=== PATIENT | male | born 1945 | race Caucasian/White ===

== ENCOUNTER 2023-01-13 14:16 | Inpatient (IN) | payer MEDICARE, SELFPAY ==
[2023-01-13] VITALS (11 sets, daily range): BP systolic 115–144; BP diastolic 48–70; PULSE 99–105; RESP 16–26; TEMP 36.4–37.1; O2SAT 95–98; BMI 26.0
--- NOTE | ~2023-01-13 | XR_ITS ---
EXAMINATION: XR CHEST CLINICAL INFORMATION: Cough COMPARISON: None available. TECHNIQUE: Frontal view of the chest was obtained. FINDINGS: Peribronchial thickening with coarsened interstitial lung markings suggesting underlying infectious/inflammatory etiology versus pulmonary edema. Slight elevation the right hemidiaphragm. Bilateral low lung volumes. No pneumothorax. Trachea is midline. Cardiomediastinal silhouette is not enlarged. No large pleural effusion. Degenerative changes of the thoracolumbar spine and bilateral, testicular joints. Soft tissues are unremarkable. XR/XR chest 1V IMPRESSION: 1. Peribronchial thickening with coarsened interstitial lung markings suggesting underlying infectious/inflammatory etiology versus pulmonary edema. 2. Slight elevation the right hemidiaphragm. 3. Bilateral low lung volumes.
--- NOTE | ~2023-01-13 | US_ITS ---
EXAMINATION: US ABDOMEN LIMITED CLINICAL INFORMATION: Right upper quadrant pain, jaundice. COMPARISON: CT from the same day TECHNIQUE: Real-time imaging of the right upper quadrant abdominal viscera. FINDINGS: PANCREAS: The visualized proximal portion of the pancreas is unremarkable. The distal portion is obscured secondary to overlying bowel gas. LIVER: The liver appears prominent and demonstrates increased echogenicity with coarsened echotexture. No focal hepatic lesion identified. There is no intrahepatic biliary duct dilatation seen. On Doppler evaluation there is reduced flow detected in the main portal vein, possibly nonocclusive thrombus, with reversal of flow in the left portal vein. GALLBLADDER: The gallbladder is physiologically distended without evidence of stones, sludge, polyps, or wall thickening. COMMON BILE DUCT: Normal in caliber measuring 0.3 cm in diameter. RIGHT KIDNEY: No hydronephrosis. No renal calculi or focal parenchymal lesions. The kidney measures 11.5 cm in maximum dimension. FREE FLUID: Mild US/US abdomen limited IMPRESSION: 1. Findings suggestive of portal hypertension, with reduced flow detected in the main portal vein and reversal of flow in the left portal vein. Of note, the portal vein does appear patent on today's earlier contrast-enhanced CT. 2. Mild volume ascites.
--- NOTE | ~2023-01-13 | CT_ITS ---
EXAMINATION: CT HEAD WITHOUT CONTRAST CLINICAL INFORMATION: Altered mental status COMPARISON: None available. TECHNIQUE: Contiguous axial imaging was performed from the skull base to vertex without intravenous administration of contrast. This CT examination was performed using dose optimization techniques as appropriate, variously including the following: *Automated exposure control *Adjustment of mA and/or kV according to patient size (this includes techniques or standardized protocols for targeted exams where dose is matched to indication/reason for exam; i.e. extremities or head) *Use of iterative reconstruction technique DLP: 666 mGy-cm FINDINGS: There is no midline shift. There is no mass effect. There is no hemorrhage. The basal cisterns appear patent. The posterior fossa is grossly within normal limits. No extra-axial collection. Note is made of atrophy and probable scattered white matter ischemic change. The partially visualized sinuses are grossly clear. CT/CT head/brain wo IV con IMPRESSION: Negative acute noncontrast CT of the brain.
--- NOTE | ~2023-01-13 | CT_ITS ---
EXAMINATION: CT ABDOMEN AND PELVIS WITH CONTRAST CLINICAL INFORMATION: Worsening abdominal distention, bruising and paracentesis site. COMPARISON: CT abdomen and pelvis 01/13/2023. TECHNIQUE: Multidetector volumetric images were obtained from the superior aspect of the liver through the pubic symphysis following administration 85 mL of Omnipaque 350 intravenous contrast. Sagittal and coronal reformatted images were obtained on the technologist's workstation. Oral contrast: No This CT examination was performed using dose optimization techniques as appropriate, variously including the following: *Automated exposure control *Adjustment of mA and/or kV according to patient size (this includes techniques or standardized protocols for targeted exams where dose is matched to indication/reason for exam; i.e. extremities or head) *Use of iterative reconstruction technique DLP: 599 mGy-cm FINDINGS: LUNG BASES: Small bilateral pleural effusions. Chronic changes at the lung bases. LIVER, GALLBLADDER, AND BILIARY TREE: Hepatic steatosis with sparing along the gallbladder fossa, heterogeneous liver, relative hypertrophy of the left hepatic lobe and caudate with hypotrophy of the right hepatic lobe consistent with cirrhosis. Recanalized umbilical vein. No biliary ductal dilatation. Gallbladder is not distended. No radiopaque gallstones. PANCREAS: No discrete pancreatic mass or ductal dilatation. SPLEEN: Splenic granuloma. The spleen is mildly enlarged at 12.8 cm. ADRENAL GLANDS: No adrenal mass. KIDNEYS AND URETERS: The kidneys are normal in size, shape, and attenuation. No hydronephrosis, hydroureter, or calculi seen. No perinephric stranding. BLADDER: Unremarkable. GASTROINTESTINAL TRACT: There are esophageal varices along the lower esophagus. The small and large bowel are normal in caliber. No evidence of bowel obstruction. Small volume of ascites which measures simple density. ABDOMINAL WALL: No significant hernia. There is anasarca. More focal fluid along the left lower quadrant abdominal wall is consistent with the reported history of bruising. There is no discrete collection. There is no contrast blush to suggest active extravasation. LYMPH NODES: No adenopathy. VASCULAR: No aortic aneurysm. Atherosclerotic disease. PELVIC VISCERA: The prostate and seminal vesicles are unremarkable. OSSEOUS STRUCTURES: Degenerative changes in the spine. Severe degenerative changes in the right hip and moderate degenerative changes in the left hip. CT/CT abdomen pelvis w IV con IMPRESSION: Stable overall small volume of simple density ascites. Generalized anasarca with more focal fluid along the left abdominal wall consistent with the history of bruising at the paracentesis site. There is no focal fluid collection to suggest hematoma and there is no active extravasation of contrast. Cirrhosis with portal hypertension, ascites, splenomegaly, esophageal varices. Small bilateral pleural effusions. Fleischner guidelines were followed.
--- NOTE | ~2023-01-13 | US_ITS ---
EXAMINATION: Ultrasound-guided paracentesis. CLINICAL INDICATIONS: Ascites: TECHNIQUE: Following explaining ultrasound-guided paracentesis procedure, benefits and risk, a written consent was obtained. Patient was placed supine on ultrasound stretcher and pulmonary ultrasound imaging was obtained through the abdomen. An optimal site was selected along the left mid to lower quadrant following preliminary ultrasound imaging. The optimal site was marked on the skin and draped in usual sterile manner with 2% chlorhexidine solution. 1% lidocaine was injected puncture site. Through a small skin incision a 5 Ivorian Yueh catheter was advanced into the peritoneal space. After observing fluid return, stylet was withdrawn and 50 mL syringe attached to the Yueh catheter. Approximately 40 mL of clear yellowish fluid was aspirated and sent to lab. The catheter was subsequently removed and complete hemostasis achieved from puncture site. Simple Band-Aid applied postprocedure. Patient tolerated procedure extremely well. FINDINGS: On pulmonary ultrasound imaging there is a small amount of free fluid seen in the left lower quadrant. Approximately 40 mL of clear yellowish fluid was drained from the left lower quadrant and sent to lab as per referring physician's orders. US/US paracentesis abd w/image IMPRESSION: Successful diagnostic paracentesis performed without immediate complications.
--- NOTE | ~2023-01-13 | CT_ITS ---
EXAMINATION: CT CHEST WITHOUT CONTRAST CLINICAL INFORMATION: Fever. Question pneumonia. COMPARISON: Previous CT of the chest December 2022 and abdomen and pelvis 01/17/2023 TECHNIQUE: Multidetector volumetric CT imaging of the chest was done. Axial MIP volume rendering provided. Sagittal and coronal reformatted images were obtained. This CT examination was performed using dose optimization techniques as appropriate, variously including the following: *Automated exposure control *Adjustment of mA and/or kV according to patient size (this includes techniques or standardized protocols for targeted exams where dose is matched to indication/reason for exam; i.e. extremities or head) *Use of iterative reconstruction technique DLP: 262 mGy-cm FINDINGS: LUNGS: Increased peripheral or subpleural reticular markings. This is seen diffusely throughout the lungs but greatest at the lung bases. There is mild right lower lobe bronchiolectasis. No honeycombing is seen. There is some new patchy areas of groundglass attenuation seen in the right upper lobe and denser areas of atelectasis or consolidation in both dependent lower lobes at the lung bases questionable for pneumonia versus acute alveolitis. Irregular parenchymal density in the right upper lobe axial image 23 series 2 appears unchanged. MEDIASTINUM: Small calcified and noncalcified mediastinal and hilar lymph nodes. No enlarged lymph nodes. Upper normal heart size. No pericardial effusion. Atherosclerotic disease. Normal caliber thoracic aorta. CORONARY ARTERY CALCIFICATION: Moderate PLEURA: New small bilateral pleural effusions, left greater than right. AXILLA: No lymphadenopathy. Dependent subcutaneous edema in the chest wall. UPPER ABDOMEN: Enlarged fatty liver. Small amount of ascites. OSSEOUS STRUCTURES: Degenerative changes of the spine. CT/CT chest wo IV con IMPRESSION: Evidence of interstitial lung disease. New patchy groundglass attenuation areas in the right upper lobe and denser atelectasis or small infiltrates in the dependent bilateral lower lobes. Stable abnormal parenchymal density in the right upper lobe. Again, right upper lobe neoplasm cannot be excluded. New small bilateral pleural effusions, left greater than right. Fleischner guidelines were followed.
--- NOTE | ~2023-01-13 | XR_ITS ---
EXAMINATION: XR LUMBOSACRAL SPINE CLINICAL INFORMATION: Chronic low back pain. COMPARISON: CT abdomen of 01/17/2023 and 01/13/2023. TECHNIQUE: Three views of the lumbosacral spine. FINDINGS: There are 5 nonrib-bearing lumbar vertebrae present. There is an inferior endplate compression fracture of T12 without significant loss of height. This was present on recent CT scan of the abdomen of 01/13/2023. There is marked narrowing of the L2-L3 disc space with marginal spurring. There is multilevel lateral spurring of the lumbar spine. There is sacralization of the left side of L5. There is bilateral facet arthropathy present L3 through S1. There is severe degenerative joint disease seen involving the right hip with loss of joint space superiorly, prominent spurring, subchondral cyst formation, and femoral head deformity superiorly. Nonaneurysmal calcified infrarenal abdominal aorta is present. XR/XR lumbar spine 2-3V IMPRESSION: Multilevel lumbar spondylosis without acute fracture or spondylolisthesis identified since recent CT scan of 01/13/2023. Sacralization left side of L5. Inferior endplate compression fracture of T12 without significant loss of height.
--- NOTE | ~2023-01-13 | US_ITS ---
EXAMINATION: Ultrasound-guided paracentesis CLINICAL INFORMATION: Ascites COMPARISON: Previous CT 01/17/2023 and ultrasound-guided paracentesis 12/20/19292022 TECHNIQUE: Procedure and risks and benefits including bleeding and infection were discussed with the patient and informed consent was obtained. The left lower quadrant was prepped and draped in the usual sterile fashion. The skin and soft tissues were anesthetized with 1% lidocaine plain. Using ultrasound guidance and a 5 Polish one stick system, access to the ascitic fluid was obtained. 1.9 L of dark clear yellow fluid was removed. Diagnostic specimen was sent. FINDINGS: There is a small to moderate amount of ascites. US/US paracentesis abd w/image IMPRESSION: Ultrasound-guided paracentesis.
--- NOTE | ~2023-01-13 | CT_ITS ---
Indication: Shortness of breath EXAMINATION: Contrast enhanced CT of the chest abdomen pelvis. 85 mL Omnipaque 350. This CT examination was performed using dose optimization techniques as appropriate, variously including the following: *Automated exposure control *Adjustment of mA and/or kV according to patient size (this includes techniques or standardized protocols for targeted exams where dose is matched to indication/reason for exam; i.e. extremities or head) *Use of iterative reconstruction technique. Radiation dose 442. CT chest; The thoracic inlet is within normal limits. The axillary regions are unremarkable. Mild to moderate coronary calcifications. There is no bulky central adenopathy. The hilar structures are felt to be unremarkable. Imaging of the lung handy. Right lung; Evidence of COPD. There is a density in the right upper lung. Image 194. Measures 1.2 cm. Findings suggest spiculation in the margins. Tumor needs to be considered. Coarse reticular honeycombing is seen in the lungs. Left lung; Motion limits evaluation. Again some coarse reticular markings and honeycombing most noted at the bases and periphery of the lungs similar to the contralateral side. Upper abdomen; Liver is heterogeneous in attenuation of uncertain etiology. The liver contour is corrugated. Findings would favor cirrhosis. Mild ascites in the upper abdomen and mild in the pelvis. The spleen is within normal limits. . The gallbladder is within normal limits The pancreas is felt to be unremarkable. Adrenal glands within normal limits. The kidneys are in the nephrographic phase. Within normal limits Mildly thick-walled bladder could be cystitis or hypertrophy The bowel pattern is felt to be nonobstructing. The abdominal wall is within normal limits. There is no evidence for bulky adenopathy. Atherosclerotic changes in the vasculature is noted. Review of the bone windows does not demonstrate evidence for bony lesion. Degenerative change. Severe degeneration in the right hip. Mild compression injury in the inferior endplate 12 but there is preservation of the posterior height. CT/CT abdomen pelvis w IV con IMPRESSION: In the chest there is evidence of COPD. Density in the right upper lung as described. Malignancy needs to be considered. Recommend PET/CT at this time to further evaluate. Mild ascites in the abdomen pelvis and corrugated contour to the liver which would be consistent with cirrhosis. Liver is heterogeneous in attenuation. Recommend ultrasound or MRI to exclude an underlying lesion Other findings are as described above
--- NOTE | 2023-01-13 14:48 | ECG_ITS ---
Test Reason : LIVER DZ Blood Pressure : / mmHG Vent. Rate : 107 BPM Atrial Rate : 107 BPM P-R Int : 168 ms QRS Dur : 068 ms QT Int : 366 ms P-R-T Axes : 033 -06 033 degrees QTc Int : 488 ms Sinus tachycardia Nonspecific T wave abnormality Abnormal ECG No previous ECGs available Referred By: Whitney Garcia Electronically Signed By:ALLYSON LALA MD
--- NOTE | 2023-01-13 15:18 | ED.GENADULT ---
HPI - General Adult General Stated complaint: WEAK,JAUNDICE,DISTENDED ABD PER EMS Time Seen by Provider: 01/13/23 14:36 Source: patient, family and EMS Mode of arrival: EMS History of Present Illness HPI narrative: 77-year-old male who arrives via EMS with significant weakness, jaundice, mildly distended abdomen, patient himself struggles to be a good historian, he is unaware where he is currently but otherwise states that he has not had any falls recently denies any did nausea or vomiting, denies any fever or chills or shortness of breath. He does endorse that he has had bloody stools. In addition, patient reports that he used to drink a lot of alcohol. Related Data Allergies Allergy/AdvReac Type Severity Reaction Status Date / Time Unable to Assess Allergy Verified 01/13/23 14:48 Review of Systems Review of Systems: Pertinent positives and negatives as stated in HPI but limited given patient's mental status. PMFSH Past Medical History Source: nursing notes reviewed Social History Social History Advance Directives: No Physical Exam ED Vital Signs: Vital Signs - 24 hr 01/13/23 15:18 01/13/23 16:00 Temperature 97.7 F Pulse Rate 103 H 99 Respiratory Rate 19 26 H Blood Pressure 136/58 L 134/61 Pulse Oximetry 96 95 Oxygen Delivery Method Room Air Room Air VITAL SIGNS: Reviewed. GENERAL: Well developed, well nourished, in no acute distress. HEAD: Normocephalic/atraumatic EYES: PERRLA, EOMI, bilateral scleral icterus EARS: Ext canals without abnormality, TMs non-bulging and non-erythematous NOSE: Nares patent bilateral OROPHARYNX: no oral lesions noted, posterior pharynx clear, dry mucosa NECK: Supple, no adenopathy LUNGS: Normal breath sounds. No adventitious sounds or accessory muscle use. SpO2<95> CARDIOVASCULAR: Regular rate and rhythm without noted murmurs, no JVD or lower extremity edema. ABDOMEN: Soft, diffuse tenderness to palpation, bilateral flank ecchymosis noted, non-distended with hypoactive bowel sounds ANJANA: There is significant superficial desquamation of the surrounding anal rectal area, please refer to attached images, there is an inflamed hemorrhoid, soft stool within the rectal vault that is melanotic in nature no gross hematochezia noted MUSCULOSKELETAL: No tenderness, deformities, or effusions noted on gross inspection, but considerable ecchymotic areas noted to all extremities. EXTREMITIES: No cyanosis, clubbing or edema. SKIN: Inspection of the skin reveals no rashes, significant jaundice NEUROLOGIC: Alert and oriented x 2. Strength and sensation to light touch were grossly intact x 4. Medical Decision Making Medical Decision Making [facility] Narrative: This is a 77-year-old male with history and clinical presentation, DDX: Metabolic encephalopathy, liver failure, GI bleed, possible pancreatic pathology as it is unclear whether not the ecchymosis noted to bilateral flanks is consistent with Higgins Reynolds sign or simply indicative of falls that the patient does not recall. I have reviewed the investigations this far and hematologic indices are consistent with a leukocytosis/left shift and bandemia which may in part be explained by hemo concentration, however will treat by obtaining lactic acid/blood cultures as well as administering antibiotics. Signed out to Dr. Kurtz Differential Diagnosis Differential Diagnoses: The differential diagnosis associated with the presentation includes Please see the discussion above Admission/Observation Consideration of admission/observation: Escalation of care including admission/observation considered Please see the discussion above Lab Data [facility] Lab Attestation statement: I reviewed the patient's lab results. Please see the discussion above 01/13/23 15:38 01/13/23 15:38 Labs: Lab Results 01/13/23 01/13/23 01/13/23 Range/Units 15:37 15:38 15:38 WBC 18.8 H (4.8-10.8) X10*3/uL RBC 3.39 L (4.60-5.80) X10*6/uL Hgb 11.3 L (14.0-18.0) g/dl Hct 30.3 L (42.0-52.0) % MCV 89.4 (80.0-98.0) fL MCH 33.3 H (27.0-33.0) pg MCHC 37.3 H (31.0-36.0) g/dl RDW 14.9 (11.0-16.0) % Plt Count 248 (160-400) X10*3/uL MPV 10.4 (9.4-12.4) fL Immature Gran % (Auto) 3.0 H (0.0-0.4) % Neut % (Auto) 84.8 H (45-73) % Lymph % (Auto) 4.0 L (20-40) % Callahan % (Auto) 7.4 (2-11) % Eos % (Auto) 0.4 (0-4) % Baso % (Auto) 0.4 (0-2) % Lymph # (Auto) 0.8 L (1.2-4.9) X10*3/uL Callahan # (Auto) 1.4 H (0.1-1.2) X10*3/uL Eos # (Auto) 0.1 (0.0-0.4) X10*3/uL Baso # (Auto) 0.1 (0.0-0.2) X10*3/uL Abs Immat Gran (auto) 0.57 H (0.00-0.03) X10*3/uL Absolute Neuts (auto) 16.0 H (2.0-8.3) x10*3/uL Absolute Nucleated RBC 0.020 H (0.0-0.012) X10*3/uL Nucleated RBC % (auto) 0.1 (0.0-0.2) /100WBC PT 23.6 H (11.1-13.3) SEC INR 1.9 H (0.9-1.1) Sodium (135-145) mmol/L Potassium (3.3-5.1) mmol/L Chloride (96-108) mmol/L Carbon Dioxide (22-29) mmol/L Anion Gap (12-20) BUN (9-16) mg/dL Creatinine (0.5-1.4) mg/dL Estim Creat Clear Calc Estimated GFR Random Glucose (60-115) mg/dL Lactic Acid 2.5 H* (0.5-2.0) mmol/L Calcium (8.4-10.2) mg/dL Total Bilirubin (0.0-1.0) mg/dL AST (5-37) U/L ALT (0-40) U/L Alkaline Phosphatase (39-117) U/L Ammonia (13-55) umol/L Troponin I High Sens (<3.5-35.0) ng/L Total Protein (6.5-8.0) g/dL Albumin (3.5-5.0) g/dL Urine Color Urine Appearance Urine pH (5.0-9.0) Ur Specific [place] (1.005-1.025) Urine Protein (Neg-Trace) mg/dL Urine Glucose (UA) (Negative) mg/dL Urine Ketones (Negative) mg/dL Urine Blood (Negative) Urine Nitrite (Negative) Ur Leukocyte Esterase (Negative) Urine RBC (0-2) /HPF Urine WBC (0-5) /HPF Ur Squamous Epith Cells (0-2) /HPF Urine Bacteria (None Seen) Hyaline Casts (0-2) /LPF Stool Occult Blood (NEGATIVE) 01/13/23 01/13/23 01/13/23 Range/Units 15:38 15:39 15:46 WBC (4.8-10.8) X10*3/uL RBC (4.60-5.80) X10*6/uL Hgb (14.0-18.0) g/dl Hct (42.0-52.0) % MCV (80.0-98.0) fL MCH (27.0-33.0) pg MCHC (31.0-36.0) g/dl RDW (11.0-16.0) % Plt Count (160-400) X10*3/uL MPV (9.4-12.4) fL Immature Gran % (Auto) (0.0-0.4) % Neut % (Auto) (45-73) % Lymph % (Auto) (20-40) % Callahan % (Auto) (2-11) % Eos % (Auto) (0-4) % Baso % (Auto) (0-2) % Lymph # (Auto) (1.2-4.9) X10*3/uL Callahan # (Auto) (0.1-1.2) X10*3/uL Eos # (Auto) (0.0-0.4) X10*3/uL Baso # (Auto) (0.0-0.2) X10*3/uL Abs Immat Gran (auto) (0.00-0.03) X10*3/uL Absolute Neuts (auto) (2.0-8.3) x10*3/uL Absolute Nucleated RBC (0.0-0.012) X10*3/uL Nucleated RBC % (auto) (0.0-0.2) /100WBC PT (11.1-13.3) SEC INR (0.9-1.1) Sodium 126 L (135-145) mmol/L Potassium 4.6 (3.3-5.1) mmol/L Chloride 94 L (96-108) mmol/L Carbon Dioxide 21 L (22-29) mmol/L Anion Gap 16 (12-20) BUN 36 H (9-16) mg/dL Creatinine 0.62 (0.5-1.4) mg/dL Estim Creat Clear Calc TNP Estimated GFR > 60 Random Glucose 130 H (60-115) mg/dL Lactic Acid (0.5-2.0) mmol/L Calcium 8.2 L (8.4-10.2) mg/dL Total Bilirubin 25.0 H (0.0-1.0) mg/dL AST 115 H (5-37) U/L ALT 46 H (0-40) U/L Alkaline Phosphatase 146 H (39-117) U/L Ammonia 79 H (13-55) umol/L Troponin I High Sens < 2.7 (<3.5-35.0) ng/L Total Protein 5.5 L (6.5-8.0) g/dL Albumin 2.5 L (3.5-5.0) g/dL Urine Color Urine Appearance Urine pH (5.0-9.0) Ur Specific [place] (1.005-1.025) Urine Protein (Neg-Trace) mg/dL Urine Glucose (UA) (Negative) mg/dL Urine Ketones (Negative) mg/dL Urine Blood (Negative) Urine Nitrite (Negative) Ur Leukocyte Esterase (Negative) Urine RBC (0-2) /HPF Urine WBC (0-5) /HPF Ur Squamous Epith Cells (0-2) /HPF Urine Bacteria (None Seen) Hyaline Casts (0-2) /LPF Stool Occult Blood (NEGATIVE) 01/13/23 01/13/23 Range/Units 15:57 16:13 WBC (4.8-10.8) X10*3/uL RBC (4.60-5.80) X10*6/uL Hgb (14.0-18.0) g/dl Hct (42.0-52.0) % MCV (80.0-98.0) fL MCH (27.0-33.0) pg MCHC (31.0-36.0) g/dl RDW (11.0-16.0) % Plt Count (160-400) X10*3/uL MPV (9.4-12.4) fL Immature Gran % (Auto) (0.0-0.4) % Neut % (Auto) (45-73) % Lymph % (Auto) (20-40) % Callahan % (Auto) (2-11) % Eos % (Auto) (0-4) % Baso % (Auto) (0-2) % Lymph # (Auto) (1.2-4.9) X10*3/uL [place]ahan # (Auto) (0.1-1.2) X10*3/uL Eos # (Auto) (0.0-0.4) X10*3/uL Baso # (Auto) (0.0-0.2) X10*3/uL Abs Immat Gran (auto) (0.00-0.03) X10*3/uL Absolute Neuts (auto) (2.0-8.3) x10*3/uL Absolute Nucleated RBC (0.0-0.012) X10*3/uL Nucleated RBC % (auto) (0.0-0.2) /100WBC PT (11.1-13.3) SEC INR (0.9-1.1) Sodium (135-145) mmol/L Potassium (3.3-5.1) mmol/L Chloride (96-108) mmol/L Carbon Dioxide (22-29) mmol/L Anion Gap (12-20) BUN (9-16) mg/dL Creatinine (0.5-1.4) mg/dL Estim Creat Clear Calc Estimated GFR Random Glucose (60-115) mg/dL Lactic Acid (0.5-2.0) mmol/L Calcium (8.4-10.2) mg/dL Total Bilirubin (0.0-1.0) mg/dL AST (5-37) U/L ALT (0-40) U/L Alkaline Phosphatase (39-117) U/L Ammonia (13-55) umol/L Troponin I High Sens (<3.5-35.0) ng/L Total Protein (6.5-8.0) g/dL Albumin (3.5-5.0) g/dL Urine Color Dark Yellow Urine Appearance Cloudy Urine pH 6.0 (5.0-9.0) Ur Specific [place] 1.020 (1.005-1.025) Urine Protein Trace (Neg-Trace) mg/dL Urine Glucose (UA) Negative (Negative) mg/dL Urine Ketones Negative (Negative) mg/dL Urine Blood Negative (Negative) Urine Nitrite Positive H (Negative) Ur Leukocyte Esterase Small (1+) H (Negative) Urine RBC 0-2 (0-2) /HPF Urine WBC 0-5 (0-5) /HPF Ur Squamous Epith Cells 0-2 (0-2) /HPF Urine Bacteria None Seen (None Seen) Hyaline Casts 0-2 (0-2) /LPF Stool Occult Blood POSITIVE (NEGATIVE) Independent Interpretation I performed an independent interpretation of an: EKG Interpretation: Sinus tachycardia, HR-107, no STEMI, [place]/QRS/QTC is within normal limits. External Record Review Records requested from [facility] and Critical Care Time Critical Care Time Critical Care Time: Yes Total Critical Care Time: 45 Attestation: I personally attest to this time spent taking care of the patient. Discharge Plan Discharge Clinical Impression: Metabolic encephalopathy, Hyperammonemia Patient Disposition: Still a Patient
[2023-01-13 15:54] LABS: MANUAL DIFF FLAG NO
[2023-01-13 15:55] LABS: Basophils Absolute Auto 0.1 X10*3/uL (0.0-0.2); Basophils Percent Auto 0.4 % (0-2); Eosinophils Absolute Auto 0.1 X10*3/uL (0.0-0.4); Eosinophils Percent Auto 0.4 % (0-4); Hematocrit 30.3 % (42.0-52.0); Hemoglobin 11.3 g/dl (14.0-18.0); Imm Gran Abs Auto 0.57 X10*3/uL (0.00-0.03); Lymphocytes Absolute Auto 0.8 X10*3/uL (1.2-4.9); Mean Corpuscular HGB Conc 37.3 g/dl (31.0-36.0); Mean Corpuscular Hemoglobin 33.3 pg (27.0-33.0); Mean Corpuscular Volume 89.4 fL (80.0-98.0); Mean Platelet Volume 10.4 fL (9.4-12.4); Monocytes Absolute Auto 1.4 X10*3/uL (0.1-1.2); Monocytes Percent Auto 7.4 % (2-11); NRBC Pct Auto 0.1 /100WBC (0.0-0.2); Neutrophils Percent Auto 84.8 % (45-73); Platelet Count 248 X10*3/uL (160-400); Red Blood Count 3.39 X10*6/uL (4.60-5.80); Red Cell Distribution Width 14.9 % (11.0-16.0); White Blood Count 18.8 X10*3/uL (4.8-10.8)
[2023-01-13 16:01] LABS: INTERNATIONAL NORM RATIO 1.9 (0.9-1.1); Prothrombin Time 23.6 SEC (11.1-13.3)
[2023-01-13 16:04] LABS: OBS1 POSITIVE (NEGATIVE)
[2023-01-13 16:05] LABS: OBS Int Ctl Valid YES
[2023-01-13 16:08] LABS: Ammonia 79 umol/L (13-55)
[2023-01-13 16:19] LABS: Alanine Aminotransferase 46 U/L (0-40); Albumin Level 2.5 g/dL (3.5-5.0); Alkaline Phosphatase 146 U/L (39-117); Anion Gap 16 (12-20); Aspartate Amino Transferase 115 U/L (5-37); Blood Urea Nitrogen 36 mg/dL (9-16); Calcium 8.2 mg/dL (8.4-10.2); Carbon Dioxide 21 mmol/L (22-29); Chloride 94 mmol/L (96-108); Estimated Glomerular Filt Rate > 60; Glucose Random 130 mg/dL (60-115); Potassium 4.6 mmol/L (3.3-5.1); Sodium 126 mmol/L (135-145); Total Protein 5.5 g/dL (6.5-8.0)
[2023-01-13 16:21] LABS: Lactic Acid 2.5 mmol/L (0.5-2.0)
[2023-01-13 16:23] LABS: Troponin-I High Sensitivity < 2.7 ng/L (<3.5-35.0)
[2023-01-13 16:23] LABS: Appearance Urine Cloudy; Color Urine Dark Yellow; Glucose Urine UA Negative (Negative); Leukocyte Esterase Urine Small (1+) (Negative); Nitrite Urine Positive (Negative); UMIC TRIGGER UACC YES; Urine Blood Negative (Negative); Urine Ketones Negative (Negative); Urine Protein Trace mg/dL (Neg-Trace)
--- NOTE | 2023-01-13 16:26 | PC.NURSE ---
labs, urine, stool guiac sent, blood bank sent. blood culture x2 in process of being drawn.voided x1 400+cc. family at bedside. talking w/o distress. piv placed.
[2023-01-13 16:30] LABS: Bacteria Urine None Seen (None Seen); Hyaline Casts Urine 0-2 /LPF (0-2); RBC Urine 0-2 /HPF (0-2); Squamous Epithelial Cell Urine 0-2 /HPF (0-2); UACC Culture Trigger YES; WBC Urine 0-5 /HPF (0-5)
--- NOTE | 2023-01-13 17:07 | PC.NURSE ---
called pharmacy to confirm that cefepime is not penicillin as pt has allergy to PCNs per family
[2023-01-13 17:17] LABS: Ethanol < 10 mg/dL
[2023-01-13] MEDS: cefEPime HCl 2 GM in 0.9 % Sodium Chloride 50 ML IV (17:24)
--- NOTE | 2023-01-13 17:29 | PC.NURSE ---
pharmacy/md lara confirmed cefepime ok to give w PCN allergy. pt in CT scan
[2023-01-13 17:52] LABS: Reflex Lactate? Lactic Acid Added
[2023-01-13] MEDS: Lactulose 20 GM/30 ML SOLUTION 10 GM PO (17:57)
[2023-01-13] MEDS: Pantoprazole Sodium 40 MG/10 ML VIAL 80 MG IVPUSH (17:58)
--- NOTE | 2023-01-13 18:04 | PC.NURSE ---
resting calm coopreative. no distress. back from ct scan
[2023-01-13] MEDS: iohexoL 350 MG/ML 100 ML INFUS..BTL IV (18:12)
--- NOTE | 2023-01-13 18:54 | MHC.EDTECH ---
PATIENT WAS SOILED WITH DARK STOOL,RN AWARE OF DARK STOOL ,CARE GIVEN AND BEDDING CHANGE ,VITALS SIGN TAKEN .
--- NOTE | 2023-01-13 19:14 | MHC.EDTECH ---
PATIENT LACTIC ACID DRAWN AND SENT TO LAB .
[2023-01-13 20:15] LABS: ~Lactic Acid-LAB USE ONLY 2.3 mmol/L (0.5-2.0)
[2023-01-13 21:16] LABS: Reflex Lactate? 2 Y
--- NOTE | 2023-01-13 21:17 | MHC.EDTECH ---
PATIENT HAS A LARGE LOOSE BLACK BOWEL MOVEMENT IN THE BED ,CARE GIVEN AND BEDDING CHANGE ,VITALS SIGN TAKEN ,PT RESTING QUIETLY IN BED BELONGINGS LIST DONE .
[2023-01-13 21:21] LABS: OBS Int Ctl Valid YES; OBS1 POSITIVE (NEGATIVE)
--- NOTE | 2023-01-13 21:45 | P.HPHOSP_ITS ---
History of Present Illness Date of Service: 01/13/23 Attending physician on admission: Alejandro Price Chief Complaint: Generalized weakness Pt is a 77-year-old male with a PMH significant for? who presents to the ED with? In the ED labs were significant for CXR showed CT? EKG demonstrated Pt was treated with Pt will be admitted to the hospital [facility] Social History Alcohol intake: former Smoked in Last 30 Days: No Use of substances other than those prescribed or required for medical reasons: No Advance Directives: No Meds Allergies Allergy/AdvReac Type Severity Reaction Status Date / Time Penicillins Allergy Anaphylaxis Verified 01/13/23 17:00 Physical Exam Vital Signs and Narrative: Vital Signs: Last Vital Signs Temp 98.5 F 01/13/23 21:13 Pulse 104 H 01/13/23 21:13 Resp 20 01/13/23 21:13 BP 131/60 01/13/23 21:13 Pulse Ox 98 01/13/23 21:13 O2 Del Method Room Air 01/13/23 21:13 BMI result Body Mass Index 26.0 Results Labs 01/13/23 15:38 01/13/23 15:38 Labs: Laboratory Results - last 24 hr 01/13/23 01/13/23 01/13/23 15:37 15:38 15:38 MCV 89.4 MCH 33.3 H MCHC 37.3 H RDW 14.9 Plt Count 248 MPV 10.4 Immature Gran % (Auto) 3.0 H Neut % (Auto) 84.8 H Lymph % (Auto) 4.0 L [place] % (Auto) 7.4 Eos % (Auto) 0.4 Baso % (Auto) 0.4 Lymph # (Auto) 0.8 L [place] # (Auto) 1.4 H Eos # (Auto) 0.1 Baso # (Auto) 0.1 Abs Immat Gran (auto) 0.57 H Absolute Neuts (auto) 16.0 H Absolute Nucleated RBC 0.020 H Nucleated RBC % (auto) 0.1 PT 23.6 H INR 1.9 H Anion Gap Estim Creat Clear Calc Estimated GFR Random Glucose Lactic Acid 2.5 H* Lactic Acid F/U @ 2Hr Calcium Total Bilirubin AST ALT Alkaline Phosphatase Ammonia Total Protein Albumin Urine Color Urine Appearance Urine pH Ur Specific [place] Urine Protein Urine Glucose (UA) Urine Ketones Urine Blood Urine Nitrite Ur Leukocyte Esterase Urine RBC Urine WBC Ur Squamous Epith Cells Urine Bacteria Hyaline Casts Stool Occult Blood Ethyl Alcohol Blood Type Antibody Screen 01/13/23 01/13/23 01/13/23 15:38 15:39 15:57 MCV MCH MCHC RDW Plt Count MPV Immature Gran % (Auto) Neut % (Auto) Lymph % (Auto) [place] % (Auto) Eos % (Auto) Baso % (Auto) Lymph # (Auto) [place] # (Auto) Eos # (Auto) Baso # (Auto) Abs Immat Gran (auto) Absolute Neuts (auto) Absolute Nucleated RBC Nucleated RBC % (auto) PT INR Anion Gap 16 Estim Creat Clear Calc TNP Estimated GFR > 60 Random Glucose 130 H Lactic Acid Lactic Acid F/U @ 2Hr Calcium 8.2 L Total Bilirubin 25.0 H AST 115 H ALT 46 H Alkaline Phosphatase 146 H Ammonia 79 H Total Protein 5.5 L Albumin 2.5 L Urine Color Urine Appearance Urine pH Ur Specific [place] Urine Protein Urine Glucose (UA) Urine Ketones Urine Blood Urine Nitrite Ur Leukocyte Esterase Urine RBC Urine WBC Ur Squamous Epith Cells Urine Bacteria Hyaline Casts Stool Occult Blood POSITIVE Ethyl Alcohol < 10 Blood Type Antibody Screen 01/13/23 01/13/23 01/13/23 15:57 16:13 19:13 MCV MCH MCHC RDW Plt Count MPV Immature Gran % (Auto) Neut % (Auto) Lymph % (Auto) [place] % (Auto) Eos % (Auto) Baso % (Auto) Lymph # (Auto) [place] # (Auto) Eos # (Auto) Baso # (Auto) Abs Immat Gran (auto) Absolute Neuts (auto) Absolute Nucleated RBC Nucleated RBC % (auto) PT INR Anion Gap Estim Creat Clear Calc Estimated GFR Random Glucose Lactic Acid Lactic Acid F/U @ 2Hr 2.3 H* Calcium Total Bilirubin AST ALT Alkaline Phosphatase Ammonia Total Protein Albumin Urine Color Dark Yellow Urine Appearance Cloudy Urine pH 6.0 Ur Specific [place] 1.020 Urine Protein Trace Urine Glucose (UA) Negative Urine Ketones Negative Urine Blood Negative Urine Nitrite Positive H Ur Leukocyte Esterase Small (1+) H Urine RBC 0-2 Urine WBC 0-5 Ur Squamous Epith Cells 0-2 Urine Bacteria None Seen Hyaline Casts 0-2 Stool Occult Blood Ethyl Alcohol Blood Type O Positive Antibody Screen NEGATIVE 01/13/23 21:15 MCV MCH MCHC RDW Plt Count MPV Immature Gran % (Auto) Neut % (Auto) Lymph % (Auto) [place] % (Auto) Eos % (Auto) Baso % (Auto) Lymph # (Auto) [place] # (Auto) Eos # (Auto) Baso # (Auto) Abs Immat Gran (auto) Absolute Neuts (auto) Absolute Nucleated RBC Nucleated RBC % (auto) PT INR Anion Gap Estim Creat Clear Calc Estimated GFR Random Glucose Lactic Acid Lactic Acid F/U @ 2Hr Calcium Total Bilirubin AST ALT Alkaline Phosphatase Ammonia Total Protein Albumin Urine Color Urine Appearance Urine pH Ur Specific [place] Urine Protein Urine Glucose (UA) Urine Ketones Urine Blood Urine Nitrite Ur Leukocyte Esterase Urine RBC Urine WBC Ur Squamous Epith Cells Urine Bacteria Hyaline Casts Stool Occult Blood POSITIVE Ethyl Alcohol Blood Type Antibody Screen Imaging Radiologist's Impressions: Impressions Chest X-Ray 01/13/23 14:50 IMPRESSION: 1. Peribronchial thickening with coarsened interstitial lung markings suggesting underlying infectious/inflammatory etiology versus pulmonary edema. 2. Slight elevation the right hemidiaphragm. 3. Bilateral low lung volumes. Abdomen/Pelvis CT 01/13/23 18:14 IMPRESSION: In the chest there is evidence of COPD. Density in the right upper lung as described. Malignancy needs to be considered. Recommend PET/CT at this time to further evaluate. Mild ascites in the abdomen pelvis and corrugated contour to the liver which would be consistent with cirrhosis. Liver is heterogeneous in attenuation. Recommend ultrasound or MRI to exclude an underlying lesion Other findings are as described above Chest CT 01/13/23 18:14 IMPRESSION: In the chest there is evidence of COPD. Density in the right upper lung as described. Malignancy needs to be considered. Recommend PET/CT at this time to further evaluate. Mild ascites in the abdomen pelvis and corrugated contour to the liver which would be consistent with cirrhosis. Liver is heterogeneous in attenuation. Recommend ultrasound or MRI to exclude an underlying lesion Other findings are as described above Head CT 01/13/23 18:14 IMPRESSION: Negative acute noncontrast CT of the brain. Assessment and Plan Plan Acute hepatitis Will check hepatitis panel Liver cirrhosis Will check right upper quadrant abdominal ultrasound Hyponatremia Sodium 126 at time of presentation Likely secondary to hypovolemia and cirrhosis Will give albumin 25gm x2 doses Will reach out to nephrology for input Generalized weakness/fall Lactic acidosis Time Spent With Patient Time: Total time managing care of this patient today ____ minutes.
--- NOTE | 2023-01-13 22:03 | MHC.EDTECH ---
patient had another large amount of black stool ,care given , blood drawn and sent to lab .
[2023-01-13 22:16] LABS: Hematocrit 27.9 % (42.0-52.0); Hemoglobin 10.6 g/dl (14.0-18.0)
[2023-01-13] MEDS: Albumin Human 25 % 100 ML IV (22:33)
[2023-01-13 22:39] LABS: ~Lactic Acid-LAB USE ONLY 1.7 mmol/L (0.5-2.0)
--- NOTE | 2023-01-13 22:49 | P.PNCC_ITS ---
Critical Care Event Note Summary Date of Service: 01/13/23 Code activated: No Narrative: Case discussed with ER - Dr. Kurtz - briefly 77 y/o gentleman with newly diagnosed liver failure being evaluated for multiple episodes of melena, including during this evaluation. Hemodynamics - SBP 130's, pulse 90's. Lactic acid improved to gustavo. Hb downtrended <1 unit in 7 hours. No BRBPR - thus likely passing digested blood from an earlier bleed. Case disucssed by ER provider with fiber artist and there is no plan for urgent EGD. At this time patient does not require intensive care level of service. Please notify for re-evaluation, if patient's condition changes. Critical Care Time (minutes): 0
--- NOTE | 2023-01-13 23:03 | P.HPHOSP_ITS ---
History of Present Illness Date of Service: 01/13/23 Chief Complaint: Abdominal distension, jaundice, weakness This is a 77-year-old male with no significant documented past medical history comes into the hospital with multiple complaints including jaundice, abdominal distension, generalized weakness where he is now unable to walk. Patient is a poor historian but is alert oriented to self and place. He states that his belly is slightly tender all over, he denies any nausea, no vomiting, but has had diarrhea with black tarry stools for the past several days. He reports no fever or chills. No chest pain, no shortness of breath. Reports that he noticed himself being jaundice about a day ago. He does report a history of heavy drinking but has recently cut down to about 2 to 3 times a week. No history of IV drug use. Not aware of any history of liver disease. He does take of one to 2 times a day- unclear for how long On arrival to the ED patient hemodynamically stable with a slightly elevated h eart rate 100-105, blood pressure stable. On arrival to the ED patient's labs are significant for WBC count of 18.8, hemoglobin of 11.3, hematocrit 30.3, no baseline for comparison, INR 1.9, sodium level of 126, chloride of 94, BUN of 36, lactic acid of 2.5, improved on trending, bilirubin total of 25, AST of 115, ALT of 46, alk-phos of 146, ammonia of 79, troponin negative, albumin of 2.5, UA positive for nitrites and leukocyte Estrace Stool occult positive Abdominal pelvic CT shows in the chest there is evidence of COPD although patient denies history of smoking, density in the right upper lung concerning for malignancy, mild ascites in the abdomen pelvis and liver consistent with cirrhosis. Abdominal ultrasound shows findings suggestive of portal hypertension, Patient will be admitted for further management Review of Systems Review of Systems: Yes all other systems are reviewed and are negative [facility] Medical History No pertinent past medical history Surgical History No pertinent past surgical history Social History Alcohol intake: former Patient Tobacco Use Status: Former Tobacco user Smoked in Last 30 Days: No Use of substances other than those prescribed or required for medical reasons: No Advance Directives: No Nutrition Risks: Poor intake 0-25% >4 days Meds Allergies Allergy/AdvReac Type Severity Reaction Status Date / Time Penicillins Allergy Anaphylaxis Verified 01/13/23 17:00 Active Medications: Current Medications Acetaminophen (Acetaminophen Supp 650 Mg Supp.Rect) 650 mg [place] Q6H PRN PRN Reason: Pain, Mild (Pain Scale 1-3) Albumin Human (Kedbumin 25 %) 100 mls @ 100 mls/hr IV Q1H [facility] Stop: 01/13/23 23:59 Last Admin: 01/13/23 22:33 Dose: 100 mls/hr Phytonadione 10 mg/ Sodium (Chloride) 51 mls @ 51 mls/hr IV ONCE ONE Stop: 01/13/23 23:29 Sodium Chloride (Ns) 100 mls @ 100 mls/hr IV ONCE ONE Stop: 01/13/23 23:29 Sodium Chloride (Ns) 100 mls @ 100 mls/hr IV ONCE ONE Stop: 01/13/23 23:29 Sodium Chloride (Ns) 100 mls @ 100 mls/hr IV ONCE ONE Stop: 01/13/23 23:29 Ceftriaxone Sodium 1 gm/ (Sodium Chloride) 50 mls @ 100 mls/hr IV Q24H [facility] Albumin Human (Kedbumin 25 %) 100 mls @ 100 mls/hr IV Q1H [facility] Stop: 01/14/23 00:59 Octreotide Acetate 500 mcg/ (Sodium Chloride) 501 mls @ 50.1 mls/hr IVCONT .Q10H [facility] Sodium Chloride (Ns) 1,000 mls @ 75 mls/hr IVCONT .[id number] [facility] Ondansetron HCl (Ondansetron Hcl 4 Mg/2 Ml Vial) 4 mg IVPUSH Q8H PRN PRN Reason: Nausea and Vomiting Pantoprazole Sodium (Pantoprazole Sodium 40 Mg/10 Ml Vial) 40 mg IVPUSH BID@0630,1630 [facility] Pharmacy Consult (Consult Rx Perform Med Rec) 1 each MISCELLANE ONCE PRN PRN Reason: Consult order Home Medications Medication Instructions Recorded Confirmed Last Taken Type albuterol sulfate 90 mcg/actuation 2 puff inhalation QID PRN 01/14/23 01/14/23 Unknown History aerosol inhaler Shortness Of Breath Or Wheezing betamethasone dipropionate 0.05 % 1 appl topical 2XW 01/14/23 01/14/23 Unknown History topical ointment calcipotriene 0.005 % topical cream 1 appl topical BID 01/14/23 01/14/23 Unknown History cetirizine 10 mg tablet 10 mg PO DAILY 01/14/23 01/14/23 Unknown History ciclopirox 0.77 % topical cream 1 appl topical BID PRN Itching 01/14/23 01/14/23 Unknown History clobetasol 0.05 % scalp solution 1 appl topical BID 01/14/23 01/14/23 Unknown History fluticasone propionate 220 2 puff inhalation BID 01/14/23 01/14/23 Unknown History mcg/actuation HFA aerosol inhaler (Flovent HFA) fluticasone propionate 50 2 spray intranasal DAILY 01/14/23 01/14/23 Unknown History mcg/actuation nasal spray,suspension ibuprofen 800 mg tablet 800 mg PO BID PRN pain 01/14/23 01/14/23 Unknown History ketoconazole 2 % topical cream 1 appl topical DAILY 01/14/23 01/14/23 Unknown History Physical Exam Vital Signs and Narrative: Vital Signs: Last Vital Signs Temp 98.2 F 01/13/23 21:54 Pulse 99 01/13/23 21:54 Resp 20 01/13/23 21:54 BP 131/64 01/13/23 21:54 Pulse Ox 97 01/13/23 21:54 O2 Del Method Room Air 01/13/23 21:54 BMI result Body Mass Index 26.0 Const: Other: Cachectic, jaundice, appears frail Eyes: Other: Icteric sclera Resp: Other: Normal respiratory rate Effort & Inspection: normal respiratory effort Cardio: Rate: regular rate Rhythm: regular rhythm GI: Other: 2+ abdominal distension Diffusely Tender, no rebound or guarding Palpation (GI): Soft to palpation Auscultation: normal bowel sounds Skin: Other: Jaundice skin General skin exam: no rashes or lesions noted Neuro: Cognition (Neuro): normal cognition Extrem: General: Yes normal to inspection and Yes no pedal edema Results Labs 01/13/23 22:02 01/13/23 15:38 Labs: Laboratory Results - last 24 hr 01/13/23 01/13/23 01/13/23 15:37 15:38 15:38 MCV 89.4 MCH 33.3 H MCHC 37.3 H RDW 14.9 Plt Count 248 MPV 10.4 Immature Gran % (Auto) 3.0 H Neut % (Auto) 84.8 H Lymph % (Auto) 4.0 L Sully % (Auto) 7.4 Eos % (Auto) 0.4 Baso % (Auto) 0.4 Lymph # (Auto) 0.8 L Sully # (Auto) 1.4 H Eos # (Auto) 0.1 Baso # (Auto) 0.1 Abs Immat Gran (auto) 0.57 H Absolute Neuts (auto) 16.0 H Absolute Nucleated RBC 0.020 H Nucleated RBC % (auto) 0.1 PT 23.6 H INR 1.9 H Anion Gap Estim Creat Clear Calc Estimated GFR Random Glucose Lactic Acid 2.5 H* Lactic Acid F/U @ 2Hr Lactic Acid F/U @ 4Hr Calcium Total Bilirubin AST ALT Alkaline Phosphatase Ammonia Total Creatine Kinase Total Protein Albumin Urine Color Urine Appearance Urine pH Ur Specific [place] Urine Protein Urine Glucose (UA) Urine Ketones Urine Blood Urine Nitrite Ur Leukocyte Esterase Urine RBC Urine WBC Ur Squamous Epith Cells Urine Bacteria Hyaline Casts Stool Occult Blood Ethyl Alcohol Blood Type Antibody Screen Crossmatch 01/13/23 01/13/23 01/13/23 15:38 15:39 15:57 MCV MCH MCHC RDW Plt Count MPV Immature Gran % (Auto) Neut % (Auto) Lymph % (Auto) Sully % (Auto) Eos % (Auto) Baso % (Auto) Lymph # (Auto) Sully # (Auto) Eos # (Auto) Baso # (Auto) Abs Immat Gran (auto) Absolute Neuts (auto) Absolute Nucleated RBC Nucleated RBC % (auto) PT INR Anion Gap 16 Estim Creat Clear Calc TNP Estimated GFR > 60 Random Glucose 130 H Lactic Acid Lactic Acid F/U @ 2Hr Lactic Acid F/U @ 4Hr Calcium 8.2 L Total Bilirubin 25.0 H AST 115 H ALT 46 H Alkaline Phosphatase 146 H Ammonia 79 H Total Creatine Kinase Total Protein 5.5 L Albumin 2.5 L Urine Color Urine Appearance Urine pH Ur Specific [place] Urine Protein Urine Glucose (UA) Urine Ketones Urine Blood Urine Nitrite Ur Leukocyte Esterase Urine RBC Urine WBC Ur Squamous Epith Cells Urine Bacteria Hyaline Casts Stool Occult Blood POSITIVE Ethyl Alcohol < 10 Blood Type Antibody Screen Crossmatch 01/13/23 01/13/23 01/13/23 15:57 16:13 19:13 MCV MCH MCHC RDW Plt Count MPV Immature Gran % (Auto) Neut % (Auto) Lymph % (Auto) Sully % (Auto) Eos % (Auto) Baso % (Auto) Lymph # (Auto) Sully # (Auto) Eos # (Auto) Baso # (Auto) Abs Immat Gran (auto) Absolute Neuts (auto) Absolute Nucleated RBC Nucleated RBC % (auto) PT INR Anion Gap Estim Creat Clear Calc Estimated GFR Random Glucose Lactic Acid Lactic Acid F/U @ 2Hr 2.3 H* Lactic Acid F/U @ 4Hr Calcium Total Bilirubin AST ALT Alkaline Phosphatase Ammonia Total Creatine Kinase Total Protein Albumin Urine Color Dark Yellow Urine Appearance Cloudy Urine pH 6.0 Ur Specific [place] 1.020 Urine Protein Trace Urine Glucose (UA) Negative Urine Ketones Negative Urine Blood Negative Urine Nitrite Positive H Ur Leukocyte Esterase Small (1+) H Urine RBC 0-2 Urine WBC 0-5 Ur Squamous Epith Cells 0-2 Urine Bacteria None Seen Hyaline Casts 0-2 Stool Occult Blood Ethyl Alcohol Blood Type O Positive Antibody Screen NEGATIVE Crossmatch See Detail 01/13/23 01/13/23 01/13/23 21:15 22:02 22:02 MCV MCH MCHC RDW Plt Count MPV Immature Gran % (Auto) Neut % (Auto) Lymph % (Auto) Sully % (Auto) Eos % (Auto) Baso % (Auto) Lymph # (Auto) Sully # (Auto) Eos # (Auto) Baso # (Auto) Abs Immat Gran (auto) Absolute Neuts (auto) Absolute Nucleated RBC Nucleated RBC % (auto) PT INR Anion Gap Estim Creat Clear Calc Estimated GFR Random Glucose Lactic Acid Lactic Acid F/U @ 2Hr Lactic Acid F/U @ 4Hr 1.7 Calcium Total Bilirubin AST ALT Alkaline Phosphatase Ammonia Total Creatine Kinase 73 Total Protein Albumin Urine Color Urine Appearance Urine pH Ur Specific [place] Urine Protein Urine Glucose (UA) Urine Ketones Urine Blood Urine Nitrite Ur Leukocyte Esterase Urine RBC Urine WBC Ur Squamous Epith Cells Urine Bacteria Hyaline Casts Stool Occult Blood POSITIVE Ethyl Alcohol Blood Type Antibody Screen Crossmatch Imaging Radiologist's Impressions: Impressions Chest X-Ray 01/13/23 14:50 IMPRESSION: 1. Peribronchial thickening with coarsened interstitial lung markings suggesting underlying infectious/inflammatory etiology versus pulmonary edema. 2. Slight elevation the right hemidiaphragm. 3. Bilateral low lung volumes. Abdomen/Pelvis CT 01/13/23 18:14 IMPRESSION: In the chest there is evidence of COPD. Density in the right upper lung as described. Malignancy needs to be considered. Recommend PET/CT at this time to further evaluate. Mild ascites in the abdomen pelvis and corrugated contour to the liver which would be consistent with cirrhosis. Liver is heterogeneous in attenuation. Recommend ultrasound or MRI to exclude an underlying lesion Other findings are as described above Chest CT 01/13/23 18:14 IMPRESSION: In the chest there is evidence of COPD. Density in the right upper lung as described. Malignancy needs to be considered. Recommend PET/CT at this time to further evaluate. Mild ascites in the abdomen pelvis and corrugated contour to the liver which would be consistent with cirrhosis. Liver is heterogeneous in attenuation. Recommend ultrasound or MRI to exclude an underlying lesion Other findings are as described above Head CT 01/13/23 18:14 IMPRESSION: Negative acute noncontrast CT of the brain. Assessment and Plan (1) Sepsis: Status: Acute (2) GI bleed: Status: Acute (3) Acute hepatitis: Status: Acute (4) Metabolic encephalopathy: Status: Acute (5) Hyperammonemia: Status: Acute (6) Acute UTI: Status: Acute (7) Normocytic anemia: Status: Acute Plan 77-year-old male with no significant past medical history comes into the hospital GI bleed as well as jaundice and found to have acute hepatitis # acute hepatitis - no history of liver cirrhosis, likely secondary to alcohol abuse - has elevated LFTs,, bilirubin of - MELD-NA of 31 and CHILD kemp of 11 making prognosis grim - AOx2 but poor historian - elevated Ammonia - patient receiving lactulose q.i.d. with a goal of 3-4 BMs daily - GI consulted - hepatitis panel - follow LFTs # sepsis - likely multifactorial in the setting of acute UTI as well as SBP cannot be ruled out - patient did not get paracentesis due to his elevated INR and mild ascites - will consult IR for paracentesis - will treat with antibiotics - follow cultures # acute GI bleed - likely upper - history of ibuprofen intake - patient given to FFP, vitamin K, started on PPI IV and 1 unit of PRBC - GI consulted -patient made NPO # acute UTI - positive UA - leukocytosis, sepsis - will treat with IV antibiotics - follow cultures # hyperammonemia - secondary to liver cirrhosis - lactulose q.i.d. # hyperbilirubinemia - secondary to above - follow LFTs # normocytic anemia - secondary to GI bleed - follow CBC DVT prophylaxis: SCDs Prognosis is very guarded, IC was consulted, as patient is hemodynamically stable patient will be admitted to medical floor Time Spent With Patient Time: Total time managing care of this patient today ____ minutes. Quality Stroke Does the patient have a stroke diagnosis?: No VTE Prior VTE?: No VTE Risk Level:: Medical - moderate - high VTE Device Contraindication: N/A - Device Ordered VTE Drug Contraindication: Treatment Not Indicated
[2023-01-13] MEDS: Phytonadione (Vit K1) 10 MG in 0.9 % Sodium Chloride 50 ML 51 MG IV (23:25)
[2023-01-13] MEDS: cefTRIAXone sodium 1 GM in 0.9 % Sodium Chloride 50 ML IV (23:41)
[2023-01-13 23:53] LABS: Anion Gap 16 (12-20); Blood Urea Nitrogen 33 mg/dL (9-16); Calcium 8.4 mg/dL (8.4-10.2); Carbon Dioxide 21 mmol/L (22-29); Chloride 97 mmol/L (96-108); Creatinine Clr Calc Pharmacy 112.4; Estimated Glomerular Filt Rate > 60; Glucose Random 119 mg/dL (60-115); Potassium 4.8 mmol/L (3.3-5.1); Sodium 129 mmol/L (135-145)
[2023-01-14] VITALS (17 sets, daily range): BP systolic 119–165; BP diastolic 45–72; PULSE 87–99; RESP 16–22; TEMP 36.3–37.6; O2SAT 93–98
[2023-01-14] MEDS: Albumin Human 25 % 100 ML IV ×3 (00:07→02:34)
[2023-01-14] MEDS: 0.9 % Sodium Chloride 1,000 ML 75 ML IVCONT ×2 (00:14→13:38)
--- NOTE | 2023-01-14 02:39 | PC.NURSE ---
Update given to pts daughter.
[2023-01-14 02:53] LABS: Anion Gap 15 (12-20); Blood Urea Nitrogen 30 mg/dL (9-16); Calcium 8.3 mg/dL (8.4-10.2); Carbon Dioxide 22 mmol/L (22-29); Chloride 99 mmol/L (96-108); Creatinine Clr Calc Pharmacy 90.9; Estimated Glomerular Filt Rate > 60; Glucose Random 115 mg/dL (60-115); Potassium 3.6 mmol/L (3.3-5.1); Sodium 132 mmol/L (135-145)
--- NOTE | 2023-01-14 04:35 | MHC.EDTECH ---
patient had an incontinent episode of black stool ,care given and bedding change ,vitals sign taken warm blanket given .
[2023-01-14 06:58] LABS: MANUAL DIFF FLAG NO
[2023-01-14] MEDS: Pantoprazole Sodium 40 MG/10 ML VIAL IVPUSH ×2 (07:02→16:59)
[2023-01-14 07:03] LABS: Basophils Absolute Auto 0.1 X10*3/uL (0.0-0.2); Basophils Percent Auto 0.5 % (0-2); Eosinophils Absolute Auto 0.3 X10*3/uL (0.0-0.4); Eosinophils Percent Auto 2.6 % (0-4); Hematocrit 25.5 % (42.0-52.0); Hemoglobin 9.4 g/dl (14.0-18.0); Imm Gran Abs Auto 0.25 X10*3/uL (0.00-0.03); Imm Gran Pct Auto 2.3 % (0.0-0.4); Lymphocytes Absolute Auto 0.6 X10*3/uL (1.2-4.9); Lymphocytes Percent Auto 5.7 % (20-40); Mean Corpuscular HGB Conc 36.9 g/dl (31.0-36.0); Mean Corpuscular Hemoglobin 32.9 pg (27.0-33.0); Mean Corpuscular Volume 89.2 fL (80.0-98.0); Mean Platelet Volume 10.4 fL (9.4-12.4); Monocytes Absolute Auto 0.7 X10*3/uL (0.1-1.2); Neutrophils Absolute Auto 9.1 x10*3/uL (2.0-8.3); Neutrophils Percent Auto 82.9 % (45-73); Platelet Count 192 X10*3/uL (160-400); Red Blood Count 2.86 X10*6/uL (4.60-5.80); Red Cell Distribution Width 15.4 % (11.0-16.0)
[2023-01-14 07:08] LABS: INTERNATIONAL NORM RATIO 1.5 (0.9-1.1); Prothrombin Time 18.3 SEC (11.1-13.3)
[2023-01-14 07:10] LABS: Partial Thromboplastin Time 35.2 SEC (26.0-36.4)
[2023-01-14 07:31] LABS: Alanine Aminotransferase 38 U/L (0-40); Alkaline Phosphatase 105 U/L (39-117); Anion Gap 17 (12-20); Aspartate Amino Transferase 88 U/L (5-37); Blood Urea Nitrogen 27 mg/dL (9-16); Calcium 8.6 mg/dL (8.4-10.2); Carbon Dioxide 21 mmol/L (22-29); Chloride 98 mmol/L (96-108); Creatinine Clr Calc Pharmacy 106.6; Estimated Glomerular Filt Rate > 60; Glucose Random 102 mg/dL (60-115); Potassium 3.8 mmol/L (3.3-5.1); Sodium 132 mmol/L (135-145)
[2023-01-14 07:32] LABS: Alanine Aminotransferase 37 U/L (0-40); Alkaline Phosphatase 101 U/L (39-117); Aspartate Amino Transferase 89 U/L (5-37)
[2023-01-14 07:37] LABS: Ferritin 875 ng/mL (20-250)
--- NOTE | 2023-01-14 07:55 | PHA.MEDREC ---
Pharmacy Consult ? Medication Reconciliation Pharmacy has completed the medication reconciliation. Spoke to patient's daughter Ronna to confirm meds.
--- NOTE | 2023-01-14 08:00 | PC.NURSE ---
Daughter updated current condition, denies pain or discomfort. vss, requesting bedpan at this time
[2023-01-14 08:07] LABS: Bilirubin Total 24.6 mg/dL (0.0-1.0)
[2023-01-14 08:11] LABS: Albumin Level 3.7 g/dL (3.5-5.0); Iron 102 mcg/dL (45-160); Percent Iron Saturation 80 % (15-50); Total Iron Binding Capacity 127 mcg/dL (228-428); Total Protein 6.2 g/dL (6.5-8.0); Unsaturated Iron Binding < 25 ug/dL
[2023-01-14 08:13] LABS: Albumin Level 3.7 g/dL (3.5-5.0); Bilirubin Direct 14.9 mg/dL (0.0-0.5); Bilirubin Total 24.4 mg/dL (0.0-1.0)
--- NOTE | 2023-01-14 08:29 | PC.NURSE ---
Alert and oriented. Denies and pain or discomfort. NS running per order. incontinent of large amount of loose stool. buttocks/coccyx with multiple areas of non blanchable red areas. Moisture barrier cream applied and repositioned off buttocks. Patient ringing call lozano frequently for bed rivera
--- NOTE | 2023-01-14 10:01 | PC.NURSE ---
pt aox4, ambulatory. reporting severe pain which starts in groin on left side and radiates up into upper abdomen and to back. Pain has been occuring on and off for 1-2 weeks but until now has typically resolved. Today, pt reports some vomiting. IV inserted, labs drawn, and medication for pain given per AUG. Pt to CT scan now.
--- NOTE | 2023-01-14 10:15 | PC.NURSE ---
lactulose held bc pt is NPO
--- NOTE | 2023-01-14 10:16 | PC.NURSE ---
pt continually desatted to mid or low 80s when asleep, placed on 1.5L O2 NC.
--- NOTE | 2023-01-14 10:31 | P.PNIM_ITS ---
Subjective Subjective Date of Service: 01/14/23 Interval History: Patient with further episodes of melena since admission. Currently npo and awaiting GI eval Review of Systems Pertinent positives and negatives as stated in HPI but limited given patient's mental status. Physical Exam Vital Signs: Vital Signs: Last Vital Signs Temp 98.7 F 01/14/23 05:27 Pulse 93 01/14/23 09:45 Resp 22 H 01/14/23 09:45 BP 141/58 H 01/14/23 09:45 Pulse Ox 98 01/14/23 09:45 O2 Del Method Room Air 01/14/23 09:45 BMI result Body Mass Index 26.0 Const: Other: Cachectic, jaundice, appears frail Eyes: Other: Icteric sclera Resp: Other: Normal respiratory rate Effort & Inspection: normal respiratory effort Cardio: Rate: regular rate Rhythm: regular rhythm GI: Other: 2+ abdominal distension Diffusely Tender, no rebound or guarding Palpation (GI): Tenderness to palpation present (GI) Auscultation: normal bowel sounds Skin: Other: Jaundice skin General skin exam: no rashes or lesions noted Neuro: Other: oriented to self, disoriented to place, time and person Cognition (Neuro): abnormal cognition Extrem: General: Yes normal to inspection and Yes no pedal edema Objective Data Active Medications Acetaminophen (Acetaminophen Supp 650 Mg Supp.Rect) 650 mg CA Q6H PRN PRN Reason: Pain, Mild (Pain Scale 1-3) Ceftriaxone Sodium 1 gm/ (Sodium Chloride) 50 mls @ 100 mls/hr IV Q24H [facility] Last Infusion: 01/14/23 00:16 Dose: 0 mls/hr Documented By: NIXON Sodium Chloride (Ns) 1,000 mls @ 75 mls/hr IVCONT .[id number] [facility] Last Admin: 01/14/23 00:14 Dose: 75 mls/hr Documented By: NIXON Lactulose (Lactulose 20 Gm/30 Ml Solution) 20 gm PO QID [facility] Last Admin: 01/14/23 09:57 Dose: Not Given Documented By: KEN Non-Admin Reason: NPO Ondansetron HCl (Ondansetron Hcl 4 Mg/2 Ml Vial) 4 mg IVPUSH Q8H PRN PRN Reason: Nausea and Vomiting Pantoprazole Sodium (Pantoprazole Sodium 40 Mg/10 Ml Vial) 40 mg IVPUSH BID@3630,3100 [facility] Last Admin: 01/14/23 07:02 Dose: 40 mg Documented By: NIXON Pharmacy Consult (Consult Rx Perform Med Rec) 1 each MISCELLANE ONCE PRN PRN Reason: Consult order Labs 01/14/23 06:10 01/14/23 06:10 Labs: Laboratory Results - last 24 hr 01/13/23 01/13/23 01/13/23 15:37 15:38 15:38 MCV 89.4 MCH 33.3 H MCHC 37.3 H RDW 14.9 Plt Count 248 MPV 10.4 Immature Gran % (Auto) 3.0 H Neut % (Auto) 84.8 H Lymph % (Auto) 4.0 L [place] % (Auto) 7.4 Eos % (Auto) 0.4 Baso % (Auto) 0.4 Lymph # (Auto) 0.8 L [place] # (Auto) 1.4 H Eos # (Auto) 0.1 Baso # (Auto) 0.1 Abs Immat Gran (auto) 0.57 H Absolute Neuts (auto) 16.0 H Absolute Nucleated RBC 0.020 H Nucleated RBC % (auto) 0.1 PT 23.6 H INR 1.9 H APTT Anion Gap Estim Creat Clear Calc Estimated GFR Random Glucose Lactic Acid 2.5 H* Lactic Acid F/U @ 2Hr Lactic Acid F/U @ 4Hr Calcium Iron TIBC % Saturation Unsat Iron Binding Ferritin Total Bilirubin Direct Bilirubin AST ALT Alkaline Phosphatase Ammonia Total Creatine Kinase Total Protein Albumin Urine Color Urine Appearance Urine pH Ur Specific Lowry Urine Protein Urine Glucose (UA) Urine Ketones Urine Blood Urine Nitrite Ur Leukocyte Esterase Urine RBC Urine WBC Ur Squamous Epith Cells Urine Bacteria Hyaline Casts Stool Occult Blood Ethyl Alcohol Blood Type Antibody Screen Crossmatch 01/13/23 01/13/23 01/13/23 15:38 15:39 15:57 MCV MCH MCHC RDW Plt Count MPV Immature Gran % (Auto) Neut % (Auto) Lymph % (Auto) [place] % (Auto) Eos % (Auto) Baso % (Auto) Lymph # (Auto) [place] # (Auto) Eos # (Auto) Baso # (Auto) Abs Immat Gran (auto) Absolute Neuts (auto) Absolute Nucleated RBC Nucleated RBC % (auto) PT INR APTT Anion Gap 16 Estim Creat Clear Calc TNP Estimated GFR > 60 Random Glucose 130 H Lactic Acid Lactic Acid F/U @ 2Hr Lactic Acid F/U @ 4Hr Calcium 8.2 L Iron TIBC % Saturation Unsat Iron Binding Ferritin Total Bilirubin 25.0 H Direct Bilirubin AST 115 H ALT 46 H Alkaline Phosphatase 146 H Ammonia 79 H Total Creatine Kinase Total Protein 5.5 L Albumin 2.5 L Urine Color Urine Appearance Urine pH Ur Specific Lowry Urine Protein Urine Glucose (UA) Urine Ketones Urine Blood Urine Nitrite Ur Leukocyte Esterase Urine RBC Urine WBC Ur Squamous Epith Cells Urine Bacteria Hyaline Casts Stool Occult Blood POSITIVE Ethyl Alcohol < 10 Blood Type Antibody Screen Crossmatch 01/13/23 01/13/23 01/13/23 15:57 16:13 19:13 MCV MCH MCHC RDW Plt Count MPV Immature Gran % (Auto) Neut % (Auto) Lymph % (Auto) [place] % (Auto) Eos % (Auto) Baso % (Auto) Lymph # (Auto) [place] # (Auto) Eos # (Auto) Baso # (Auto) Abs Immat Gran (auto) Absolute Neuts (auto) Absolute Nucleated RBC Nucleated RBC % (auto) PT INR APTT Anion Gap Estim Creat Clear Calc Estimated GFR Random Glucose Lactic Acid Lactic Acid F/U @ 2Hr 2.3 H* Lactic Acid F/U @ 4Hr Calcium Iron TIBC % Saturation Unsat Iron Binding Ferritin Total Bilirubin Direct Bilirubin AST ALT Alkaline Phosphatase Ammonia Total Creatine Kinase Total Protein Albumin Urine Color Dark Yellow Urine Appearance Cloudy Urine pH 6.0 Ur Specific Lowry 1.020 Urine Protein Trace Urine Glucose (UA) Negative Urine Ketones Negative Urine Blood Negative Urine Nitrite Positive H Ur Leukocyte Esterase Small (1+) H Urine RBC 0-2 Urine WBC 0-5 Ur Squamous Epith Cells 0-2 Urine Bacteria None Seen Hyaline Casts 0-2 Stool Occult Blood Ethyl Alcohol Blood Type O Positive Antibody Screen NEGATIVE Crossmatch See Detail 01/13/23 01/13/23 01/13/23 21:15 22:02 22:02 MCV MCH MCHC RDW Plt Count MPV Immature Gran % (Auto) Neut % (Auto) Lymph % (Auto) [place] % (Auto) Eos % (Auto) Baso % (Auto) Lymph # (Auto) [place] # (Auto) Eos # (Auto) Baso # (Auto) Abs Immat Gran (auto) Absolute Neuts (auto) Absolute Nucleated RBC Nucleated RBC % (auto) PT INR APTT Anion Gap Estim Creat Clear Calc Estimated GFR Random Glucose Lactic Acid Lactic Acid F/U @ 2Hr Lactic Acid F/U @ 4Hr 1.7 Calcium Iron TIBC % Saturation Unsat Iron Binding Ferritin Total Bilirubin Direct Bilirubin AST ALT Alkaline Phosphatase Ammonia Total Creatine Kinase 73 Total Protein Albumin Urine Color Urine Appearance Urine pH Ur Specific Lowry Urine Protein Urine Glucose (UA) Urine Ketones Urine Blood Urine Nitrite Ur Leukocyte Esterase Urine RBC Urine WBC Ur Squamous Epith Cells Urine Bacteria Hyaline Casts Stool Occult Blood POSITIVE Ethyl Alcohol Blood Type Antibody Screen Crossmatch 01/13/23 01/14/23 01/14/23 23:23 02:25 06:10 MCV 89.2 MCH 32.9 MCHC 36.9 H RDW 15.4 Plt Count 192 MPV 10.4 Immature Gran % (Auto) 2.3 H Neut % (Auto) 82.9 H Lymph % (Auto) 5.7 L [place] % (Auto) 6.0 Eos % (Auto) 2.6 Baso % (Auto) 0.5 Lymph # (Auto) 0.6 L [place] # (Auto) 0.7 Eos # (Auto) 0.3 Baso # (Auto) 0.1 Abs Immat Gran (auto) 0.25 H Absolute Neuts (auto) 9.1 H Absolute Nucleated RBC 0.000 Nucleated RBC % (auto) 0.0 PT INR APTT Anion Gap 16 15 Estim Creat Clear Calc 112.4 90.9 Estimated GFR > 60 > 60 Random Glucose 119 H 115 Lactic Acid Lactic Acid F/U @ 2Hr Lactic Acid F/U @ 4Hr Calcium 8.4 8.3 L Iron TIBC % Saturation Unsat Iron Binding Ferritin Total Bilirubin Direct Bilirubin AST ALT Alkaline Phosphatase Ammonia Total Creatine Kinase Total Protein Albumin Urine Color Urine Appearance Urine pH Ur Specific Lowry Urine Protein Urine Glucose (UA) Urine Ketones Urine Blood Urine Nitrite Ur Leukocyte Esterase Urine RBC Urine WBC Ur Squamous Epith Cells Urine Bacteria Hyaline Casts Stool Occult Blood Ethyl Alcohol Blood Type Antibody Screen Crossmatch 01/14/23 01/14/23 01/14/23 06:10 06:10 06:10 MCV MCH MCHC RDW Plt Count MPV Immature Gran % (Auto) Neut % (Auto) Lymph % (Auto) [place] % (Auto) Eos % (Auto) Baso % (Auto) Lymph # (Auto) [place] # (Auto) Eos # (Auto) Baso # (Auto) Abs Immat Gran (auto) Absolute Neuts (auto) Absolute Nucleated RBC Nucleated RBC % (auto) PT 18.3 H D INR 1.5 H APTT 35.2 Anion Gap 17 Estim Creat Clear Calc 106.6 Estimated GFR > 60 Random Glucose 102 Lactic Acid Lactic Acid F/U @ 2Hr Lactic Acid F/U @ 4Hr Calcium 8.6 Iron 102 TIBC 127 L % Saturation 80 H Unsat Iron Binding < 25 Ferritin 875 H Total Bilirubin 24.6 H 24.4 H Direct Bilirubin 14.9 H AST 88 H 89 H ALT 38 37 Alkaline Phosphatase 105 101 Ammonia Total Creatine Kinase Total Protein 6.2 L 6.0 L Albumin 3.7 3.7 Urine Color Urine Appearance Urine pH Ur Specific Lowry Urine Protein Urine Glucose (UA) Urine Ketones Urine Blood Urine Nitrite Ur Leukocyte Esterase Urine RBC Urine WBC Ur Squamous Epith Cells Urine Bacteria Hyaline Casts Stool Occult Blood Ethyl Alcohol Blood Type Antibody Screen Crossmatch Imaging Chest x-ray: Radiologist's impression: Impressions Chest X-Ray 01/13/23 14:50 IMPRESSION: 1. Peribronchial thickening with coarsened interstitial lung markings suggesting underlying infectious/inflammatory etiology versus pulmonary edema. 2. Slight elevation the right hemidiaphragm. 3. Bilateral low lung volumes. Abdomen/Pelvis CT 01/13/23 18:14 IMPRESSION: In the chest there is evidence of COPD. Density in the right upper lung as described. Malignancy needs to be considered. Recommend PET/CT at this time to further evaluate. Mild ascites in the abdomen pelvis and corrugated contour to the liver which would be consistent with cirrhosis. Liver is heterogeneous in attenuation. Recommend ultrasound or MRI to exclude an underlying lesion Other findings are as described above Chest CT 01/13/23 18:14 IMPRESSION: In the chest there is evidence of COPD. Density in the right upper lung as described. Malignancy needs to be considered. Recommend PET/CT at this time to further evaluate. Mild ascites in the abdomen pelvis and corrugated contour to the liver which would be consistent with cirrhosis. Liver is heterogeneous in attenuation. Recommend ultrasound or MRI to exclude an underlying lesion Other findings are as described above Head CT 01/13/23 18:14 IMPRESSION: Negative acute noncontrast CT of the brain. Abdomen Ultrasound 01/13/23 21:48 IMPRESSION: 1. Findings suggestive of portal hypertension, with reduced flow detected in the main portal vein and reversal of flow in the left portal vein. Of note, the portal vein does appear patent on today's earlier contrast-enhanced CT. 2. Mild volume ascites. Microbiology Microbiology Results: Microbiology 01/13/23 16:13 Urine Culture - Preliminary Urine clean catch - Urine trevino top Culture too young to evaluate. Assessment and Plan (1) GI bleed: Status: Acute Plan 77-year-old male with no significant past medical history comes into the hospital for GI bleed as well as jaundice and found to have acute hepatitis #. Acute GI bleed - likely upper - history of ibuprofen intake - patient given to FFP, vitamin K, started on PPI IV and 1 unit of PRBC - GI consulted -patient made NPO #. Sepsis due to CAP: On empiric IV abx. Follow blood culture and sputum culture. Resuscitated with IV fluids. #. Acute lactic acidosis due to sepsis and liver disease #. Decompensated cirrhosis, likely in the setting of alcohol use -hold lactulose and diuretics in the setting of GI bleed. On prophylactic antibiotics for SBP. Paracentesis pending -MELD-NA of 31 and CHILD kemp of 11 making prognosis poor #. Conjugated hyperbilirubinemia - Workup pending. Appreciate GI assistance - follow LFTs #. Hyperammonemia: due to GI bleed #. Imaging with density in the right upper lung. Consulted oncology #. Elevated ferritin with elevated T sat. Obtained C282Y DNA. Consulted Hemat ology #. Alcohol use disorder: Initiating thiamine and folic acid. Monitor CIWA and consulted addiction team. Also initiating phenobarb protocol DVT prophylaxis: SCDs Continued hospitalization: Close monitoring of hemodynamics. Specialist consult pending Time Spent With Patient Time: Total time managing care of this patient today ____ minutes. Quality Stroke Does the patient have a stroke diagnosis?: No VTE Prior VTE?: No VTE Risk Level:: Medical - moderate - high VTE Device Contraindication: N/A - Device Ordered VTE Drug Contraindication: Treatment Not Indicated
--- NOTE | 2023-01-14 11:44 | PC.NURSE ---
pt sleeping, no apparent distress, vitals stable. On 1.5L O2 NC to keep O2sat stable in 90s while pt is sleeping. will cont to monitor, awaiting bed assignment
--- NOTE | 2023-01-14 12:16 | P.CNHO_ITS ---
Subjective - Subjective Chief complaint: Consult for: 1. Elevated ferritin level. 2. Lung mass. Patient: new to practice Consult date: 01/14/23 Requesting Physician: Shereen Price. Primary Care Provider: None Physician Medical Summary: DIAGNOSIS: 1. ELEVATED FERRITIN LEVEL. 2. LUNG MASS. HPI - Consult Narrative Reason for consult: Consult for: 1. Elevated ferritin level. 2. Lung mass. Narrative: Elia Grier is a 77 year old gentleman presented with abdominal distension, jaundice, weakness since 01/11. He is a poor historian but is alert oriented to self and place. He has several complaints, including jaundice, abdominal distension, generalized weakness. He is now unable to walk. He feels his belly is tender all over, he denies any nausea, no vomiting, but has had diarrhea with black tarry stools for the past several days. He reports no fever or chills. No chest pain, no shortness of breath. Reports that he noticed himself being jaundice about a day ago. He does report a history of heavy drinking but has recently cut down to about 2 to 3 times a week. No history of IV drug use. Not aware of any history of liver disease. He does take of one to 2 times a day- unclear for how long On arrival to the ED patient hemodynamically stable with a slightly elevated heart rate 100-105, blood pressure stable. In ED, his labs were significant for: WBC count of 18.8, hemoglobin of 11.3, hematocrit 30.3, no baseline for comparison, INR 1.9. Na level of 126, chloride of 94, BUN of 36, lactic acid of 2.5, improved on trendin. bilirubin total of 25, AST of 115, ALT of 46, alk-phos of 146. Ammonia of 79, troponin negative, albumin of 2.5, UA positive for nitrites and leukocyte Estrace Stool occult positive Abdominal pelvic CT showed: In the chest there is evidence of COPD although patient denies history of smoking, density in the right upper lung concerning for malignancy. Mild ascites in the abdomen pelvis and liver consistent with cirrhosis. Abdominal ultrasound shows findings suggestive of portal hypertension. Review of Systems Review of Systems: Yes. He complains of easy fatigability, no fever nor chills. Appetite is low. He has lost weight. Denies headache no dizziness. No chest pain or trouble breathing. He has had abdominal pain nausea and heartburn. He has had melena. Denies dysuria. Denies joint pain. He feels weak all over. He is depressed. All other systems are reviewed and are negative [facility] Medical History: No known past medical history. Surgical History: No pertinent past surgical history. Family history: Denies any known family history of blood disorder or cancer. Social History: He worked as a oneal. His is . He has 3 children. He used to smoke. Quit few years ago. He used to indulge in excessive Alcohol intake: Patient Tobacco Use Status: Former Tobacco user Smoked in Last 30 Days: No Use of substances other than those prescribed or required for medical reasons: No Advance Directives: No Nutrition Risks: Poor intake 0-25% >4 days Review of Systems - Constitutional Reports system reviewed and no additional complaints, except as documented, Reports anorexia, Reports fatigue, Reports lack of energy, Reports malaise, Reports weight loss, Denies fever(s) - Eyes Reports system reviewed and no additional complaints, except as documented - ENT Reports system reviewed and no additional complaints, except as documented - Cardiovascular Reports system reviewed and no additional complaints, except as documented - Respiratory Reports no additional respiratory complaints - Gastrointestinal Reports system reviewed and no additional complaints, except as documented - Genitourinary Genitourinary: Reports no additional male genitourinary complaints - Musculoskeletal Reports system reviewed and no additional complaints, except as documented - Integumentary/Breasts Skin/Breast: Reports no additional skin complaints - Neurologic Reports system reviewed and no additional complaints, except as documented - Psychiatric Reports system reviewed and no additional complaints, except as documented - Endocrine Reports no additional endocrine complaints - Hematologic/Lymphatic Reports system reviewed and no additional complaints, except as documented - Allergic/Immunologic Reports system reviewed and no additional complaints, except as documented Oncology Screenings - ECOG Performance Status ECOG Performance Status: 2 [facility] Medical History: Medical History (Last Reviewed 01/20/23 @ 23:14 by Patricia Escamilla MD) No pertinent past medical history Functional capacity: uses cane/walker Patient : No Surgical History: Surgical History (Last Reviewed 01/20/23 @ 23:14 by Patricia Escamilla MD) No pertinent past surgical history Social History: Social History (Last Reviewed 01/20/23 @ 23:14 by Patricia Escamilla MD) Living Situation History: Household Members: Children Housing: Apartment Do you presently have visiting nurse or other home services: No Tobacco History: Patient Tobacco Use Status: Former Tobacco user e-Cigarette/Vaping Use: Never Used Second Hand Smoke Exposure: No Occupation Assessmet: service: No Home Medications and Allergies Current Medications: Current Medications Acetaminophen (Acetaminophen Supp 650 Mg Supp.Rect) 650 mg OH Q6H PRN PRN Reason: Pain, Mild (Pain Scale 1-3) Ceftriaxone Sodium 1 gm/ (Sodium Chloride) 50 mls @ 100 mls/hr IV Q24H [facility] Last Infusion: 01/14/23 00:16 Dose: Infused Sodium Chloride (Ns) 1,000 mls @ 75 mls/hr IVCONT .[id number] [facility] Last Admin: 01/14/23 00:14 Dose: 75 mls/hr Thiamine HCl 100 mg/ Sodium (Chloride) 101 mls @ 202 mls/hr IV DAILY [facility] Folic Acid 1 mg/ Sodium (Chloride) 50.2 mls @ 100.4 mls/hr IV DAILY [facility] Azithromycin 500 mg/ Sodium (Chloride) 250 mls @ 125 mls/hr IV Q24H [facility] Ondansetron HCl (Ondansetron Hcl 4 Mg/2 Ml Vial) 4 mg IVPUSH Q8H PRN PRN Reason: Nausea and Vomiting Pantoprazole Sodium (Pantoprazole Sodium 40 Mg/10 Ml Vial) 40 mg IVPUSH BID@0630,1630 [facility] Last Admin: 01/14/23 07:02 Dose: 40 mg Pharmacy Consult (Consult Rx Perform Med Rec) 1 each MISCELLANE ONCE PRN PRN Reason: Consult order Pharmacy Consult (Consult Rx Etoh Phenob Im/Po) 1 each MISCELLANE ONCE PRN; Protocol PRN Reason: Consult order Home Medications Medication Instructions Recorded Confirmed Type acetaminophen 500 mg tablet 1,000 mg PO Q6H PRN Pain 01/14/23 01/14/23 History albuterol sulfate 90 mcg/actuation 2 puff inhalation QID PRN 01/14/23 01/14/23 History aerosol inhaler Shortness Of Breath Or Wheezing betamethasone dipropionate 0.05 % 1 appl topical TUTH 01/14/23 01/14/23 History topical ointment calcipotriene 0.005 % topical cream 1 appl topical BID 01/14/23 01/14/23 History cetirizine 10 mg tablet 10 mg PO DAILY 01/14/23 01/14/23 History ciclopirox 0.77 % topical cream 1 appl topical BID 01/14/23 01/14/23 History fluticasone propionate 220 2 puff inhalation BID 01/14/23 01/14/23 History mcg/actuation HFA aerosol inhaler (Flovent HFA) fluticasone propionate 50 2 spray intranasal DAILY 01/14/23 01/14/23 History mcg/actuation nasal spray,suspension ibuprofen 800 mg tablet 800 mg PO BID PRN pain 01/14/23 01/14/23 History ketoconazole 2 % topical cream 1 appl topical DAILY 01/14/23 01/14/23 History Allergies Allergy/AdvReac Type Severity Reaction Status Date / Time Penicillins Allergy Anaphylaxis Verified 01/13/23 17:00 Physical Exam Vital signs: Vital Signs Temp 98.7 F 01/14/23 05:27 Pulse 89 01/14/23 11:45 Resp 18 01/14/23 11:45 BP 137/52 L 01/14/23 11:45 Pulse Ox 97 01/14/23 11:45 O2 Del Method Nasal Cannula 01/14/23 11:45 O2 Flow Rate 1.5 01/14/23 11:45 Intake & Output 01/13/23 01/14/23 01/14/23 18:59 06:59 18:59 Intake Total 50 / 1359 1309 / 1359 405 / 405 Output Total 1500 / 1500 Balance 50 / -141 -191 / -141 405 / 405 Urine Output (Average ml/kg/hr) 1.56 1.56 Intake: Intake (Blood Product) Amount 608 / 608 305 / 305 Red Blood Cells (E0336) Unit 350 / 350 [id number] Thawed Plasma (E2720) Unit 0 / 0 305 / 305 [id number] Thawed Plasma (E2720) Unit 258 / 258 [id number] Intake, IV Amount 50 / 751 701 / 751 100 / 100 0.9 % Sodium Chloride 100 ml @ 200 / 200 100 / 100 100 mls/hr IV ONCE ONE Rx#: [id number] Albumin Human 25 % 100 ml @ 100 400 / 400 mls/hr IV Q1H [facility] Rx#: [id number] Phytonadione (Vit K1) 10 mg In 51 / 51 0.9 % Sodium Chloride 50 ml @ 51 mls/hr IV ONCE ONE Rx#: [id number] cefEPime HCl 2 gm In 0.9 % 50 / 50 Sodium Chloride 50 ml @ 100 mls /hr IV ONCE ONE Rx#:[id number] cefTRIAXone sodium 1 gm In 0.9 50 / 50 % Sodium Chloride 50 ml @ 100 mls/hr IV Q24H [facility] Rx#: [id number] Output: Output, Urine Amount 1500 / 1500 Other: Urine Urinal Urine Color Yellow Stool Color Yellow Weight 80 kg Weight 80 kg - Constitutional Present: mild distress - Routine HEENT Exam Head: Present: normal inspection, normocephalic ENT: Present: mucous membranes moist - Routine Neck Exam Present: supple - Routine Respiratory Exam Present: CTAB - Routine Cardiovascular Exam Cardiovascular: Present: RRR, S1, S2 - Routine Neurological Exam Present: alert - Detailed Neurological Exam: Coma Scale Eye Opening: Spontaneous (4) Verbal Response: Oriented (5) Motor Response: Obeys commands (6) Dwarf Coma Scale Total: 15 - Routine Psychiatric Exam Present: normal affect Hem/Onc Consult Result - Labs CBC & Chem 7: 01/21/23 06:08 01/21/23 06:08 Labs: Short CBC 01/13/23 01/13/23 01/14/23 Range/Units 15:38 22:02 06:10 WBC 18.8 H 11.0 H (4.8-10.8) X10*3/uL Hgb 11.3 L 10.6 L 9.4 L (14.0-18.0) g/dl Hct 30.3 L 27.9 L 25.5 L (42.0-52.0) % Plt Count 248 192 (160-400) X10*3/uL BMP 01/13/23 01/13/23 01/14/23 15:38 23:23 02:25 Sodium 126 L 129 L 132 L Potassium 4.6 4.8 3.6 D Chloride 94 L 97 99 Carbon Dioxide 21 L 21 L 22 BUN 36 H 33 H 30 H Creatinine 0.62 0.55 0.68 Calcium 8.2 L 8.4 8.3 L 01/14/23 06:10 Sodium 132 L Potassium 3.8 Chloride 98 Carbon Dioxide 21 L BUN 27 H Creatinine 0.58 Calcium 8.6 Cardiac Enzymes 01/13/23 Range/Units 22:02 Total Creatine Kinase 73 (38-174) U/L Liver Function 01/13/23 01/14/23 01/14/23 Range/Units 15:38 06:10 06:10 Total Bilirubin 25.0 H 24.6 H 24.4 H (0.0-1.0) mg/dL Direct Bilirubin 14.9 H (0.0-0.5) mg/dL AST 115 H 88 H 89 H (5-37) U/L ALT 46 H 38 37 (0-40) U/L Alkaline Phosphatase 146 H 105 101 (39-117) U/L Albumin 2.5 L 3.7 3.7 (3.5-5.0) g/dL Urine 01/13/23 Range/Units 16:13 Urine Color Dark Yellow Urine Appearance Cloudy Urine pH 6.0 (5.0-9.0) Ur Specific Spring 1.020 (1.005-1.025) Urine Protein Trace (Neg-Trace) mg/dL Urine Glucose (UA) Negative (Negative) mg/dL Assessment and Plan Patient Active problem list reviewed?: Yes (1) Elevated ferritin level Status: Acute Assessment and plan: 77-year-old gentleman, presents with jaundice and failure to thrive. Noted to have melena. Anemia. Status post blood transfusion. Noted to have an elevated ferritin with elevated Iron saturation. Question is raised if this is related to hemochromatosis. Iron studies: 102/127/80/875. These were done at 06:00 o'clock this morning. However the patient was transfused around 01:00 am. That could cause an increase in the iron studies complicate the results. In addition, ferritin could be elevated on account of his underlying liver dis ease and cirrhosis. PLAN: C282Y DNA test sent already. Will follow-up on the results. Thank you, (2) Lung mass Status: Acute Assessment and plan: 77-year-old gentleman with the history of excessive smoking. Presents with abdominal pain, melena and jaundice. CT scan of the chest revealed: There is a density in the right upper lung. Image 194. Measures 1.2 cm. Findings suggest spiculation in the margins. Tumor needs to be considered. Coarse reticular honeycombing is seen in the lungs. In the chest there is evidence of COPD. Density in the right upper lung as described. Malignancy needs to be consi dered. Recommend PET/CT at this time to further evaluate. Mild ascites in the abdomen pelvis and corrugated contour to the liver which would be consistent with cirrhosis. Liver is heterogeneous in attenuation. Recommend ultrasound or MRI to exclude an underlying lesion Being treated for pneumonia with cefepime and azithromycin. He needs further GI evaluation. PLAN: Will proceed with biopsy of the lung mass, once the GI issues have resolved. Will follow-up on the outpatient basis. Thank you, Cc: - Time Spent With Patient Time Spent with Patient (in minutes): 30
[2023-01-14] MEDS: Folic Acid 1 MG in 0.9 % Sodium Chloride 50 ML 100.4 MG IV (13:18)
--- NOTE | 2023-01-14 13:36 | PC.NURSE ---
DBP 56, outside of range for phenobarb (must be greater than 60). MD notified, waiting for response to hold or admin
--- NOTE | 2023-01-14 13:40 | PC.NURSE ---
per phenobarb held.
[2023-01-14] MEDS: Thiamine HCL 100 MG in 0.9 % Sodium Chloride 100 ML 202 MG IV (13:41)
[2023-01-14] MEDS: Azithromycin 500 MG in 0.9 % Sodium Chloride 250 ML 125 MG IV (13:59)
--- NOTE | 2023-01-14 14:23 | PC.NURSE ---
600ml dark adonay urine in [place] cath drainage bag
[2023-01-14 15:47] LABS: MANUAL DIFF FLAG NO
[2023-01-14 15:48] LABS: Basophils Percent Auto 0.4 % (0-2); Eosinophils Absolute Auto 0.3 X10*3/uL (0.0-0.4); Eosinophils Percent Auto 3.1 % (0-4); Hematocrit 24.9 % (42.0-52.0); Hemoglobin 9.2 g/dl (14.0-18.0); Imm Gran Abs Auto 0.23 X10*3/uL (0.00-0.03); Imm Gran Pct Auto 2.1 % (0.0-0.4); Lymphocytes Absolute Auto 0.6 X10*3/uL (1.2-4.9); Lymphocytes Percent Auto 5.2 % (20-40); Mean Corpuscular HGB Conc 36.9 g/dl (31.0-36.0); Mean Corpuscular Hemoglobin 32.9 pg (27.0-33.0); Mean Corpuscular Volume 88.9 fL (80.0-98.0); Mean Platelet Volume 9.8 fL (9.4-12.4); Monocytes Absolute Auto 0.6 X10*3/uL (0.1-1.2); Monocytes Percent Auto 5.7 % (2-11); Neutrophils Absolute Auto 9.2 x10*3/uL (2.0-8.3); Neutrophils Percent Auto 83.5 % (45-73); Platelet Count 165 X10*3/uL (160-400); Red Cell Distribution Width 15.8 % (11.0-16.0)
--- NOTE | 2023-01-14 16:05 | MHC.SHP ---
Pre-Procedural Eval Section A Date of Service: 01/15/23 The patient is an INPATIENT: Yes The History & Physical has been completed within 30 days and I have reviewed it.: Yes Section B Chief Complaint: GI Bleed, liver cirrhosis Allergies: Allergies Allergy/AdvReac Type Severity Reaction Status Date / Time Penicillins Allergy Anaphylaxis Verified 01/13/23 17:00 Plan I have reviewed the history and physical and performed a pertinent physical examination on my patient. No changes have occurred unless specified. Time Spent With Patient Time: Total time managing care of this patient today ____ minutes.
--- NOTE | 2023-01-14 16:06 | PM.EVENT ---
Event Note Date of Service: 01/14/23 Event Note: GI Consult-Full note dictated-History via patient, his daughter Ronna, his RN, and the EMR. Imp/Recs: 1. UGI bleed in a 77 yo male with cirrhosis, active EtOH abuse, and daily use of Ibuprofen. He seems stable based on the most recent Hgb of 9.2 at 3:40 PM today and his clinical course. Diff Dx: PUD, Gastritis, portal gastropathy, and/or esophagitis. I don't think the bleed is due to varices. Rec: Continue IV PPI, repeat dose of Vit K, F/U labs in the AM, NPO, and EGD on 01/15. Full consent obtained, including risks of bleeding and perforation. 2. Cirrhosis and jaundice. This is due to his longstanding active alcohol abuse. There appears to be a component of EtOH-hepatitis as well causing decompensation with jaundice, ascites, and coagulopathy. He is not a candidate for steroids due to his GI bleeding and suspected infection. I don't think he has underlying Hereditary Hemochromatosis. Rec: Supportive care, F/U labs, diagnostic U/S-paracentesis 01/15 to check a cell count to assess for SBP. Complete avoidance of EtOH nursing home. This has all been D/W the patient and his daughter in detail. They are comfortable with this plan. Please call if active bleeding or other problems. Thanks. Time Spent With Patient Time: Total time managing care of this patient today ____ minutes.
[2023-01-14] MEDS: Phytonadione (Vit K1) 10 MG in 0.9 % Sodium Chloride 50 ML 51 MG IV (17:00)
[2023-01-14] MEDS: PHENobarbitaL sodium 130 MG/ML VIAL IM Q3Hx2 170 MG IM ×2 (17:00→19:49)
[2023-01-14] MEDS: cefTRIAXone sodium 1 GM in 0.9 % Sodium Chloride 50 ML IV (23:25)
[2023-01-15] VITALS (9 sets, daily range): BP systolic 122–173; BP diastolic 60–92; PULSE 79–112; RESP 16–20; TEMP 36.1–37.8; O2SAT 92–98
--- NOTE | 2023-01-15 00:06 | CONS_ITS ---
DATE OF SERVICE: 01/14/2023 REASON FOR CONSULTATION: Alcohol-related liver disease with associated cirrhosis and jaundice, melena and GI bleeding. HISTORY OF PRESENT ILLNESS: This has been obtained from the patient, his daughter, Denita, his nurse, and the medical record. The patient is a 77-year-old male with a longstanding history of active alcohol abuse, who comes to the hospital with the onset of weakness, melena, and jaundice. The patient has no known previous history of liver disease and specifically denies any history of jaundice or hepatitis. He also has no previous history of GI problems including specifically no history of ulcer disease nor GI bleeding. The patient has been drinking regularly up until this admission with at least 5 or 6 beers several times per week, although his daughter thinks it is probably more than that. The patient developed the onset of some blackish stool, some anorexia, and weakness. He came to the ER where he was noted to be very jaundice and having black stool. He was admitted for further evaluation. The patient admits to using ibuprofen 800 mg almost daily for generalized discomfort. He does not think he is using any acetaminophen. He does not take aspirin or any other blood thinners. He has noticed some increasing abdominal distention as well. He has been noted to be jaundiced recently by his family. There has been no coffee-ground emesis nor hematemesis. His appetite has been somewhat diminished. He denies any significant heartburn nor dysphagia. He has not noticed any hematochezia. He denies using any Pepto-Bismol nor iron. He denies any history of ulcer disease nor previous endoscopies. He denies having been hospitalized for liver disease or GI bleeding in the past. He denies any known family history of liver disease. There has been no definitive confusion at home, although yesterday was quite weak and did not give a very good history. However, today he is doing much better and appears to be at his baseline according to his daughter who is at the bedside with us. MEDICATIONS: At home included the ibuprofen daily, albuterol inhaler p.r.n., betamethasone dipropionate, Flonase, Flovent. His medications here in the hospital include phenobarbital, IV Protonix, IV Zithromax, IV ceftriaxone, folic acid, Zofran p.r.n., thiamin and vitamin K. PAST MEDICAL HISTORY: Asthma and/or COPD. There is no reported history of PA, diabetes, stroke, nor renal disease. There has been no report of surgeries. SOCIAL HISTORY: He reports that he is a and lives with his son. He is a former smoker. Daily chronic alcohol abuse. FAMILY HISTORY: Noncontributory. REVIEW OF SYSTEMS: CONSTITUTIONAL: He has been progressively weaker at home with a poor appetite. SKIN: He has been noted to be jaundiced. CARDIAC: No chest pain. PULMONARY: No coughing nor hemoptysis. GI: As above. URINARY: He denies dysuria, no hematuria. NEUROLOGIC: No headache or seizures. PSYCHIATRIC: Negative. PHYSICAL EXAMINATION: GENERAL: The patient is an obviously jaundiced, elderly, chronically ill-appearing male but in no distress. He has been afebrile. HEENT: Icteric sclerae. Moist mucous membranes. NECK: Supple. CHEST: Clear. CARDIAC: Normal S1, S2. ABDOMEN: Soft and slightly distended with probable ascites and bulging flanks. He has some mild diffuse tenderness. There is no palpable mass. EXTREMITIES: No edema. NEUROLOGIC: He is alert and oriented x3 and does seem to give an accurate history. LABORATORY DATA: White blood cell count 11,000. Hemoglobin on admission was 11.3, with a repeat of 10.6, 9.4, and 9.2. Platelets 165,000. Initial PT was 23.6 with INR 1.9 and a followup was 18.3 with INR 1.5. Sodium 132, potassium 3.8, chloride 98, CO2 21, BUN 27, creatinine 0.6, calcium 8.6, iron 102, TIBC 127, iron saturation 80%, ferritin 875. His total bilirubin on admission was 25 with a repeat today of 24.4 and direct bilirubin of 14.9. AST 89, ALT 37, alkaline phosphatase 101, albumin 3.7. Stool was heme positive. CT of his abdomen and pelvis described a heterogeneous liver consistent with cirrhosis. There was some mild ascites noted. The spleen is described as normal as is the gallbladder, pancreas, and biliary tree. His chest CT described some COPD as well as a suspicious area in the right upper lung field raising a suspicion of malignancy. His abdominal ultrasound described similar findings in regard to the liver but without any focal liver lesion or biliary obstruction. There was felt to be some reduced flow in the main portal vein, but on the CT scan, there was mention that the portal vein appears patent. Again noted was some mild ascites. IMPRESSION: In regard to the patient's gastrointestinal bleeding this most certainly is related to his chronic alcohol use, daily ibuprofen use, and significant liver disease. Etiologies would include that of peptic ulcer disease, gastritis, esophagitis, and/or portal gastropathy. While he may have varices in relation to liver disease. I do not think that is the cause of the current bleeding based on the clinical history. He will continue his IV PPI and receive another dose of vitamin K to try to maximally improve the coagulopathy. He did receive FFP yesterday. He will undergo upper endoscopy tomorrow with monitored anesthesia care. Full consent has been obtained from the patient and his daughter for this, including risks of bleeding and perforation. He will continue to have monitoring of his hemoglobin. He will be kept n.p.o. Certainly if he shows signs of active bleeding before tomorrow, we can proceed sooner if need be. However, at this point, I do not think that is the case. In regard to the significant liver disease, this certainly is related to underlying alcohol-induced cirrhosis but it appears some alcohol-induced hepatitis at the present time is causing some associated decompensation with the associated jaundice, ascites, and coagulopathy. I do not think he is a candidate for steroids due to his GI bleeding and suspected infection. I do not think he has underlying hereditary hemochromatosis in regard to the elevated iron studies as I suspect those are acute reactants in relation to the significant hepatitis. In regard to the liver disease, I will continue supportive care, vitamin K as mentioned above, and a diagnostic paracentesis tomorrow to rule out spontaneous bacterial peritonitis. Even though he is already on antibiotics a cell count would be helpful in that regard. He will obviously need to avoid alcohol long-term once he is discharged. A complete liver workup has already been ordered to rule out other less likely possibilities. All of this has been discussed in detail with the patient and his daughter. His poor prognosis in regard to his liver disease has been discussed and again, he has been advised to avoid alcohol completely on a long-term basis. They are both comfortable with the plan. Thank you for the consultation. MD LAUREEN Guadalupe/SURY / [phone] MTDStaci
[2023-01-15] MEDS: 0.9 % Sodium Chloride 1,000 ML 75 ML IVCONT (02:19)
[2023-01-15 04:17] LABS: HBc Num1 2.11 S/CO (0.00-0.79); HBsAGNum1 0.48 S/CO (0.00-0.99); Hepatitis A Antibody IgM 0.18 Index (0-0.79); Hepatitis B Surface Antigen Negative (Negative); ~Hepatitis A Antibody IgM Nonreactive (Nonreactive); ~Hepatitis B Surface Antibody REACTIVE (Nonreactive); ~Hepatitis C Antibody Nonreactive (Nonreactive)
[2023-01-15 04:57] LABS: HBc Num2 1.84 S/CO; HBc Num3 1.87 S/CO; Hepatitis B Core Antibody Reactive (Nonreactive)
[2023-01-15] MEDS: Pantoprazole Sodium 40 MG/10 ML VIAL IVPUSH (05:34)
[2023-01-15 07:03] LABS: MANUAL DIFF FLAG NO
[2023-01-15 07:11] LABS: Basophils Absolute Auto 0.1 X10*3/uL (0.0-0.2); Basophils Percent Auto 0.7 % (0-2); Eosinophils Absolute Auto 0.4 X10*3/uL (0.0-0.4); Eosinophils Percent Auto 3.3 % (0-4); Hemoglobin 9.7 g/dl (14.0-18.0); Imm Gran Abs Auto 0.22 X10*3/uL (0.00-0.03); Imm Gran Pct Auto 1.9 % (0.0-0.4); Lymphocytes Absolute Auto 0.7 X10*3/uL (1.2-4.9); Lymphocytes Percent Auto 5.5 % (20-40); Mean Corpuscular HGB Conc 35.9 g/dl (31.0-36.0); Mean Corpuscular Hemoglobin 32.7 pg (27.0-33.0); Mean Corpuscular Volume 90.9 fL (80.0-98.0); Mean Platelet Volume 10.2 fL (9.4-12.4); Monocytes Absolute Auto 0.8 X10*3/uL (0.1-1.2); Monocytes Percent Auto 6.9 % (2-11); Neutrophils Absolute Auto 9.6 x10*3/uL (2.0-8.3); Neutrophils Percent Auto 81.7 % (45-73); Platelet Count 166 X10*3/uL (160-400); Red Blood Count 2.97 X10*6/uL (4.60-5.80); Red Cell Distribution Width 16.7 % (11.0-16.0); White Blood Count 11.8 X10*3/uL (4.8-10.8)
[2023-01-15 07:14] LABS: INTERNATIONAL NORM RATIO 1.3 (0.9-1.1); Prothrombin Time 15.7 SEC (11.1-13.3)
[2023-01-15 07:27] LABS: Alanine Aminotransferase 52 U/L (0-40); Albumin Level 2.9 g/dL (3.5-5.0); Alkaline Phosphatase 130 U/L (39-117); Anion Gap 15 (12-20); Aspartate Amino Transferase 140 U/L (5-37); Blood Urea Nitrogen 15 mg/dL (9-16); Calcium 7.8 mg/dL (8.4-10.2); Carbon Dioxide 21 mmol/L (22-29); Chloride 106 mmol/L (96-108); Creatinine Clr Calc Pharmacy 101.4; Estimated Glomerular Filt Rate > 60; Glucose Random 82 mg/dL (60-115); Potassium 3.4 mmol/L (3.3-5.1); Sodium 139 mmol/L (135-145); Total Protein 4.8 g/dL (6.5-8.0)
[2023-01-15] MEDS: Thiamine HCL 100 MG in 0.9 % Sodium Chloride 100 ML 202 MG IV (07:33)
[2023-01-15] MEDS: PHENobarbitaL 15 MG TABLET 45 MG PO ×2 (07:33→20:27)
[2023-01-15] MEDS: Folic Acid 1 MG in 0.9 % Sodium Chloride 50 ML 100.4 MG IV (07:33)
[2023-01-15 07:36] LABS: Bilirubin Total 27.5 mg/dL (0.0-1.0)
[2023-01-15 09:01] LABS: Bilirubin Direct 18.8 mg/dL (0.0-0.5)
--- NOTE | 2023-01-15 11:52 | MHC.CM.PN ---
Pt admitted with dx: GI bleed and liver cirrhosis. Pt lives in an apartment with his son, he was independent/no previous services/DME. D/C plan to return home with family support and likely new VNA when medically cleared. Transport via son vs BLS/[facility]. HCP copy requested. PCP: Michelle Dunne vax: x 3
[2023-01-15] MEDS: Azithromycin 500 MG in 0.9 % Sodium Chloride 250 ML 125 MG IV (12:08)
[2023-01-15] MEDS: Lidocaine HCl 1 % MPF 5 ML VIAL SUBCUT (13:20)
[2023-01-15 14:08] LABS: MN% 45.9 %; PMN% 54.1 %; WBC Peritoneal Fluid 0.112 X10*3/uL
[2023-01-15 14:09] LABS: RBC Peritoneal Fluid < 0.002 X10*6/uL
[2023-01-15] MEDS: Lactated Ringers 1,000 ML 100 ML IVCONT (14:27)
[2023-01-15] MEDS: Mag&Al/Sim/Diphenhyd/Lidocaine 10 ML ORAL.SUSP PO (14:38)
[2023-01-15 16:19] LABS: Monocytes Peritoneal Fl 4 %; Other Peritioneal Fl 2 %
[2023-01-15 16:20] LABS: BF Shift QC OK YES; Lymphocyte Peritoneal Fl 31 %; Man Diluent Bkgrd OK YES; Neutrophils Peritoneal Fluid 63 %
--- NOTE | 2023-01-15 16:22 | PM.OP ---
Brief Operative Note Date of Service: 01/15/23 Pre-op diagnosis: UGI bleed Post-op diagnosis: other (Gastric ulcer, Gastritis, Duodenitis) Procedure: EGD with biopsies Surgeon: Usman Odell Anesthesia: MAC Was an Food Service Ambassador used for this Procedure?: No Estimated blood loss (mL): 2.0 Pathology: other (A. Gastric antral ulcer B. Gastric antrum) Condition: stable Disposition: PACU
--- NOTE | 2023-01-15 16:26 | PM.EVENT ---
Event Note Date of Service: 01/15/23 Event Note: GI-EGD-Full note dictated Findings: 1. Large, approximately 2cm ulcer on the posterior gastric antral wall with a clean base and no active bleeding. Grossly benign. Margins biopsied 2. Erosive antral gastritis, biopsied x 3 3. Duodenitis 4. Hiatal hernia, GERD Rec: Change to PO PPI BID, advance diet as tolerated, F/U labs in AM, avoid all aspirin/NSAIDs/ EtOH terminal carman. Treat H.pylori if biopsies are positive. Consider F/U EGD in 2-3 months to assess for healing, depending on his clinical course. Supportive care re: liver disease. His ascites appears negative for SBP. His improved PT/INR is reassuring. His Total Bilirubin may worsen before it gets better. Avoid all hepatotoxins. Obviously avoid all EtOH retirement. Check results of the remainder of the liver workup, which I suspect will be negative. D/W his daughter, Ronna, in detail. Thanks Time Spent With Patient Time: Total time managing care of this patient today ____ minutes.
[2023-01-15] MEDS: Omeprazole 40 MG CAPSULE.DR PO (16:38)
--- NOTE | 2023-01-15 18:21 | HO.PM.IMPN ---
Subjective Subjective Date of Service: 01/15/23 Interval History: Follow-up for decompensated cirrhosis, hyperbilirubinemia, sepsis, upper GI bleed, lung mass Patient with no episodes of melena last night HPI limited due to patient's mentation, but complains only of chronic back pain Patient currently NPO awaiting paracentesis and endoscopy Review of Systems Negative except for that stated knee HPI Physical Exam Vital Signs: Vital Signs: Last Vital Signs Temp 97.9 F 01/15/23 16:46 Pulse 94 01/15/23 16:46 Resp 17 01/15/23 16:46 BP 164/75 H 01/15/23 16:46 Pulse Ox 92 01/15/23 16:46 O2 Del Method Room Air 01/15/23 16:46 O2 Flow Rate 2 01/15/23 07:23 BMI result Body Mass Index 26.0 General: AOx2, frail looking, markedly jaundiced Resp: CTA bilaterally CVS: S1, S2, RRR GI: +BS, moderate distention, diffusely tender Skin: No rash. Jaundice Neuro: Cranial nerves II-XII grossly intact bilaterally. Motor grossly intact bilaterally Extremities: No edema Objective Data Active Medications Ceftriaxone Sodium 1 gm/ (Sodium Chloride) 50 mls @ 100 mls/hr IV Q24H [facility] Last Infusion: 01/14/23 23:55 Dose: 0 mls/hr Documented By: WASHINGTON Sodium Chloride (Ns) 1,000 mls @ 75 mls/hr IVCONT .[id number] [facility] Last Admin: 01/15/23 14:55 Dose: Not Given Documented By: GAURANG Non-Admin Reason: Per PA GIVE LR instead Thiamine HCl 100 mg/ Sodium (Chloride) 101 mls @ 202 mls/hr IV DAILY [facility] Last Infusion: 01/15/23 08:30 Dose: 0 mls/hr Documented By: GAURANG Folic Acid 1 mg/ Sodium (Chloride) 50.2 mls @ 100.4 mls/hr IV DAILY [facility] Last Infusion: 01/15/23 08:29 Dose: 0 mls/hr Documented By: GAUARNG Azithromycin 500 mg/ Sodium (Chloride) 250 mls @ 125 mls/hr IV Q24H [facility] Last Infusion: 01/15/23 14:31 Dose: 0 mls/hr Documented By: GAURANG Lactated Ringer's (Lr) 1,000 mls @ 100 mls/hr IVCONT .Q10H [facility] Last Infusion: 01/15/23 16:38 Dose: 100 mls/hr Documented By: GAURANG Sodium Chloride (Ns) 500 mls @ 20 mls/hr IVCONT .Q24H [facility] Last Admin: 01/15/23 14:31 Dose: Not Given Documented By: GAURANG Non-Admin Reason: HANGING LR PER VERBAL ORDER BY PROVIDER Omeprazole (Omeprazole 40 Mg Capsule.Dr) 40 mg PO BID@0630,1630 [facility] Last Admin: 01/15/23 16:38 Dose: 40 mg Documented By: GAURANG Ondansetron HCl (Ondansetron Hcl 4 Mg/2 Ml Vial) 4 mg IVPUSH Q8H PRN PRN Reason: Nausea and Vomiting Pharmacy Consult (Consult Rx Perform Med Rec) 1 each MISCELLANE ONCE PRN PRN Reason: Consult order Pharmacy Consult (Consult Rx Etoh Phenob Im/Po) 1 each MISCELLANE ONCE PRN; Protocol PRN Reason: Consult order Phenobarbital (Phenobarbital 15 Mg Tablet) 45 mg PO BID [facility] Stop: 01/16/23 21:01 Last Admin: 01/15/23 07:33 Dose: 45 mg Documented By: GAURANG Phenobarbital (Phenobarbital 15 Mg Tablet) 15 mg PO BID [facility] Stop: 01/18/23 21:01 Phenobarbital (Phenobarbital 15 Mg Tablet) 15 mg PO DAILY [facility] Stop: 01/20/23 09:01 Labs 01/15/23 06:28 01/15/23 06:28 Labs: Laboratory Results - last 24 hr 01/13/23 01/15/23 01/15/23 22:02 06:28 06:28 MCV 90.9 MCH 32.7 MCHC 35.9 RDW 16.7 H Plt Count 166 MPV 10.2 Immature Gran % (Auto) 1.9 H Neut % (Auto) 81.7 H Lymph % (Auto) 5.5 L [place] % (Auto) 6.9 Eos % (Auto) 3.3 Baso % (Auto) 0.7 Lymph # (Auto) 0.7 L [place] # (Auto) 0.8 Eos # (Auto) 0.4 Baso # (Auto) 0.1 Abs Immat Gran (auto) 0.22 H Absolute Neuts (auto) 9.6 H Absolute Nucleated RBC 0.000 Nucleated RBC % (auto) 0.0 PT 15.7 H INR 1.3 H Anion Gap Estim Creat Clear Calc Estimated GFR Random Glucose Calcium Total Bilirubin Direct Bilirubin AST ALT Alkaline Phosphatase Total Protein Albumin Peritoneal WBC Peritoneal RBC Periton Neutrophils Periton Lymphocytes Peritoneal Monocytes Peritoneal Other Cells Hepatitis A IgM Ab Nonreactive Hep Bs Antigen Negative Hep Bs Antibody REACTIVE Hep B Core Total Ab Reactive Hep B Core IgM Ab Cancelled Hepatitis C Ab (EIA) Nonreactive 01/15/23 01/15/23 06:28 13:10 MCV MCH MCHC RDW Plt Count MPV Immature Gran % (Auto) Neut % (Auto) Lymph % (Auto) [place] % (Auto) Eos % (Auto) Baso % (Auto) Lymph # (Auto) [place] # (Auto) Eos # (Auto) Baso # (Auto) Abs Immat Gran (auto) Absolute Neuts (auto) Absolute Nucleated RBC Nucleated RBC % (auto) PT INR Anion Gap 15 Estim Creat Clear Calc 101.4 Estimated GFR > 60 Random Glucose 82 Calcium 7.8 L D Total Bilirubin 27.5 H Direct Bilirubin 18.8 H AST 140 H ALT 52 H Alkaline Phosphatase 130 H Total Protein 4.8 L Albumin 2.9 L Peritoneal WBC 0.112 Peritoneal RBC < 0.002 Periton Neutrophils 63 Periton Lymphocytes 31 Peritoneal Monocytes 4 Peritoneal Other Cells 2 Hepatitis A IgM Ab Hep Bs Antigen Hep Bs Antibody Hep B Core Total Ab Hep B Core IgM Ab Hepatitis C Ab (EIA) Microbiology Microbiology Results: Microbiology 01/15/23 13:10 Gram Stain - Final Ascites Fluid 01/13/23 16:13 Urine Culture - Final Urine clean catch - Urine trevino top 01/13/23 16:41 Blood Culture - Preliminary Blood - Venous No growth after 24 hours. 01/13/23 16:42 Blood Culture - Preliminary Blood - Venous No growth after 24 hours. Assessment and Plan (1) Lung mass: Status: Acute (2) Sepsis: Status: Acute (3) Normocytic anemia: Status: Acute (4) GI bleed: Status: Acute (5) Hyperammonemia: Status: Acute Plan 77-year-old male with no significant past medical history comes into the hospital GI bleed as well as jaundice and found to have acute hepatitis Decompensated cirrhosis No history of liver cirrhosis, likely secondary to hx of heavy alcohol abuse Has elevated LFTs, bilirubin of 25.5 MELD-NA of 31 and CHILD kemp of 11 making prognosis grim AOx2 but poor historian Elevated Ammonia On prophylactic antibiotics for SBP? Paracentesis pending Patient receiving lactulose tid with a goal of 2-3 BMs daily GI consult Hepatitis panel shows positive Hep B antibody and core, but negative for Hep B antigen Follow LFTs Sepsis due to CAP Pt meets severe sepsis criteria: WBC, tachycardia, tachypnia, lactic acidosis, CXR suggestive of infectious/inflammatory process On empiric IV abx, ceftriaxone azithromycin, started 01/13/2023 Follow blood culture and sputum culture Resuscitated with IV fluids Acute lactic acidosis Due to sepsis and liver disease Resolved Acute GI bleed Likely upper Likely secondary to ibuprofen intake Pt will be getting endoscopy later in the day Patient given FFP, vitamin K, started on PPI IV and 1 unit of PRBC GI consulted Patient made NPO Pneumonia Leukocytosis, sepsis Will treat with IV antibiotics, azithromycin and ceftriaxone started 01/14/2023 Follow cultures Hyperammonemia Secondary to liver cirrhosis Lactulose t.i.d. with goal of 3-4 loose bowel movements per day Follow ammonia Hyperbilirubinemia Secondary to above Follow LFTs Lung mass CT found density in the right upper lung measuring 1.2 cm with spiculation in the margins, concerning for malignancy Will need out patient follow-up for possible biopsy Hematology/oncology consult Normocytic anemia Secondary to GI bleed Follow CBC Alcohol use disorder Placed on phenobarb protocol Thiamine and folic acid Monitor [facility] Addiction team consult Elevated ferritin with elevated T sat Obtained [id number] DNA Consulted Hematology DVT prophylaxis: SCDs d/t Attending: Dr. Del Castillo Continued hospitalization for sepsis, decompensated cirrhosis, and GI bleed. Time Spent With Patient Time: Total time managing care of this patient today ____ minutes. Quality Stroke Does the patient have a stroke diagnosis?: No VTE Prior VTE?: No VTE Risk Level:: Medical - moderate - high VTE Device Contraindication: N/A - Device Ordered VTE Drug Contraindication: Treatment Not Indicated
[2023-01-15] MEDS: Lactulose 20 GM/30 ML SOLUTION PO (20:27)
[2023-01-15] MEDS: cefTRIAXone sodium 1 GM in 0.9 % Sodium Chloride 50 ML IV (22:25)
--- NOTE | 2023-01-16 02:39 | OP_ITS ---
DATE OF SERVICE: 01/15/2023 SURGEON: Usman Odell MD INDICATIONS: The patient presents for evaluation of upper GI bleeding. Full consent has been obtained from him for this, including risks of bleeding and perforation. PREOPERATIVE DIAGNOSIS: Upper GI bleeding. POSTOPERATIVE DIAGNOSIS: PROCEDURE PERFORMED: Esophagogastroduodenoscopy with biopsy. ESTIMATED BLOOD LOSS: COMPLICATIONS: ANESTHESIA: Monitored anesthesia care. ASSISTANTS: SPECIMENS: POSTOPERATIVE DIAGNOSES: Upper GI bleeding, gastric ulcer, gastritis, duodenitis, hiatal hernia. DESCRIPTION OF PROCEDURE: The patient was placed in the left lateral decubitus position. The Olympus video gastroscope was passed in the posterior oropharynx and upper esophagus under direct vision. The scope was passed slowly to the distal esophagus. The gastroesophageal junction appeared at 38 cm. There was no sign of any esophagitis. I did not appreciate any esophageal varices. There was some slight irregularity at the gastroesophageal junction consistent with reflux. The scope entered the stomach, there was a small hiatal hernia. The scope was advanced to the pylorus and the duodenum was cannulated to the descending portion. The duodenum including the bulb was carefully inspected. There was some duodenitis in the duodenal bulb with edema and some friability. There were no ulcerations nor erosions. The scope was withdrawn back to the stomach. The gastric antrum was notable for an approximately 1.5 cm to 2.0 cm ulcer along the posterior wall. The ulcer crater was clean, without any sign of visible vessel nor bleeding. The margins appeared grossly benign. There was good peristalsis. There was also an associated erosive gastritis in the antrum as well. The scope was retroflexed visualizing the proximal stomach carefully, which appeared normal, without any sign of mass, ulceration, nor varices. There was no blood in the upper GI tract. Multiple biopsies were obtained at the margins of the gastric ulcer and then also from the gastric antrum itself. The scope was withdrawn back in the esophagus. The esophageal mucosa otherwise appeared normal. The scope was withdrawn from the patient. He tolerated the procedure well and was returned to the recovery area in stable condition. IMPRESSION: 1. Gastric antral ulcer. 2. Gastritis. 3. Duodenitis. 4. Rule out Helicobacter pylori. 5. Hiatal hernia, gastroesophageal reflux. PLAN: The patient will have his diet advanced. He will be switched to an oral PPI which he should stay on long-term. He should avoid all aspirin and NSAIDs long-term. He will hopefully be able to abstain from alcohol long-term as well. He will have followup laboratories tomorrow. In regard to the underlying cirrhosis and alcohol-induced hepatitis, this will need to be observed further. His total bilirubin has increased to 27.5, direct bilirubin of 18.8. His PT and INR have improved, however, with a PT of 15.7 and INR of 1.3 today. He will continue with supportive care. This has been discussed with his daughter, Denita. MD LAUREEN Guadalupe/SURY / [id number] MTDD
[2023-01-16] MEDS: Lactated Ringers 1,000 ML 100 ML IVCONT (02:54)
[2023-01-16 03:29] VITALS: BP 132/66; PULSE 93; RESP 20; TEMP 36.5; O2SAT 96
[2023-01-16] MEDS: Omeprazole 40 MG CAPSULE.DR PO ×2 (05:57→15:41)
[2023-01-16 06:57] LABS: MANUAL DIFF FLAG NO
[2023-01-16 07:04] VITALS: BP 140/68; PULSE 90; RESP 18; TEMP 37.4; O2SAT 95
[2023-01-16 07:04] LABS: Basophils Absolute Auto 0.1 X10*3/uL (0.0-0.2); Basophils Percent Auto 0.7 % (0-2); Eosinophils Absolute Auto 0.3 X10*3/uL (0.0-0.4); Eosinophils Percent Auto 2.3 % (0-4); Hematocrit 25.1 % (42.0-52.0); Hemoglobin 9.1 g/dl (14.0-18.0); Imm Gran Pct Auto 1.7 % (0.0-0.4); Lymphocytes Absolute Auto 0.8 X10*3/uL (1.2-4.9); Lymphocytes Percent Auto 6.5 % (20-40); Mean Corpuscular HGB Conc 36.3 g/dl (31.0-36.0); Mean Corpuscular Hemoglobin 33.1 pg (27.0-33.0); Mean Corpuscular Volume 91.3 fL (80.0-98.0); Mean Platelet Volume 10.1 fL (9.4-12.4); Monocytes Absolute Auto 1.2 X10*3/uL (0.1-1.2); Monocytes Percent Auto 10.4 % (2-11); Neutrophils Absolute Auto 9.1 x10*3/uL (2.0-8.3); Neutrophils Percent Auto 78.4 % (45-73); Platelet Count 159 X10*3/uL (160-400); Red Blood Count 2.75 X10*6/uL (4.60-5.80); Red Cell Distribution Width 17.1 % (11.0-16.0); White Blood Count 11.7 X10*3/uL (4.8-10.8)
[2023-01-16 07:35] LABS: Alanine Aminotransferase 58 U/L (0-40); Albumin Level 2.4 g/dL (3.5-5.0); Alkaline Phosphatase 134 U/L (39-117); Anion Gap 16 (12-20); Aspartate Amino Transferase 132 U/L (5-37); Blood Urea Nitrogen 9 mg/dL (9-16); Calcium 7.4 mg/dL (8.4-10.2); Carbon Dioxide 18 mmol/L (22-29); Chloride 104 mmol/L (96-108); Creatinine Clr Calc Pharmacy 104.8; Estimated Glomerular Filt Rate > 60; Glucose Fasting 85 mg/dL (60-99); Potassium 3.5 mmol/L (3.3-5.1); Sodium 134 mmol/L (135-145); Total Protein 4.3 g/dL (6.5-8.0)
[2023-01-16 07:50] LABS: Bilirubin Direct 17.7 mg/dL (0.0-0.5)
[2023-01-16 08:29] LABS: Ammonia 54 umol/L (13-55)
[2023-01-16 09:43] LABS: Procalcitonin 0.94 ng/mL
[2023-01-16] MEDS: PHENobarbitaL 15 MG TABLET 45 MG PO ×2 (09:57→20:56)
[2023-01-16] MEDS: Lactulose 20 GM/30 ML SOLUTION PO ×3 (09:57→20:56)
[2023-01-16] MEDS: Folic Acid 1 MG in 0.9 % Sodium Chloride 50 ML 100.4 MG IV (09:59)
[2023-01-16] MEDS: Thiamine HCL 100 MG in 0.9 % Sodium Chloride 100 ML 202 MG IV (10:19)
[2023-01-16 11:06] VITALS: BP 139/65; PULSE 100; RESP 18; TEMP 37.6; O2SAT 97
[2023-01-16] MEDS: rifAXIMin 550 MG TABLET PO ×2 (11:57→20:56)
[2023-01-16] MEDS: Azithromycin 500 MG in 0.9 % Sodium Chloride 250 ML 125 MG IV (13:15)
[2023-01-16 13:43] LABS: Alpha Fetoprotein 2.9 ng/mL (<6.1)
--- NOTE | 2023-01-16 14:46 | HO.POSTANES ---
Post Anesthesia Evaluation Post Anesthesia Evaluation Date of Service: 01/16/23 Vital Signs: Vital Signs Temp Pulse Resp BP Pulse Ox O2 Del Method 01/16/23 11:06 99.7 F 100 18 139/65 97 Room Air 01/16/23 07:04 99.3 F 90 18 140/68 H 95 Room Air 01/16/23 03:29 97.7 F 93 20 132/66 96 Room Air Anesthesia: Monitored Mental Status: Awake Pain Control: Satisfactory Nausea/Vomiting: None Hydration: Adequate Anesthesia-Related Issues: No Anes. Related Issues
[2023-01-16 15:27] VITALS: BP 147/83; PULSE 96; RESP 18; TEMP 36.8; O2SAT 96
--- NOTE | 2023-01-16 16:02 | P.PNIM_ITS ---
Subjective Subjective Date of Service: 01/16/23 Interval History: EGD done by Dr Odell: 1. Gastric antral ulcer. 2. Gastritis. 3. Duodenitis. 4. Rule out Helicobacter pylori. 5. Hiatal hernia, gastroesophageal reflux. C/o back pain No further melena Review of Systems Review of Systems: Yes all other systems are reviewed and are negative Physical Exam Vital Signs: Vital Signs: Last Vital Signs Temp 98.2 F 01/16/23 15:27 Pulse 96 01/16/23 15:27 Resp 18 01/16/23 15:27 BP 147/83 H 01/16/23 15:27 Pulse Ox 96 01/16/23 15:27 O2 Del Method Room Air 01/16/23 15:27 O2 Flow Rate 2 01/15/23 07:23 BMI result Body Mass Index 26.0 Gen:chronically ill-appearing HEENT: sclera icteric, moist mucus membranes Neck: supple Lungs: clear to auscultation bilaterally Heart: regular rate and rhythm, no murmurs Abd: soft, non-tender, distended, fluid wave, no ascites leak Ext: no edema Skin: warm/well-perfused, jaundiced Neuro: alert and oriented x3, asterixis present Psych: appropriate affect Objective Data Active Medications Ceftriaxone Sodium 1 gm/ (Sodium Chloride) 50 mls @ 100 mls/hr IV Q24H [facility] Last Infusion: 01/15/23 23:11 Dose: 0 mls/hr Documented By: FRANCIS Thiamine HCl 100 mg/ Sodium (Chloride) 101 mls @ 202 mls/hr IV DAILY [facility] Last Infusion: 01/16/23 11:04 Dose: 0 mls/hr Documented By: RYAN Folic Acid 1 mg/ Sodium (Chloride) 50.2 mls @ 100.4 mls/hr IV DAILY [facility] Last Infusion: 01/16/23 10:36 Dose: 0 mls/hr Documented By: RYAN Azithromycin 500 mg/ Sodium (Chloride) 250 mls @ 125 mls/hr IV Q24H [facility] Last Infusion: 01/16/23 15:15 Dose: 0 mls/hr Documented By: CHANEL Lactulose (Lactulose 20 Gm/30 Ml Solution) 20 gm PO TID [facility] Last Admin: 01/16/23 15:41 Dose: 20 gm Documented By: CHANEL Omeprazole (Omeprazole 40 Mg Capsule.) 40 mg PO BID@5113,0726 [facility] Last Admin: 01/16/23 15:41 Dose: 40 mg Documented By: CHANEL Ondansetron HCl (Ondansetron Hcl 4 Mg/2 Ml Vial) 4 mg IVPUSH Q8H PRN PRN Reason: Nausea and Vomiting Pharmacy Consult (Consult Rx Perform Med Rec) 1 each MISCELLANE ONCE PRN PRN Reason: Consult order Pharmacy Consult (Consult Rx Etoh Phenob Im/Po) 1 each MISCELLANE ONCE PRN; Protocol PRN Reason: Consult order Phenobarbital (Phenobarbital 15 Mg Tablet) 45 mg PO BID [facility] Stop: 01/16/23 21:01 Last Admin: 01/16/23 09:57 Dose: 45 mg Documented By: RYAN Phenobarbital (Phenobarbital 15 Mg Tablet) 15 mg PO BID [facility] Stop: 01/18/23 21:01 Phenobarbital (Phenobarbital 15 Mg Tablet) 15 mg PO DAILY [facility] Stop: 01/20/23 09:01 Rifaximin (Rifaximin 550 Mg Tablet) 550 mg PO BID [facility] Last Admin: 01/16/23 11:57 Dose: 550 mg Documented By: CHANEL Labs 01/16/23 06:15 01/16/23 06:15 Labs: Laboratory Results - last 24 hr 01/14/23 01/15/23 01/16/23 06:11 13:10 06:15 MCV 91.3 MCH 33.1 H MCHC 36.3 H RDW 17.1 H Plt Count 159 L MPV 10.1 Immature Gran % (Auto) 1.7 H Neut % (Auto) 78.4 H Lymph % (Auto) 6.5 L [place] % (Auto) 10.4 Eos % (Auto) 2.3 Baso % (Auto) 0.7 Lymph # (Auto) 0.8 L [place] # (Auto) 1.2 Eos # (Auto) 0.3 Baso # (Auto) 0.1 Abs Immat Gran (auto) 0.20 H Absolute Neuts (auto) 9.1 H Absolute Nucleated RBC 0.000 Nucleated RBC % (auto) 0.0 Anion Gap Estim Creat Clear Calc Estimated GFR Fasting Glucose Calcium Total Bilirubin Direct Bilirubin AST ALT Alkaline Phosphatase Ammonia Total Protein Albumin Alpha Fetoprotein 2.9 Procalcitonin Periton Neutrophils 63 Periton Lymphocytes 31 Peritoneal Monocytes 4 Peritoneal Other Cells 2 01/16/23 01/16/23 06:15 08:00 MCV MCH MCHC RDW Plt Count MPV Immature Gran % (Auto) Neut % (Auto) Lymph % (Auto) [place] % (Auto) Eos % (Auto) Baso % (Auto) Lymph # (Auto) [place] # (Auto) Eos # (Auto) Baso # (Auto) Abs Immat Gran (auto) Absolute Neuts (auto) Absolute Nucleated RBC Nucleated RBC % (auto) Anion Gap 16 Estim Creat Clear Calc 104.8 Estimated GFR > 60 Fasting Glucose 85 Calcium 7.4 L Total Bilirubin 25.0 H Direct Bilirubin 17.7 H AST 132 H ALT 58 H Alkaline Phosphatase 134 H Ammonia 54 Total Protein 4.3 L Albumin 2.4 L Alpha Fetoprotein Procalcitonin 0.94 Periton Neutrophils Periton Lymphocytes Peritoneal Monocytes Peritoneal Other Cells Microbiology Microbiology Results: Microbiology 01/15/23 13:10 Gram Stain - Final Ascites Fluid Routine Culture - Preliminary No growth to date. Anaerobic Culture - Preliminary No growth to date. 01/13/23 16:41 Blood Culture - Preliminary Blood - Venous No growth after 48 hours. 01/13/23 16:42 Blood Culture - Preliminary Blood - Venous No growth after 48 hours. Assessment and Plan (1) Lung mass: Status: Acute (2) Sepsis: Status: Acute (3) Normocytic anemia: Status: Acute (4) GI bleed: Status: Acute (5) Hyperammonemia: Status: Acute Plan d4 77yo M with AUD presenting with GI bleed, found to have decompensated cirrhosis/EtOH hepatitis/ascites/encephalopathy decompensated cirrhosis - serologic workup pending but likely due to EtOH - MELD-Na 31, CTP 11 - ceftriaxone to prevent SBP - no SBP on paracentesis done 01/15 acute UGIB - EGD done as above 01/15: 1. Gastric antral ulcer. 2. Gastritis. 3. Duodenitis. 4. Rule out Helicobacter pylori. 5. Hiatal hernia, gastroesophageal reflux. - PO PPI hepatic encephalopathy - continue lactulose, add rifaximin EtOH hepatitis - not a candidate for steroids sepsis due to CAP - azithro + ceftriax d4 - BCx neg, follow PCT lactic acidosis - due to sepsis + cirrhosis; resolved lung mass - spiculated RUL mass, will need outpt PET/CT AUD - phenobarbital taper, thiamine, folate, Add Med/Recov Team consult VTE ppx - SCDs dispo - TBD In my clinical judgment, the patient requires continued inpatient hospitalization for the following reasons: decompensated cirrhosis, IV ABX Time Spent With Patient Time: Total time managing care of this patient today ___50_ minutes. Quality Stroke Does the patient have a stroke diagnosis?: No VTE Prior VTE?: No VTE Risk Level:: Medical - moderate - high VTE Device Contraindication: N/A - Device Ordered VTE Drug Contraindication: Treatment Not Indicated
[2023-01-16] MEDS: Morphine Sulfate 2 MG/ML CARTRIDGE IM ×2 (16:24→20:57)
--- NOTE | 2023-01-16 16:25 | MHC.RECOVRN ---
Received Addiction Medicine consult, chart reviewed. Briefly attempted to meet with pt, pt ill appearing and lethargic. Will return when more appropriate. Jazzy Meza APRN, aware.
[2023-01-16 18:38] LABS: Alpha 1 Anti-trypsin 178 mg/dL (83-199)
[2023-01-16 19:52] VITALS: BP 134/64; PULSE 88; RESP 18; TEMP 36.2; O2SAT 97
[2023-01-16] MEDS: cefTRIAXone sodium 1 GM in 0.9 % Sodium Chloride 50 ML IV (23:55)
[2023-01-16 23:56] VITALS: BP 155/74; PULSE 103; RESP 20; TEMP 36.6; O2SAT 95
[2023-01-17] VITALS (8 sets, daily range): BP systolic 108–149; BP diastolic 60–72; PULSE 93–102; RESP 18–20; TEMP 36.2–37.9; O2SAT 95–97
[2023-01-17] MEDS: Omeprazole 40 MG CAPSULE.DR PO ×2 (05:52→17:39)
[2023-01-17 07:06] LABS: Hematocrit 28.9 % (42.0-52.0); Hemoglobin 10.5 g/dl (14.0-18.0); Mean Corpuscular HGB Conc 36.3 g/dl (31.0-36.0); Mean Corpuscular Volume 90.9 fL (80.0-98.0); Mean Platelet Volume 10.6 fL (9.4-12.4); Platelet Count 203 X10*3/uL (160-400); Red Blood Count 3.18 X10*6/uL (4.60-5.80); Red Cell Distribution Width 17.5 % (11.0-16.0); White Blood Count 12.9 X10*3/uL (4.8-10.8)
[2023-01-17 07:09] LABS: INTERNATIONAL NORM RATIO 1.5 (0.9-1.1); Prothrombin Time 18.2 SEC (11.1-13.3)
[2023-01-17 07:30] LABS: Alanine Aminotransferase 69 U/L (0-40); Albumin Level 2.6 g/dL (3.5-5.0); Alkaline Phosphatase 187 U/L (39-117); Anion Gap 14 (12-20); Aspartate Amino Transferase 141 U/L (5-37); Bilirubin Total 29.6 mg/dL (0.0-1.0); Blood Urea Nitrogen 11 mg/dL (9-16); Calcium 7.7 mg/dL (8.4-10.2); Carbon Dioxide 21 mmol/L (22-29); Chloride 100 mmol/L (96-108); Creatinine Clr Calc Pharmacy 81.3; Estimated Glomerular Filt Rate > 60; Glucose Random 100 mg/dL (60-115); Potassium 3.3 mmol/L (3.3-5.1); Sodium 132 mmol/L (135-145); Total Protein 4.9 g/dL (6.5-8.0)
[2023-01-17] MEDS: Morphine Sulfate 2 MG/ML CARTRIDGE IVPUSH (09:56)
[2023-01-17] MEDS: rifAXIMin 550 MG TABLET PO ×2 (09:59→21:42)
[2023-01-17] MEDS: Thiamine HCL 100 MG in 0.9 % Sodium Chloride 100 ML 202 MG IV (09:59)
[2023-01-17] MEDS: PHENobarbitaL 15 MG TABLET PO ×2 (09:59→21:43)
--- NOTE | 2023-01-17 10:37 | MHC.CM.PN ---
EMR reviewed and per MD rounds, pt not medically cleared for D/C today and is awaiting a CT scan. Per PT they are recommending STR upon discharge. This CM met with pt and he would prefer to stay in the [facility] area for STR, referrals placed within that area. CM will continue to follow.
[2023-01-17] MEDS: Folic Acid 1 MG in 0.9 % Sodium Chloride 50 ML 100.4 MG IV (10:42)
--- NOTE | 2023-01-17 10:52 | P.PNIM_ITS ---
Subjective Subjective Date of Service: 01/17/23 Interval History: jaundiced abd distended bruising of L flank no melena Review of Systems Review of Systems: Yes all other systems are reviewed and are negative Physical Exam Vital Signs: Vital Signs: Last Vital Signs Temp 100.2 F 01/17/23 07:09 Pulse 93 01/17/23 09:23 Resp 20 01/17/23 09:56 BP 108/60 01/17/23 09:23 Pulse Ox 96 01/17/23 09:23 O2 Del Method Room Air 01/17/23 07:09 O2 Flow Rate 2 01/15/23 07:23 BMI result Body Mass Index 26.0 Gen:chronically ill-appearing HEENT: sclera icteric, moist mucus membranes Neck: supple Lungs: clear to auscultation bilaterally Heart: regular rate and rhythm, no murmurs Abd: soft, non-tender, distended, no ascites leak, extensive bruising L flank Ext: no edema Skin: warm/well-perfused, jaundiced Neuro: alert and oriented x3, asterixis resolved Psych: appropriate affe Objective Data Active Medications Ceftriaxone Sodium 1 gm/ (Sodium Chloride) 50 mls @ 100 mls/hr IV Q24H [facility] Last Infusion: 01/17/23 00:39 Dose: 0 mls/hr Documented By: EMMANUEL Thiamine HCl 100 mg/ Sodium (Chloride) 101 mls @ 202 mls/hr IV DAILY [facility] Last Admin: 01/17/23 09:59 Dose: 202 mls/hr Documented By: JONAS Folic Acid 1 mg/ Sodium (Chloride) 50.2 mls @ 100.4 mls/hr IV DAILY [facility] Last Admin: 01/17/23 10:42 Dose: 100.4 mls/hr Documented By: AUSTEN Azithromycin 500 mg/ Sodium (Chloride) 250 mls @ 125 mls/hr IV Q24H [facility] Last Infusion: 01/16/23 15:15 Dose: 0 mls/hr Documented By: CHANEL Lactulose (Lactulose 20 Gm/30 Ml Solution) 20 gm PO TID [facility] Last Admin: 01/17/23 10:01 Dose: Not Given Documented By: JONAS Non-Admin Reason: liquid stools Morphine Sulfate (Morphine Sulfate 2 Mg/Ml Cartridge) 2 mg IVPUSH Q4H PRN; Protocol PRN Reason: severe pain Last Admin: 01/17/23 09:56 Dose: 2 mg Documented By: JONAS Omeprazole (Omeprazole 40 Mg Shantanu.) 40 mg PO BID@0630,1630 [facility] Last Admin: 01/17/23 05:52 Dose: 40 mg Documented By: EMMANUEL Ondansetron HCl (Ondansetron Hcl 4 Mg/2 Ml Vial) 4 mg IVPUSH Q8H PRN PRN Reason: Nausea and Vomiting Pharmacy Consult (Consult Rx Perform Med Rec) 1 each MISCELLANE ONCE PRN PRN Reason: Consult order Pharmacy Consult (Consult Rx Etoh Phenob Im/Po) 1 each MISCELLANE ONCE PRN; Pr otocol PRN Reason: Consult order Phenobarbital (Phenobarbital 15 Mg Tablet) 15 mg PO BID [facility] Stop: 01/18/23 21:01 Last Admin: 01/17/23 09:59 Dose: 15 mg Documented By: JONAS Phenobarbital (Phenobarbital 15 Mg Tablet) 15 mg PO DAILY [facility] Stop: 01/20/23 09:01 Rifaximin (Rifaximin 550 Mg Tablet) 550 mg PO BID [facility] Last Admin: 01/17/23 09:59 Dose: 550 mg Documented By: JONAS Labs 01/17/23 06:44 01/17/23 06:44 Labs: Laboratory Results - last 24 hr 01/14/23 01/14/23 01/17/23 06:10 06:11 06:44 MCV 90.9 MCH 33.0 MCHC 36.3 H RDW 17.5 H Plt Count 203 D MPV 10.6 Absolute Nucleated RBC 0.000 Nucleated RBC % (auto) 0.0 PT INR Anion Gap Estim Creat Clear Calc Estimated GFR Random Glucose Calcium Magnesium Total Bilirubin AST ALT Alkaline Phosphatase Total Protein Albumin [id number] 178 Alpha Fetoprotein 2.9 01/17/23 01/17/23 06:44 06:44 MCV MCH MCHC RDW Plt Count MPV Absolute Nucleated RBC Nucleated RBC % (auto) PT 18.2 H INR 1.5 H Anion Gap 14 Estim Creat Clear Calc 81.3 Estimated GFR > 60 Random Glucose 100 Calcium 7.7 L Magnesium 2.0 Total Bilirubin 29.6 H AST 141 H ALT 69 H Alkaline Phosphatase 187 H Total Protein 4.9 L Albumin 2.6 L [id number] Alpha Fetoprotein Microbiology Microbiology Results: Microbiology 01/15/23 13:10 Gram Stain - Final Ascites Fluid Routine Culture - Final No growth after 2 days Anaerobic Culture - Preliminary No growth to date. Assessment and Plan (1) Lung mass: Status: Acute (2) Sepsis: Status: Acute (3) Normocytic anemia: Status: Acute (4) GI bleed: Status: Acute (5) Hyperammonemia: Status: Acute Plan d5 77yo M with AUD presenting with GI bleed, found to have decompensated cirrhosis/EtOH hepatitis/ascites/encephalopathy abd distension/bruising - will repeat CT A/P with contrast decompensated cirrhosis - serologic workup pending but likely due to EtOH - MELD-Na 31, CTP 11 - ceftriaxone to prevent SBP - no SBP on paracentesis done 01/15; cytology pending acute UGIB - EGD 01/[address] Odell: 1. Gastric antral ulcer. 2. Gastritis. 3. Duodenitis. 4. Rule out Helicobacter pylori. 5. Hiatal hernia, gastroesophageal reflux. - PO PPI - f/u biopsies hepatic encephalopathy - continue lactulose + rifaximin; asterixis resolved EtOH hepatitis - not a candidate for steroids per GI sepsis due to CAP - azithro + ceftriax d5 - BCx neg, follow PCT lactic acidosis - due to sepsis + cirrhosis; resolved lung mass - spiculated RUL mass, will need outpt PET/CT, Heme/Onc consult pending AUD - phenobarbital taper, thiamine, folate, Add Med/Recov Team consult VTE ppx - SCDs dispo - STR In my clinical judgment, the patient requires continued inpatient hospitalization for the following reasons: decompensated cirrhosis, IV ABX Time Spent With Patient Time: Total time managing care of this patient today ___50 _ minutes. Quality Stroke Does the patient have a stroke diagnosis?: No VTE Prior VTE?: No VTE Risk Level:: Medical - moderate - high VTE Device Contraindication: N/A - Device Ordered VTE Drug Contraindication: Treatment Not Indicated
[2023-01-17 11:12] LABS: Lipase 31 U/L (8-78)
[2023-01-17] MEDS: iohexoL 350 MG/ML 100 ML INFUS..BTL IV (12:21)
[2023-01-17] MEDS: Azithromycin 500 MG in 0.9 % Sodium Chloride 250 ML 125 MG IV (13:54)
[2023-01-17] MEDS: Lactulose 20 GM/30 ML SOLUTION PO (21:42)
[2023-01-17] MEDS: cefTRIAXone sodium 1 GM in 0.9 % Sodium Chloride 50 ML IV (22:02)
[2023-01-17 23:28] LABS: Smooth Muscle Antibody <20 U (<20)
[2023-01-18] VITALS (8 sets, daily range): BP systolic 102–142; BP diastolic 46–68; PULSE 94–110; RESP 14–20; TEMP 36.4–38.2; O2SAT 95–100
[2023-01-18] MEDS: Omeprazole 40 MG CAPSULE.DR PO ×2 (05:36→15:41)
[2023-01-18 07:37] LABS: Hematocrit 26.2 % (42.0-52.0); Hemoglobin 9.5 g/dl (14.0-18.0); Mean Corpuscular HGB Conc 36.3 g/dl (31.0-36.0); Mean Corpuscular Hemoglobin 32.6 pg (27.0-33.0); Mean Platelet Volume 10.9 fL (9.4-12.4); Platelet Count 216 X10*3/uL (160-400); Red Blood Count 2.91 X10*6/uL (4.60-5.80); Red Cell Distribution Width 17.9 % (11.0-16.0); White Blood Count 12.4 X10*3/uL (4.8-10.8)
[2023-01-18 07:44] LABS: INTERNATIONAL NORM RATIO 1.6 (0.9-1.1); Prothrombin Time 18.9 SEC (11.1-13.3)
[2023-01-18 08:01] LABS: Alanine Aminotransferase 58 U/L (0-40); Albumin Level 2.3 g/dL (3.5-5.0); Alkaline Phosphatase 181 U/L (39-117); Anion Gap 14 (12-20); Aspartate Amino Transferase 102 U/L (5-37); Blood Urea Nitrogen 15 mg/dL (9-16); Calcium 7.3 mg/dL (8.4-10.2); Carbon Dioxide 20 mmol/L (22-29); Chloride 100 mmol/L (96-108); Creatinine Clr Calc Pharmacy 63.1; Estimated Glomerular Filt Rate > 60; Glucose Random 94 mg/dL (60-115); Potassium 3.5 mmol/L (3.3-5.1); Sodium 130 mmol/L (135-145); Total Protein 4.4 g/dL (6.5-8.0)
[2023-01-18 08:15] LABS: Bilirubin Total 27.9 mg/dL (0.0-1.0)
[2023-01-18 08:28] LABS: Procalcitonin 0.99 ng/mL
[2023-01-18] MEDS: Thiamine HCL 100 MG in 0.9 % Sodium Chloride 100 ML 202 MG IV (09:03)
[2023-01-18] MEDS: PHENobarbitaL 15 MG TABLET PO ×2 (09:04→21:24)
[2023-01-18] MEDS: Folic Acid 1 MG in 0.9 % Sodium Chloride 50 ML 100.4 MG IV (09:04)
[2023-01-18] MEDS: Lactulose 20 GM/30 ML SOLUTION PO (09:04)
[2023-01-18] MEDS: rifAXIMin 550 MG TABLET PO ×2 (09:04→21:24)
--- NOTE | 2023-01-18 09:45 | P.EN_ITS ---
Event Note Date of Service: 01/18/23 Event Note: Addiction consult place. Patient seen by Recovery community service coordinator. Resources left at bedside--unclear if patient fully understood reason for visit and resources. Time Spent With Patient Time: Total time managing care of this patient today ____ minutes.
--- NOTE | 2023-01-18 11:44 | P.PNIM_ITS ---
Subjective Subjective Date of Service: 01/18/23 Interval History: no abd pain/N/V/hematochezia/melena not confused c/o chronic low back pain Review of Systems Review of Systems: Yes all other systems are reviewed and are negative Physical Exam Vital Signs: Vital Signs: Last Vital Signs Temp 97.8 F 01/18/23 11:16 Pulse 99 01/18/23 11:16 Resp 20 01/18/23 11:16 BP 126/65 01/18/23 11:16 Pulse Ox 100 01/18/23 11:16 O2 Del Method Room Air 01/18/23 11:16 O2 Flow Rate 2 01/15/23 07:23 BMI result Body Mass Index 26.0 Gen: chronically ill-appearing HEENT: sclera icteric, moist mucus membranes Neck: supple Lungs: clear to auscultation bilaterally Heart: regular rate and rhythm, no murmurs Abd: soft, non-tender, distended, no ascites leak, extensive bruising L flank Ext: no edema Skin: warm/well-perfused, jaundiced Neuro: alert and oriented x3, asterixis resolved Psych: appropriate affe Objective Data Active Medications Ceftriaxone Sodium 1 gm/ (Sodium Chloride) 50 mls @ 100 mls/hr IV Q24H [facility] Last Infusion: 01/17/23 22:44 Dose: 0 mls/hr Documented By: MARLENE Thiamine HCl 100 mg/ Sodium (Chloride) 101 mls @ 202 mls/hr IV DAILY [facility] Last Infusion: 01/18/23 09:36 Dose: 0 mls/hr Documented By: RENU Folic Acid 1 mg/ Sodium (Chloride) 50.2 mls @ 100.4 mls/hr IV DAILY [facility] Last Infusion: 01/18/23 09:36 Dose: 0 mls/hr Documented By: RENU Azithromycin 500 mg/ Sodium (Chloride) 250 mls @ 125 mls/hr IV Q24H [facility] Last Infusion: 01/17/23 15:59 Dose: 0 mls/hr Documented By: FOSTEKColten Lactulose (Lactulose 20 Gm/30 Ml Solution) 20 gm PO TID [facility] Last Admin: 01/18/23 09:04 Dose: 20 gm Documented By: RENU Morphine Sulfate (Morphine Sulfate 2 Mg/Ml Cartridge) 2 mg IVPUSH Q4H PRN; Protocol PRN Reason: severe pain Last Admin: 01/17/23 09:56 Dose: 2 mg Documented By: JONAS Omeprazole (Omeprazole 40 Mg Capsule.) 40 mg PO BID@0630,1630 [facility] Last Admin: 01/18/23 05:36 Dose: 40 mg Documented By: MARLENE Ondansetron HCl (Ondansetron Hcl 4 Mg/2 Ml Vial) 4 mg IVPUSH Q8H PRN PRN Reason: Nausea and Vomiting Pharmacy Consult (Consult Rx Perform Med Rec) 1 each MISCELLANE ONCE PRN PRN Reason: Consult order Pharmacy Consult (Consult Rx Etoh Phenob Im/Po) 1 each MISCELLANE ONCE PRN; Protocol PRN Reason: Consult order Phenobarbital (Phenobarbital 15 Mg Tablet) 15 mg PO BID [facility] Stop: 01/18/23 21:01 Last Admin: 01/18/23 09:04 Dose: 15 mg Documented By: RENU Phenobarbital (Phenobarbital 15 Mg Tablet) 15 mg PO DAILY [facility] Stop: 01/20/23 09:01 Rifaximin (Rifaximin 550 Mg Tablet) 550 mg PO BID [facility] Last Admin: 01/18/23 09:04 Dose: 550 mg Documented By: RENU Labs 01/18/23 06:57 01/18/23 06:57 Labs: Laboratory Results - last 24 hr 01/14/23 01/18/23 01/18/23 06:10 06:57 06:57 MCV 90.0 MCH 32.6 MCHC 36.3 H RDW 17.9 H Plt Count 216 MPV 10.9 Absolute Nucleated RBC 0.000 Nucleated RBC % (auto) 0.0 PT 18.9 H INR 1.6 H Anion Gap Estim Creat Clear Calc Estimated GFR Random Glucose Calcium Total Bilirubin AST ALT Alkaline Phosphatase Total Protein Albumin Procalcitonin Anti-Smooth Muscle Ab <20 01/18/23 06:57 MCV MCH MCHC RDW Plt Count MPV Absolute Nucleated RBC Nucleated RBC % (auto) PT INR Anion Gap 14 Estim Creat Clear Calc 63.1 Estimated GFR > 60 Random Glucose 94 Calcium 7.3 L Total Bilirubin 27.9 H AST 102 H ALT 58 H Alkaline Phosphatase 181 H Total Protein 4.4 L Albumin 2.3 L Procalcitonin 0.99 Anti-Smooth Muscle Ab Microbiology Microbiology Results: Microbiology 01/15/23 13:10 Gram Stain - Final Ascites Fluid Routine Culture - Final No growth after 2 days Anaerobic Culture - Preliminary No growth to date. Assessment and Plan (1) Lung mass: Status: Acute (2) Sepsis: Status: Acute (3) Normocytic anemia: Status: Acute (4) GI bleed: Status: Acute (5) Hyperammonemia: Status: Acute Plan d6 77yo M with AUD presenting with GI bleed, found to have decompensated cirrhosis/EtOH hepatitis/ascites/encephalopathy abd distension/bruising - no active extravasation on repeat CT, minimal ascites decompensated cirrhosis - serologic workup pending but likely due to EtOH - MELD-Na 31, CTP 11 - ceftriaxone to prevent SBP - no SBP on paracentesis done 01/15; cytology pending acute UGIB - EGD 01/[address] Odell: 1. Gastric antral ulcer. 2. Gastritis. 3. Duodenitis. 4. Rule out Helicobacter pylori. 5. Hiatal hernia, gastroesophageal reflux. - biopsy results: A.? Stomach, ulcer, biopsy:? Antral-type mucosa with mild chronic inactive inflammation and mild regenerative changes; no Helicobacter organisms seen. B.? Stomach, antrum, biopsy:? Antral-type mucosa with mild chronic inactive infl ammation; no Helicobacter organisms seen. - PO PPI bid hepatic encephalopathy - continue lactulose + rifaximin; asterixis resolved EtOH hepatitis - not a candidate for steroids per GI sepsis due to CAP - azithro + ceftriax d6 - BCx neg, follow PCT lactic acidosis - due to sepsis + cirrhosis; resolved lung mass - spiculated RUL mass, will need outpt PET/CT, Heme/Onc consult pending; obtain prior CT report from [facility] acute EtOH withdrawal - phenobarbital taper, thiamine, folate, Add Med/Recov Team consult VTE ppx - SCDs dispo - STR- pt refuses, prefers to go home with son who is around 24/7 In my clinical judgment, the patient requires continued inpatient hospitalization for the following reasons: decompensated cirrhosis, IV ABX I updated pt's son Kieran and daughter Denita at bedside Time Spent With Patient Time: Total time managing care of this patient today _45___ minutes. Quality Stroke Does the patient have a stroke diagnosis?: No VTE Prior VTE?: No VTE Risk Level:: Medical - moderate - high VTE Device Contraindication: N/A - Device Ordered VTE Drug Contraindication: Treatment Not Indicated
[2023-01-18] MEDS: Azithromycin 500 MG in 0.9 % Sodium Chloride 250 ML 125 MG IV (12:47)
[2023-01-18] MEDS: Phytonadione (Vit K1) Oral 10 MG/ML AMPUL PO (12:47)
[2023-01-18] MEDS: Lidocaine 4 % Patch ADH..PATCH 1 PATCH TRANSDERMA (12:47)
[2023-01-18 14:43] LABS: Anti Nuclear Antibody Screen NEGATIVE (NEGATIVE)
--- NOTE | 2023-01-18 19:07 | PC.NURSE ---
Assumed care at 15:00. Patient arousable, drowsy, oriented to date and person, jaundiced, somewhat resisitent to care. Patient with large bruise to left flank. Dressing to thoracentesis site had staining yellow/slight greenish exudate, changed and CDI.
[2023-01-18] MEDS: cefTRIAXone sodium 1 GM in 0.9 % Sodium Chloride 50 ML IV (21:26)
[2023-01-18] MEDS: Ketorolac Tromethamine 30 MG/ML VIAL IVPUSH (22:05)
--- NOTE | 2023-01-19 | PC.NURSE ---
oral temp was 100.7, HR 103, 97% raMD Cassidy notified and ordered toradol. Med given. Temp was rechecked and was 97.5f
[2023-01-19 03:53] VITALS: BP 106/56; PULSE 74; RESP 17; TEMP 36.2; O2SAT 96
[2023-01-19] MEDS: Omeprazole 40 MG CAPSULE.DR PO ×2 (04:57→16:55)
[2023-01-19 07:08] VITALS: BP 121/59; PULSE 74; RESP 16; TEMP 37.1; O2SAT 97
[2023-01-19] MEDS: Lidocaine 4 % Patch ADH..PATCH 1 PATCH TRANSDERMA (08:22)
[2023-01-19] MEDS: rifAXIMin 550 MG TABLET PO ×2 (08:23→20:31)
[2023-01-19] MEDS: PHENobarbitaL 15 MG TABLET PO (08:23)
[2023-01-19] MEDS: Thiamine HCL 100 MG in 0.9 % Sodium Chloride 100 ML 202 MG IV (08:23)
[2023-01-19 08:30] LABS: Hemoglobin 9.3 g/dl (14.0-18.0); Mean Corpuscular HGB Conc 35.8 g/dl (31.0-36.0); Mean Corpuscular Hemoglobin 32.5 pg (27.0-33.0); Mean Corpuscular Volume 90.9 fL (80.0-98.0); Platelet Count 250 X10*3/uL (160-400); Red Blood Count 2.86 X10*6/uL (4.60-5.80); Red Cell Distribution Width 18.7 % (11.0-16.0); White Blood Count 10.9 X10*3/uL (4.8-10.8)
[2023-01-19 08:40] LABS: INTERNATIONAL NORM RATIO 1.5 (0.9-1.1)
[2023-01-19 09:03] LABS: Alanine Aminotransferase 54 U/L (0-40); Albumin Level 2.1 g/dL (3.5-5.0); Alkaline Phosphatase 172 U/L (39-117); Anion Gap 12 (12-20); Aspartate Amino Transferase 104 U/L (5-37); Blood Urea Nitrogen 23 mg/dL (9-16); Calcium 7.4 mg/dL (8.4-10.2); Carbon Dioxide 21 mmol/L (22-29); Chloride 101 mmol/L (96-108); Creatinine Clr Calc Pharmacy 36.8; Estimated Glomerular Filt Rate 40; Glucose Random 88 mg/dL (60-115); Potassium 3.4 mmol/L (3.3-5.1); Sodium 131 mmol/L (135-145); Total Protein 4.4 g/dL (6.5-8.0)
[2023-01-19] MEDS: Folic Acid 1 MG in 0.9 % Sodium Chloride 50 ML 100.4 MG IV (09:06)
[2023-01-19 09:18] LABS: Bilirubin Total 26.5 mg/dL (0.0-1.0)
[2023-01-19] MEDS: Albumin Human 25 % 100 ML IV ×2 (09:52→16:57)
[2023-01-19 10:58] VITALS: BP 131/57; PULSE 84; RESP 12; TEMP 36.4; O2SAT 95
--- NOTE | 2023-01-19 11:06 | HO.PM.IMPN ---
Subjective Subjective Date of Service: 01/19/23 Interval History: feels better though he was febrile to 100.7 overnight SCr has gone up no melena/hematochezia Review of Systems Review of Systems: Yes all other systems are reviewed and are negative Physical Exam Vital Signs: Vital Signs: Last Vital Signs Temp 97.6 F 01/19/23 10:58 Pulse 84 01/19/23 10:58 Resp 12 01/19/23 10:58 BP 131/57 L 01/19/23 10:58 Pulse Ox 95 01/19/23 10:58 O2 Del Method Room Air 01/19/23 10:58 O2 Flow Rate 2 01/15/23 07:23 BMI result Body Mass Index 26.0 Gen: chronically ill-appearing HEENT: sclera icteric, moist mucus membranes Neck: supple Lungs: clear to auscultation bilaterally Heart: regular rate and rhythm, no murmurs Abd: soft, non-tender, distended, no ascites leak, bruising L flank Ext: no edema Skin: warm/well-perfused, jaundiced Neuro: alert and oriented x3, asterixis resolved Psych: appropriate affe Objective Data Active Medications Ceftriaxone Sodium 1 gm/ (Sodium Chloride) 50 mls @ 100 mls/hr IV Q24H [facility] Last Infusion: 01/18/23 22:06 Dose: 0 mls/hr Documented By: HATTIE Thiamine HCl 100 mg/ Sodium (Chloride) 101 mls @ 202 mls/hr IV DAILY [facility] Last Infusion: 01/19/23 09:02 Dose: 0 mls/hr Documented By: RYAN Folic Acid 1 mg/ Sodium (Chloride) 50.2 mls @ 100.4 mls/hr IV DAILY [facility] Last Infusion: 01/19/23 09:42 Dose: 0 mls/hr Documented By: RYAN Albumin Human (Kedbumin 25 %) 100 mls @ 100 mls/hr IV Q6H [facility] Stop: 01/21/23 04:44 Last Infusion: 01/19/23 11:05 Dose: 0 mls/hr Documented By: RYAN Lactulose (Lactulose 20 Gm/30 Ml Solution) 20 gm PO TID [facility] Last Admin: 01/19/23 08:26 Dose: Not Given Documented By: RYAN Non-Admin Reason: Multiple bowel movements Lidocaine (Lidocaine 4 % Patch Adh..Patch) 1 patch TRANSDERMA DAILY [facility]; Protocol Last Admin: 01/19/23 08:22 Dose: 1 patch Documented By: RYAN Morphine Sulfate (Morphine Sulfate 2 Mg/Ml Cartridge) 2 mg IVPUSH Q4H PRN; Protocol PRN Reason: severe pain Last Admin: 01/17/23 09:56 Dose: 2 mg Documented By: JONAS Omeprazole (Omeprazole 40 Mg Capsule.Dr) 40 mg PO BID@0630,1630 [facility] Last Admin: 01/19/23 04:57 Dose: 40 mg Documented By: HATTIE Ondansetron HCl (Ondansetron Hcl 4 Mg/2 Ml Vial) 4 mg IVPUSH Q8H PRN PRN Reason: Nausea and Vomiting Pharmacy Consult (Consult Rx Perform Med Rec) 1 each MISCELLANE ONCE PRN PRN Reason: Consult order Pharmacy Consult (Consult Rx Etoh Phenob Im/Po) 1 each MISCELLANE ONCE PRN; Protocol PRN Reason: Consult order Phenobarbital (Phenobarbital 15 Mg Tablet) 15 mg PO DAILY [facility] Stop: 01/20/23 09:01 Last Admin: 01/19/23 08:23 Dose: 15 mg Documented By: RYAN Rifaximin (Rifaximin 550 Mg Tablet) 550 mg PO BID [facility] Last Admin: 01/19/23 08:23 Dose: 550 mg Documented By: RYAN Labs 01/19/23 07:29 01/19/23 07:29 Labs: Laboratory Results - last 24 hr 01/14/23 01/19/23 01/19/23 06:10 07:29 07:29 MCV 90.9 MCH 32.5 MCHC 35.8 RDW 18.7 H Plt Count 250 MPV 11.0 Absolute Nucleated RBC 0.000 Nucleated RBC % (auto) 0.0 PT 18.0 H INR 1.5 H Anion Gap Estim Creat Clear Calc Estimated GFR Random Glucose Calcium Magnesium Total Bilirubin AST ALT Alkaline Phosphatase Total Protein Albumin DEEPA Screen NEGATIVE DEEPA Titer TNP DEEPA Titer 2 TNP DEEPA Titer 3 TNP DEEPA Pattern TNP DEEPA Pattern 2 TNP DEEPA Pattern 3 TNP 01/19/23 07:29 MCV MCH MCHC RDW Plt Count MPV Absolute Nucleated RBC Nucleated RBC % (auto) PT INR Anion Gap 12 Estim Creat Clear Calc 36.8 Estimated GFR 40 Random Glucose 88 Calcium 7.4 L Magnesium 2.0 Total Bilirubin 26.5 H AST 104 H ALT 54 H Alkaline Phosphatase 172 H Total Protein 4.4 L Albumin 2.1 L DEEPA Screen DEEPA Titer DEEPA Titer 2 DEEPA Titer 3 DEEPA Pattern DEEPA Pattern 2 DEEPA Pattern 3 Impressions Lumbar Spine X-Ray 01/18/23 12:21 IMPRESSION: Multilevel lumbar spondylosis without acute fracture or spondylolisthesis identified since recent CT scan of 01/13/2023. Sacralization left side of L5. Inferior endplate compression fracture of T12 without significant loss of height. Microbiology Microbiology Results: Microbiology 01/13/23 16:41 Blood Culture - Final Blood - Venous No growth after 5 days. 01/13/23 16:42 Blood Culture - Final Blood - Venous No growth after 5 days. 01/15/23 13:10 Gram Stain - Final Ascites Fluid Routine Culture - Final No growth after 2 days Anaerobic Culture - Preliminary No growth to date. Assessment and Plan (1) Lung mass: Status: Acute (2) Sepsis: Status: Acute (3) Normocytic anemia: Status: Acute (4) GI bleed: Status: Acute (5) Hyperammonemia: Status: Acute Plan d7 77yo M with AUD presenting with GI bleed, found to have decompensated cirrhosis/EtOH hepatitis/ascites/encephalopathy NAVEEN - check urine studies and consult Nephrology. will give albumin 100 g/d for 48h. if thought to have hepatorenal syndrome, will add midodrine and octreotide. fever - check BCx. on ceftriaxone as below abd distension/bruising - no active extravasation on repeat CT, minimal ascites decompensated cirrhosis - serologic workup pending but likely due to EtOH - MELD-Na 31, CTP 11 - ceftriaxone to prevent SBP - no SBP on paracentesis done 01/15; cytology negative for malignant cells acute UGIB - EGD 01/[address] Odell: 1. Gastric antral ulcer. 2. Gastritis. 3. Duodenitis. 4. Rule out Helicobacter pylori. 5. Hiatal hernia, gastroesophageal reflux. - biopsy results: A.? Stomach, ulcer, biopsy:? Antral-type mucosa with mild chronic inactive inflammation and mild regenerative changes; no Helicobacter organisms seen. B.? Stomach, antrum, biopsy:? Antral-type mucosa with mild chronic inactive inflammation; no Helicobacter organisms seen. - PO PPI bid hepatic encephalopathy - continue lactulose + rifaximin; asterixis resolved EtOH hepatitis - not a candidate for steroids per GI sepsis due to CAP - ceftriaxone d7, completed 6d of azithromycin - BCx neg, PCT decreasing. Re-cultured this morning due to fever overnight lactic acidosis - due to sepsis + cirrhosis; resolved T12 compression fracture, unknown chronicity - lidocaine patch lung mass - spiculated RUL mass, will need outpt PET/CT, Heme/Onc consult pending; obtain prior CT report from [facility] acute EtOH withdrawal - phenobarbital taper, thiamine, folate, Add Med/Recov Team consult VTE ppx - SCDs dispo - recommend STR- pt refuses, prefers to go home with son who is around 24/7 In my clinical judgment, the patient requires continued inpatient hospitalization for the following reasons: decompensated cirrhosis, IV ABX, NAVEEN Time Spent With Patient Time: Total time managing care of this patient today __55__ minutes. Quality Stroke Does the patient have a stroke diagnosis?: No VTE Prior VTE?: No VTE Risk Level:: Medical - moderate - high VTE Device Contraindication: N/A - Device Ordered VTE Drug Contraindication: Treatment Not Indicated
[2023-01-19 13:57] LABS: Appearance Urine Hazy; Color Urine BROWN; Glucose Urine UA 100 mg/dL (Negative); Leukocyte Esterase Urine Trace (Negative); Nitrite Urine Negative (Negative); PH 6.5 (5.0-9.0); UMIC TRIGGER UA YES; Urine Blood Trace (Negative); Urine Ketones Negative (Negative)
[2023-01-19 14:12] LABS: Sodium Urine Random < 20.0 mmol/L
[2023-01-19 14:15] LABS: Bacteria Urine None Seen (None Seen); Granular Casts Urine Present; Other Crystals Urine Present; WBC Urine 0-5 /HPF (0-5)
--- NOTE | 2023-01-19 15:16 | P.CDIM_ITS ---
PROVIDER RESPONSE TEXT: To clarify, the appropriate diagnosis supported by the clinical indicators: Other (explain): Unable to determine QUERY TEXT: PHYSICIAN'S DOCUMENTATION REQUEST Date of Query: 01/18/2023 08:48 AM EDT Patient Name: Elia Grier Admit Date: 01/14/2023 Dear Elian Mina, A review of the medical record indicates additional documentation may be needed. Please review below and update the documentation accordingly. Clinical Indicators: Per Hospitalist Progress Note 01/17/23: EGD 01/15/[address] Odell: Gastric antral ulcer Clarify which of the following accurately represents the acuity of the Gastric antral ulcer. Possible options might include: Acute Acute on chronic Compensated Chronic stable condition Remission Other (explain)Clinically unable to determine (explain)Thank you, Queenie Rea RN Use of terms such as suspected, likely, concern for, or probable (associated with a specific diagnosi s that is being evaluated, monitored, or treated as if it exists) are acceptable and can be coded in the inpatient se tting, when documented at the time of discharge. Please use your independent medical judgment in providing your response. THIS QUERY IS PART OF THE PERMANENT MEDICAL RECORD
[2023-01-19 16:00] VITALS: BP 127/60; PULSE 89; RESP 17; TEMP 37.1; O2SAT 97
--- NOTE | 2023-01-19 16:51 | P.CONNP_ITS ---
History of Present Illness Reason for Consult Consult date: 01/19/23 Reason for consult: NAVEEN Chief Complaint Chief complaint: GI Bleed, liver cirrhosis History of Present Illness Narrative: Mr. Elia Grier is a 77-year-old gentleman who presneted with UGIB found to have antral ulcer on EGD. He was also diagnosed newly with liver cirrhosis. His melena is resolved. He had a diagnostic paracentesis ruling out SBP. And he was exposed to CT contrast on 01/15/23. Cr was 0.98 on 01/18/23 and 1.6 on 01/19/23. Review of Systems Review of Systems Denies 14 point review of systems. [facility] Past Medical History Medical History No pertinent past medical history Functional capacity: uses cane/walker Surgical History Surgical History No pertinent past surgical history Social History Social History Household Members: Children Housing: Apartment Do you presently have visiting nurse or other home services: No Alcohol intake: former Patient Tobacco Use Status: Former Tobacco user e-Cigarette/Vaping Use: Never Used Second Hand Smoke Exposure: No service: No Meds Allergies Allergy/AdvReac Type Severity Reaction Status Date / Time Penicillins Allergy Anaphylaxis Verified 01/13/23 17:00 Active Medications: Current Medications Ceftriaxone Sodium 1 gm/ (Sodium Chloride) 50 mls @ 100 mls/hr IV Q24H [facility] Last Infusion: 01/18/23 22:06 Dose: Infused Thiamine HCl 100 mg/ Sodium (Chloride) 101 mls @ 202 mls/hr IV DAILY [facility] Last Infusion: 01/19/23 09:02 Dose: Infused Folic Acid 1 mg/ Sodium (Chloride) 50.2 mls @ 100.4 mls/hr IV DAILY [facility] Last Infusion: 01/19/23 09:42 Dose: Infused Albumin Human (Kedbumin 25 %) 100 mls @ 100 mls/hr IV Q6H [facility] Stop: 01/21/23 04:44 Last Infusion: 01/19/23 11:05 Dose: Infused Lactulose (Lactulose 20 Gm/30 Ml Solution) 20 gm PO TID [facility] Last Admin: 01/19/23 13:24 Dose: Not Given Lidocaine (Lidocaine 4 % Patch Adh..Patch) 1 patch TRANSDERMA DAILY [facility]; Protocol Last Admin: 01/19/23 08:22 Dose: 1 patch Morphine Sulfate (Morphine Sulfate 2 Mg/Ml Cartridge) 2 mg IVPUSH Q4H PRN; Protocol PRN Reason: severe pain Last Admin: 01/17/23 09:56 Dose: 2 mg Omeprazole (Omeprazole 40 Mg Capsule.Dr) 40 mg PO BID@0630,1630 [facility] Last Admin: 01/19/23 04:57 Dose: 40 mg Ondansetron HCl (Ondansetron Hcl 4 Mg/2 Ml Vial) 4 mg IVPUSH Q8H PRN PRN Reason: Nausea and Vomiting Pharmacy Consult (Consult Rx Perform Med Rec) 1 each MISCELLANE ONCE PRN PRN Reason: Consult order Pharmacy Consult (Consult Rx Etoh Phenob Im/Po) 1 each MISCELLANE ONCE PRN; Protocol PRN Reason: Consult order Phenobarbital (Phenobarbital 15 Mg Tablet) 15 mg PO DAILY [facility] Stop: 01/20/23 09:01 Last Admin: 01/19/23 08:23 Dose: 15 mg Rifaximin (Rifaximin 550 Mg Tablet) 550 mg PO BID [facility] Last Admin: 01/19/23 08:23 Dose: 550 mg Home Medications Medication Instructions Recorded Confirmed Last Taken Type acetaminophen 500 mg tablet 1,000 mg PO Q6H PRN Pain 01/14/23 01/14/23 Unknown History albuterol sulfate 90 mcg/actuation 2 puff inhalation QID PRN 01/14/23 01/14/23 Unknown History aerosol inhaler Shortness Of Breath Or Wheezing betamethasone dipropionate 0.05 % 1 appl topical TUTH 01/14/23 01/14/23 01/09/23 History topical ointment calcipotriene 0.005 % topical cream 1 appl topical BID 01/14/23 01/14/23 01/09/23 History cetirizine 10 mg tablet 10 mg PO DAILY 01/14/23 01/14/23 01/13/23 History ciclopirox 0.77 % topical cream 1 appl topical BID 01/14/23 01/14/23 01/09/23 History fluticasone propionate 220 2 puff inhalation BID 01/14/23 01/14/23 01/13/23 History mcg/actuation HFA aerosol inhaler (Flovent HFA) fluticasone propionate 50 2 spray intranasal DAILY 01/14/23 01/14/23 01/13/23 History mcg/actuation nasal spray,suspension ibuprofen 800 mg tablet 800 mg PO BID PRN pain 01/14/23 01/14/23 01/11/23 History ketoconazole 2 % topical cream 1 appl topical DAILY 01/14/23 01/14/23 01/09/23 History Physical Exam Vital Signs: Last Vital Signs Temp 98.7 F 01/19/23 16:00 Pulse 89 01/19/23 16:00 Resp 17 01/19/23 16:00 BP 127/60 01/19/23 16:00 Pulse Ox 97 01/19/23 16:00 O2 Del Method Room Air 01/19/23 16:00 O2 Flow Rate 2 01/15/23 07:23 BMI result Body Mass Index 26.0 Const Other: Cachectic, jaundice, appears frail Resp Other: Normal respiratory rate Cardio Rate: regular rate Rhythm: regular rhythm GI Palpation (GI): Soft to palpation Auscultation: normal bowel sounds Skin Other: Jaundice skin Neuro Other: oriented to self, disoriented to place, time and person Extrem General: Yes no pedal edema Results Lab Results 01/19/23 07:29 01/19/23 07:29 Lab results: Chemistry 01/17/23 01/18/23 01/19/23 06:44 06:57 07:29 Sodium 132 L 130 L 131 L Potassium 3.3 3.5 3.4 Carbon Dioxide 21 L 20 L 21 L BUN 11 15 23 H Creatinine 0.76 0.98 1.68 H Calcium 7.7 L 7.3 L 7.4 L Hematology 01/17/23 01/18/23 01/19/23 06:44 06:57 07:29 WBC 12.9 H 12.4 H 10.9 H Hgb 10.5 L 9.5 L 9.3 L Plt Count 203 D 216 250 Urinalysis 01/19/23 13:20 Urine Color BROWN Urine Appearance Hazy Urine pH 6.5 Ur Specific [place] 1.010 Urine Protein See Note Urine Glucose (UA) 100 H Urine Ketones Negative Urine Blood Trace Urine Nitrite Negative Ur Leukocyte Esterase Trace H Urine RBC 6-10 H Urine WBC 0-5 Ur Squamous Epith Cells 3-5 Hyaline Casts 3-5 Urine Studies 01/19/23 13:20 Urine Creatinine 123.20 Assessment and Plan (1) Lung mass: Status: Acute (2) Sepsis: Status: Acute (3) Normocytic anemia: Status: Acute (4) GI bleed: Status: Acute (5) Hyperammonemia: Status: Acute Plan Mr. Elia Grier is a 77-year-old gentleman who presneted with UGIB found to have antral ulcer on EGD. He was also diagnosed newly with liver cirrhosis. His melena is resolved. He had a diagnostic paracentesis ruling out SBP. And he was exposed to CT contrast on 01/15/23. Cr was 0.98 on 01/18/23 and 1.6 on 01/19/23. 1. Non-oliguric NAVEEN BL Cr 0.6mg/dL. Cr rising on 01/18/23 to 0.98mg/dL. Cr today 1.6mg/dL U/A with hyalin casts Normotensive OVerall patient has a pre-renal azotemia a hemodynamic renal injury with reduced renal perfusion. He has poor INTRAvascular defense. In this setting being exposed to contrast increases the risk of tubular injury because contrast does 2 things. 1) it vasoconstricts the affarent futher reducing renal perfusion and 2) its high osmolarity leads to tubular injury when tubular flow rate is reduced. Normotension and urine sediment point away from HRS as a leading diagnosis. CT scan ruled out hydro. Plan: - Start 0.9% saline at 125cc/hr x1 liter - albumin 25% 100mL q8 hours x3 doses - no octreotide needed - no midodrine needed - avoid large volume paracentesis - avoid furher contrast - Time Spent With Patient Time: Total time managing care of this patient today ____ minutes. Procedures Date of Service Date of Service: 01/19/23
[2023-01-19] MEDS: 0.9 % Sodium Chloride 1,000 ML 100 ML IVCONT (17:54)
[2023-01-19 19:35] VITALS: BP 134/61; PULSE 91; RESP 18; TEMP 36.7; O2SAT 98
[2023-01-19] MEDS: cefTRIAXone sodium 1 GM in 0.9 % Sodium Chloride 50 ML IV (23:05)
[2023-01-19 23:16] VITALS: BP 138/62; PULSE 96; RESP 17; TEMP 36.8; O2SAT 97
[2023-01-20] MEDS: Albumin Human 25 % 100 ML IV ×4 (01:19→23:07)
[2023-01-20] MEDS: Omeprazole 40 MG CAPSULE.DR PO ×2 (05:16→17:44)
[2023-01-20] MEDS: 0.9 % Sodium Chloride 500 ML 100 ML IV (06:35)
[2023-01-20 06:58] LABS: Hematocrit 22.3 % (42.0-52.0); Hemoglobin 8.3 g/dl (14.0-18.0); Mean Corpuscular HGB Conc 37.2 g/dl (31.0-36.0); Mean Corpuscular Hemoglobin 33.6 pg (27.0-33.0); Mean Corpuscular Volume 90.3 fL (80.0-98.0); Platelet Count 274 X10*3/uL (160-400); Red Blood Count 2.47 X10*6/uL (4.60-5.80); Red Cell Distribution Width 18.7 % (11.0-16.0); White Blood Count 10.7 X10*3/uL (4.8-10.8)
[2023-01-20 07:02] LABS: INTERNATIONAL NORM RATIO 1.6 (0.9-1.1); Prothrombin Time 19.6 SEC (11.1-13.3)
[2023-01-20 07:18] LABS: Alanine Aminotransferase 45 U/L (0-40); Albumin Level 2.7 g/dL (3.5-5.0); Alkaline Phosphatase 163 U/L (39-117); Anion Gap 14 (12-20); Aspartate Amino Transferase 99 U/L (5-37); Blood Urea Nitrogen 28 mg/dL (9-16); Calcium 7.4 mg/dL (8.4-10.2); Carbon Dioxide 17 mmol/L (22-29); Chloride 101 mmol/L (96-108); Creatinine Clr Calc Pharmacy 26.8; Estimated Glomerular Filt Rate 28; Glucose Random 95 mg/dL (60-115); Potassium 3.1 mmol/L (3.3-5.1); Sodium 129 mmol/L (135-145); Total Protein 4.5 g/dL (6.5-8.0)
[2023-01-20 07:27] LABS: Procalcitonin 1.74 ng/mL
[2023-01-20 07:35] LABS: Bilirubin Total 27.7 mg/dL (0.0-1.0)
[2023-01-20 08:00] VITALS: BP 122/57; PULSE 95; RESP 17; TEMP 37.3; O2SAT 95
[2023-01-20] MEDS: PHENobarbitaL 15 MG TABLET PO (08:11)
[2023-01-20] MEDS: rifAXIMin 550 MG TABLET PO ×2 (08:11→21:04)
[2023-01-20] MEDS: Potassium Chloride ER 20 MEQ TAB.ER.PRT 40 MEQ PO (08:12)
[2023-01-20] MEDS: Thiamine HCL 100 MG in 0.9 % Sodium Chloride 100 ML 202 MG IV (09:45)
[2023-01-20] MEDS: levoFLOXacin/D5W 750 MG/150 ML PIGGYBACK 100 MG IV (10:26)
--- NOTE | 2023-01-20 10:50 | P.PNIM_ITS ---
Subjective Subjective Date of Service: 01/20/23 Interval History: Feels well and wants to go home However, SCr is worse Review of Systems Review of Systems: Yes all other systems are reviewed and are negative Physical Exam Vital Signs: Vital Signs: Last Vital Signs Temp 99.2 F 01/20/23 08:00 Pulse 95 01/20/23 08:00 Resp 17 01/20/23 08:00 BP 122/57 L 01/20/23 08:00 Pulse Ox 95 01/20/23 08:00 O2 Del Method Room Air 01/20/23 08:00 O2 Flow Rate 2 01/15/23 07:23 BMI result Body Mass Index 26.0 Gen: chronically ill-appearing HEENT: sclera icteric, moist mucus membranes Neck: supple Lungs: clear to auscultation bilaterally Heart: regular rate and rhythm, no murmurs Abd: soft, non-tender, distended, no ascites leak, bruising L flank Ext: no edema Skin: warm/well-perfused, jaundiced Neuro: alert and oriented x3, asterixis resolved Psych: appropriate affect Objective Data Active Medications Thiamine HCl 100 mg/ Sodium (Chloride) 101 mls @ 202 mls/hr IV DAILY [facility] Last Infusion: 01/20/23 10:28 Dose: 0 mls/hr Documented By: ROSS Folic Acid 1 mg/ Sodium (Chloride) 50.2 mls @ 100.4 mls/hr IV DAILY [facility] Last Infusion: 01/19/23 09:42 Dose: 0 mls/hr Documented By: RYAN Sodium Chloride (Ns) 500 mls @ 100 mls/hr IV ONCE ONE Stop: 01/20/23 11:29 Last Admin: 01/20/23 06:35 Dose: 100 mls/hr Documented By: GAYLE Albumin Human (Kedbumin 25 %) 100 mls @ 100 mls/hr IV Q6H [facility] Stop: 01/22/23 02:44 Last Infusion: 01/20/23 10:24 Dose: 0 mls/hr Documented By: ROSS Linezolid (Zyvox/D5w) 600 mg in 300 mls @ 300 mls/hr IV Q12H [facility] Levofloxacin (Levaquin) 750 mg in 150 mls @ 100 mls/hr IV Q48H [facility] Last Admin: 01/20/23 10:26 Dose: 100 mls/hr Documented By: ROSS Lactulose (Lactulose 20 Gm/30 Ml Solution) 20 gm PO TID [facility] Last Admin: 01/20/23 10:24 Dose: Not Given Documented By: ROSS Non-Admin Reason: Patient Refused Lidocaine (Lidocaine 4 % Patch Adh..Patch) 1 patch TRANSDERMA DAILY [facility]; Protocol Last Admin: 01/20/23 10:24 Dose: Not Given Documented By: ROSS Non-Admin Reason: Patient Refused Morphine Sulfate (Morphine Sulfate 2 Mg/Ml Cartridge) 2 mg IVPUSH Q4H PRN; Protocol PRN Reason: severe pain Last Admin: 01/17/23 09:56 Dose: 2 mg Documented By: JONAS Omeprazole (Omeprazole 40 Mg Capsule.Dr) 40 mg PO BID@0630,1630 [facility] Last Admin: 01/20/23 05:16 Dose: 40 mg Documented By: GAYLE Ondansetron HCl (Ondansetron Hcl 4 Mg/2 Ml Vial) 4 mg IVPUSH Q8H PRN PRN Reason: Nausea and Vomiting Pharmacy Consult (Consult Rx Perform Med Rec) 1 each MISCELLANE ONCE PRN PRN Reason: Consult order Pharmacy Consult (Consult Rx Etoh Phenob Im/Po) 1 each MISCELLANE ONCE PRN; Protocol PRN Reason: Consult order Rifaximin (Rifaximin 550 Mg Tablet) 550 mg PO BID [facility] Last Admin: 01/20/23 08:11 Dose: 550 mg Documented By: ROSS Labs 01/20/23 06:12 01/20/23 06:12 Labs: Laboratory Results - last 24 hr 01/19/23 01/19/23 01/20/23 13:20 13:20 06:12 MCV 90.3 MCH 33.6 H MCHC 37.2 H RDW 18.7 H Plt Count 274 MPV 11.0 Absolute Nucleated RBC 0.000 Nucleated RBC % (auto) 0.0 PT INR Anion Gap Estim Creat Clear Calc Estimated GFR Random Glucose Calcium Total Bilirubin AST ALT Alkaline Phosphatase Total Protein Albumin Procalcitonin Urine Color BROWN Urine Appearance Hazy Urine pH 6.5 Ur Specific Amado 1.010 Urine Protein See Note Urine Glucose (UA) 100 H Urine Ketones Negative Urine Blood Trace Urine Nitrite Negative Ur Leukocyte Esterase Trace H Urine RBC 6-10 H Urine WBC 0-5 Ur Squamous Epith Cells 3-5 Other Crystals Present Urine Bacteria None Seen Hyaline Casts 3-5 Granular Casts Present Ur Random Sodium < 20.0 Urine Creatinine 123.20 01/20/23 01/20/23 06:12 06:12 MCV MCH MCHC RDW Plt Count MPV Absolute Nucleated RBC Nucleated RBC % (auto) PT 19.6 H INR 1.6 H Anion Gap 14 Estim Creat Clear Calc 26.8 Estimated GFR 28 Random Glucose 95 Calcium 7.4 L Total Bilirubin 27.7 H AST 99 H ALT 45 H Alkaline Phosphatase 163 H Total Protein 4.5 L Albumin 2.7 L Procalcitonin 1.74 Urine Color Urine Appearance Urine pH Ur Specific Amado Urine Protein Urine Glucose (UA) Urine Ketones Urine Blood Urine Nitrite Ur Leukocyte Esterase Urine RBC Urine WBC Ur Squamous Epith Cells Other Crystals Urine Bacteria Hyaline Casts Granular Casts Ur Random Sodium Urine Creatinine Microbiology Microbiology Results: Microbiology 01/19/23 08:34 Blood Culture - Preliminary Blood - Venous No growth after 24 hours. 01/15/23 13:10 Gram Stain - Final Ascites Fluid Routine Culture - Final No growth after 2 days Anaerobic Culture - Preliminary No growth to date. Assessment and Plan (1) Lung mass: Status: Acute (2) Sepsis: Status: Acute (3) Normocytic anemia: Status: Acute (4) GI bleed: Status: Acute (5) Hyperammonemia: Status: Acute Plan d8 77yo M with AUD presenting with GI bleed, found to have decompensated cirrhosis/EtOH hepatitis/ascites/encephalopathy NAVEEN - consulted Nephrology. felt to be contrast nephropathy rather than HRS. giving IV NS and albumin. If concern for HRS, will add midodrine and octreotide. sepsis due to CAP fever - follow BCx from 01/19/23. PCT worsening. got ceftriaxone x7d and azithromycin x6d; change to levofloxacin and linezolid today, consult ID and re-image chest hypoK - replete PO, recheck BMP in AM hypoNa - likely due to cirrhosis. restrict H2O, recheck BMP in AM abd distension/bruising - no active extravasation on repeat CT, minimal ascites decompensated cirrhosis - serologic workup pending but likely due to EtOH - MELD-Na 31, CTP 11 - ceftriaxone to prevent SBP -> changed to levofloxacin - no SBP on paracentesis done 01/15; cytology negative for malignant cells acute UGIB - EGD 01/[address] Odell: 1. Gastric antral ulcer. 2. Gastritis. 3. Duodenitis. 4. Rule out Helicobacter pylori. 5. Hiatal hernia, gastroesophageal reflux. - biopsy results: A.? Stomach, ulcer, biopsy:? Antral-type mucosa with mild chronic inactive inflammation and mild regenerative changes; no Helicobacter organisms seen. B.? Stomach, antrum, biopsy:? Antral-type mucosa with mild chronic inactive inflammation; no Helicobacter organisms seen. - PO PPI bid hepatic encephalopathy - continue lactulose + rifaximin; asterixis resolved EtOH hepatitis - not a candidate for steroids per GI lactic acidosis - due to sepsis + cirrhosis; resolved T12 compression fracture, unknown chronicity - lidocaine patch lung mass - spiculated RUL mass, will need outpt PET/CT, Heme/Onc consult pending; obtained prior CT from [facility]: irregular 8 mm RUL nodule, indeterminate; recommend reassessment on follow-up chest CT in 3-6 months; bilateral paraseptal emphysema and ILD AUD acute EtOH withdrawal - phenobarbital taper completed, thiamine, folate, Add Med/Recov Team consulted VTE ppx - SCDs dispo - recommend STR- pt refuses, prefers to go home with son who is around 24/7 In my clinical judgment, the patient requires continued inpatient hospitalization for the following reasons: decompensated cirrhosis, IV ABX, NAVEEN Time Spent With Patient Time: Total time managing care of this patient today __55__ minutes. Quality Stroke Does the patient have a stroke diagnosis?: No VTE Prior VTE?: No VTE Risk Level:: Medical - moderate - high VTE Device Contraindication: N/A - Device Ordered VTE Drug Contraindication: Treatment Not Indicated
[2023-01-20 11:25] VITALS: BP 128/60; PULSE 89; RESP 17; TEMP 37.2; O2SAT 95
[2023-01-20] MEDS: Linezolid/D5W 600 MG/300 ML PIGGYBACK 300 MG IV (12:21)
[2023-01-20] MEDS: Folic Acid 1 MG in 0.9 % Sodium Chloride 50 ML 100.4 MG IV (13:26)
--- NOTE | 2023-01-20 15:32 | P.PNNP_ITS ---
Subjective Subjective Date of Service: 01/20/23 Interval history: NAVEEN worse Granular casts on urine sediment no hypotension Physical Exam 2 Vital Signs: Vital Signs: Last Vital Signs Temp 99.0 F 01/20/23 11:25 Pulse 89 01/20/23 11:25 Resp 17 01/20/23 11:25 BP 128/60 01/20/23 11:25 Pulse Ox 95 01/20/23 11:25 O2 Del Method Room Air 01/20/23 11:25 O2 Flow Rate 2 01/15/23 07:23 BMI result Body Mass Index 26.0 Const: Other: Cachectic, jaundice, appears frail Resp: Other: Normal respiratory rate Cardio: Rate: regular rate Rhythm: regular rhythm GI: Palpation (GI): Soft to palpation Auscultation: normal bowel sounds Skin: Other: Jaundice skin Neuro: Other: oriented to self, disoriented to place, time and person Extrem: General: Yes no pedal edema Objective Data Labs 01/20/23 06:12 01/20/23 06:12 Labs: Laboratory Results - last 24 hr 01/20/23 01/20/23 01/20/23 06:12 06:12 06:12 WBC 10.7 RBC 2.47 L Hgb 8.3 L Hct 22.3 L MCV 90.3 MCH 33.6 H MCHC 37.2 H RDW 18.7 H Plt Count 274 MPV 11.0 Absolute Nucleated RBC 0.000 Nucleated RBC % (auto) 0.0 PT 19.6 H INR 1.6 H Sodium 129 L Potassium 3.1 L Chloride 101 Carbon Dioxide 17 L Anion Gap 14 BUN 28 H Creatinine 2.30 H Estim Creat Clear Calc 26.8 Estimated GFR 28 Random Glucose 95 Calcium 7.4 L Total Bilirubin 27.7 H AST 99 H ALT 45 H Alkaline Phosphatase 163 H Total Protein 4.5 L Albumin 2.7 L Procalcitonin 1.74 Microbiology Microbiology Results: Microbiology 01/15/23 13:10 Ascites Fluid Gram Stain - Final 01/15/23 13:10 Ascites Fluid Routine Culture - Final No growth after 2 days 01/15/23 13:10 Ascites Fluid Anaerobic Culture - Final NO GROWTH AFTER 5 DAYS 01/19/23 09:11 Blood - Venous Blood Culture - Preliminary No growth after 24 hours. 01/19/23 08:34 Blood - Venous Blood Culture - Preliminary No growth after 24 hours. 01/13/23 16:41 Blood - Venous Blood Culture - Final No growth after 5 days. 01/13/23 16:42 Blood - Venous Blood Culture - Final No growth after 5 days. 01/13/23 16:13 Urine clean catch - Urine trevino top Urine Culture - Final Procedures Date of Service Date of Service: 01/20/23 Assessment & Plan Assessment and plan (1) Lung mass: Status: Acute (2) Sepsis: Status: Acute (3) Normocytic anemia: Status: Acute (4) GI bleed: Status: Acute (5) Hyperammonemia: Status: Acute Plan Mr. Elia Grier is a 77-year-old gentleman who presneted with UGIB found to have antral ulcer on EGD. He was also diagnosed newly with liver cirrhosis. His melena is resolved. He had a diagnostic paracentesis ruling out SBP. And he was exposed to CT contrast on 01/15/23. Cr was 0.98 on 01/18/23 and 1.6 on 01/19/23. 1. Non-oliguric NAVEEN BL Cr 0.6mg/dL. Cr rising on 01/18/23 to 0.98mg/dL. Cr today 1.6mg/dL U/A with hyalin casts & some granular casts. Olayinka <20 Normotensive OVerall patient has a pre-renal azotemia a hemodynamic renal injury with reduced renal perfusion. He has poor INTRAvascular defense. In this setting being exposed to contrast increases the risk of tubular injury because contrast does 2 things. 1) it vasoconstricts the affarent futher reducing renal perfusion and 2) its high osmolarity leads to tubular injury when tubular flow rate is reduced. he is high risk for progression into ATN. Normotension and urine sediment point away from HRS as a leading diagnosis. CT scan ruled out hydro. Plan: - c/w IVF support - c/w albumin 25% 100mL q8 hours x3 doses - no octreotide needed - no midodrine needed - avoid large volume paracentesis - avoid further contrast - Time Spent With Patient Time: Total time managing care of this patient today ____ minutes. Progress Note: Quality Stroke Does the patient have a stroke diagnosis?: No
[2023-01-20 15:46] VITALS: BP 120/60; PULSE 884; RESP 18; TEMP 36.6; O2SAT 97
[2023-01-20] MEDS: 0.9 % Sodium Chloride 1,000 ML 125 ML IVCONT (17:31)
[2023-01-20 20:00] VITALS: BP 122/57; PULSE 81; RESP 17; TEMP 36.3; O2SAT 95
[2023-01-20] MEDS: Lactulose 20 GM/30 ML SOLUTION PO (21:03)
--- NOTE | 2023-01-20 23:11 | W.PM.IDCN ---
History of Present Illness Data of Consult Service Date: 01/20/23 Requesting physician: Elian Mina Primary Care Provider: Michelle Oswald NP HPI Reason for consult: cirrhosis He presents to hospital with weakness and abdominal discomfort. He has leukocytosis to 18,000 and has possible right upper lobe lesion liver. He has had temperature as well. CT scan shows ascites,small. Review of Systems Review of Systems: Yes all other systems are reviewed and are negative PMFSH Past Medical History Medical History No pertinent past medical history Functional capacity: uses cane/walker Family History Family history: reviewed and not pertinent Surgical History Surgical History No pertinent past surgical history Social History Social History Household Members: Children Housing: Apartment Do you presently have visiting nurse or other home services: No Alcohol intake: former Patient Tobacco Use Status: Former Tobacco user e-Cigarette/Vaping Use: Never Used Second Hand Smoke Exposure: No service: No Meds Allergies Allergy/AdvReac Type Severity Reaction Status Date / Time Penicillins Allergy Anaphylaxis Verified 01/13/23 17:00 Active Medications: Current Medications Thiamine HCl 100 mg/ Sodium (Chloride) 101 mls @ 202 mls/hr IV DAILY [facility] Last Infusion: 01/20/23 10:28 Dose: Infused Folic Acid 1 mg/ Sodium (Chloride) 50.2 mls @ 100.4 mls/hr IV DAILY [facility] Last Infusion: 01/20/23 13:57 Dose: Infused Albumin Human (Kedbumin 25 %) 100 mls @ 100 mls/hr IV Q6H [facility] Stop: 01/22/23 02:44 Last Admin: 01/20/23 23:07 Dose: 100 mls/hr Linezolid (Zyvox/D5w) 600 mg in 300 mls @ 300 mls/hr IV Q12H [facility] Last Infusion: 01/20/23 13:22 Dose: Infused Levofloxacin (Levaquin) 750 mg in 150 mls @ 100 mls/hr IV Q48H [facility] Last Infusion: 01/20/23 12:10 Dose: Infused Sodium Chloride (Ns) 1,000 mls @ 125 mls/hr IVCONT .Q8H [facility] Stop: 01/21/23 04:29 Last Admin: 01/20/23 17:31 Dose: 125 mls/hr Lactulose (Lactulose 20 Gm/30 Ml Solution) 20 gm PO TID [facility] Last Admin: 01/20/23 21:03 Dose: 20 gm Lidocaine (Lidocaine 4 % Patch Adh..Patch) 1 patch TRANSDERMA DAILY [facility]; Protocol Last Admin: 01/20/23 10:24 Dose: Not Given Morphine Sulfate (Morphine Sulfate 2 Mg/Ml Cartridge) 2 mg IVPUSH Q4H PRN; Protocol PRN Reason: severe pain Last Admin: 01/17/23 09:56 Dose: 2 mg Omeprazole (Omeprazole 40 Mg Capsule.Dr) 40 mg PO BID@0630,1630 [facility] Last Admin: 01/20/23 17:44 Dose: 40 mg Ondansetron HCl (Ondansetron Hcl 4 Mg/2 Ml Vial) 4 mg IVPUSH Q8H PRN PRN Reason: Nausea and Vomiting Pharmacy Consult (Consult Rx Perform Med Rec) 1 each MISCELLANE ONCE PRN PRN Reason: Consult order Pharmacy Consult (Consult Rx Etoh Phenob Im/Po) 1 each MISCELLANE ONCE PRN; Protocol PRN Reason: Consult order Rifaximin (Rifaximin 550 Mg Tablet) 550 mg PO BID [facility] Last Admin: 01/20/23 21:04 Dose: 550 mg Home Medications Medication Instructions Recorded Confirmed Last Taken Type acetaminophen 500 mg tablet 1,000 mg PO Q6H PRN Pain 01/14/23 01/14/23 Unknown History albuterol sulfate 90 mcg/actuation 2 puff inhalation QID PRN 01/14/23 01/14/23 Unknown History aerosol inhaler Shortness Of Breath Or Wheezing betamethasone dipropionate 0.05 % 1 appl topical TUTH 01/14/23 01/14/23 01/09/23 History topical ointment calcipotriene 0.005 % topical cream 1 appl topical BID 01/14/23 01/14/23 01/09/23 History cetirizine 10 mg tablet 10 mg PO DAILY 01/14/23 01/14/23 01/13/23 History ciclopirox 0.77 % topical cream 1 appl topical BID 01/14/23 01/14/23 01/09/23 History fluticasone propionate 220 2 puff inhalation BID 01/14/23 01/14/23 01/13/23 History mcg/actuation HFA aerosol inhaler (Flovent HFA) fluticasone propionate 50 2 spray intranasal DAILY 01/14/23 01/14/23 01/13/23 History mcg/actuation nasal spray,suspension ibuprofen 800 mg tablet 800 mg PO BID PRN pain 01/14/23 01/14/23 01/11/23 History ketoconazole 2 % topical cream 1 appl topical DAILY 01/14/23 01/14/23 01/09/23 History Physical Exam Vital Signs: Vital Signs: Last Vital Signs Temp 97.3 F 01/20/23 20:00 Pulse 81 01/20/23 20:00 Resp 17 01/20/23 20:00 BP 122/57 L 01/20/23 20:00 Pulse Ox 95 01/20/23 20:00 O2 Del Method Room Air 01/20/23 20:00 O2 Flow Rate 2 01/15/23 07:23 BMI result Body Mass Index 26.0 Const: General: cooperative HEENT: Head: Yes normal to inspection Face and sinus: Yes normal facial exam Mouth: Normal oral and palatal mucosa present Teeth and gingiva: dentition normal Eyes: General: appearance normal, both eyes and all related structures Pupils: Equal, round and reactive pupils present Resp: Effort & Inspection: normal respiratory effort Cardio: Rate: regular rate Rhythm: regular rhythm GI: Palpation (GI): Soft to palpation and nontender : General: Yes no CVA tenderness Back/Spine/Pelvis: Back: no CVA tenderness Skin: Other: flourescent yellow skin General skin exam: no rashes or lesions noted Neuro: General: moves all extremities Cranial nerves: Yes Equal, round and reactive pupils present Extrem: Other: plus 2 edema Psych: Appearance: grossly normal Results Labs 01/20/23 06:12 01/20/23 06:12 Labs: Short CBC 01/20/23 Range/Units 06:12 WBC 10.7 (4.8-10.8) X10*3/uL Hgb 8.3 L (14.0-18.0) g/dl Hct 22.3 L (42.0-52.0) % Plt Count 274 (160-400) X10*3/uL BMP 01/20/23 06:12 Sodium 129 L Potassium 3.1 L Chloride 101 Carbon Dioxide 17 L BUN 28 H Creatinine 2.30 H Calcium 7.4 L Liver Function 01/20/23 Range/Units 06:12 Total Bilirubin 27.7 H (0.0-1.0) mg/dL AST 99 H (5-37) U/L ALT 45 H (0-40) U/L Alkaline Phosphatase 163 H (39-117) U/L Albumin 2.7 L (3.5-5.0) g/dL Microbiology Microbiology Results: Microbiology 01/15/23 13:10 Ascites Fluid Gram Stain - Final 01/15/23 13:10 Ascites Fluid Routine Culture - Final No growth after 2 days 01/15/23 13:10 Ascites Fluid Anaerobic Culture - Final NO GROWTH AFTER 5 DAYS 01/19/23 09:11 Blood - Venous Blood Culture - Preliminary No growth after 24 hours. 01/19/23 08:34 Blood - Venous Blood Culture - Preliminary No growth after 24 hours. 01/13/23 16:41 Blood - Venous Blood Culture - Final No growth after 5 days. 01/13/23 16:42 Blood - Venous Blood Culture - Final No growth after 5 days. 01/13/23 16:13 Urine clean catch - Urine trevino top Urine Culture - Final Assessment and Plan (1) GI bleed: Status: Acute (2) Metabolic encephalopathy: Status: Acute He has possible GI bleed as cause of leukocytosis and fever. He has possible SBP also. Plan Agree with Levaquin and linezolid for now. Await blood cultures. Probably discharge on po antibiotics for 7-10 days. GI to continue evaluation. Time Spent With Patient Time: Total time managing care of this patient today ____ minutes.
[2023-01-21] VITALS: BP 135/63; PULSE 86; RESP 16; TEMP 36.7; O2SAT 97
[2023-01-21] MEDS: Linezolid/D5W 600 MG/300 ML PIGGYBACK 300 MG IV ×2 (00:34→12:46)
[2023-01-21 06:16] LABS: Hemoglobin 9.2 g/dl (14.0-18.0); Mean Corpuscular HGB Conc 36.8 g/dl (31.0-36.0); Mean Corpuscular Hemoglobin 33.2 pg (27.0-33.0); Mean Corpuscular Volume 90.3 fL (80.0-98.0); Mean Platelet Volume 10.3 fL (9.4-12.4); Platelet Count 322 X10*3/uL (160-400); Red Blood Count 2.77 X10*6/uL (4.60-5.80); Red Cell Distribution Width 19.1 % (11.0-16.0); White Blood Count 13.9 X10*3/uL (4.8-10.8)
[2023-01-21 06:32] LABS: Alanine Aminotransferase 43 U/L (0-40); Alkaline Phosphatase 156 U/L (39-117); Anion Gap 16 (12-20); Aspartate Amino Transferase 92 U/L (5-37); Blood Urea Nitrogen 30 mg/dL (9-16); Calcium 7.9 mg/dL (8.4-10.2); Carbon Dioxide 16 mmol/L (22-29); Chloride 102 mmol/L (96-108); Creatinine Clr Calc Pharmacy 26.3; Estimated Glomerular Filt Rate 27; Glucose Random 97 mg/dL (60-115); Magnesium 1.9 mg/dL (1.6-2.6); Potassium 3.3 mmol/L (3.3-5.1); Sodium 131 mmol/L (135-145); Total Protein 4.9 g/dL (6.5-8.0)
[2023-01-21] MEDS: Albumin Human 25 % 100 ML IV ×4 (06:33→23:26)
[2023-01-21 06:54] LABS: Bilirubin Total 30.3 mg/dL (0.0-1.0)
[2023-01-21] MEDS: Thiamine HCL 100 MG in 0.9 % Sodium Chloride 100 ML 202 MG IV (07:43)
[2023-01-21 07:48] VITALS: BP 147/65; PULSE 99; RESP 18; TEMP 36.8; O2SAT 95
[2023-01-21] MEDS: Folic Acid 1 MG in 0.9 % Sodium Chloride 50 ML 100.4 MG IV (09:22)
[2023-01-21] MEDS: rifAXIMin 550 MG TABLET PO ×2 (09:22→21:24)
[2023-01-21 10:48] LABS: MRSA Nasal PCR NEGATIVE (Negative); SA Nasal PCR NEGATIVE (Negative)
--- NOTE | 2023-01-21 11:46 | HO.PM.IMPN ---
Subjective Subjective Date of Service: 01/21/23 Interval History: No complaints; he's surprised at how sick he is He denies abd pain, cough, or dyspnea No further fever Review of Systems Review of Systems: Yes all other systems are reviewed and are negative Physical Exam Vital Signs: Vital Signs: Last Vital Signs Temp 98.3 F 01/21/23 07:48 Pulse 99 01/21/23 07:48 Resp 18 01/21/23 07:48 BP 147/65 H 01/21/23 07:48 Pulse Ox 95 01/21/23 07:48 O2 Del Method Room Air 01/21/23 07:48 O2 Flow Rate 2 01/15/23 07:23 BMI result Body Mass Index 26.0 Gen: chronically ill-appearing HEENT: sclera icteric, moist mucus membranes Neck: supple Lungs: scattered crackles on inspiration on R side Heart: regular rate and rhythm, no murmurs Abd: soft, non-tender, distended, no ascites leak, bruising L flank Ext: no edema Skin: warm/well-perfused, jaundiced Neuro: alert and oriented x3, asterixis resolved Psych: appropriate affect Objective Data Active Medications Thiamine HCl 100 mg/ Sodium (Chloride) 101 mls @ 202 mls/hr IV DAILY [facility] Last Infusion: 01/21/23 08:18 Dose: 0 mls/hr Documented By: ROSS Folic Acid 1 mg/ Sodium (Chloride) 50.2 mls @ 100.4 mls/hr IV DAILY [facility] Last Infusion: 01/21/23 09:55 Dose: 0 mls/hr Documented By: ROSS Levofloxacin (Levaquin) 750 mg in 150 mls @ 100 mls/hr IV Q48H [facility] Last Infusion: 01/20/23 12:10 Dose: 0 mls/hr Documented By: ROSS Albumin Human (Kedbumin 25 %) 100 mls @ 100 mls/hr IV Q6H [facility] Stop: 01/22/23 06:59 Last Admin: 01/21/23 11:28 Dose: 100 mls/hr Documented By: ROSS Linezolid (Zyvox/D5w) 600 mg in 300 mls @ 300 mls/hr IV Q12H [facility] Lactulose (Lactulose 20 Gm/30 Ml Solution) 20 gm PO TID [facility] Last Admin: 01/21/23 09:23 Dose: Not Given Documented By: ROSS Non-Admin Reason: pt had multiple loose bowel movements overnig Lidocaine (Lidocaine 4 % Patch Adh..Patch) 1 patch TRANSDERMA DAILY [facility]; Protocol Last Admin: 01/21/23 09:56 Dose: Not Given Documented By: ROSS Non-Admin Reason: Patient Refused Comments: educated provided. Patient states he is not in pain Morphine Sulfate (Morphine Sulfate 2 Mg/Ml Cartridge) 2 mg IVPUSH Q4H PRN; Protocol PRN Reason: severe pain Last Admin: 01/17/23 09:56 Dose: 2 mg Documented By: JONAS Omeprazole (Omeprazole 40 Mg Capsule.) 40 mg PO BID@0630,1630 [facility] Last Admin: 01/21/23 06:37 Dose: Not Given Documented By: LILIA Non-Admin Reason: Patient Refused Ondansetron HCl (Ondansetron Hcl 4 Mg/2 Ml Vial) 4 mg IVPUSH Q8H PRN PRN Reason: Nausea and Vomiting Pharmacy Consult (Consult Rx Perform Med Rec) 1 each MISCELLANE ONCE PRN PRN Reason: Consult order Pharmacy Consult (Consult Rx Etoh Phenob Im/Po) 1 each MISCELLANE ONCE PRN; Protocol PRN Reason: Consult order Rifaximin (Rifaximin 550 Mg Tablet) 550 mg PO BID [facility] Last Admin: 01/21/23 09:22 Dose: 550 mg Documented By: ROSS Labs 01/21/23 06:08 01/21/23 06:08 Labs: Laboratory Results - last 24 hr 01/21/23 01/21/23 01/21/23 06:08 06:08 Unknown MCV 90.3 MCH 33.2 H MCHC 36.8 H RDW 19.1 H Plt Count 322 MPV 10.3 Absolute Nucleated RBC 0.000 Nucleated RBC % (auto) 0.0 Anion Gap 16 Estim Creat Clear Calc 26.3 Estimated GFR 27 Random Glucose 97 Calcium 7.9 L D Magnesium 1.9 Total Bilirubin 30.3 H AST 92 H ALT 43 H Alkaline Phosphatase 156 H Total Protein 4.9 L Albumin 3.0 L Nasal Screen MRSA (PCR) NEGATIVE Nasal S. aureus Screen NEGATIVE Nasal MRSA/S.aureus Interp SEE NOTE Microbiology Microbiology Results: Microbiology 01/19/23 09:11 Blood Culture - Preliminary Blood - Venous No growth after 48 hours. 01/19/23 08:34 Blood Culture - Preliminary Blood - Venous No growth after 48 hours. 01/15/23 13:10 Gram Stain - Final Ascites Fluid Routine Culture - Final No growth after 2 days Anaerobic Culture - Final NO GROWTH AFTER 5 DAYS Assessment and Plan (1) Lung mass: Status: Acute (2) Sepsis: Status: Acute (3) Normocytic anemia: Status: Acute (4) GI bleed: Status: Acute (5) Hyperammonemia: Status: Acute Plan d9 77yo M with AUD presenting with GI bleed, found to have decompensated cirrhosis/EtOH hepatitis/ascites/encephalopathy developed fever + NAVEEN NAVEEN - consulted Nephrology. felt to be contrast nephropathy rather than HRS. giving IV NS and albumin. SCr appears to be plateauing. Doubt HRS at this point, so will not give midodrine and octreotide sepsis due to pneumonia fever - got ceftriaxone x7d and azithromycin x6d for CAP on admission; changed to levofloxacin and linezolid 01/20 due to new fever and worsening PCT and NAVEEN. ID consulted, CT chest pending. BCx from 01/19 negative. pneumococcal + Legionella urinary antigens pending hypoK - repleted hypoNa - likely due to cirrhosis. restrict H2O, recheck BMP in AM. Na improved slightly abd distension/bruising - no active extravasation on repeat CT, minimal ascites decompensated cirrhosis - complete serologic workup pending but likely due to EtOH - MELD-Na 31, CTP 11 - ceftriaxone to prevent SBP -> changed to levofloxacin. - no SBP on paracentesis done 01/15; cytology negative for malignant cells - repeat diagnostic paracentesis 01/22 if no other source of infection found acute UGIB - EGD 01/[address] Odell: 1. Gastric antral ulcer. 2. Gastritis. 3. Duodenitis. 4. Rule out Helicobacter pylori. 5. Hiatal hernia, gastroesophageal reflux. - biopsy results: A.? Stomach, ulcer, biopsy:? Antral-type mucosa with mild chronic inactive inflammation and mild regenerative changes; no Helicobacter organisms seen. B.? Stomach, antrum, biopsy:? Antral-type mucosa with mild chronic inactive inflammation; no Helicobacter organisms seen. - PO PPI bid hepatic encephalopathy - continue lactulose + rifaximin; asterixis resolved EtOH hepatitis - not a candidate for steroids per GI. Tbili worsening. lactic acidosis - due to sepsis + cirrhosis; resolved T12 compression fracture, unknown chronicity - lidocaine patch lung mass - spiculated RUL mass, will need outpt PET/CT, Heme/Onc consult pending; obtained prior CT from [facility]: irregular 8 mm RUL nodule, indeterminate; recommend reassessment on follow-up chest CT in 3-6 months; bilateral paraseptal emphysema and ILD AUD acute EtOH withdrawal - phenobarbital taper completed, thiamine, folate, Add Med/Recov Team consulted VTE ppx - SCDs dispo - recommend STR- pt refuses, prefers to go home with son who is around 24/7 In my clinical judgment, the patient requires continued inpatient hospitalization for the following reasons: decompensated cirrhosis, IV ABX, NAVEEN Time Spent With Patient Time: Total time managing care of this patient today __50__ minutes. Quality Stroke Does the patient have a stroke diagnosis?: No VTE Prior VTE?: No VTE Risk Level:: Medical - moderate - high VTE Device Contraindication: N/A - Device Ordered VTE Drug Contraindication: Treatment Not Indicated
[2023-01-21 11:48] VITALS: BP 122/60; PULSE 82; RESP 17; TEMP 37.2; O2SAT 96
--- NOTE | 2023-01-21 12:15 | PM.PNNEP ---
Subjective Subjective Date of Service: 01/21/23 Interval history: doing well. Cr plateaued. Physical Exam Vital Signs: Vital Signs: Last Vital Signs Temp 98.9 F 01/21/23 11:48 Pulse 82 01/21/23 11:48 Resp 17 01/21/23 11:48 BP 122/60 01/21/23 11:48 Pulse Ox 96 01/21/23 11:48 O2 Del Method Room Air 01/21/23 11:48 O2 Flow Rate 2 01/15/23 07:23 BMI result Body Mass Index 26.0 Const: Other: Cachectic, jaundice, appears frail Resp: Other: Normal respiratory rate Cardio: Rate: regular rate Rhythm: regular rhythm GI: Palpation (GI): Soft to palpation Auscultation: normal bowel sounds Skin: Other: Jaundice skin Neuro: Other: oriented to self, disoriented to place, time and person Extrem: General: Yes no pedal edema Objective Data Labs 01/21/23 06:08 01/21/23 06:08 Labs: Laboratory Results - last 24 hr 01/21/23 01/21/23 01/21/23 06:08 06:08 Unknown WBC 13.9 H RBC 2.77 L Hgb 9.2 L Hct 25.0 L MCV 90.3 MCH 33.2 H MCHC 36.8 H RDW 19.1 H Plt Count 322 MPV 10.3 Absolute Nucleated RBC 0.000 Nucleated RBC % (auto) 0.0 Sodium 131 L Potassium 3.3 Chloride 102 Carbon Dioxide 16 L Anion Gap 16 BUN 30 H Creatinine 2.35 H Estim Creat Clear Calc 26.3 Estimated GFR 27 Random Glucose 97 Calcium 7.9 L D Magnesium 1.9 Total Bilirubin 30.3 H AST 92 H ALT 43 H Alkaline Phosphatase 156 H Total Protein 4.9 L Albumin 3.0 L Nasal Screen MRSA (PCR) NEGATIVE Nasal S. aureus Screen NEGATIVE Nasal MRSA/S.aureus Interp SEE NOTE Microbiology Microbiology Results: Microbiology 01/19/23 09:11 Blood - Venous Blood Culture - Preliminary No growth after 48 hours. 01/19/23 08:34 Blood - Venous Blood Culture - Preliminary No growth after 48 hours. 01/15/23 13:10 Ascites Fluid Gram Stain - Final 01/15/23 13:10 Ascites Fluid Routine Culture - Final No growth after 2 days 01/15/23 13:10 Ascites Fluid Anaerobic Culture - Final NO GROWTH AFTER 5 DAYS 01/13/23 16:41 Blood - Venous Blood Culture - Final No growth after 5 days. 01/13/23 16:42 Blood - Venous Blood Culture - Final No growth after 5 days. 01/13/23 16:13 Urine clean catch - Urine trevino top Urine Culture - Final Procedures Date of Service Date of Service: 01/21/23 Assessment & Plan Assessment and plan (1) Lung mass: Status: Acute (2) Sepsis: Status: Acute (3) Normocytic anemia: Status: Acute (4) GI bleed: Status: Acute (5) Hyperammonemia: Status: Acute Plan Mr. Elia Grier is a 77-year-old gentleman who presneted with UGIB found to have antral ulcer on EGD. He was also diagnosed newly with liver cirrhosis. His melena is resolved. He had a diagnostic paracentesis ruling out SBP. And he was exposed to CT contrast on 01/15/23. Cr was 0.98 on 01/18/23 and 1.6 on 01/19/23. 1. Non-oliguric NAVEEN BL Cr 0.6mg/dL. Cr rising on 01/18/23 to 0.98mg/dL. Cr today 1.6mg/dL U/A with hyalin casts & some granular casts. Olayinka <20 Normotensive OVerall patient has a pre-renal azotemia a hemodynamic renal injury with reduced renal perfusion. He has poor INTRAvascular defense. In this setting being exposed to contrast increases the risk of tubular injury because contrast does 2 things. 1) it vasoconstricts the affarent futher reducing renal perfusion and 2) its high osmolarity leads to tubular injury when tubular flow rate is reduced. he is high risk for progression into ATN. Normotension and urine sediment point away from HRS as a leading diagnosis. CT scan ruled out hydro. Plan: - c/w IVF support - c/w albumin 25% 100mL q8 hours x3 doses - no octreotide needed - no midodrine needed - avoid large volume paracentesis - avoid further contrast - Time Spent With Patient Time: Total time managing care of this patient today ____ minutes. Progress Note: Quality Stroke Does the patient have a stroke diagnosis?: No
[2023-01-21] MEDS: 0.9 % Sodium Chloride 1,000 ML 125 ML IVCONT (12:47)
[2023-01-21 16:00] VITALS: BP 130/60; PULSE 81; RESP 14; TEMP 36.3; O2SAT 94
[2023-01-21] MEDS: Omeprazole 40 MG CAPSULE.DR PO (18:00)
[2023-01-21 20:00] VITALS: BP 156/71; PULSE 76; RESP 14; TEMP 36.4; O2SAT 96
[2023-01-21 23:21] VITALS: BP 126/62; PULSE 80; RESP 22; TEMP 36.6; O2SAT 96
[2023-01-22] VITALS (7 sets, daily range): BP systolic 118–148; BP diastolic 62–80; PULSE 81–88; RESP 17–24; TEMP 36.4–37.1; O2SAT 95–98
[2023-01-22] MEDS: Linezolid/D5W 600 MG/300 ML PIGGYBACK 300 MG IV ×2 (00:52→12:45)
[2023-01-22] MEDS: Albumin Human 25 % 100 ML IV (05:52)
[2023-01-22] MEDS: Omeprazole 40 MG CAPSULE.DR PO ×2 (06:00→16:12)
[2023-01-22 07:01] LABS: Hematocrit 22.8 % (42.0-52.0); Hemoglobin 8.2 g/dl (14.0-18.0); Mean Corpuscular Hemoglobin 33.1 pg (27.0-33.0); Mean Corpuscular Volume 91.9 fL (80.0-98.0); Mean Platelet Volume 10.4 fL (9.4-12.4); Platelet Count 319 X10*3/uL (160-400); Red Blood Count 2.48 X10*6/uL (4.60-5.80); Red Cell Distribution Width 19.8 % (11.0-16.0); White Blood Count 11.8 X10*3/uL (4.8-10.8)
[2023-01-22 07:07] LABS: Alanine Aminotransferase 30 U/L (0-40); Albumin Level 3.3 g/dL (3.5-5.0); Alkaline Phosphatase 117 U/L (39-117); Anion Gap 15 (12-20); Aspartate Amino Transferase 72 U/L (5-37); Blood Urea Nitrogen 30 mg/dL (9-16); Calcium 7.9 mg/dL (8.4-10.2); Carbon Dioxide 16 mmol/L (22-29); Chloride 104 mmol/L (96-108); Creatinine Clr Calc Pharmacy 29.3; Estimated Glomerular Filt Rate 31; Glucose Random 97 mg/dL (60-115); Potassium 3.1 mmol/L (3.3-5.1); Sodium 132 mmol/L (135-145); Total Protein 4.7 g/dL (6.5-8.0)
[2023-01-22 07:32] LABS: Bilirubin Total 27.1 mg/dL (0.0-1.0)
[2023-01-22] MEDS: rifAXIMin 550 MG TABLET PO ×2 (08:01→19:50)
[2023-01-22] MEDS: levoFLOXacin/D5W 750 MG/150 ML PIGGYBACK 100 MG IV (08:02)
[2023-01-22] MEDS: Thiamine HCL 100 MG in 0.9 % Sodium Chloride 100 ML 202 MG IV (08:02)
[2023-01-22 08:06] LABS: Procalcitonin 1.02 ng/mL
[2023-01-22] MEDS: Lidocaine HCl 1 % MPF 5 ML VIAL SUBCUT (09:40)
[2023-01-22 10:12] LABS: WBC Peritoneal Fluid 0.207 X10*3/uL
[2023-01-22 10:14] LABS: RBC Peritoneal Fluid < 0.002 X10*6/uL
--- NOTE | 2023-01-22 10:24 | PM.PNNEP ---
Subjective Subjective Date of Service: 01/23/23 Interval history: Events noted Physical Exam Vital Signs: Vital Signs: Last Vital Signs Temp 97.8 F 01/22/23 07:41 Pulse 81 01/22/23 07:41 Resp 20 01/22/23 07:41 BP 132/62 01/22/23 07:41 Pulse Ox 96 01/22/23 07:41 O2 Del Method Room Air 01/22/23 07:41 O2 Flow Rate 2 01/15/23 07:23 BMI result Body Mass Index 26.0 Const: Other: jaundice, appears frail Resp: Other: Normal respiratory rate Cardio: Rate: regular rate Rhythm: regular rhythm GI: Palpation (GI): Soft to palpation Auscultation: normal bowel sounds Skin: Other: Jaundice skin Neuro: Other: oriented to self, disoriented to place, time and person Extrem: General: Yes no pedal edema Objective Data Labs 01/22/23 06:12 01/22/23 06:12 Labs: Laboratory Results - last 24 hr 01/21/23 01/22/23 01/22/23 Unknown 06:12 06:12 WBC 11.8 H RBC 2.48 L Hgb 8.2 L Hct 22.8 L MCV 91.9 MCH 33.1 H MCHC 36.0 RDW 19.8 H Plt Count 319 MPV 10.4 Absolute Nucleated RBC 0.000 Nucleated RBC % (auto) 0.0 Sodium 132 L Potassium 3.1 L Chloride 104 Carbon Dioxide 16 L Anion Gap 15 BUN 30 H Creatinine 2.11 H Estim Creat Clear Calc 29.3 Estimated GFR 31 Random Glucose 97 Calcium 7.9 L Total Bilirubin 27.1 H AST 72 H ALT 30 Alkaline Phosphatase 117 Total Protein 4.7 L Albumin 3.3 L Procalcitonin 1.02 Peritoneal WBC Peritoneal RBC Nasal Screen MRSA (PCR) NEGATIVE Nasal S. aureus Screen NEGATIVE Nasal MRSA/S.aureus Interp SEE NOTE 01/22/23 09:00 WBC RBC Hgb Hct MCV MCH MCHC RDW Plt Count MPV Absolute Nucleated RBC Nucleated RBC % (auto) Sodium Potassium Chloride Carbon Dioxide Anion Gap BUN Creatinine Estim Creat Clear Calc Estimated GFR Random Glucose Calcium Total Bilirubin AST ALT Alkaline Phosphatase Total Protein Albumin Procalcitonin Peritoneal WBC 0.207 Peritoneal RBC < 0.002 Nasal Screen MRSA (PCR) Nasal S. aureus Screen Nasal MRSA/S.aureus Interp Microbiology Microbiology Results: Microbiology 01/19/23 09:11 Blood - Venous Blood Culture - Preliminary No growth after 48 hours. 01/19/23 08:34 Blood - Venous Blood Culture - Preliminary No growth after 48 hours. 01/15/23 13:10 Ascites Fluid Gram Stain - Final 01/15/23 13:10 Ascites Fluid Routine Culture - Final No growth after 2 days 01/15/23 13:10 Ascites Fluid Anaerobic Culture - Final NO GROWTH AFTER 5 DAYS 01/13/23 16:41 Blood - Venous Blood Culture - Final No growth after 5 days. 01/13/23 16:42 Blood - Venous Blood Culture - Final No growth after 5 days. 01/13/23 16:13 Urine clean catch - Urine trevino top Urine Culture - Final Procedures Date of Service Date of Service: 01/23/23 Assessment & Plan Assessment and plan (1) Lung mass: Status: Acute (2) Sepsis: Status: Acute (3) Normocytic anemia: Status: Acute (4) GI bleed: Status: Acute (5) Hyperammonemia: Status: Acute Plan Mr. Elia Grier is a 77-year-man with UGIB found to have antral ulcer on EGD. He was also diagnosed newly with liver cirrhosis. He had a diagnostic paracentesis ruling out SBP. And he was exposed to CT contrast on 01/15/23. Cr was 0.98 on 01/18/23 and 1.6 on 01/19/23. 1. Non-oliguric NAVEEN BL Cr 0.6mg/dL. Cr rising on 01/18/23 to 0.98mg/dL. Cr today 1.6mg/dL U/A with hyalin casts & some granular casts. Olayinka <20 Normotensive OVerall patient has a pre-renal azotemia a hemodynamic renal injury with reduced renal perfusion. He has poor INTRAvascular defense. In this setting being exposed to contrast increases the risk of tubular injury because contrast does 2 things. 1) it vasoconstricts the afferent further reducing renal perfusion and 2) its high osmolarity leads to tubular injury when tubular flow rate is reduced. Normotension and urine sediment point away from HRS as a leading diagnosis. CT scan ruled out hydro. Mild hyponatremia Mild hypokalemia Low total CO2. Differential diagnosis includes metabolic acidosis versus respiratory alkalosis in the setting of liver pathology. Plan: - DC IV fluid in view of significant edema - no octreotide needed - no midodrine needed - avoid large volume paracentesis - avoid further contrast and nephrotoxins. No indication for dialysis yet Replace potassium orally. Restrict oral free water intake to correct hyponatremia. - Time Spent With Patient Time: Total time managing care of this patient today ____ minutes. Progress Note: Quality Stroke Does the patient have a stroke diagnosis?: No
[2023-01-22] MEDS: Potassium Chloride ER 10 MEQ TABLET.ER 30 MEQ PO (11:06)
[2023-01-22] MEDS: Folic Acid 1 MG in 0.9 % Sodium Chloride 50 ML 100.4 MG IV (11:08)
[2023-01-22 11:14] LABS: Lymphocyte Peritoneal Fl 9 %; Monocytes Peritoneal Fl 11 %; Neutrophils Peritoneal Fluid 64 %; Other Peritioneal Fl 16 %
[2023-01-22 11:15] LABS: BF Shift QC OK YES
--- NOTE | 2023-01-22 13:03 | PC.NURSE ---
Assumed care at 0700. Patient went down for paracentesis, tolerated well. 1.9 liters removed from abdomen reported. Patient states that he is feeling better after the procedure. Denies any pain at this time. VSS. Refusing Lactulose at this time. Receiving IV abx per EMAR. K 3.1, replacement given. Sinus rhythm. Jaundice. Buttocks red, barrier cream applied. Turned and repositioned. Resumed diet. Denies nausea vomiting. Daughter updated. See assessment documentation for further information. Call lozano at bedside, bed alarm on, safety maintained.
--- NOTE | 2023-01-22 14:58 | HO.PM.IMPN ---
Subjective Subjective Date of Service: 01/22/23 Interval History: returned from paracentesis denies abdominal pain, no fevers, no chills, no nausea, no vomiting, denies lightheadedness, no dizziness, no shortness of breath, wants to wait for blood transfusion, no other acute issues overnight vitals stable. Review of Systems all other system reviewed and negative. Physical Exam Vital Signs: Vital Signs: Last Vital Signs Temp 98.8 F 01/22/23 11:59 Pulse 84 01/22/23 11:59 Resp 20 01/22/23 11:59 BP 129/62 01/22/23 11:59 Pulse Ox 97 01/22/23 11:59 O2 Del Method Room Air 01/22/23 11:59 O2 Flow Rate 2 01/15/23 07:23 BMI result Body Mass Index 26.0 Const: Other: Gen: awake alert resting comfortably no distress,chronically ill-appearing HEENT: sclera icteric, moist mucus membranes Neck: supple Lungs: few basilar crackles, no respiratory distress Heart: regular rate and rhythm, no murmurs Abd: soft, non-tender, distended, bruising L flank Ext: no edema Skin: warm/well-perfused, jaundiced Neuro: alert and oriented x3, no asterixis Psych: appropriate affect Objective Data Active Medications Thiamine HCl 100 mg/ Sodium (Chloride) 101 mls @ 202 mls/hr IV DAILY [facility] Last Infusion: 01/22/23 08:35 Dose: 0 mls/hr Documented By: LIAT Folic Acid 1 mg/ Sodium (Chloride) 50.2 mls @ 100.4 mls/hr IV DAILY [facility] Last Infusion: 01/22/23 11:47 Dose: 0 mls/hr Documented By: LIAT Lactulose (Lactulose 20 Gm/30 Ml Solution) 20 gm PO TID [facility] Last Admin: 01/22/23 08:00 Dose: Not Given Documented By: LIAT Non-Admin Reason: pt refused Lidocaine (Lidocaine 4 % Patch Adh..Patch) 1 patch TRANSDERMA DAILY [facility]; Protocol Last Admin: 01/22/23 08:00 Dose: Not Given Documented By: LIAT Non-Admin Reason: pt refused Morphine Sulfate (Morphine Sulfate 2 Mg/Ml Cartridge) 2 mg IVPUSH Q4H PRN; Protocol PRN Reason: severe pain Last Admin: 01/17/23 09:56 Dose: 2 mg Documented By: JONAS Omeprazole (Omeprazole 40 Mg Capsule.Dr) 40 mg PO BID@0630,1630 [facility] Last Admin: 01/22/23 06:00 Dose: 40 mg Documented By: DOBROSabine Ondansetron HCl (Ondansetron Hcl 4 Mg/2 Ml Vial) 4 mg IVPUSH Q8H PRN PRN Reason: Nausea and Vomiting Pharmacy Consult (Consult Rx Perform Med Rec) 1 each MISCELLANE ONCE PRN PRN Reason: Consult order Pharmacy Consult (Consult Rx Etoh Phenob Im/Po) 1 each MISCELLANE ONCE PRN; Protocol PRN Reason: Consult order Rifaximin (Rifaximin 550 Mg Tablet) 550 mg PO BID [facility] Last Admin: 01/22/23 08:01 Dose: 550 mg Documented By: LIAT Labs 01/22/23 06:12 01/22/23 06:12 Labs: Laboratory Results - last 24 hr 01/22/23 01/22/23 01/22/23 06:12 06:12 09:00 MCV 91.9 MCH 33.1 H MCHC 36.0 RDW 19.8 H Plt Count 319 MPV 10.4 Absolute Nucleated RBC 0.000 Nucleated RBC % (auto) 0.0 Anion Gap 15 Estim Creat Clear Calc 29.3 Estimated GFR 31 Random Glucose 97 Calcium 7.9 L Total Bilirubin 27.1 H AST 72 H ALT 30 Alkaline Phosphatase 117 Total Protein 4.7 L Albumin 3.3 L Procalcitonin 1.02 Peritoneal WBC 0.207 Peritoneal RBC < 0.002 Periton Neutrophils 64 Periton Lymphocytes 9 Peritoneal Monocytes 11 Peritoneal Other Cells 16 Microbiology Microbiology Results: Microbiology 01/19/23 09:11 Blood Culture - Preliminary Blood - Venous No growth after 48 hours. Assessment and Plan (1) Lung mass: Status: Acute (2) Sepsis: Status: Acute (3) Normocytic anemia: Status: Acute (4) GI bleed: Status: Acute (5) Hyperammonemia: Status: Acute Plan 77yo M with AUD presenting with GI bleed, found to have decompensated cirrhosis/EtOH hepatitis/ascites/encephalopathy developed fever + NAVEEN NAVEEN - consulted Nephrology. felt to be contrast nephropathy rather than HRS. SCr trending down. hold IV fluids sepsis due to pneumonia fever got ceftriaxone x7d and azithromycin x6d for CAP on admission; changed to levofloxacin and linezolid 01/20 due to new fever and worsening PCT and NAVEEN. case discussed with ID she recommend to discontinue IV antibiotics since received 9 days antibiotics, PCT improved CT chest showed evidence of interstitial lung disease, new patchy ground-glass attenuation areas in the right upper lobe and denser atelectasis or small infiltrate in bilateral lower lobes BCx from 01/19 negative. pneumococcal + Legionella urinary antigens pending underwent repeat paracentesis this morning 1.9 L of dark clear yellow fluid was removed, fluid studies not consistent with SBP hypoK - potassium 3.1 will replete and follow labs . hypoNa - likely due to cirrhosis. restrict H2O, sodium stable at 132. abd distension/bruising - no active extravasation on repeat CT, abdomen soft and nontender. decompensated cirrhosis - complete serologic workup pending but likely due to EtOH - MELD-Na 31, CTP 11 - no SBP on paracentesis done 01/15; cytology negative for malignant cells - repeat diagnostic paracentesis this a.m. 1.9 L of fluid removed studies not consistent with SBP acute UGIB - EGD 01/[address] Odell: 1. Gastric antral ulcer. 2. Gastritis. 3. Duodenitis. 4. Rule out Helicobacter pylori. 5. Hiatal hernia, gastroesophageal reflux. - biopsy results: A.? Stomach, ulcer, biopsy:? Antral-type mucosa with mild chronic inactive inflammation and mild regenerative changes; no Helicobacter organisms seen. B.? Stomach, antrum, biopsy:? Antral-type mucosa with mild chronic inactive inflammation; no Helicobacter organisms seen. - PO PPI bid acute on chronic normocytic anemia due to upper GI bleed, hematocrit dropped, patient asymptomatic refusing blood transfusion will follow hematocrit, stool guaiac positive continue PPI hepatic encephalopathy - continue lactulose + rifaximin; asterixis resolved EtOH hepatitis - not a candidate for steroids per GI. Tbili trending down from 30.3 to 27. lactic acidosis - due to sepsis + cirrhosis; resolved T12 compression fracture, unknown chronicity - lidocaine patch lung mass - spiculated RUL mass, will need outpt PET/CT, obtained prior CT from [facility]: irregular 8 mm RUL nodule, indeterminate; recommend reassessment on follow-up chest CT in 3-6 months; bilateral paraseptal emphysema and ILD seen by Dr. Ho she recommend lung biopsy and outpatient follow-up, AUD acute EtOH withdrawal - phenobarbital taper completed, thiamine, folate, Med/Recov Team consult pending. VTE ppx - SCDs dispo - recommend STR- pt refuses, prefers to go home with son who is around 24/7 In my clinical judgment, the patient requires continued inpatient hospitalization for the following reasons: decompensated cirrhosis, IV ABX, NAVEEN Time Spent With Patient Time: Total time managing care of this patient today ____ minutes. Quality Stroke Does the patient have a stroke diagnosis?: No VTE Prior VTE?: No VTE Risk Level:: Medical - moderate - high VTE Device Contraindication: N/A - Device Ordered VTE Drug Contraindication: Treatment Not Indicated
--- NOTE | 2023-01-22 16:08 | MHC.CM.PN ---
EMR reviewed and per MD rounds, pt is not medically cleared for D/C due to decompensated cirrhosis, IV ABX, and NAVEEN. CM will continue to follow.
[2023-01-22 16:47] LABS: Mitochondrial Antibodies NEGATIVE (NEGATIVE)
[2023-01-23 04:00] VITALS: BP 138/70; PULSE 82; RESP 16; TEMP 36.1; O2SAT 97
[2023-01-23] MEDS: Omeprazole 40 MG CAPSULE.DR PO ×2 (06:23→16:55)
[2023-01-23 07:47] VITALS: BP 136/63; PULSE 84; RESP 20; TEMP 36.7; O2SAT 97
[2023-01-23 08:18] LABS: Mean Corpuscular Hemoglobin 33.7 pg (27.0-33.0); Mean Corpuscular Volume 93.6 fL (80.0-98.0); Mean Platelet Volume 9.9 fL (9.4-12.4); Platelet Count 361 X10*3/uL (160-400); Red Blood Count 2.67 X10*6/uL (4.60-5.80); Red Cell Distribution Width 20.5 % (11.0-16.0); White Blood Count 12.8 X10*3/uL (4.8-10.8)
[2023-01-23] MEDS: Lidocaine 4 % Patch ADH..PATCH 1 PATCH TRANSDERMA (08:28)
[2023-01-23] MEDS: rifAXIMin 550 MG TABLET PO (08:29)
[2023-01-23] MEDS: Folic Acid 1 MG in 0.9 % Sodium Chloride 50 ML 100.4 MG IV (08:40)
[2023-01-23] MEDS: Thiamine HCL 100 MG in 0.9 % Sodium Chloride 100 ML 202 MG IV (08:40)
[2023-01-23 09:46] LABS: Alanine Aminotransferase 32 U/L (0-40); Albumin Level 3.1 g/dL (3.5-5.0); Alkaline Phosphatase 109 U/L (39-117); Anion Gap 13 (12-20); Aspartate Amino Transferase 91 U/L (5-37); Bilirubin Total 29.1 mg/dL (0.0-1.0); Blood Urea Nitrogen 29 mg/dL (9-16); Calcium 8.4 mg/dL (8.4-10.2); Carbon Dioxide 19 mmol/L (22-29); Chloride 105 mmol/L (96-108); Creatinine Clr Calc Pharmacy 31.5; Estimated Glomerular Filt Rate 33; Glucose Random 89 mg/dL (60-115); Potassium 3.7 mmol/L (3.3-5.1); Sodium 133 mmol/L (135-145); Total Protein 4.8 g/dL (6.5-8.0)
[2023-01-23 09:49] VITALS: BP 136/63; PULSE 84; O2SAT 97
--- NOTE | 2023-01-23 10:45 | PM.PNNEP ---
Subjective Subjective Date of Service: 02/05/23 Interval history: Events noted Physical Exam Vital Signs: Vital Signs: Last Vital Signs Temp 98.0 F 01/23/23 07:47 Pulse 84 01/23/23 09:49 Resp 20 01/23/23 07:47 BP 136/63 01/23/23 09:49 Pulse Ox 97 01/23/23 09:49 O2 Del Method Room Air 01/23/23 07:47 O2 Flow Rate 2 01/15/23 07:23 BMI result Body Mass Index 26.0 Const: Other: jaundice, appears frail Resp: Other: Normal respiratory rate Cardio: Rate: regular rate Rhythm: regular rhythm GI: Palpation (GI): Soft to palpation Auscultation: normal bowel sounds Skin: Other: Jaundice skin Neuro: Other: oriented to self, disoriented to place, time and person Extrem: General: Yes no pedal edema Objective Data Labs 01/23/23 07:56 01/23/23 07:56 Labs: Laboratory Results - last 24 hr 01/14/23 01/14/23 01/22/23 06:10 15:41 09:00 WBC RBC Hgb Hct MCV MCH MCHC RDW Plt Count MPV Absolute Nucleated RBC Nucleated RBC % (auto) Sodium Potassium Chloride Carbon Dioxide Anion Gap BUN Creatinine Estim Creat Clear Calc Estimated GFR Random Glucose Calcium Total Bilirubin Direct Bilirubin AST ALT Alkaline Phosphatase Total Protein Albumin Periton Neutrophils 64 Periton Lymphocytes 9 Peritoneal Monocytes 11 Peritoneal Other Cells 16 Anti-Mitochondrial Ab NEGATIVE Hemochromatosis DNA See Below 01/23/23 01/23/23 07:56 07:56 WBC 12.8 H RBC 2.67 L Hgb 9.0 L Hct 25.0 L MCV 93.6 MCH 33.7 H MCHC 36.0 RDW 20.5 H Plt Count 361 MPV 9.9 Absolute Nucleated RBC 0.000 Nucleated RBC % (auto) 0.0 Sodium 133 L Potassium 3.7 Chloride 105 Carbon Dioxide 19 L Anion Gap 13 BUN 29 H Creatinine 1.96 H Estim Creat Clear Calc 31.5 Estimated GFR 33 Random Glucose 89 Calcium 8.4 D Total Bilirubin 29.1 H Direct Bilirubin 20.0 H AST 91 H ALT 32 Alkaline Phosphatase 109 Total Protein 4.8 L Albumin 3.1 L Periton Neutrophils Periton Lymphocytes Peritoneal Monocytes Peritoneal Other Cells Anti-Mitochondrial Ab Hemochromatosis DNA Microbiology Microbiology Results: Microbiology 01/22/23 09:00 Ascites Fluid Gram Stain - Final 01/22/23 09:00 Ascites Fluid Anaerobic Culture - Preliminary No growth to date. 01/22/23 09:00 Ascites Fluid Body Fluid Culture - Preliminary No growth to date. 01/19/23 09:11 Blood - Venous Blood Culture - Preliminary No growth after 48 hours. 01/19/23 08:34 Blood - Venous Blood Culture - Preliminary No growth after 48 hours. 01/15/23 13:10 Ascites Fluid Gram Stain - Final 01/15/23 13:10 Ascites Fluid Routine Culture - Final No growth after 2 days 01/15/23 13:10 Ascites Fluid Anaerobic Culture - Final NO GROWTH AFTER 5 DAYS 01/13/23 16:41 Blood - Venous Blood Culture - Final No growth after 5 days. 01/13/23 16:42 Blood - Venous Blood Culture - Final No growth after 5 days. 01/13/23 16:13 Urine clean catch - Urine trevino top Urine Culture - Final Procedures Date of Service Date of Service: 02/05/23 Assessment & Plan Assessment and plan (1) Lung mass: Status: Acute (2) Sepsis: Status: Resolved (3) Normocytic anemia: Status: Inactive (4) GI bleed: Status: Resolved (5) Hyperammonemia: Status: Resolved Plan 77-year-man with UGIB He was also diagnosed newly with liver cirrhosis. He had a diagnostic paracentesis ruling out SBP. And he was exposed to CT contrast on 01/15/23. Cr was 0.98 on 01/18/23 and 1.6 on 01/19/23. 1. Non-oliguric NAVEEN BL Cr 0.6mg/dL. Cr rising on 01/18/23 to 0.98mg/dL. U/A with hyalin casts & some granular casts. Olayinka <20 Normotensive OVerall patient has a pre-renal azotemia a hemodynamic renal injury with reduced renal perfusion. He has poor INTRAvascular defense. In this setting being exposed to contrast increases the risk of tubular injury because contrast does 2 things. 1) it vasoconstricts the afferent further reducing renal perfusion and 2) its high osmolarity leads to tubular injury when tubular flow rate is reduced. Normotension and urine sediment point away from HRS as a leading diagnosis. CT scan ruled out hydro. Mild hyponatremia Mild hypokalemia Low total CO2. Differential diagnosis includes metabolic acidosis versus respiratory alkalosis in the setting of liver pathology. Creatinine is trending down Plan: - - avoid large volume paracentesis - avoid further contrast and nephrotoxins. No indication for dialysis yet Restrict oral free water intake to correct hyponatremia. Okay to DC and we will arrange for outpatient follow-up - Time Spent With Patient Time: Total time managing care of this patient today ____ minutes. Progress Note: Quality Stroke Does the patient have a stroke diagnosis?: No
[2023-01-23 11:34] VITALS: BP 133/60; PULSE 87; RESP 20; TEMP 36.6; O2SAT 98
--- NOTE | 2023-01-23 13:30 | MHC.CM.PN ---
Second IMM given 01/23. Pt medically cleared for D/C home with new [facility]. Transportation via [facility] today at 4pm.
[2023-01-23 15:07] VITALS: BP 150/65; PULSE 81; RESP 20; TEMP 36.9; O2SAT 96
--- NOTE | 2023-01-23 15:30 | PM.DS ---
DS: Providers Provider Date of Service: 02/06/23 Date of admission: 01/13/23 22:58 Primary care physician: Michelle Oswald NP Consults: 01/13/23 22:29 Consult to Gastroenterology Stat Consulting Provider: Usman Odell Reason for consultation: New onset jaundice, melena Has provider been notified: Yes 01/14/23 11:55 Consult to Hematology / Oncology Routine Consulting Provider: [facility] [place] Oncology/Hematology Reason for consultation: RUL mass 01/14/23 12:09 Addiction Medicine Routine Consulting Provider: Addiction Covering Reason for consultation: alcohol use disorder 01/19/23 09:40 Consult to Nephrology Routine Consulting Provider: [facility] Reason for consultation: naveen-hepatorenal? 01/20/23 07:45 Consult to Infectious Diseases Routine Consulting Provider: [facility] [place] Infectious Disease Reason for consultation: fever in cirrhotic DS: Diagnosis Discharge Diagnosis (1) Lung mass: Status: Acute (2) Sepsis: Status: Resolved (3) Normocytic anemia: Status: Inactive (4) GI bleed: Status: Resolved (5) Hyperammonemia: Status: Resolved DS: Summary Hospital Course Hospital Course: Date of Service: 01/13/23 Chief Complaint: Abdominal distension, jaundice, weakness This is a 77-year-old male with no significant documented past medical history comes into the hospital with multiple complaints including jaundice, abdominal distension, generalized weakness where he is now unable to walk.? Patient is a poor historian but is alert oriented to self and place.? He states that his belly is slightly tender all over, he denies any nausea, no vomiting, but has had diarrhea with black tarry stools for the past several days.? He reports no fever or chills.? No chest pain, no shortness of breath.? Reports that he noticed himself being jaundice about a day ago.? He does report a history of heavy drinking but has recently cut down to about 2 to 3 times a week.? No history of IV drug use.? Not aware of any history of liver disease.? He does take of one to 2 times a day- unclear for how long On arrival to the ED patient hemodynamically stable with a slightly elevated heart rate 100-105, blood pressure stable.? On arrival to the ED patient's labs are significant for WBC count of 18.8, hemoglobin of 11.3, hematocrit 30.3, no baseline for comparison, INR 1.9, sodium level of 126, chloride of 94, BUN of 36, lactic acid of 2.5, improved on trending, bilirubin total of 25, AST of 115, ALT of 46, alk-phos of 146, ammonia of 79, troponin negative, albumin of 2.5, UA positive for nitrites and leukocyte Estrace Stool occult positive Abdominal pelvic and CT chest showed evidence of COPD although patient denies history of smoking, density in the right upper lung concerning for malignancy, mild ascites in the abdomen pelvis and liver consistent with cirrhosis. Abdominal ultrasound shows findings suggestive of portal hypertension, hospital course: 77yo M with AUD presenting with GI bleed, found to have decompensated cirrhosis/EtOH hepatitis/ascites/encephalopathy and developed fever + NAVEEN NAVEEN likely due to contrast nephropathy rather than hepatorenal syndrome serum creatinine is trending down recommend outpatient follow-up with Nephrology. sepsis due to pneumonia all symptoms of sepsis resolved treated with 7 day course of ceftriaxone and azithromycin antibiotic subsequently changed to levofloxacin and linezolid due to new fever and worsening procalcitonin, since procalcitonin improved patient had no recurrent fevers, blood cultures x2 negative therefore all antibiotics were discontinued after 9 days of antibiotics as per ID recommendations pneumococcal + Legionella urinary antigens pending, no evidence of SBP, lactic acidosis resolved patient is hemodynamically stable. ? hypokalemia repleted and normalized . hypoNa - likely due to cirrhosis, sodium improved and remained stable at 132.? Decompensated cirrhosis likely due to alcohol, antimitochondrial and anti smooth muscle antibody negative, MELD-Na 31, CTP 11, no SBP on paracentesis done 01/15; cytology negative for malignant cells, repeat diagnostic paracentesis? 01/22. 1.9 L of fluid removed studies not consistent with SBP, seen by GI, prednisone not recommended, due to acute upper GI bleed underwent EGD EGD 01/[address] Odell showed 1. Gastric antral ulcer.2. Gastritis.3. Duodenitis.4. Hiatal hernia, gastroesophageal reflux. - biopsy results: A.? Stomach, ulcer, biopsy:? Antral-type mucosa with mild chronic inactive inflammation and mild regenerative changes; no Helicobacter organisms seen. B.? Stomach, antrum, biopsy:? Antral-type mucosa with mild chronic inactive inflammation; no Helicobacter organisms seen. recommend to continue Prilosec twice daily and strongly recommend to abstain from alcohol and outpatient follow-up with Dr. Odell hepatic encephalopathy - recommend to continue lactulose + rifaximin, asterixis resolved. EtOH hepatitis - evaluated by Dr. Odell strongly recommend to abstain from alcohol, liver enzymes improved bili remains elevated recommend outpatient GI follow-up. T12 compression fracture, unknown chronicity, take analgesics as tolerated. lung mass- spiculated RUL mass, will need outpt PET/CT, obtained prior CT from [facility]: irregular 8 mm RUL nodule, indeterminate; recommend reassessment on follow-up chest CT in 3-6 months; bilateral paraseptal emphysema and ILD ?? seen by Dr. Ho she recommend lung biopsy and outpatient follow-up. acute EtOH withdrawal completed phenobarb protocol strongly recommend to abstain from alcohol. Time Spent with Patient Time attestation: Total time managing care of this patient today ____ minutes. Discharge coordination time: Greater than 30 minutes Quality: Safe Use of Opioids Does Pt have an Active Cancer Diagnosis on the Problem List?: No Quality: Stroke Does the patient have a stroke diagnosis?: No Physical Exam Vital Signs: Vital Signs: Last Vital Signs Temp 98.4 F 01/23/23 15:07 Pulse 81 01/23/23 15:07 Resp 20 01/23/23 15:07 BP 150/65 H 01/23/23 15:07 Pulse Ox 96 01/23/23 15:07 O2 Del Method Room Air 01/23/23 15:07 O2 Flow Rate 2 01/15/23 07:23 BMI result Body Mass Index 26.0 Const: Other: Gen:? awake alert resting comfortably no distress HEENT: sclera icteric, moist mucus membranes Neck: supple,no jvd Lungs:? clear to auscultation, few basilar crackles, no respiratory distress Heart: regular rate and rhythm, no murmurs Abd: soft, non-tender, distended, bruising L flank Ext: no edema Skin: warm/well-perfused, jaundiced Neuro: alert and oriented x3, no asterixis Psych: appropriate affect DS: Data Data Completed and Pending Completed studies during hospitalization [Text1]: Pending at discharge 01/15/23 15:57 Surgical [PTH] Routine 01/16/23 08:53 Cytology [PTH] Stat Pending studies at discharge: Pending at discharge 01/22/23 09:06 Cytology [PTH] Routine Labs on day of discharge: Laboratory Results - last 24 hr 01/14/23 01/14/23 01/23/23 06:10 15:41 07:56 WBC 12.8 H RBC 2.67 L Hgb 9.0 L Hct 25.0 L MCV 93.6 MCH 33.7 H MCHC 36.0 RDW 20.5 H Plt Count 361 MPV 9.9 Absolute Nucleated RBC 0.000 Nucleated RBC % (auto) 0.0 Sodium Potassium Chloride Carbon Dioxide Anion Gap BUN Creatinine Estim Creat Clear Calc Estimated GFR Random Glucose Calcium Total Bilirubin Direct Bilirubin AST ALT Alkaline Phosphatase Total Protein Albumin Anti-Mitochondrial Ab NEGATIVE Hemochromatosis DNA See Below 01/23/23 07:56 WBC RBC Hgb Hct MCV MCH MCHC RDW Plt Count MPV Absolute Nucleated RBC Nucleated RBC % (auto) Sodium 133 L Potassium 3.7 Chloride 105 Carbon Dioxide 19 L Anion Gap 13 BUN 29 H Creatinine 1.96 H Estim Creat Clear Calc 31.5 Estimated GFR 33 Random Glucose 89 Calcium 8.4 D Total Bilirubin 29.1 H Direct Bilirubin 20.0 H AST 91 H ALT 32 Alkaline Phosphatase 109 Total Protein 4.8 L Albumin 3.1 L Anti-Mitochondrial Ab Hemochromatosis DNA Preliminary micro results at discharge 01/22/23 09:00 Anaerobic Culture - Preliminary Ascites Fluid No growth to date. Body Fluid Culture - Preliminary No growth to date. 01/19/23 09:11 Blood Culture - Preliminary Blood - Venous No growth after 48 hours. 01/19/23 08:34 Blood Culture - Preliminary Blood - Venous No growth after 48 hours. Discharge Plan Discharge Anticipated Discharge Date/Time: 01/23/23 12:13 Patient Disposition: Home Health Service Discharge Diagnosis: sepsis due to pneumonia hypokalemia hyponatremia decompensated cirrhosis acute upper GI bleed hepatic encephalopathy lung mass Referrals: Michelle Oswald NP [Primary Care Provider] - 1 Week Discharge Medications: New lactulose 20 gram/30 mL Solution 20 g PO BID Qty: 3000 0RF omeprazole 40 mg Capsule,Delayed Release(Dr/Ec) 40 mg PO BID@0630,1630 Qty: 60 0RF Xifaxan 550 mg Tablet 550 mg PO BID Qty: 60 0RF Rx Instructions: START DATE: 01/31/23 tramadol 50 mg Tablet 50 mg PO Q12H PRN (Reason: Pain, Severe (Pain Scale 7-10)) Qty: 20 0RF Continued calcipotriene 0.005 % cream 1 appl topical BID PRN (Reason: psoriasis) Rx Instructions: apply to feet fluticasone propionate [Flovent HFA] 220 mcg/actuation HFA aerosol inhaler 2 puff inhalation BID PRN (Reason: Shortness Of Breath Or Wheezing) albuterol sulfate 90 mcg/actuation HFA aerosol inhaler 2 puff inhalation QID PRN (Reason: Shortness Of Breath Or Wheezing) betamethasone dipropionate 0.05 % ointment 1 appl topical TUTH PRN (Reason: PSORIASIS) Rx Instructions: apply to legs and elbows fluticasone propionate 50 mcg/actuation spray,suspension 2 spray intranasal DAILY PRN (Reason: Allergy Symptoms) ciclopirox 0.77 % cream 1 appl topical BID PRN (Reason: psoriasis) Rx Instructions: apply to legs and elbows Discontinued cetirizine 10 mg tablet 10 mg PO DAILY ibuprofen 800 mg tablet 800 mg PO BID PRN (Reason: pain) acetaminophen 500 mg Tablet 1,000 mg PO Q6H PRN (Reason: Pain) No Action ursodiol 300 mg Capsule 300 mg PO BID Qty: 60 0RF Discharge Orders: Discharge Order (Routine); Ordered 01/23/23 Ordered By: Ho Philip Diet: Advance to usual diet Activity on Discharge: As tolerated Stand Alone Forms: Patient Portal Discharge page Care Plan Goals: GI bleed due to gastric ulcer, gastritis, duodenitis, no recurrent GI bleed recommend to completely abstain from alcohol, no aspirin, no NSAIDs acute kidney injury improving sepsis resolved Health Concerns: lung mass, GI bleed, alcoholic hepatitis, hepatic encephalopathy, T12 compression fracture, Plan of Treatment: outpatient follow-up with Dr. Ho from Oncology for lung mass to arrange for lung biopsy outpatient follow-up with Dr. Rosa nephrology to follow up on kidney disease outpatient follow-up with Dr. Usman Odell from Gastroenterology call to make an appointment outpatient follow-up with primary care physician Assessment: as above Patient Instructions: Omeprazole (By mouth), Lactulose (By mouth), Tramadol (By mouth), Rifaximin (By mouth) Discharge Date/Time: 01/23/23 17:52
--- NOTE | 2023-01-23 15:59 | W.MHC.F2F ---
Service Date Service Date: 01/23/23 Encounter Date of encounter: 01/23/23 Reasons for Services Signs and symptoms assessed: weakness, jaundice Reason for penitentiary: neurological assessment and GI/ assessment Homebound: Leaving the home is medically contraindicated at this time without the asist of a device and/or another person due th the listed conditions above and below. Reason homebound: weakness related to hospital stay Certification: Based on the above findings, I certify that this patient is confined to the home and needs intermittent penitentiary care, physical therapy and/or speech therapy, or continues to need occupational therapy. The patient is under my care, and I have initiated the establishment of the plan of care. The patient will be followed by a physician who will periodically review the plan of care. Time Spent With Patient Time: Total time managing care of this patient today ____ minutes.
[2023-01-25 00:53] LABS: Strep Pneumo Ag urine Not Detected (Not Detected)
[2023-01-25 06:44] LABS: Legionella Ag Urine Not Detected (Not Detected)
--- NOTE | 2023-01-26 10:02 | MHC.HEMONC ---
After several calls to patient and his son and daughter, I was finally able to speak to his son. Pt lives with him and he is his caregiver. According to him, patient is unable to stand or do things for himself. He is being seen by [facility]. The family is disappointed in the rushed discharge from [facility] [place]. I encouraged him to reach out to hospital admin with his feedback. I gave him my direct number to call next week with update. Right now he is unable to leave the home. I will speak to NA regarding ? need for rehab. Dr Ho advised of all of this.
== END 2023-01-23 17:52 | disposition home health service (06) | DRG 871 ==
LOC: HO.ED 19:52 → HO.EDOVER 23:06 → HO.IMC 01-14 12:38
PROVIDERS: Family Medicine; Internal Medicine; Radiology Diagnostic Radiology; Student in an Organized Health Care Education/Training Program; Admitting Provider Internal Medicine; Emergency Provider Emergency Medicine Emergency Medical Services; PCP Nurse Practitioner Adult Health; Visit Provider Hospitalist
PROC: 0W9G3ZZ Drainage of Peritoneal Cavity, Percutaneous Approach (ICD-10-PCS; principal; 2023-01-15 11:30)
PROC: 0DB78ZX Excision of Stomach, Pylorus, Via Natural or Artificial Opening Endoscopic, Diagnostic (ICD-10-PCS; principal; 2023-01-15 15:30)
DX: A41.9 Sepsis, unspecified organism (principal); G93.41 Metabolic encephalopathy; J18.9 Pneumonia, unspecified organism; K29.81 Duodenitis with bleeding; K25.4 Chronic or unspecified gastric ulcer with hemorrhage; D62 Acute posthemorrhagic anemia; K29.71 Gastritis, unspecified, with bleeding; R64 Cachexia; N39.0 Urinary tract infection, site not specified; C34.11 Malignant neoplasm of upper lobe, right bronchus or lung; E87.20 Acidosis, unspecified; N17.9 Acute kidney failure, unspecified; M48.54XA Collapsed vertebra, not elsewhere classified, thoracic region, initial encounter for fracture; K70.31 Alcoholic cirrhosis of liver with ascites; K44.9 Diaphragmatic hernia without obstruction or gangrene; T39.315A Adverse effect of propionic acid derivatives, initial encounter; K76.82 Hepatic encephalopathy; K72.90 Hepatic failure, unspecified without coma; J43.9 Emphysema, unspecified; N14.11 Contrast-induced nephropathy; K21.9 Gastro-esophageal reflux disease without esophagitis; F10.10 Alcohol abuse, uncomplicated; K70.11 Alcoholic hepatitis with ascites; Z68.26 Body mass index [BMI] 26.0-26.9, adult; Z87.891 Personal history of nicotine dependence; Z79.51 Long term (current) use of inhaled steroids; Z79.899 Other long term (current) drug therapy
CPT/HCPCS: 36415; 49083; 70450; 71045; 71250; 71260; 72100; 74177; 76705; 80048; 80053; 80076; 80307; 81001; 81256; 82103; 82105; 82140; 82248; 82272; 82550; 82728; 83540; 83605; 83690; 83735; 84145; 84300; 84484; 85014; 85018; 85025; 85027; 85610; 85730; 86015; 86038; 86255; 86256; 86704; 86706; 86709; 86803; 86850; 86900; 86901; 86923; 87040; 87070; 87073; 87086; 87205; 87340; 87449; 87640; 87641; 87899; 88112; 88305; 88342; 89051; 93005; 97116; 97162; 97530; 99285; J0456; J0692; J0696; J1885; J1956; J2020; J2270; J2560; J3411; J3430; P9016; P9017; P9047; Q9967

== ENCOUNTER → 2023-01-13 14:48 | Outpatient (BNV) | payer BC, SELFPAY | PROVIDERS: Admitting Provider Internal Medicine; Emergency Provider Emergency Medicine Emergency Medical Services; Visit Provider Internal Medicine Cardiovascular Disease | DX: R00.0 Tachycardia, unspecified (principal); R94.31 Abnormal electrocardiogram [ECG] [EKG] | CPT/HCPCS: 93010 ==

== ENCOUNTER → 2023-01-13 14:49 | Outpatient (BNV) | payer BC, SELFPAY | PROVIDERS: Emergency Provider Emergency Medicine Emergency Medical Services; Visit Provider Internal Medicine Pulmonary Disease | DX: K92.1 Melena (principal) | CPT/HCPCS: 99499 ==

== ENCOUNTER 2023-01-13 22:58 | Outpatient (BNV) | payer MEDICARE, SELFPAY | END 2023-01-15 13:00 | PROVIDERS: Admitting Provider Internal Medicine; Emergency Provider Emergency Medicine Emergency Medical Services; Visit Provider Radiology Diagnostic Radiology | DX: B17.9 Acute viral hepatitis, unspecified (principal) | CPT/HCPCS: 49083 ==

== ENCOUNTER 2023-01-13 22:58 | Outpatient (BNV) | payer MEDICARE, SELFPAY | END 2023-01-22 08:30 | PROVIDERS: Admitting Provider Internal Medicine; Emergency Provider Emergency Medicine Emergency Medical Services; PCP Nurse Practitioner Adult Health; Visit Provider Radiology Diagnostic Radiology | DX: R18.8 Other ascites (principal) | CPT/HCPCS: 49083 ==

== ENCOUNTER → 2023-01-13 22:58 | Outpatient (BNV) | payer MEDICARE, SELFPAY | PROVIDERS: Admitting Provider Internal Medicine; Emergency Provider Emergency Medicine Emergency Medical Services; PCP Nurse Practitioner Adult Health; Visit Provider Internal Medicine Medical Oncology | DX: R79.89 Other specified abnormal findings of blood chemistry (principal); R91.8 Other nonspecific abnormal finding of lung field | CPT/HCPCS: 99222 ==

== ENCOUNTER → 2023-01-13 22:58 | Outpatient (BNV) | payer BC, SELFPAY | PROVIDERS: Admitting Provider Internal Medicine; Emergency Provider Emergency Medicine Emergency Medical Services; Visit Provider Internal Medicine | DX: A41.9 Sepsis, unspecified organism (principal); D64.9 Anemia, unspecified; K92.2 Gastrointestinal hemorrhage, unspecified; E72.20 Disorder of urea cycle metabolism, unspecified; R91.8 Other nonspecific abnormal finding of lung field | CPT/HCPCS: 99232; 99233; 99239; G0180 ==

== ENCOUNTER → 2023-01-13 22:58 | Outpatient (BNV) | payer MEDICARE, SELFPAY | PROVIDERS: Admitting Provider Internal Medicine; Emergency Provider Emergency Medicine Emergency Medical Services; PCP Nurse Practitioner Adult Health; Visit Provider Internal Medicine | DX: K92.2 Gastrointestinal hemorrhage, unspecified (principal); G93.41 Metabolic encephalopathy | CPT/HCPCS: 99222 ==

== ENCOUNTER 2023-01-30 11:23 | Inpatient (IN) | payer MEDICARE, SELFPAY ==
--- NOTE | ~2023-01-30 | US_ITS ---
EXAMINATION: Ultrasound-guided paracentesis CLINICAL INFORMATION: Ascites COMPARISON: Previous exam 01/22/2023 TECHNIQUE: Procedure and risks and benefits including bleeding, infection and low blood pressure were discussed with the patient and informed consent was obtained. The left lower quadrant was prepped and draped in the usual sterile fashion. The skin and soft tissues were anesthetized with 1% lidocaine plain. Using ultrasound guidance and a 5 Lao one stick system, access to the ascitic fluid was obtained. 1.8 L of dark clear yellow fluid was removed. Diagnostic specimen was sent as requested by the ordering physician. FINDINGS: There is a small to moderate amount of ascites. US/US paracentesis abd w/image IMPRESSION: Ultrasound-guided paracentesis.
--- NOTE | ~2023-01-30 | XR_ITS ---
EXAMINATION: XR CHEST CLINICAL INFORMATION: Fever, crackles COMPARISON: 01/13/2023. TECHNIQUE: Frontal view of the chest was obtained. FINDINGS: Slight increased patchy opacities noted in the right upper lobe since the previous evaluation. Small linear atelectasis in the medial right base. There may be a patchy infiltrate in the right lower lobe partially superimposed by the diaphragm. No distinct pleural effusions or vascular congestion. XR/XR chest 1V IMPRESSION: Slight increased patchy opacities in the right upper lobe may reflect infiltrates. Possible patchy infiltrate in the right lower lobe partially superimposed by the diaphragm. No new effusions or vascular congestion.
[2023-01-30 11:44] VITALS: BP 120/54; PULSE 93; RESP 16; TEMP 36.9; O2SAT 95; BMI 31.8
--- NOTE | 2023-01-30 11:55 | ED_ITS ---
HPI - General Adult General Chief complaint: General Medical Stated complaint: Stomach pain, ulcers, surgery 4 days ago Time Seen by Provider: 01/30/23 11:49 Source: patient, EMS, RN notes reviewed and old records reviewed Mode of arrival: EMS History of Present Illness HPI narrative: 77-year-old male with a past medical history alcohol use disorder, GI bleed, recently discharged from our facility on 01/23 for decompensated cirrhosis/ ETOH hepatitis/ ascites/ encephalopathy and NAVEEN/ fever, presenting to the ED via EMS complaining of fever, increasing weakness, inability to ambulate, abdominal discomfort with leakage, decreased p.o. intake, SOB, and worsening jaundice. Son states they have been unable to obtain prescription since discharge due to insurance issues. Denies vomiting/ diarrhea, chills, dysuria / hematuria, melena, bloody stool Related Data Home Medications Medication Instructions Recorded Confirmed albuterol sulfate 90 mcg/actuation 2 puff inhalation QID PRN 01/14/23 01/30/23 aerosol inhaler Shortness Of Breath Or Wheezing betamethasone dipropionate 0.05 % 1 appl topical TUTH PRN PSORIASIS 01/14/23 01/30/23 topical ointment calcipotriene 0.005 % topical cream 1 appl topical BID PRN psoriasis 01/14/23 01/30/23 ciclopirox 0.77 % topical cream 1 appl topical BID PRN psoriasis 01/14/23 01/30/23 fluticasone propionate 220 2 puff inhalation BID PRN 01/14/23 01/30/23 mcg/actuation HFA aerosol inhaler Shortness Of Breath Or Wheezing (Flovent HFA) fluticasone propionate 50 2 spray intranasal DAILY PRN 01/14/23 01/30/23 mcg/actuation nasal Allergy Symptoms spray,suspension Previous Rx's Medication Instructions Recorded lactulose 20 gram/30 mL oral 20 g (30 mL) PO BID #3,000 mL 01/23/23 solution omeprazole 40 mg capsule,delayed 40 mg PO BID@0630,1630 #60 caps 01/23/23 release rifaximin 550 mg tablet (Xifaxan) 550 mg PO BID #60 tabs 01/23/23 tramadol 50 mg tablet 50 mg PO Q12H PRN Pain, Severe 01/23/23 (Pain Scale 7-10) #20 tabs Allergies Allergy/AdvReac Type Severity Reaction Status Date / Time Penicillins Allergy Anaphylaxis Verified 01/13/23 17:00 Review of Systems 2 Review of Systems: Constitutional: +Fever, No Chills, No Night Sweats, + Fatigue, + Malaise ENT/Mouth: No Ear Pain, No Nasal Congestion, No Sinus Pain, No Hoarseness, No sore throat, No Rhinorrhea, No Swallowing Difficulty Eyes: No Eye Pain, No Swelling, No Redness, No Vision Changes Cardiovascular: No Chest Pain, + SOB, No Dyspnea on Exertion, No Orthopnea, + Edema, No Palpitations Respiratory: No Cough, No Sputum, No Dyspnea Gastrointestinal: No Nausea, No Vomiting, No Diarrhea, No Constipation, + Abdominal pain, No Hematochezia, No Melena Genitourinary: No Dysuria, No Urinary Frequency, No Hematuria, No Flank Pain Musculoskeletal: No joint pain, No Myalgias, No Joint Swelling Skin: No Skin Lesions, No rash Neuro: + Weakness, No Dizziness, No Headache Yes all other systems are reviewed and are negative Constitutional: Constitutional: Reports as per [facility] Past Medical History Attestation statement: The following information was validated with the patient. Source: old records reviewed Medical History No pertinent past medical history Surgical History No pertinent past surgical history Social History Social History Household Members: Children Housing: Apartment Do you presently have visiting nurse or other home services: No Alcohol intake: former Patient Tobacco Use Status: Former Tobacco user Smoked in Last 30 Days: No e-Cigarette/Vaping Use: Never Used Second Hand Smoke Exposure: No Use of substances other than those prescribed or required for medical reasons: No Advance Directives: No Advance Directives Information Provided: Yes service: No Physical Exam ED Vital Signs: Vital Signs - 24 hr 01/30/23 11:44 01/30/23 12:27 Temperature 98.4 F 98.5 F Pulse Rate 93 92 Respiratory Rate 16 19 Blood Pressure 120/54 L 108/58 L Pulse Oximetry 95 98 Oxygen Delivery Method Room Air Room Air Oxygen Flow Rate 97 BMI result Body Mass Index 31.8 Const Other: jaundiced with scleral icterus Orientation/consciousness: patient oriented x3 Limitations: no limitations HENMT Head: Yes normal to inspection and Yes atraumatic Ears: hearing grossly normal bilaterally General nose exam: Normal external nose present Face and sinus: Yes normal facial exam Eyes General: appearance normal, both eyes and all related structures EOM: EOMs intact bilaterally Neck Neck: Yes normal visual inspection and Yes no meningeal signs Resp Effort & Inspection: normal respiratory effort and no respiratory distress Auscultation: crackles bilateral at the base Cardio Rate: regular rate Heart sounds: S1 normal heart sound present and S2 normal heart sound present GI Other: + ascites, leakage noted to abdomen Palpation (GI): Soft to palpation, nontender, no guarding and not rigid General: Yes no CVA tenderness Back/Spine/Pelvis Back: no CVA tenderness Skin General skin exam: jaundice Rashes: no rashes Wounds: no wounds Neuro General: patient oriented x3, tone normal, moves all extremities and no meningeal signs Cranial nerves: Yes CN's II-XII intact bilaterally Extrem Other: + bilateral LE pitting edema, +leakage General: Yes edema Course Course Course Narrative: -1356-- leukocytosis of 17.4. Hemoglobin 9.4. Acute on chronic hyponatremia. Chronic CKD, improved from prior - total bilirubin and AST chronically elevated. Troponin and BNP WNL. Hypoalbuminemia > IV albumin and Lasix ordered XR chest 1V IMPRESSION: Slight increased patchy opacities in the right upper lobe may reflect infiltrates. Possible patchy infiltrate in the right lower lobe partially superimposed by the diaphragm. ? No new effusions or vascular congestion. > 2g of Cefepime ordered. Plan is for admission. >> prior cannot perform paracentesis until tomorrow. Suspicion for SBP is low a s abdomen is soft and nontender, case discussed with hospitalist Dr. Bell and admitted Medical Decision Making Medical Decision Making MDM Narrative: 77-year-old male with a past medical history alcohol use disorder, GI bleed, recently discharged from our facility on 01/23 for decompensated cirrhosis/ ETOH hepatitis/ ascites/ encephalopathy and NAVEEN/ fever, presenting to the ED via EMS complaining of fever, increasing weakness, inability to ambulate, abdominal discomfort with leakage, decreased p.o. intake, SOB, and worsening jaundice. On exam vital signs stable, jaundice with scleral icterus, abdomen with ascites, soft, nontender, leakage noted, diffuse anasarca w/ bilateral LE pitting edema. Bibasilar crackles noted. Concern for anasarca vs worsening cirrhosis/ hepatitis vs metabolic/infectious etiologies. Lower suspicion for SBP at this time. low concern for severe sepsis. No evidence of encephalopathy plan: EKG, labs, UA, CXR, US w/ paracentesis, admission Please refer to course for remaining clinical decision making, interpretation of labs/imaging results, and discussions with consultants and/or family members. Differential Diagnosis Differential Diagnoses: The differential diagnosis associated with the presentation includes As above Admission/Observation Consideration of admission/observation: Escalation of care including admi ssion/observation considered Consult Healthcare Provider Management of the patient was discussed with: Hospitalist Lab Data MDM Lab Attestation statement: I reviewed the patient's lab results. 01/30/23 12:03 01/30/23 12:03 Labs: Lab Results 01/30/23 01/30/23 01/30/23 Range/Units 12:03 12:03 12:03 WBC 17.4 H (4.8-10.8) X10*3/uL RBC 2.75 L (4.60-5.80) X10*6/uL Hgb 9.4 L (14.0-18.0) g/dl Hct 26.8 L (42.0-52.0) % MCV 97.5 (80.0-98.0) fL MCH 34.2 H (27.0-33.0) pg MCHC 35.1 (31.0-36.0) g/dl RDW 21.0 H (11.0-16.0) % Plt Count 284 (160-400) X10*3/uL MPV 9.7 (9.4-12.4) fL Immature Gran % (Auto) 2.0 H (0.0-0.4) % Neut % (Auto) 84.6 H (45-73) % Lymph % (Auto) 4.3 L (20-40) % Calhoun % (Auto) 6.6 (2-11) % Eos % (Auto) 1.8 (0-4) % Baso % (Auto) 0.7 (0-2) % Lymph # (Auto) 0.7 L (1.2-4.9) X10*3/uL Calhoun # (Auto) 1.2 (0.1-1.2) X10*3/uL Eos # (Auto) 0.3 (0.0-0.4) X10*3/uL Baso # (Auto) 0.1 (0.0-0.2) X10*3/uL Abs Immat Gran (auto) 0.35 H (0.00-0.03) X10*3/uL Absolute Neuts (auto) 14.7 H (2.0-8.3) x10*3/uL Absolute Nucleated RBC 0.000 (0.0-0.012) X10*3/uL Nucleated RBC % (auto) 0.0 (0.0-0.2) /100WBC Sodium 129 L (135-145) mmol/L Potassium 4.3 (3.3-5.1) mmol/L Chloride 101 (96-108) mmol/L Carbon Dioxide 19 L (22-29) mmol/L Anion Gap 13 (12-20) BUN 20 H (9-16) mg/dL Creatinine 1.74 H (0.5-1.4) mg/dL Estim Creat Clear Calc 37.2 Estimated GFR 38 Random Glucose 98 (60-115) mg/dL Calcium 8.1 L (8.4-10.2) mg/dL Magnesium 1.8 (1.6-2.6) mg/dL Total Bilirubin 28.5 H (0.0-1.0) mg/dL AST 86 H (5-37) U/L ALT 34 (0-40) U/L Alkaline Phosphatase 122 H (39-117) U/L Troponin I High Sens < 2.7 (<3.5-35.0) ng/L B-Natriuretic Peptide (<100) pg/mL Total Protein 5.6 L (6.5-8.0) g/dL Albumin 2.6 L (3.5-5.0) g/dL Lipase 51 (8-78) U/L 01/30/23 Range/Units 12:03 WBC (4.8-10.8) X10*3/uL RBC (4.60-5.80) X10*6/uL Hgb (14.0-18.0) g/dl Hct (42.0-52.0) % MCV (80.0-98.0) fL MCH (27.0-33.0) pg MCHC (31.0-36.0) g/dl RDW (11.0-16.0) % Plt Count (160-400) X10*3/uL MPV (9.4-12.4) fL Immature Gran % (Auto) (0.0-0.4) % Neut % (Auto) (45-73) % Lymph % (Auto) (20-40) % Calhoun % (Auto) (2-11) % Eos % (Auto) (0-4) % Baso % (Auto) (0-2) % Lymph # (Auto) (1.2-4.9) X10*3/uL Calhoun # (Auto) (0.1-1.2) X10*3/uL Eos # (Auto) (0.0-0.4) X10*3/uL Baso # (Auto) (0.0-0.2) X10*3/uL Abs Immat Gran (auto) (0.00-0.03) X10*3/uL Absolute Neuts (auto) (2.0-8.3) x10*3/uL Absolute Nucleated RBC (0.0-0.012) X10*3/uL Nucleated RBC % (auto) (0.0-0.2) /100WBC Sodium (135-145) mmol/L Potassium (3.3-5.1) mmol/L Chloride (96-108) mmol/L Carbon Dioxide (22-29) mmol/L Anion Gap (12-20) BUN (9-16) mg/dL Creatinine (0.5-1.4) mg/dL Estim Creat Clear Calc Estimated GFR Random Glucose (60-115) mg/dL Calcium (8.4-10.2) mg/dL Magnesium (1.6-2.6) mg/dL Total Bilirubin (0.0-1.0) mg/dL AST (5-37) U/L ALT (0-40) U/L Alkaline Phosphatase (39-117) U/L Troponin I High Sens (<3.5-35.0) ng/L B-Natriuretic Peptide 90 (<100) pg/mL Total Protein (6.5-8.0) g/dL Albumin (3.5-5.0) g/dL Lipase (8-78) U/L Independent Interpretation I performed an independent interpretation of an: EKG ( EKG normal sinus rhythm at a rate of 91. QTC 477. Nonspecific T-wave abnormality no longer present. No STEMI) Radiology Impression Discussion of test interpretation with radiology: I have reviewed the radiologist's reading. Independent Historian Clinical information obtained from an independent historian. History obtained from or confirmed by: EMS and Other ( son) External Record Review External record reviewed: Inpatient record, Office record, Outpatient record, Prior outpatient labs, Prior outpatient radiology, Primary care record and Outside ED record Tests considered The following testing was considered but not selected: As above Prescription Management I considered prescription management with: Pain Medication and Antibiotic Chronic Conditions Patient?s care impacted by: Other ( cirrhosis, metabolic encephalopathy, GI bleed) Social Determinants Patient?s care significantly limited by Social Determinants of Health including: Alcoholism and drug addiction in family Critical Care Time Critical Care Time Critical Care Time: Yes Total Critical Care Time: 35 Attestation: I have personally provided critical care time exclusive of time spent on separately billable procedures. Time includes review of lab data, radiology results, discussion with consultants, and monitoring for potential decompensation. Intervention performed as documented. Discharge Plan Discharge Clinical Impression: HCAP (healthcare-associated pneumonia), Anasarca, Weakness, Cirrhosis Patient Disposition: Admitted As Inpatient
[2023-01-30 12:09] LABS: MANUAL DIFF FLAG NO
[2023-01-30 12:11] LABS: Basophils Absolute Auto 0.1 X10*3/uL (0.0-0.2); Basophils Percent Auto 0.7 % (0-2); Eosinophils Absolute Auto 0.3 X10*3/uL (0.0-0.4); Eosinophils Percent Auto 1.8 % (0-4); Hematocrit 26.8 % (42.0-52.0); Hemoglobin 9.4 g/dl (14.0-18.0); Imm Gran Abs Auto 0.35 X10*3/uL (0.00-0.03); Lymphocytes Absolute Auto 0.7 X10*3/uL (1.2-4.9); Lymphocytes Percent Auto 4.3 % (20-40); Mean Corpuscular HGB Conc 35.1 g/dl (31.0-36.0); Mean Corpuscular Hemoglobin 34.2 pg (27.0-33.0); Mean Corpuscular Volume 97.5 fL (80.0-98.0); Mean Platelet Volume 9.7 fL (9.4-12.4); Monocytes Absolute Auto 1.2 X10*3/uL (0.1-1.2); Monocytes Percent Auto 6.6 % (2-11); Neutrophils Absolute Auto 14.7 x10*3/uL (2.0-8.3); Neutrophils Percent Auto 84.6 % (45-73); Platelet Count 284 X10*3/uL (160-400); Red Blood Count 2.75 X10*6/uL (4.60-5.80); White Blood Count 17.4 X10*3/uL (4.8-10.8)
--- NOTE | 2023-01-30 12:12 | ECG_ITS ---
Test Reason : STOMACH PAIN, ULCER Blood Pressure : / mmHG Vent. Rate : 091 BPM Atrial Rate : 091 BPM P-R Int : 168 ms QRS Dur : 080 ms QT Int : 388 ms P-R-T Axes : 031 -05 017 degrees QTc Int : 477 ms Normal sinus rhythm Septal infarct , age undetermined Abnormal ECG When compared with ECG of 13-JAN-2023 14:55, Septal infarct is now Present Nonspecific T wave abnormality no longer evident in Lateral leads Referred By: Kenisha Mason Electronically Signed By:NAKUL ACEVEDO
[2023-01-30 12:27] VITALS: BP 108/58; PULSE 92; RESP 19; TEMP 36.9; O2SAT 98
[2023-01-30 12:28] LABS: Alanine Aminotransferase 34 U/L (0-40); Albumin Level 2.6 g/dL (3.5-5.0); Alkaline Phosphatase 122 U/L (39-117); Anion Gap 13 (12-20); Aspartate Amino Transferase 86 U/L (5-37); Blood Urea Nitrogen 20 mg/dL (9-16); Calcium 8.1 mg/dL (8.4-10.2); Carbon Dioxide 19 mmol/L (22-29); Chloride 101 mmol/L (96-108); Creatinine Clr Calc Pharmacy 37.2; Estimated Glomerular Filt Rate 38; Glucose Random 98 mg/dL (60-115); Potassium 4.3 mmol/L (3.3-5.1); Sodium 129 mmol/L (135-145); Total Protein 5.6 g/dL (6.5-8.0)
[2023-01-30 12:30] LABS: B Type Natriuretic Peptide 90 pg/mL (<100)
--- NOTE | 2023-01-30 12:32 | PC.NURSE ---
pt a&ox3, vss, rectal temp = 98.5. nsr on the cardiac catheterization technologist. ekg performed by techs, documented and given to provider. labs currently being drawn by tech. pt verbalizing 5/10 abdominal pain - does not radiate towards anywhere else. call lozano placed within reach. will continue to monitor.
[2023-01-30 12:51] LABS: Bilirubin Total 28.5 mg/dL (0.0-1.0); Lipase 51 U/L (8-78); Magnesium 1.8 mg/dL (1.6-2.6)
[2023-01-30 12:54] LABS: Troponin-I High Sensitivity < 2.7 ng/L (<3.5-35.0)
--- NOTE | 2023-01-30 14:04 | PHA.MEDREC ---
Pharmacy Consult ? Medication Reconciliation Pharmacy has completed the medication reconciliation. Spoke to patient and patient's son to confirm meds.
--- NOTE | 2023-01-30 14:46 | PC.NURSE ---
two 20gIV's placed bilaterally in both ACs w/o complications, labs drawn and sent to lab.
[2023-01-30 14:48] VITALS: BP 128/59; PULSE 88; RESP 20; O2SAT 95
[2023-01-30 14:58] LABS: INTERNATIONAL NORM RATIO 1.6 (0.9-1.1)
[2023-01-30] MEDS: Albumin Human 25 % 100 ML IV (15:02)
[2023-01-30] MEDS: Furosemide 40 MG/4 ML VIAL IVPUSH (15:02)
--- NOTE | 2023-01-30 15:03 | P.HPHOSP_ITS ---
History of Present Illness Date of Service: 01/30/23 Attending physician on admission: Gustavo Del Castillo Chief Complaint: weakness 77-year-old male with history of alcohol dependence and newly diagnosed alcoholic cirrhosis of the liver and newly diagnosed right upper lobe lung mass presented to the ED earlier today for evaluation of edema of the abdomen and bilateral lower extremities as well as gait instability. The patient was recently discharged from [facility] on 01/23 diagnosed with decompensated cirrhosis with hepatic encephalopathy and ascites, alcoholic cirrhosis not on steroids, and upper GI bleed. He was discharged on lactulose and rifaximin but patient reports he was unable to take these medications due to insurance issues. he was also noted to have sepsis due to pneumonia and completed course of ceftriaxone and azithromycin. Due to GI bleed was not discharged on any steroids. He had been recommended for STR but son refused and he was discharged home. Since then has had ?worsening productive cough (unable to tell me when the cough worsened given recent admission) with worsening edema x 2-3 days. Also feels jaundiced has worsened. He is increasingly short of breath. He states he has not had any alcohol since prior to last admission and denies any drug use or cigarette smoking. On arrival, vital stable, though slightly tachycardic in the low 90s. He has leukocytosis of 17.4. Hematology studies and coag studies are otherwise normal. Creatinine 1.74, BUN 20, sodium 129, electrolytes otherwise unremarkable. AST 86, ALT 34. Alkaline phosphatase 122. Total bilirubin 28.5. Ammonia 44. Albumin 2.6. Paracentesis ultrasound performed and radiologist discussed results with ED provider who said there was not a large amount of ascites but wo uld probably be able to find a pocket for paracentesis tomorrow. Chest x-ray shows slight increased patchy opacities in the right upper lobe possibly remote reflective of infiltrates and possible patchy infiltrate in the right lower lobe pot partially superimposed by the diaphragm. No new effusions or vascular congestion. In the ED, given 40 mg IV furosemide, albumin, and cefepime. Review of Systems Review of Systems: General: No fevers, malaise, unintentional weight loss HEENT: No blurred vision, diplopia. No sore throat, nasal congestion, rhinorrhea, sinus pain, ear pain Cardiovascular: No chest pain, palpitations. +BLE edema Respiratory: No shortness of breath, wheezing, cough GI: +ascites, +abdominal pain, +nausea. No vomiting, diarrhea, constipation, melena, hematochezia : No dysuria, hematuria, increased urinary frequency, decreased urinary output MSK: No myalgia, back pain Neuro: No headaches, weakness, paresthesias Skin: No rashes or lesions [facility] Medical History (Updated 01/30/23 @ 15:41 by NARGIS Nash) Cirrhosis History of alcohol use disorder Surgical History No pertinent past surgical history Social History Household Members: Children Housing: Apartment Do you presently have visiting nurse or other home services: No Alcohol intake: former Patient Tobacco Use Status: Former Tobacco user Smoked in Last 30 Days: No e-Cigarette/Vaping Use: Never Used Second Hand Smoke Exposure: No Use of substances other than those prescribed or required for medical reasons: No Advance Directives: No Advance Directives Information Provided: Yes Nutrition Risks: No Nutritional Risk service: No Meds Allergies Allergy/AdvReac Type Severity Reaction Status Date / Time Penicillins Allergy Anaphylaxis Verified 01/13/23 17:00 Home Medications Medication Instructions Recorded Confirmed Last Taken Type albuterol sulfate 90 mcg/actuation 2 puff inhalation QID PRN 01/14/23 01/30/23 Unknown History aerosol inhaler Shortness Of Breath Or Wheezing betamethasone dipropionate 0.05 % 1 appl topical TUTH PRN PSORIASIS 01/14/23 01/30/23 01/09/23 History topical ointment calcipotriene 0.005 % topical cream 1 appl topical BID PRN psoriasis 01/14/23 01/30/23 01/09/23 History ciclopirox 0.77 % topical cream 1 appl topical BID PRN psoriasis 01/14/23 01/30/23 01/09/23 History fluticasone propionate 220 2 puff inhalation BID PRN 01/14/23 01/30/23 01/13/23 History mcg/actuation HFA aerosol inhaler Shortness Of Breath Or Wheezing (Flovent HFA) fluticasone propionate 50 2 spray intranasal DAILY PRN 01/14/23 01/30/23 01/13/23 History mcg/actuation nasal Allergy Symptoms spray,suspension Physical Exam Vital Signs and Narrative: Vital Signs: Last Vital Signs Temp 98.5 F 01/30/23 12:27 Pulse 92 01/30/23 12:27 Resp 19 01/30/23 12:27 BP 108/58 L 01/30/23 12:27 Pulse Ox 98 01/30/23 12:27 O2 Del Method Room Air 01/30/23 12:27 O2 Flow Rate 97 01/30/23 12:27 BMI result Body Mass Index 31.8 Constitutional - Awake and Alert, No apparent distress Eyes - PERRLA, EOMI Cardiovascular - S1S2, RRR, No edema Respiratory - Normal lung expansion, Normal respiratory effort, No respiratory distress, crackles throughout right lung Gastrointestinal - diffuse ttp withpositive fluid wave. +BS; No rebound or guarding. No asterixis Extremities - no calf tenderness bilaterally, no swelling Skin - Warm/Dry. Signficiant jaundice Neurological - Alert & oriented x3 Psychological - Appropriate affect Results Labs 01/30/23 12:03 01/30/23 12:03 Labs: Laboratory Results - last 24 hr 01/30/23 01/30/23 01/30/23 12:03 12:03 12:03 MCV 97.5 MCH 34.2 H MCHC 35.1 RDW 21.0 H Plt Count 284 MPV 9.7 Immature Gran % (Auto) 2.0 H Neut % (Auto) 84.6 H Lymph % (Auto) 4.3 L Bland % (Auto) 6.6 Eos % (Auto) 1.8 Baso % (Auto) 0.7 Lymph # (Auto) 0.7 L Bland # (Auto) 1.2 Eos # (Auto) 0.3 Baso # (Auto) 0.1 Abs Immat Gran (auto) 0.35 H Absolute Neuts (auto) 14.7 H Absolute Nucleated RBC 0.000 Nucleated RBC % (auto) 0.0 PT INR Anion Gap 13 Estim Creat Clear Calc 37.2 Estimated GFR 38 Random Glucose 98 Calcium 8.1 L Magnesium 1.8 Total Bilirubin 28.5 H AST 86 H ALT 34 Alkaline Phosphatase 122 H B-Natriuretic Peptide 90 Total Protein 5.6 L Albumin 2.6 L Lipase 51 01/30/23 14:21 MCV MCH MCHC RDW Plt Count MPV Immature Gran % (Auto) Neut % (Auto) Lymph % (Auto) Bland % (Auto) Eos % (Auto) Baso % (Auto) Lymph # (Auto) Bland # (Auto) Eos # (Auto) Baso # (Auto) Abs Immat Gran (auto) Absolute Neuts (auto) Absolute Nucleated RBC Nucleated RBC % (auto) PT 19.0 H INR 1.6 H Anion Gap Estim Creat Clear Calc Estimated GFR Random Glucose Calcium Magnesium Total Bilirubin AST ALT Alkaline Phosphatase B-Natriuretic Peptide Total Protein Albumin Lipase Imaging Radiologist's Impressions: Impressions Chest X-Ray 01/30/23 12:55 IMPRESSION: Slight increased patchy opacities in the right upper lobe may reflect infiltrates. Possible patchy infiltrate in the right lower lobe partially superimposed by the diaphragm. No new effusions or vascular congestion. Assessment and Plan (1) Cirrhosis: Status: Acute (2) Anasarca: Status: Acute (3) HCAP (healthcare-associated pneumonia): Status: Acute Plan 77-year-old male with history of alcohol dependence and newly diagnosed alcoholic cirrhosis of the liver and newly diagnosed right upper lobe lung mass admitted for alcoholic hepatitis with anasarca and HCAP. #Alcoholic hepatitis -MELD score 30 -No etoh since prior to recent admission -Total bili 28.5 -Defer steroids until eval per GI given recent GI bleed, no active bleeding -GI consult -Follow LFTs #Hepatic cirrhosis- 2/2 history alcohol dependence -decompensated with ascites. On cefepime to cover for SBP -Paracentesis tomorrow -Low sodium diet, fluid restrict to 1.2L -GI consult -Resume the rifaximin and lactulose, prescribed on discharge but pt not compliant -Contineu IV lasix, add spironolactone. Titrate dose as BP allows -Follow CMP #HCAP with sepsis- no hypoxia -RUL and RLL infiltrates with probable lung mass as previously noted -Mild sepsis with leukocytosis 17.6, tachy to 92. Lactic acid normal. Creat trending down, no NAVEEN. No severe sepsis/shock -IV vanco and cefepime -Strep pneumo, legionella ag, Sputum culture, MRSA culture pending -Follow CBC, cultures #ILD -continue inhalers #Newly diagnosed RUL lung mass -outpt follow for PET scan with Dr. lorenzo DVT prophylaxis- SCPs given recent GI bleed Full code Pt requries inpt stay at least 2 midnights for management of alcoholic hepatitis with MELD score 30 and decompensated cirrhosis with HCAP # Time Spent With Patient Time: Total time managing care of this patient today ____ minutes. Quality Stroke Does the patient have a stroke diagnosis?: No VTE Prior VTE?: No VTE Risk Level:: Medical - moderate - high VTE Device Contraindication: N/A - Device Ordered VTE Drug Contraindication: Treatment Not Indicated
[2023-01-30 15:13] LABS: Ammonia 44 umol/L (13-55); Ethanol < 10 mg/dL; Lactic Acid 1.1 mmol/L (0.5-2.0)
[2023-01-30] MEDS: cefEPime HCl 2 GM in 0.9 % Sodium Chloride 50 ML IV (15:16)
--- NOTE | 2023-01-30 15:19 | PC.NURSE ---
medications administered per provider order.
[2023-01-30 16:00] LABS: Appearance Urine Clear; Color Urine Dark Yellow; Glucose Urine UA Negative (Negative); Leukocyte Esterase Urine Small (1+) (Negative); Nitrite Urine Positive (Negative); PH 5.5 (5.0-9.0); UMIC TRIGGER UACC YES; Urine Blood Negative (Negative); Urine Ketones Negative (Negative); Urine Protein Trace mg/dL (Neg-Trace)
[2023-01-30 16:17] LABS: Bacteria Urine None Seen (None Seen); Hyaline Casts Urine 0-2 /LPF (0-2); Squamous Epithelial Cell Urine 0-2 /HPF (0-2); UACC Culture Trigger YES; WBC Urine 0-5 /HPF (0-5)
[2023-01-30] MEDS: vancomycin/NS 2,000 MG/500 ML PLAST..BAG 250 MG IV (16:20)
--- NOTE | 2023-01-30 16:22 | PC.NURSE ---
medications administered per provider order.
--- NOTE | 2023-01-30 16:24 | PC.NURSE ---
tried to give report to RN on S3 but was busy doing task - will call back.
[2023-01-30 17:26] VITALS: BP 150/65; PULSE 91; RESP 18; TEMP 36.9; O2SAT 95
[2023-01-30 17:27] VITALS: BMI 27.8
[2023-01-30 19:33] VITALS: BP 152/69; PULSE 92; RESP 17; TEMP 36.1; O2SAT 95
[2023-01-30] MEDS: 0.9 % Sodium Chloride Flush 3 ML SYRINGE IVFLUSH (19:57)
[2023-01-31] MEDS: cefEPime HCl 2 GM in 0.9 % Sodium Chloride 50 ML IV ×2 (02:44→15:50)
[2023-01-31] MEDS: vancomycin HCL 500 MG in 0.9 % Sodium Chloride 100 ML 110 MG IV (03:30)
[2023-01-31 03:36] VITALS: BP 128/60; PULSE 94; RESP 16; TEMP 36.4; O2SAT 95
[2023-01-31 06:14] LABS: MANUAL DIFF FLAG NO
[2023-01-31 06:23] LABS: Basophils Absolute Auto 0.1 X10*3/uL (0.0-0.2); Eosinophils Absolute Auto 0.3 X10*3/uL (0.0-0.4); Eosinophils Percent Auto 2.5 % (0-4); Hemoglobin 9.6 g/dl (14.0-18.0); Imm Gran Abs Auto 0.24 X10*3/uL (0.00-0.03); Imm Gran Pct Auto 1.9 % (0.0-0.4); Lymphocytes Absolute Auto 0.6 X10*3/uL (1.2-4.9); Lymphocytes Percent Auto 4.9 % (20-40); Mean Corpuscular HGB Conc 34.3 g/dl (31.0-36.0); Mean Corpuscular Hemoglobin 33.8 pg (27.0-33.0); Mean Corpuscular Volume 98.6 fL (80.0-98.0); Mean Platelet Volume 10.1 fL (9.4-12.4); Monocytes Absolute Auto 0.9 X10*3/uL (0.1-1.2); Monocytes Percent Auto 7.2 % (2-11); Neutrophils Absolute Auto 10.2 x10*3/uL (2.0-8.3); Neutrophils Percent Auto 82.5 % (45-73); Platelet Count 253 X10*3/uL (160-400); Red Blood Count 2.84 X10*6/uL (4.60-5.80); Red Cell Distribution Width 21.2 % (11.0-16.0); White Blood Count 12.4 X10*3/uL (4.8-10.8)
[2023-01-31 06:42] LABS: Alanine Aminotransferase 26 U/L (0-40); Albumin Level 2.9 g/dL (3.5-5.0); Alkaline Phosphatase 126 U/L (39-117); Anion Gap 14 (12-20); Aspartate Amino Transferase 68 U/L (5-37); Blood Urea Nitrogen 21 mg/dL (9-16); Calcium 8.4 mg/dL (8.4-10.2); Carbon Dioxide 20 mmol/L (22-29); Chloride 103 mmol/L (96-108); Estimated Glomerular Filt Rate 35; Glucose Random 86 mg/dL (60-115); Potassium 3.7 mmol/L (3.3-5.1); Sodium 133 mmol/L (135-145); Total Protein 5.5 g/dL (6.5-8.0)
[2023-01-31 06:56] LABS: Bilirubin Total 26.9 mg/dL (0.0-1.0)
[2023-01-31 07:27] VITALS: BP 134/63; PULSE 93; RESP 17; TEMP 36.1; O2SAT 95
[2023-01-31] MEDS: 0.9 % Sodium Chloride Flush 3 ML SYRINGE IVFLUSH ×3 (07:36→19:33)
[2023-01-31] MEDS: Furosemide 40 MG/4 ML VIAL IVPUSH ×2 (07:37→18:13)
[2023-01-31] MEDS: Spironolactone 25 MG TABLET 12.5 MG PO (07:46)
[2023-01-31 09:12] VITALS: PULSE 110; O2SAT 91
[2023-01-31] MEDS: Lidocaine HCl 1 % MPF 5 ML VIAL SUBCUT (10:01)
[2023-01-31 10:29] LABS: MN% 36.7 %; PMN% 63.3 %; WBC Peritoneal Fluid 0.216 X10*3/uL
[2023-01-31 10:30] LABS: RBC Peritoneal Fluid < 0.002 X10*6/uL
[2023-01-31 11:04] LABS: MRSA Nasal PCR NEGATIVE (Negative); SA Nasal PCR NEGATIVE (Negative)
[2023-01-31 11:06] VITALS: BMI 27.8
[2023-01-31 11:11] LABS: Lymphocyte Peritoneal Fl 3 %; Monocytes Peritoneal Fl 3 %; Neutrophils Peritoneal Fluid 72 %; Other Peritioneal Fl 22 %
--- NOTE | 2023-01-31 11:30 | MHC.CM.PN ---
This service writer met with patient to discuss CM assessment. Patient is from home- recent readmission. IMM delivered. Lives with son Kieran who takes care of him. HCP copy requested. Reports having [facility] in the home. Requesting scripts for walker and bedside comod @ d/c. D/c plan- home verus STR. Recommend PT eval prior to d/c. Patient is open to discussing STR. If home, son can transport.
--- NOTE | 2023-01-31 13:53 | P.PNIM_ITS ---
Subjective Subjective Date of Service: 01/31/23 Interval History: Seen and evaluated this morning reports swelling in LE 1.8L removed w no evidence of SBP on IV antibiotics Bili of 24, jaundiced Review of Systems reprot weakness and no energy Physical Exam Vital Signs: Vital Signs: Last Vital Signs Temp 96.9 F 01/31/23 07:27 Pulse 110 H 01/31/23 09:12 Resp 17 01/31/23 07:27 BP 134/63 01/31/23 07:27 Pulse Ox 91 L 01/31/23 09:12 O2 Del Method Room Air 01/31/23 07:27 O2 Flow Rate 97 01/30/23 12:27 BMI result Body Mass Index 27.8 Const: Other: Constitutional : Awake, interactive, jaundiced, frail looking, not in distress Neck : Normal inspection, Supple Cardiovascular : RRR, no JVP, +3 lower extremity edema Respiratory : good bilateral air entry, no crackles, wheezes or rhonchi Gastrointestinal: soft, lax, Normal bowel sounds, RUQ tenderness Skin : Warm, Dry Neurological : Alert & oriented x3, No focal deficit Objective Data Active Medications Acetaminophen (Acetaminophen 325 Mg Tablet) 650 mg PO Q6H PRN PRN Reason: Pain, Mild (Pain Scale 1-3) Docusate Sodium (Docusate Sodium 100 Mg Capsule) 100 mg PO DAILY PRN PRN Reason: Constipation Furosemide (Furosemide 40 Mg/4 Ml Vial) 40 mg IVPUSH DAILY [facility]; Protocol Last Admin: 01/31/23 07:37 Dose: 40 mg Documented By: CHANDRIKA Cefepime HCl 2 gm/ Sodium (Chloride) 50 mls @ 100 mls/hr IV Q12H [facility] Last Infusion: 01/31/23 03:28 Dose: 0 mls/hr Documented By: ISAÍAS Vancomycin HCl 500 mg/ Sodium (Chloride) 110 mls @ 110 mls/hr IV Q12H [facility] Last Infusion: 01/31/23 05:27 Dose: 0 mls/hr Documented By: ISAÍAS Ondansetron HCl (Ondansetron Hcl 4 Mg/2 Ml Vial) 4 mg IVPUSH Q8H PRN PRN Reason: Nausea and Vomiting Pharmacy Consult (Consult Rx Vancomycin Dosing) 1 each MISCELLANE DAILY PRN PRN Reason: Consult order Sodium Chloride (0.9 % Sodium Chloride Flush 3 Ml Syringe) 3 ml IVFLUSH QSHIFT [facility] Last Admin: 01/31/23 07:36 Dose: 3 ml Documented By: CHANDRIKA Spironolactone (Spironolactone 25 Mg Tablet) 12.5 mg PO DAILY [facility]; Protocol Last Admin: 01/31/23 07:46 Dose: 12.5 mg Documented By: CHANDRIKA Labs 01/31/23 05:18 01/31/23 05:18 Labs: Laboratory Results - last 24 hr 01/30/23 01/30/23 01/30/23 14:21 14:21 14:21 MCV MCH MCHC RDW Plt Count MPV Immature Gran % (Auto) Neut % (Auto) Lymph % (Auto) [place] % (Auto) Eos % (Auto) Baso % (Auto) Lymph # (Auto) Norman # (Auto) Eos # (Auto) Baso # (Auto) Abs Immat Gran (auto) Absolute Neuts (auto) Absolute Nucleated RBC Nucleated RBC % (auto) PT 19.0 H INR 1.6 H Anion Gap Estim Creat Clear Calc Estimated GFR Random Glucose Lactic Acid 1.1 Calcium Total Bilirubin Direct Bilirubin AST ALT Alkaline Phosphatase Ammonia 44 Total Protein Albumin Urine Color Urine Appearance Urine pH Ur Specific [place] Urine Protein Urine Glucose (UA) Urine Ketones Urine Blood Urine Nitrite Ur Leukocyte Esterase Urine RBC Urine WBC Ur Squamous Epith Cells Urine Bacteria Hyaline Casts Peritoneal WBC Peritoneal RBC Periton Neutrophils Periton Lymphocytes Peritoneal Monocytes Peritoneal Other Cells Nasal Screen MRSA (PCR) Nasal S. aureus Screen Nasal MRSA/S.aureus Interp Ethyl Alcohol 01/30/23 01/30/23 01/31/23 14:21 15:51 05:18 MCV 98.6 H MCH 33.8 H MCHC 34.3 RDW 21.2 H Plt Count 253 MPV 10.1 Immature Gran % (Auto) 1.9 H Neut % (Auto) 82.5 H Lymph % (Auto) 4.9 L Norman % (Auto) 7.2 Eos % (Auto) 2.5 Baso % (Auto) 1.0 Lymph # (Auto) 0.6 L Norman # (Auto) 0.9 Eos # (Auto) 0.3 Baso # (Auto) 0.1 Abs Immat Gran (auto) 0.24 H Absolute Neuts (auto) 10.2 H Absolute Nucleated RBC 0.000 Nucleated RBC % (auto) 0.0 PT INR Anion Gap Estim Creat Clear Calc Estimated GFR Random Glucose Lactic Acid Calcium Total Bilirubin Direct Bilirubin AST ALT Alkaline Phosphatase Ammonia Total Protein Albumin Urine Color Dark Yellow Urine Appearance Clear Urine pH 5.5 Ur Specific [place] 1.010 Urine Protein Trace Urine Glucose (UA) Negative Urine Ketones Negative Urine Blood Negative Urine Nitrite Positive H Ur Leukocyte Esterase Small (1+) H Urine RBC 11-20 H Urine WBC 0-5 Ur Squamous Epith Cells 0-2 Urine Bacteria None Seen Hyaline Casts 0-2 Peritoneal WBC Peritoneal RBC Periton Neutrophils Periton Lymphocytes Peritoneal Monocytes Peritoneal Other Cells Nasal Screen MRSA (PCR) Nasal S. aureus Screen Nasal MRSA/S.aureus Interp Ethyl Alcohol < 10 01/31/23 01/31/23 01/31/23 05:18 08:14 09:35 MCV MCH MCHC RDW Plt Count MPV Immature Gran % (Auto) Neut % (Auto) Lymph % (Auto) Norman % (Auto) Eos % (Auto) Baso % (Auto) Lymph # (Auto) Norman # (Auto) Eos # (Auto) Baso # (Auto) Abs Immat Gran (auto) Absolute Neuts (auto) Absolute Nucleated RBC Nucleated RBC % (auto) PT INR Anion Gap 14 Estim Creat Clear Calc 36.0 Estimated GFR 35 Random Glucose 86 Lactic Acid Calcium 8.4 Total Bilirubin 26.9 H Direct Bilirubin 20.0 H AST 68 H ALT 26 Alkaline Phosphatase 126 H Ammonia Total Protein 5.5 L Albumin 2.9 L Urine Color Urine Appearance Urine pH Ur Specific [place] Urine Protein Urine Glucose (UA) Urine Ketones Urine Blood Urine Nitrite Ur Leukocyte Esterase Urine RBC Urine WBC Ur Squamous Epith Cells Urine Bacteria Hyaline Casts Peritoneal WBC 0.216 Peritoneal RBC < 0.002 Periton Neutrophils 72 Periton Lymphocytes 3 Peritoneal Monocytes 3 Peritoneal Other Cells 22 Nasal Screen MRSA (PCR) NEGATIVE Nasal S. aureus Screen NEGATIVE Nasal MRSA/S.aureus Interp SEE NOTE Ethyl Alcohol Microbiology Microbiology Results: Microbiology 01/30/23 Unknown Urine Culture - Preliminary Urine clean catch - Urine trevino top Culture too young to evaluate. Assessment and Plan (1) Cirrhosis: Status: Acute (2) HCAP (healthcare-associated pneumonia): Status: Acute (3) Anasarca: Status: Acute Plan 77-year-old male with history of alcohol dependence and newly diagnosed alcoholic cirrhosis of the liver and newly diagnosed right upper lobe lung mass admitted for alcoholic hepatitis with anasarca and HCAP. #Alcoholic hepatitis MELD score elevated 28 No etoh since prior to recent admission Total bili 26.5 Defer steroids until eval per GI given recent GI bleed, no active bleeding GI consult pending Follow LFTs #Hepatic cirrhosis- 2/2 history alcohol dependence decompensated with ascites Paracentesis w removal 1.8L, no evidence of SBP Give Albumin and Lasix Low sodium diet, fluid restrict to 1.2L Resume the rifaximin and lactulose, prescribed on discharge but pt not compliant Contineu IV lasix, add spironolactone Follow CMP #HCAP with sepsis RUL and RLL infiltrates with probable lung mass as previously noted IV vanco and cefepime cultures pending Follow CBC, cultures # chronic hyponatremia 2/2 cirrhosis, monitor #ILD continue inhalers #Newly diagnosed RUL lung mass outpt follow for PET scan with Dr. lorenzo DVT prophylaxis- SCPs given recent GI bleed Full code Pt requries inpt stay overnight for management of alcoholic hepatitis with MELD score 30 and decompensated cirrhosis with HCAP # Time Spent With Patient Time: Total time managing care of this patient today ____ minutes. Quality Stroke Does the patient have a stroke diagnosis?: No VTE Prior VTE?: No VTE Risk Level:: Medical - moderate - high VTE Device Contraindication: N/A - Device Ordered VTE Drug Contraindication: Treatment Not Indicated
[2023-01-31] MEDS: Lactulose 20 GM/30 ML SOLUTION 10 GM PO ×2 (14:39→19:26)
[2023-01-31] MEDS: Albumin Human 25 % 100 ML IV ×2 (14:39→19:31)
[2023-01-31 14:57] LABS: Albumin Peritoneal Fluid 1.1 GM/DL; Glucose Peritoneal Fluid 107 MG/DL; Total Protein Peritoneal Fluid 1.5 GM/DL
[2023-01-31] MEDS: Omeprazole 40 MG CAPSULE.DR PO (15:55)
[2023-01-31 15:59] VITALS: BP 131/65; PULSE 85; RESP 17; TEMP 36.6; O2SAT 95
[2023-01-31] MEDS: rifAXIMin 550 MG TABLET PO (19:25)
[2023-01-31 20:00] VITALS: BP 150/67; PULSE 84; RESP 14; TEMP 36.4; O2SAT 96
--- NOTE | 2023-01-31 23:43 | PM.EVENT ---
Event Note Date of Service: 01/31/23 Event Note: GI Consult-Full note dictated-History via patient and the EMR Imp/Recs: Alcohol-induced cirrhosis with significant cholestasis and associated jaundice. His w/u has been negative for SBP on today's paracentesis. He has had no recurrent GI bleeding, worsening coagulopathy, nor encephalopathy. At this point, while his liver disease remains quite compromised, his liver disease appears stable nonethelesss. We may want to add a trial of Ursodiol to see if that might help with his cholestasis. I do not think he would benefit from the addition of steroids at this point. Continue supportive care, nutritionl support, and follow his LFT's. Avoid all hepatotoxins. Thanks Time Spent With Patient Time: Total time managing care of this patient today ____ minutes.
[2023-02-01] MEDS: cefEPime HCl 2 GM in 0.9 % Sodium Chloride 50 ML IV ×2 (02:46→14:22)
[2023-02-01] MEDS: Albumin Human 25 % 100 ML IV ×2 (03:21→08:06)
[2023-02-01 03:39] VITALS: BP 123/64; PULSE 92; RESP 16; TEMP 36.3; O2SAT 97
[2023-02-01 05:50] LABS: Hematocrit 23.2 % (42.0-52.0); Mean Corpuscular HGB Conc 34.5 g/dl (31.0-36.0); Mean Corpuscular Hemoglobin 33.8 pg (27.0-33.0); Mean Corpuscular Volume 97.9 fL (80.0-98.0); Platelet Count 261 X10*3/uL (160-400); Red Blood Count 2.37 X10*6/uL (4.60-5.80); Red Cell Distribution Width 20.6 % (11.0-16.0); White Blood Count 10.3 X10*3/uL (4.8-10.8)
[2023-02-01 06:00] LABS: INTERNATIONAL NORM RATIO 1.7 (0.9-1.1); Prothrombin Time 20.8 SEC (11.1-13.3)
[2023-02-01 06:21] LABS: Anion Gap 15 (12-20); Blood Urea Nitrogen 21 mg/dL (9-16); Carbon Dioxide 20 mmol/L (22-29); Chloride 103 mmol/L (96-108); Creatinine Clr Calc Pharmacy 35.2; Estimated Glomerular Filt Rate 35; Glucose Random 89 mg/dL (60-115); Potassium 2.9 mmol/L (3.3-5.1); Sodium 135 mmol/L (135-145)
[2023-02-01 06:24] LABS: Alanine Aminotransferase 21 U/L (0-40); Albumin Level 3.1 g/dL (3.5-5.0); Alkaline Phosphatase 90 U/L (39-117); Aspartate Amino Transferase 125 U/L (5-37); Bilirubin Direct 15.7 mg/dL (0.0-0.5); Bilirubin Total 22.7 mg/dL (0.0-1.0); Magnesium 1.6 mg/dL (1.6-2.6); Total Protein 5.1 g/dL (6.5-8.0)
[2023-02-01] MEDS: vancomycin HCL 1,000 MG in 0.9 % Sodium Chloride 250 ML 270 MG IV (06:24)
[2023-02-01] MEDS: Omeprazole 40 MG CAPSULE.DR PO ×2 (06:24→15:25)
[2023-02-01 07:06] VITALS: BP 136/64; PULSE 85; RESP 18; TEMP 36.7; O2SAT 96
--- NOTE | 2023-02-01 07:59 | CONS_ITS ---
DATE OF SERVICE: 01/31/2023 REASON FOR CONSULTATION: Alcohol related cirrhosis and jaundice. HISTORY OF PRESENT ILLNESS: The patient is a 77-year-old male well known to me from a recent hospitalization when I met him at the end of December.. At that time the history had been obtained from the patient and his daughter, Denita. The patient was admitted at the end of December with a long-standing history of active alcohol abuse. At that time had been admitted to the hospital with weakness, melena, and jaundice. The patient had been using alcohol regularly up until the time of admission with at least 5 or 6 beers several times per week, although his daughter told me that he does drink probably more than that. When he was admitted at the end of December he underwent an upper endoscopy for evaluation of his melena and GI bleed. This revealed a large gastric antral ulcer of approximately 2 cm in diameter. There was no active bleeding. Biopsies from the ulcer were benign and there was no H. pylori. He was treated with omeprazole and did well in that regard through the remainder of the hospitalization. When he was admitted at the end of December, he did have obvious cirrhosis and jaundice. Given the GI bleeding he was not given steroids for any component of alcohol-induced hepatitis. He was discharged to home on January 23. Since being home he reports that he has remained abstinent from alcohol. He has developed some lower extremity edema, weakness, and overall not feeling well. He has remained quite jaundiced. There has been no further melena nor hematochezia at all. He presently denies any abdominal pain. He denies any history of heartburn or dysphagia. He has had no vomiting, hematochezia, nor melena. His bowel movements have been fairly regular. He denies any pruritus. MEDICATIONS: At home include albuterol, Calcipotriene for psoriasis, Flonase, lactulose, omeprazole 20 mg twice a day, Xifaxan and tramadol. His medications in the hospital include acetaminophen, IV albumin, cefepime, Colace, Flonase, Lasix 20 mg twice a day, lactulose, omeprazole, Xifaxan, spironolactone, tramadol, and vancomycin. PAST MEDICAL HISTORY: Alcohol related cirrhosis, gastric ulcer with associated bleeding last month, reported right upper lobe lung mass on chest xrays, hepatic encephalopathy in relation to cirrhosis. He denies any pertinent surgical history and there is no reported history of CO, diabetes, nor kidney disease. He does have asthma and/or COPD. SOCIAL HISTORY: He is a . He lives with his son. He is a former smoker. He does have a history of alcohol abuse, but has reportedly been abstinent from alcohol for over 1 month now. FAMILY HISTORY: Noncontributory. REVIEW OF SYSTEMS: CONSTITUTIONAL: He has had some fatigue at home with associated diminished appetite. SKIN: He does have jaundice, but denies any specific problem otherwise. CARDIAC: No chest pain. PULMONARY: No cough or hemoptysis. GI: As above. URINARY: No dysuria. No hematuria. NEUROLOGIC: No headache or seizures. PHYSICAL EXAMINATION: GENERAL: The patient is a pleasant elderly alert male, in no distress. He is obviously quite jaundiced. He has been afebrile. SKIN: Has multiple spider angiomata on his chest. HEENT: He does have icteric sclerae and moist mucous membranes. CHEST: Clear. CARDIAC: Normal S1, S2. ABDOMEN: Soft and just slightly distended with probable ascites, but no significant distention. There is no palpable mass. There is no significant rebound or guarding. EXTREMITIES: Did reveal some pretibial edema. NEUROLOGIC: He is alert and oriented and does not have any gross evidence of asterixis. LABORATORY DATA: White blood cell count 12.4, hemoglobin 9.6. His hemoglobin had been 9.0 at discharge. Platelets 252,000. PT 19.0 with INR 1.6. Sodium 133, potassium 3.7, chloride 103, CO2 20, BUN 21, creatinine 1.86. Total bilirubin went from 28.5 on admission yesterday to 26.9 today with direct bilirubin 20.0. AST 68, ALT 26, alkaline phosphatase 126, albumin 2.9. An ultrasound paracentesis today which 1.8 L of dark fluid was removed. The cell count revealed < 250PMN's. IMPRESSION: In regard to the patient's alcohol-related liver disease, this actually appears stable other than his significant jaundice. He does not show any signs of gastrointestinal bleeding, encephalopathy, nor worsening ascites. We did review that the best thing he can do once he leaves the hospital again is to continue to remain abstinent from alcohol completely on a long-term basis. In regard to his jaundice, I do feel this is related to cholestasis in relation to his chronic liver disease and recent admission with a probable component of alcohol-induced hepatitis. At this point, the total bilirubin seems to have leveled off at the current level. However, his liver function seems stable with just a mildly prolonged PT/INR, no sign of SBP based on the cell count, no reported increasing ascites, nor any obvious evidence of encephalopathy. In regard to treatment of his liver disease, I would not recommend steroids at this point in regard to the previous history of alcohol-induced hepatitis. I do not think steroids would benefit him at this time since he is so far out from when he was admitted to the hospital originally. In regard to the cholestasis, there does not appear to be any sign of biliary obstruction. At this point, other than the discoloration of the skin, the jaundice is not bothering him with pruritus. Therefore, I do not think this needs a specific treatment. We can contemplate adding a trial of Ursodiol at some point depending on his clinical course. Since there is no evidence of SBP the antibiotics can be stopped in that regard.. This has all been discussed with the patient in detail. I shall follow the patient along with you here in the hospital. Thank you for the consultation. MD LAUREEN Guadalupe/SURY / [id number] MTDD
[2023-02-01] MEDS: Furosemide 40 MG/4 ML VIAL IVPUSH ×2 (08:06→17:19)
[2023-02-01] MEDS: Potassium Chloride Packet 20 MEQ PACKET 40 MEQ PO ×2 (08:06→12:58)
[2023-02-01] MEDS: 0.9 % Sodium Chloride Flush 3 ML SYRINGE IVFLUSH ×2 (08:07→15:25)
[2023-02-01] MEDS: Spironolactone 25 MG TABLET 12.5 MG PO (08:07)
[2023-02-01] MEDS: rifAXIMin 550 MG TABLET PO ×2 (08:07→19:16)
[2023-02-01] MEDS: UrsodioL 300 MG CAPSULE PO ×2 (09:45→19:16)
[2023-02-01 11:55] LABS: OBS Int Ctl Valid YES; OBS1 NEGATIVE (NEGATIVE)
--- NOTE | 2023-02-01 15:13 | P.PNIM_ITS ---
Subjective Subjective Date of Service: 02/01/23 Interval History: Seen and evaluated this morning reports swelling in LE Negative occult stool, Hb dropped to 8 Tolerating IV antibiotics Bili of 22, jaundiced Review of Systems reprot weakness and no energy Physical Exam Vital Signs: Vital Signs: Last Vital Signs Temp 98.0 F 02/01/23 07:06 Pulse 85 02/01/23 07:06 Resp 18 02/01/23 07:06 BP 136/64 02/01/23 07:06 Pulse Ox 96 02/01/23 07:06 O2 Del Method Room Air 02/01/23 07:06 O2 Flow Rate 97 01/30/23 12:27 BMI result Body Mass Index 27.8 Const: Other: Constitutional : Awake, interactive, jaundiced, frail looking, not in distress Neck : Normal inspection, Supple Cardiovascular : RRR, no JVP, +2 lower extremity edema Respiratory : good bilateral air entry, no crackles, wheezes or rhonchi Gastrointestinal: soft, lax, Normal bowel sounds, RUQ tenderness Skin : Warm, Dry Neurological : Alert & oriented x3, No focal deficit Objective Data Active Medications Acetaminophen (Acetaminophen 325 Mg Tablet) 650 mg PO Q6H PRN PRN Reason: Pain, Mild (Pain Scale 1-3) Albuterol Sulfate (Albuterol Sulfate 90 Mcg 8 Gm Inhaler) 2 puff INHALE QID PRN PRN Reason: Shortness Of Breath Or Wheezing Betamethasone Dipropion Augmented (Betamethasone Dip Aug 0.05% Cr 15 Gm Tube) 1 appl TOPICAL TUTH PRN PRN Reason: PSORIASIS Clotrimazole (Clotrimazole 1 % Cream 15 Gm Tube) 1 appl TOPICAL BID PRN PRN Reason: psoriasis Docusate Sodium (Docusate Sodium 100 Mg Capsule) 100 mg PO DAILY PRN PRN Reason: Constipation Fluticasone Propionate (Fluticasone Propionate 250 Mcg Blst.W.Dev) 2 puff INHALE RBID PRN PRN Reason: Shortness Of Breath Or Wheezing Fluticasone Propionate (Fluticasone Propionate Nasal 16 Gm [place]) 2 spray NOSTRIL-B DAILY PRN PRN Reason: Allergy Symptoms Furosemide (Furosemide 40 Mg/4 Ml Vial) 40 mg IVPUSH BID@0900,1800 [facility]; Protocol Last Admin: 02/01/23 08:06 Dose: 40 mg Documented By: RAZIA Cefepime HCl 2 gm/ Sodium (Chloride) 50 mls @ 100 mls/hr IV Q12H [facility] Last Infusion: 02/01/23 15:02 Dose: 0 mls/hr Documented By: RAZIA Vancomycin HCl 1,000 mg/ (Sodium Chloride) 270 mls @ 270 mls/hr IV Q24H [facility] Last Infusion: 02/01/23 07:50 Dose: 0 mls/hr Documented By: RAZIA Lactulose (Lactulose 20 Gm/30 Ml Solution) 10 gm PO BID [facility] Last Admin: 02/01/23 09:50 Dose: Not Given Documented By: RAZIA Non-Admin Reason: Patient Refused Omeprazole (Omeprazole 40 Mg Capsule.) 40 mg PO BID@0630,1630 [facility] Last Admin: 02/01/23 06:24 Dose: 40 mg Documented By: FLOYD Ondansetron HCl (Ondansetron Hcl 4 Mg/2 Ml Vial) 4 mg IVPUSH Q8H PRN PRN Reason: Nausea and Vomiting Pharmacy Consult (Consult Rx Vancomycin Dosing) 1 each MISCELLANE DAILY PRN PRN Reason: Consult order Rifaximin (Rifaximin 550 Mg Tablet) 550 mg PO BID [facility] Last Admin: 02/01/23 08:07 Dose: 550 mg Documented By: RAZIA Sodium Chloride (0.9 % Sodium Chloride Flush 3 Ml Syringe) 3 ml IVFLUSH QSHIFT [facility] Last Admin: 02/01/23 08:07 Dose: 3 ml Documented By: RAZIA Spironolactone (Spironolactone 25 Mg Tablet) 12.5 mg PO DAILY [facility]; Protocol Last Admin: 02/01/23 08:07 Dose: 12.5 mg Documented By: RAZIA Tramadol HCl (Tramadol Hcl 50 Mg Tablet) 50 mg PO Q12H PRN PRN Reason: Pain, Severe (Pain Scale 7-10) Ursodiol (Ursodiol 300 Mg Capsule) 300 mg PO BID [facility] Last Admin: 02/01/23 09:45 Dose: 300 mg Documented By: RAZIA Labs 02/01/23 05:06 02/01/23 05:06 Labs: Laboratory Results - last 24 hr 02/01/23 02/01/2323 05:06 05:06 05:06 MCV 97.9 MCH 33.8 H MCHC 34.5 RDW 20.6 H Plt Count 261 MPV 10.0 Absolute Nucleated RBC 0.000 Nucleated RBC % (auto) 0.0 PT 20.8 H INR 1.7 H Anion Gap 15 Estim Creat Clear Calc 35.2 Estimated GFR 35 Random Glucose 89 Calcium 8.0 L Magnesium Total Bilirubin Direct Bilirubin AST ALT Alkaline Phosphatase Total Protein Albumin Stool Occult Blood 02/01/23 02/01/23 05:06 11:41 MCV MCH MCHC RDW Plt Count MPV Absolute Nucleated RBC Nucleated RBC % (auto) PT INR Anion Gap Estim Creat Clear Calc Estimated GFR Random Glucose Calcium Magnesium 1.6 Total Bilirubin 22.7 H Direct Bilirubin 15.7 H AST 125 H ALT 21 Alkaline Phosphatase 90 Total Protein 5.1 L Albumin 3.1 L Stool Occult Blood NEGATIVE Microbiology Microbiology Results: Microbiology 01/30/23 Unknown Urine Culture - Preliminary Urine clean catch - Urine trevino top Culture in progress. 01/31/23 09:35 Gram Stain - Final Peritoneal Fluid Anaerobic Culture - Preliminary No growth to date. Body Fluid Culture - Preliminary No growth to date. 01/30/23 14:25 Blood Culture - Preliminary Blood - Venous No growth after 24 hours. 01/30/23 14:21 Blood Culture - Preliminary Blood - Venous No growth after 24 hours. Assessment and Plan (1) Cirrhosis: Status: Acute (2) HCAP (healthcare-associated pneumonia): Status: Acute (3) Anasarca: Status: Acute Plan 77-year-old male with history of alcohol dependence and newly diagnosed alcoholic cirrhosis of the liver and newly diagnosed right upper lobe lung mass admitted for alcoholic hepatitis with anasarca and HCAP. #Alcoholic hepatitis MELD score elevated 26 No etoh since prior to recent admission Total bili 22.7 Defer steroids until eval per GI given recent GI bleed, no active bleeding GI consult appreciated, no role for Steroids at this stage, try Ursodiol Follow LFTs #Hepatic cirrhosis- 2/2 history alcohol dependence decompensated with ascites Paracentesis w removal 1.8L, no evidence of SBP Give Albumin and Lasix Low sodium diet, fluid restrict to 1.2L Resume the rifaximin and lactulose, prescribed on discharge but pt not compliant Contineu IV lasix, add spironolactone Follow CMP #HCAP with sepsis RUL and RLL infiltrates with probable lung mass as previously noted IV vanco and cefepime cultures pending Follow CBC, cultures # chronic hyponatremia 2/2 cirrhosis, monitor #ILD continue inhalers #Newly diagnosed RUL lung mass outpt follow for PET scan with Dr. lorenzo DVT prophylaxis- SCPs given recent GI bleed Full code Pt requries inpt stay overnight for management of alcoholic hepatitis with MELD score 30 and decompensated cirrhosis with HCAP # Time Spent With Patient Time: Total time managing care of this patient today ____ minutes. Quality Stroke Does the patient have a stroke diagnosis?: No VTE Prior VTE?: No VTE Risk Level:: Medical - moderate - high VTE Device Contraindication: N/A - Device Ordered VTE Drug Contraindication: Treatment Not Indicated
[2023-02-01 15:30] VITALS: BP 124/58; PULSE 88; RESP 18; TEMP 36.8; O2SAT 96
--- NOTE | 2023-02-01 15:45 | PC.NURSE ---
Right flank area drsg intact and dry ,area hot to touch,redness all around noticed,Dr. Israel notified
--- NOTE | 2023-02-01 15:47 | PC.NURSE ---
Addendum entered by June Tinoco RN 02/01/23 16:02: area checked by Dr. Israel,no concerns at present Original Note: Left Abdomen linda CDI
[2023-02-01 19:33] VITALS: BP 131/61; PULSE 86; RESP 16; TEMP 36.6; O2SAT 96
[2023-02-02] MEDS: 0.9 % Sodium Chloride Flush 3 ML SYRINGE IVFLUSH ×3 (00:40→15:48)
[2023-02-02 02:41] VITALS: BP 136/63; PULSE 84; RESP 16; TEMP 36.7; O2SAT 96
[2023-02-02] MEDS: cefEPime HCl 2 GM in 0.9 % Sodium Chloride 50 ML IV ×2 (03:04→13:50)
[2023-02-02] MEDS: Omeprazole 40 MG CAPSULE.DR PO ×2 (05:59→15:48)
[2023-02-02 06:10] LABS: Hematocrit 24.2 % (42.0-52.0); Hemoglobin 8.5 g/dl (14.0-18.0); Mean Corpuscular HGB Conc 35.1 g/dl (31.0-36.0); Mean Corpuscular Hemoglobin 34.6 pg (27.0-33.0); Mean Corpuscular Volume 98.4 fL (80.0-98.0); Mean Platelet Volume 9.7 fL (9.4-12.4); Platelet Count 269 X10*3/uL (160-400); Red Blood Count 2.46 X10*6/uL (4.60-5.80); Red Cell Distribution Width 19.9 % (11.0-16.0); White Blood Count 11.2 X10*3/uL (4.8-10.8)
[2023-02-02 06:43] LABS: Vancomycin Random 19.5 mcg/mL (15-20)
[2023-02-02 06:54] LABS: Anion Gap 14 (12-20); Blood Urea Nitrogen 22 mg/dL (9-16); Carbon Dioxide 21 mmol/L (22-29); Chloride 105 mmol/L (96-108); Creatinine Clr Calc Pharmacy 33.8; Estimated Glomerular Filt Rate 33; Glucose Random 89 mg/dL (60-115); Potassium 3.3 mmol/L (3.3-5.1); Sodium 137 mmol/L (135-145)
--- NOTE | 2023-02-02 07:06 | HE.PHANOTE ---
VANCO DOSE ADJUSTMENT BASED ON SCR AND TROUGH OF 19.5 DOSE CHANGE TO 750 Q 24H. NEXT TROUGH 02/04 @ 0600
[2023-02-02 07:11] LABS: Alanine Aminotransferase 23 U/L (0-40); Alkaline Phosphatase 95 U/L (39-117); Aspartate Amino Transferase 67 U/L (5-37); Bilirubin Direct 13.7 mg/dL (0.0-0.5); Bilirubin Total 20.3 mg/dL (0.0-1.0); Total Protein 5.2 g/dL (6.5-8.0)
[2023-02-02 07:21] VITALS: BP 129/60; PULSE 84; RESP 20; TEMP 36.4; O2SAT 95
[2023-02-02] MEDS: rifAXIMin 550 MG TABLET PO ×2 (08:05→20:23)
[2023-02-02] MEDS: Furosemide 40 MG/4 ML VIAL IVPUSH (08:05)
[2023-02-02] MEDS: Spironolactone 25 MG TABLET 12.5 MG PO (08:06)
[2023-02-02] MEDS: UrsodioL 300 MG CAPSULE PO ×2 (08:06→20:22)
[2023-02-02] MEDS: vancomycin HCL 750 MG in 0.9 % Sodium Chloride 250 ML 265 MG IV (08:07)
--- NOTE | 2023-02-02 10:14 | MHC.CLN ---
NUTRITION CONSULT FOR SKIN INTEGRITY. DIET=2 GRAM SODIUM, 1200 ML PER DAY FLUID RESTRICTION. WEIGHT FLUCTUATION ANTICIPATED WITH ASCITES AND PARACENTESIS. INTAKE VARIABLE, 0-50%. 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 NO SUPPLEMENT AT THIS TIME DUE TO FLUID RESTRICTION. FOLLOW FOR INTAKE AND WOUND HEALING. CLINICAL NUTRITION ASSESSMENT COMPLETED 01/31/23.
--- NOTE | 2023-02-02 14:11 | P.PNIM_ITS ---
Subjective Subjective Date of Service: 02/02/23 Interval History: Being followed for abdominal pain, feeling better wants to be discharged home denies abdominal pain, no nausea, no vomiting denies shortness of breath feels lower extremity swelling is improving, urine culture positive for Enterococcus/Streptococcus 10,000-50,000, yeast 50-100,000, blood cultures positive for Gram-positive cocci and g stain only. Patient denies fever chills, no urinary symptoms. Review of Systems All other system reviewed and negative Physical Exam Vital Signs: Vital Signs: Last Vital Signs Temp 97.5 F 02/02/23 07:21 Pulse 84 02/02/23 07:21 Resp 20 02/02/23 07:21 BP 129/60 02/02/23 07:21 Pulse Ox 95 02/02/23 07:21 O2 Del Method Room Air 02/02/23 07:21 O2 Flow Rate 97 01/30/23 12:27 BMI result Body Mass Index 27.8 Const: Other: Gen:? awake alert resting comfortably no distress HEENT: sclera icteric, moist mucus membranes Neck: supple Lungs:? Clear to auscultation, no respiratory distress Heart: regular rate and rhythm, no murmurs Abd: soft, non-tender, distended, bowel sounds audible Ext: Bilateral pitting edema Skin: warm/well-perfused, jaundiced Neuro: alert and oriented x3, no asterixis Psych: appropriate affect Objective Data Active Medications Acetaminophen (Acetaminophen 325 Mg Tablet) 650 mg PO Q6H PRN PRN Reason: Pain, Mild (Pain Scale 1-3) Albuterol Sulfate (Albuterol Sulfate 90 Mcg 8 Gm Inhaler) 2 puff INHALE QID PRN PRN Reason: Shortness Of Breath Or Wheezing Betamethasone Dipropion Augmented (Betamethasone Dip Aug 0.05% Cr 15 Gm Tube) 1 appl TOPICAL TUTH PRN PRN Reason: PSORIASIS Clotrimazole (Clotrimazole 1 % Cream 15 Gm Tube) 1 appl TOPICAL BID PRN PRN Reason: psoriasis Docusate Sodium (Docusate Sodium 100 Mg Capsule) 100 mg PO DAILY PRN PRN Reason: Constipation Fluticasone Propionate (Fluticasone Propionate 250 Mcg Blst.W.Dev) 2 puff INHALE RBID PRN PRN Reason: Shortness Of Breath Or Wheezing Fluticasone Propionate (Fluticasone Propionate Nasal 16 Gm [place]) 2 spray NOSTRIL-B DAILY PRN PRN Reason: Allergy Symptoms Furosemide (Furosemide 40 Mg/4 Ml Vial) 40 mg IVPUSH BID@0900,1800 [facility]; Protocol Last Admin: 02/02/23 08:05 Dose: 40 mg Documented By: RAZIA Cefepime HCl 2 gm/ Sodium (Chloride) 50 mls @ 100 mls/hr IV Q12H [facility] Last Admin: 02/02/23 13:50 Dose: 100 mls/hr Documented By: RAZIA Vancomycin HCl 750 mg/ Sodium (Chloride) 265 mls @ 265 mls/hr IV Q24H [facility] Last Infusion: 02/02/23 09:20 Dose: 0 mls/hr Documented By: RAZIA Lactulose (Lactulose 20 Gm/30 Ml Solution) 10 gm PO BID [facility] Last Admin: 02/02/23 08:08 Dose: Not Given Documented By: RAZIA Non-Admin Reason: Patient Refused Omeprazole (Omeprazole 40 Mg Shantanu.) 40 mg PO BID@0630,1630 [facility] Last Admin: 02/02/23 05:59 Dose: 40 mg Documented By: SHARMIN Ondansetron HCl (Ondansetron Hcl 4 Mg/2 Ml Vial) 4 mg IVPUSH Q8H PRN PRN Reason: Nausea and Vomiting Pharmacy Consult (Consult Rx Vancomycin Dosing) 1 each MISCELLANE DAILY PRN PRN Reason: Consult order Rifaximin (Rifaximin 550 Mg Tablet) 550 mg PO BID [facility] Last Admin: 02/02/23 08:05 Dose: 550 mg Documented By: RAZIA Sodium Chloride (0.9 % Sodium Chloride Flush 3 Ml Syringe) 3 ml IVFLUSH QSHIFT [facility] Last Admin: 02/02/23 08:08 Dose: 3 ml Documented By: RAZIA Spironolactone (Spironolactone 25 Mg Tablet) 12.5 mg PO DAILY [facility]; Protocol Last Admin: 02/02/23 08:06 Dose: 12.5 mg Documented By: RAZIA Tramadol HCl (Tramadol Hcl 50 Mg Tablet) 50 mg PO Q12H PRN PRN Reason: Pain, Severe (Pain Scale 7-10) Ursodiol (Ursodiol 300 Mg Capsule) 300 mg PO BID [facility] Last Admin: 02/02/23 08:06 Dose: 300 mg Documented By: RAZIA Labs 02/02/23 05:22 02/02/23 05:22 Labs: Laboratory Results - last 24 hr 02/02/23 02/02/23 02/02/23 05:22 05:22 05:22 MCV 98.4 H MCH 34.6 H MCHC 35.1 RDW 19.9 H Plt Count 269 MPV 9.7 Absolute Nucleated RBC 0.000 Nucleated RBC % (auto) 0.0 Anion Gap 14 Estim Creat Clear Calc 33.8 Estimated GFR 33 Random Glucose 89 Calcium 8.0 L Total Bilirubin Direct Bilirubin AST ALT Alkaline Phosphatase Total Protein Albumin Random Vancomycin 19.5 02/02/23 05:22 MCV MCH MCHC RDW Plt Count MPV Absolute Nucleated RBC Nucleated RBC % (auto) Anion Gap Estim Creat Clear Calc Estimated GFR Random Glucose Calcium Total Bilirubin 20.3 H Direct Bilirubin 13.7 H AST 67 H ALT 23 Alkaline Phosphatase 95 Total Protein 5.2 L Albumin 3.0 L Random Vancomycin Microbiology Microbiology Results: Microbiology 01/30/23 14:25 Blood Culture - Preliminary Blood - Venous Prelim: GPC Gram Stain only 01/30/23 Unknown Urine Culture - Preliminary Urine clean catch - Urine trevino top Yeast Enterococcus/Streptococcus sp 01/31/23 09:35 Gram Stain - Final Peritoneal Fluid Anaerobic Culture - Preliminary No growth to date. Body Fluid Culture - Final No growth after 2 days 01/30/23 14:21 Blood Culture - Preliminary Blood - Venous No growth after 48 hours. Assessment and Plan (1) Cirrhosis: Status: Acute (2) HCAP (healthcare-associated pneumonia): Status: Acute (3) Anasarca: Status: Acute Plan 77-year-old male with history of alcohol dependence and newly diagnosed alco holic cirrhosis of the liver and newly diagnosed right upper lobe lung mass admitted for alcoholic hepatitis with anasarca and HCAP. #Alcoholic hepatitis/cirrhosis with significant cholestasis Denies abdominal pain, no nausea no vomiting MELD score elevated 26 Paracentesis fluid not consistent with SBP No etoh since prior to recent admission Total bili gradually trending down 22.7 to 20.3 today, GI consult appreciated, no role for Steroids at this stage, placed on Ursodiol Follow LFTs #Hepatic cirrhosis- 2/2 history alcohol dependence decompensated with ascites Paracentesis w removal 1.8L, no evidence of SBP Low sodium diet, fluid restrict to 1.2L Continue rifaximin and lactulose, patient refusing lactulose, on IV lasix, and spironolactone, will DC IV Lasix and transition to by mouth Follow CMP #HCAP with sepsis RUL and RLL infiltrates (present on prior CT chest) with probable lung mass as previously noted on IV vanco and cefepime Blood cultures 1/2 positive for Gram-positive cocci, will DC IV cefepime, follow final blood cultures WBC improved, hematocrit stable, normal oxygenation, follow clinical course # chronic hyponatremia 2/2 cirrhosis, sodium improved to 137 # urine culture positive for Enterococcus/Streptococcus and yeast likely contamination since urinalysis showed no bacteria. #ILD continue inhalers #Newly diagnosed RUL lung mass outpt follow for PET scan with Dr. Ho DVT prophylaxis- SCPs given recent GI bleed Full code Pt requries continued hospital stay for positive blood cultures and decompensated cirrhosis with HCAP # Time Spent With Patient Time: Total time managing care of this patient today ____ minutes. Quality Stroke Does the patient have a stroke diagnosis?: No VTE Prior VTE?: No VTE Risk Level:: Medical - moderate - high VTE Device Contraindication: N/A - Device Ordered VTE Drug Contraindication: Treatment Not Indicated
[2023-02-02] MEDS: Potassium Chloride ER 20 MEQ TAB.ER.PRT PO (14:45)
[2023-02-02 15:21] VITALS: BP 136/62; PULSE 78; RESP 20; TEMP 36.6; O2SAT 96
[2023-02-02 15:24] VITALS: BP 122/57; PULSE 70; RESP 18; TEMP 36.4; O2SAT 98
--- NOTE | 2023-02-02 15:37 | PC.NURSE ---
Patient refusing lactulose. Educated patient and notified Dr. Philip. Encouraged patient to take at least daily. Refusing at present.
[2023-02-02 19:32] VITALS: BP 125/71; PULSE 71; RESP 18; TEMP 36.6; O2SAT 97
--- NOTE | 2023-02-02 22:09 | PC.NURSE ---
Redness to junior-rectal area not improved since yesterday using Dejah cream,Dr. Cassidy notified,awaiting order for nystatin cream
[2023-02-02] MEDS: Nystatin Cream 15 GM TUBE 1 APPL TOPICAL (22:54)
[2023-02-03 04:00] VITALS: BP 115/61; PULSE 68; RESP 17; TEMP 36.6; O2SAT 96
[2023-02-03] MEDS: Omeprazole 40 MG CAPSULE.DR PO ×2 (05:41→16:30)
[2023-02-03 06:45] LABS: Alanine Aminotransferase 23 U/L (0-40); Albumin Level 2.8 g/dL (3.5-5.0); Alkaline Phosphatase 92 U/L (39-117); Anion Gap 15 (12-20); Aspartate Amino Transferase 69 U/L (5-37); Bilirubin Direct 11.8 mg/dL (0.0-0.5); Bilirubin Total 16.8 mg/dL (0.0-1.0); Blood Urea Nitrogen 24 mg/dL (9-16); Calcium 8.1 mg/dL (8.4-10.2); Carbon Dioxide 19 mmol/L (22-29); Chloride 106 mmol/L (96-108); Creatinine Clr Calc Pharmacy 31.3; Estimated Glomerular Filt Rate 30; Glucose Random 89 mg/dL (60-115); Potassium 3.4 mmol/L (3.3-5.1); Sodium 137 mmol/L (135-145); Total Protein 5.3 g/dL (6.5-8.0)
[2023-02-03 08:00] VITALS: BP 122/59; PULSE 80; RESP 20; TEMP 36.6; O2SAT 97
[2023-02-03] MEDS: UrsodioL 300 MG CAPSULE PO ×2 (08:01→21:13)
[2023-02-03] MEDS: Spironolactone 25 MG TABLET 12.5 MG PO (08:01)
[2023-02-03] MEDS: vancomycin HCL 500 MG in 0.9 % Sodium Chloride 100 ML 110 MG IV (08:01)
[2023-02-03] MEDS: rifAXIMin 550 MG TABLET PO ×2 (08:01→21:13)
[2023-02-03] MEDS: 0.9 % Sodium Chloride Flush 3 ML SYRINGE IVFLUSH ×3 (08:05→19:48)
[2023-02-03] MEDS: Nystatin Cream 15 GM TUBE 1 APPL TOPICAL ×2 (09:13→21:14)
--- NOTE | 2023-02-03 12:44 | MHC.CM.PN ---
Addendum entered by Aparna Arita 02/03/23 12:49: TANIA SPOKE TO PTS SON, ROBBY, WHO REPORTS HE FIGURED THE PT WOULD REFUSE STR HE SAYS THE PT WAS ACTIVE WITH NA FOR NURSING AND PT BEFORE ROBBY IS AWARE PT IS NOT MEDICALLY CLEARED YET, BUT ASKS FOR A RX FOR A WALKER AND COMMODE AT DC MESSAGE SENT TO MD PT WILL LIKELY NEED BLS TRANSPORT Original Note: CM MET WITH PT AT HIS REQUEST PT REPORTS HE WANTS TO GO HOME TODAY HE SAYS HE KNOWS PT RECOMMENDED STR, BUT HE IS NOT INTERESTED HE IS AGREEABLE TO HOME SERVICES BEING ARRANGED PT NOT YET MEDICALLY CLEARED PT LIVES WITH HIS SON WHO ASSISTS WITH HIS CARE ONCE PT IS MEDICALLY CLEARED, CM WILL CALL SON TO DETERMINE PTS ABILITY TO DC HOME
--- NOTE | 2023-02-03 14:09 | HO.PM.IMPN ---
Subjective Subjective Date of Service: 02/03/23 Interval History: Offers no acute complaints wants to go home denies fever, no chills, no abdominal pain, no nausea, no vomiting no other acute issues overnight. Review of Systems All other system reviewed and negative. Physical Exam Vital Signs: Vital Signs: Last Vital Signs Temp 97.8 F 02/03/23 08:00 Pulse 80 02/03/23 08:00 Resp 20 02/03/23 08:00 BP 122/59 L 02/03/23 08:00 Pulse Ox 97 02/03/23 08:00 O2 Del Method Room Air 02/03/23 08:00 O2 Flow Rate 97 01/30/23 12:27 BMI result Body Mass Index 27.8 Const: Other: Gen:? awake alert resting comfortably no distress HEENT: sclera icteric, moist mucus membranes Neck: supple Lungs:? Clear to auscultation, no respiratory distress Heart: regular rate and rhythm, no murmurs Abd: soft, non-tender, distended, bowel sounds audible Ext:? Bilateral pitting edema Skin: warm/well-perfused, jaundiced Neuro: alert and oriented x3, no asterixis Psych: appropriate affect Objective Data Active Medications Acetaminophen (Acetaminophen 325 Mg Tablet) 650 mg PO Q6H PRN PRN Reason: Pain, Mild (Pain Scale 1-3) Albuterol Sulfate (Albuterol Sulfate 90 Mcg 8 Gm Inhaler) 2 puff INHALE QID PRN PRN Reason: Shortness Of Breath Or Wheezing Betamethasone Dipropion Augmented (Betamethasone Dip Aug 0.05% Cr 15 Gm Tube) 1 appl TOPICAL TUTH PRN PRN Reason: PSORIASIS Clotrimazole (Clotrimazole 1 % Cream 15 Gm Tube) 1 appl TOPICAL BID PRN PRN Reason: psoriasis Docusate Sodium (Docusate Sodium 100 Mg Capsule) 100 mg PO DAILY PRN PRN Reason: Constipation Fluticasone Propionate (Fluticasone Propionate 250 Mcg Blst.W.Dev) 2 puff INHALE RBID PRN PRN Reason: Shortness Of Breath Or Wheezing Fluticasone Propionate (Fluticasone Propionate Nasal 16 Gm [place]) 2 spray NOSTRIL-B DAILY PRN PRN Reason: Allergy Symptoms Vancomycin HCl 500 mg/ Sodium (Chloride) 110 mls @ 110 mls/hr IV Q24H [facility] Last Infusion: 02/03/23 09:13 Dose: 0 mls/hr Documented By: ORVILLE Lactulose (Lactulose 20 Gm/30 Ml Solution) 10 gm PO BID [facility] Last Admin: 02/03/23 08:07 Dose: Not Given Documented By: ORVILLE Non-Admin Reason: Patient Refused Nystatin (Nystatin Cream 15 Gm Tube) 1 appl TOPICAL BID [facility]; Protocol Last Admin: 02/03/23 09:13 Dose: 1 appl Documented By: ORVILLE Omeprazole (Omeprazole 40 Mg Capsule.) 40 mg PO BID@0630,1630 [facility] Last Admin: 02/03/23 05:41 Dose: 40 mg Documented By: DEDE Ondansetron HCl (Ondansetron Hcl 4 Mg/2 Ml Vial) 4 mg IVPUSH Q8H PRN PRN Reason: Nausea and Vomiting Pharmacy Consult (Consult Rx Vancomycin Dosing) 1 each MISCELLANE DAILY PRN PRN Reason: Consult order Rifaximin (Rifaximin 550 Mg Tablet) 550 mg PO BID [facility] Last Admin: 02/03/23 08:01 Dose: 550 mg Documented By: ORVILLE Sodium Chloride (0.9 % Sodium Chloride Flush 3 Ml Syringe) 3 ml IVFLUSH QSHIFT [facility] Last Admin: 02/03/23 08:05 Dose: 3 ml Documented By: ORVILLE Spironolactone (Spironolactone 25 Mg Tablet) 12.5 mg PO DAILY [facility]; Protocol Last Admin: 02/03/23 08:01 Dose: 12.5 mg Documented By: ORVILLE Tramadol HCl (Tramadol Hcl 50 Mg Tablet) 50 mg PO Q12H PRN PRN Reason: Pain, Severe (Pain Scale 7-10) Ursodiol (Ursodiol 300 Mg Capsule) 300 mg PO BID [facility] Last Admin: 02/03/23 08:01 Dose: 300 mg Documented By: ORVILLE Labs 02/02/23 05:22 02/03/23 05:43 Labs: Laboratory Results - last 24 hr 02/03/23 05:43 Anion Gap 15 Estim Creat Clear Calc 31.3 Estimated GFR 30 Random Glucose 89 Calcium 8.1 L Total Bilirubin 16.8 H Direct Bilirubin 11.8 H AST 69 H ALT 23 Alkaline Phosphatase 92 Total Protein 5.3 L Albumin 2.8 L Microbiology Microbiology Results: Microbiology 02/02/23 Unknown Gram Stain - Final Sputum - Expectorated Sputum Culture - Preliminary Culture in progress. 01/31/23 09:35 Gram Stain - Final Peritoneal Fluid Anaerobic Culture - Preliminary No growth to date. Body Fluid Culture - Final No growth after 2 days 01/30/23 14:25 Blood Culture - Preliminary Blood - Venous Prelim: GPC Gram Stain only 01/30/23 Unknown Urine Culture - Preliminary Urine clean catch - Urine trevino top Leonora albicans Enterococcus faecium Assessment and Plan (1) Cirrhosis: Status: Acute (2) HCAP (healthcare-associated pneumonia): Status: Acute (3) Anasarca: Status: Acute Plan 77-year-old male with history of alcohol dependence and newly diagnosed alcoholic cirrhosis of the liver and newly diagnosed right upper lobe lung mass admitted for alcoholic hepatitis with anasarca and HCAP. #Alcoholic hepatitis/cirrhosis with significant cholestasis Denies abdominal pain, no nausea, no vomiting MELD score elevated 26 Paracentesis fluid not consistent with SBP No etoh since prior to recent admission Total bili gradually trending down 22.7 to 16.8 today, GI consult appreciated, no role for Steroids at this stage, placed on Ursodiol Follow LFTs #Hepatic cirrhosis- 2/2 history alcohol dependence decompensated with ascites Paracentesis w removal 1.8L, no evidence of SBP Low sodium diet, fluid restrict to 1.2L Continue rifaximin and lactulose, patient refusing lactulose, s/p IV lasix, on spironolactone daily , will add low-dose Lasix Follow CMP #HCAP with sepsis RUL and RLL infiltrates (present on prior CT chest) with probable lung mass as previously noted on IV vanco , Blood cultures 1/2 positive for Gram-positive cocci, will follow final blood cultures WBC improved, hematocrit stable, normal oxygenation, follow clinical course # chronic hyponatremia 2/2 cirrhosis, sodium improved to 137 # urine culture positive for Enterococcus/Streptococcus and yeast likely contamination , urinalysis showed no bacteria. #ILD continue inhalers #Newly diagnosed RUL lung mass outpt follow for PET scan with Dr. Ho DVT prophylaxis- SCPs given recent GI bleed Full code Pt requries continued hospital stay for positive blood cultures and decompensated cirrhosis with HCAP, PT recommend short-term rehab however patient declines if blood culture negative will discharge home with services. Time Spent With Patient Time: Total time managing care of this patient today ____ minutes. Quality Stroke Does the patient have a stroke diagnosis?: No VTE Prior VTE?: No VTE Risk Level:: Medical - moderate - high VTE Device Contraindication: N/A - Device Ordered VTE Drug Contraindication: Treatment Not Indicated
[2023-02-03 15:21] VITALS: BP 132/65; PULSE 88; RESP 20; TEMP 36.6; O2SAT 97
[2023-02-03 16:00] VITALS: BP 145/60; PULSE 98; RESP 20; TEMP 36.6; O2SAT 99
[2023-02-03 19:46] VITALS: BP 147/67; PULSE 84; RESP 22; TEMP 36.6; O2SAT 96
[2023-02-03 21:04] LABS: Strep Pneumo Ag urine Not Detected (Not Detected)
[2023-02-04 00:29] VITALS: BP 140/65; PULSE 88; RESP 20; TEMP 36.6; O2SAT 96
[2023-02-04 06:34] LABS: Vancomycin Random 19.6 mcg/mL (15-20)
[2023-02-04 06:39] LABS: Anion Gap 15 (12-20); Blood Urea Nitrogen 26 mg/dL (9-16); Calcium 8.3 mg/dL (8.4-10.2); Carbon Dioxide 18 mmol/L (22-29); Chloride 107 mmol/L (96-108); Creatinine Clr Calc Pharmacy 30.4; Estimated Glomerular Filt Rate 29; Glucose Random 83 mg/dL (60-115); Potassium 3.2 mmol/L (3.3-5.1); Sodium 137 mmol/L (135-145)
[2023-02-04 07:20] VITALS: BP 135/83; PULSE 83; RESP 18; TEMP 36.7; O2SAT 97
[2023-02-04] MEDS: 0.9 % Sodium Chloride Flush 3 ML SYRINGE IVFLUSH ×3 (08:45→20:17)
[2023-02-04] MEDS: rifAXIMin 550 MG TABLET PO ×2 (08:46→20:15)
[2023-02-04] MEDS: UrsodioL 300 MG CAPSULE PO ×2 (08:46→20:15)
[2023-02-04] MEDS: Nystatin Cream 15 GM TUBE 1 APPL TOPICAL ×2 (08:46→20:15)
--- NOTE | 2023-02-04 10:52 | MHC.CM.PN ---
Patient will discharge 02/05/23. MD had planned to discharge today; however, Final Micro not available today. Per LAB final result tomorrow. DP home with [facility]. Patients son will provide transport home.
--- NOTE | 2023-02-04 12:42 | HO.PM.IMPN ---
Subjective Subjective Date of Service: 02/04/23 Interval History: offers no acute complaints, no abdominal discomfort no nausea, no vomiting, feels leg swelling has improved, is eager to be discharged home, no fevers, no chills, no other acute issues overnight. Review of Systems All other system reviewed and negative Physical Exam Vital Signs: Vital Signs: Last Vital Signs Temp 98.0 F 02/04/23 07:20 Pulse 83 02/04/23 07:20 Resp 18 02/04/23 07:20 BP 135/83 02/04/23 07:20 Pulse Ox 97 02/04/23 07:20 O2 Del Method Room Air 02/04/23 07:20 O2 Flow Rate 97 01/30/23 12:27 BMI result Body Mass Index 27.8 Const: Other: Gen:? awake alert resting comfortably no distress HEENT: sclera icteric, moist mucus membranes Neck: supple Lungs:? Clear to auscultation, no respiratory distress Heart: regular rate and rhythm, no murmurs Abd: soft, non-tender, distended, bowel sounds audible Ext:? mild Bilateral pitting edema Skin: warm/well-perfused, jaundiced Neuro: alert and oriented x3, no asterixis Psych: appropriate affect Objective Data Active Medications Acetaminophen (Acetaminophen 325 Mg Tablet) 650 mg PO Q6H PRN PRN Reason: Pain, Mild (Pain Scale 1-3) Albuterol Sulfate (Albuterol Sulfate 90 Mcg 8 Gm Inhaler) 2 puff INHALE QID PRN PRN Reason: Shortness Of Breath Or Wheezing Betamethasone Dipropion Augmented (Betamethasone Dip Aug 0.05% Cr 15 Gm Tube) 1 appl TOPICAL TUTH PRN PRN Reason: PSORIASIS Clotrimazole (Clotrimazole 1 % Cream 15 Gm Tube) 1 appl TOPICAL BID PRN PRN Reason: psoriasis Docusate Sodium (Docusate Sodium 100 Mg Capsule) 100 mg PO DAILY PRN PRN Reason: Constipation Fluticasone Propionate (Fluticasone Propionate 250 Mcg Blst.W.Dev) 2 puff INHALE RBID PRN PRN Reason: Shortness Of Breath Or Wheezing Fluticasone Propionate (Fluticasone Propionate Nasal 16 Gm [place]) 2 spray NOSTRIL-B DAILY PRN PRN Reason: Allergy Symptoms Vancomycin HCl 500 mg/ Sodium (Chloride) 110 mls @ 110 mls/hr IV Q24H [facility] Lactulose (Lactulose 20 Gm/30 Ml Solution) 10 gm PO BID [facility] Last Admin: 02/04/23 08:45 Dose: Not Given Documented By: CHITO Non-Admin Reason: Patient Refused Nystatin (Nystatin Cream 15 Gm Tube) 1 appl TOPICAL BID [facility]; Protocol Last Admin: 02/04/23 08:46 Dose: 1 appl Documented By: CHITO Omeprazole (Omeprazole 40 Mg Capsule.Dr) 40 mg PO BID@0630,1630 [facility] Last Admin: 02/04/23 05:52 Dose: Not Given Documented By: DEDE Non-Admin Reason: Patient Asleep Ondansetron HCl (Ondansetron Hcl 4 Mg/2 Ml Vial) 4 mg IVPUSH Q8H PRN PRN Reason: Nausea and Vomiting Pharmacy Consult (Consult Rx Vancomycin Dosing) 1 each MISCELLANE DAILY PRN PRN Reason: Consult order Rifaximin (Rifaximin 550 Mg Tablet) 550 mg PO BID [facility] Last Admin: 02/04/23 08:46 Dose: 550 mg Documented By: CHITO Sodium Chloride (0.9 % Sodium Chloride Flush 3 Ml Syringe) 3 ml IVFLUSH QSHIFT [facility] Last Admin: 02/04/23 08:45 Dose: 3 ml Documented By: CHITO Tramadol HCl (Tramadol Hcl 50 Mg Tablet) 50 mg PO Q12H PRN PRN Reason: Pain, Severe (Pain Scale 7-10) Ursodiol (Ursodiol 300 Mg Capsule) 300 mg PO BID [facility] Last Admin: 02/04/23 08:46 Dose: 300 mg Documented By: CHITO Labs 02/02/23 05:22 02/04/23 05:27 Labs: Laboratory Results - last 24 hr 01/31/23 02/04/23 02/04/23 Unknown 05:27 05:27 Anion Gap 15 Estim Creat Clear Calc 30.4 Estimated GFR 29 Random Glucose 83 Calcium 8.3 L Random Vancomycin 19.6 Ur Strep pneumoniae Ag Not Detected Microbiology Microbiology Results: Microbiology 02/02/23 Unknown Gram Stain - Final Sputum - Expectorated Sputum Culture - Preliminary Culture in progress. 01/31/23 09:35 Gram Stain - Final Peritoneal Fluid Anaerobic Culture - Preliminary No growth to date. Body Fluid Culture - Final No growth after 2 days 01/30/23 14:25 Blood Culture - Preliminary Blood - Venous Prelim: GPC Gram Stain only 01/30/23 Unknown Urine Culture - Final Urine clean catch - Urine trevino top Leonora albicans Enterococcus faecium Assessment and Plan (1) Cirrhosis: Status: Acute (2) HCAP (healthcare-associated pneumonia): Status: Acute (3) Anasarca: Status: Acute Plan 77-year-old male with history of alcohol dependence and newly diagnosed alcoholic cirrhosis of the liver and newly diagnosed right upper lobe lung mass admitted for alcoholic hepatitis with anasarca and HCAP. #Alcoholic hepatitis/cirrhosis with significant cholestasis Denies abdominal pain, no nausea, no vomiting MELD score elevated 26 Paracentesis fluid not consistent with SBP No etoh since prior to recent admission Total bili gradually trending down 22.7 to 16.8 GI consult appreciated, no role for Steroids at this stage, placed on Ursodiol, Follow LFTs #Hepatic cirrhosis- 2/2 history alcohol dependence decompensated with ascites, Paracentesis w removal 1.8L, no evidence of SBP Continue rifaximin and lactulose, patient refusing lactulose, s/p IV lasix, on spironolactone daily , will hold her diuretics since appear euvolemic leg edema has improved creatinine trending up recommend fluid restriction 1.5 L #HCAP with sepsis RUL and RLL infiltrates (present on prior CT chest) with probable lung mass as previously noted on IV vanco , Blood cultures 1/2 positive for Gram-positive cocci, final blood cultures report remains pending WBC improved, hematocrit stable, normal oxygenation, follow clinical course # chronic hyponatremia 2/2 cirrhosis, sodium improved to 137 # urine culture positive for Enterococcus/Streptococcus and yeast likely contamination , urinalysis showed no bacteria, no pyuria. #ILD continue inhalers #Newly diagnosed RUL lung mass outpt follow for PET scan with Dr. Ho DVT prophylaxis- SCPs given recent GI bleed Full code Pt requries continued hospital stay for positive blood cultures and decompensated cirrhosis with HCAP, PT recommend short-term rehab however patient declines if blood culture negative will discharge home with services. Time Spent With Patient Time: Total time managing care of this patient today ____ minutes. Quality Stroke Does the patient have a stroke diagnosis?: No VTE Prior VTE?: No VTE Risk Level:: Medical - moderate - high VTE Device Contraindication: N/A - Device Ordered VTE Drug Contraindication: Treatment Not Indicated
[2023-02-04] MEDS: Potassium Chloride ER 20 MEQ TAB.ER.PRT 40 MEQ PO (13:08)
[2023-02-04 15:51] VITALS: BP 130/60; PULSE 81; RESP 16; TEMP 36.7; O2SAT 96
[2023-02-04] MEDS: Omeprazole 40 MG CAPSULE.DR PO (17:11)
[2023-02-04 19:41] VITALS: BP 132/60; PULSE 86; RESP 16; TEMP 36.2; O2SAT 97
[2023-02-05 02:48] VITALS: BP 135/62; PULSE 77; RESP 18; TEMP 36.3; O2SAT 96
[2023-02-05 05:28] LABS: Legionella Ag Urine Not Detected (Not Detected)
[2023-02-05 06:01] LABS: Vancomycin Random 14.8 mcg/mL (15-20)
[2023-02-05 06:04] LABS: Alanine Aminotransferase 22 U/L (0-40); Albumin Level 2.7 g/dL (3.5-5.0); Alkaline Phosphatase 89 U/L (39-117); Anion Gap 11 (12-20); Aspartate Amino Transferase 59 U/L (5-37); Bilirubin Direct 9.8 mg/dL (0.0-0.5); Bilirubin Total 13.4 mg/dL (0.0-1.0); Blood Urea Nitrogen 31 mg/dL (9-16); Carbon Dioxide 21 mmol/L (22-29); Chloride 108 mmol/L (96-108); Creatinine Clr Calc Pharmacy 28.7; Estimated Glomerular Filt Rate 27; Glucose Random 96 mg/dL (60-115); Potassium 3.4 mmol/L (3.3-5.1); Sodium 137 mmol/L (135-145); Total Protein 5.3 g/dL (6.5-8.0)
[2023-02-05] MEDS: Omeprazole 40 MG CAPSULE.DR PO (06:10)
--- NOTE | 2023-02-05 06:23 | HE.PHANOTE ---
Re: vanco dosing Dose was held on 02/04 due to increasing scr. Trough today 14.8 and scr still increasing, today 2.33. Will give dose today on 02/05 and reassess with trough on 02/06 @0600.
[2023-02-05 07:28] VITALS: BP 131/63; PULSE 87; RESP 20; TEMP 36.2; O2SAT 97
--- NOTE | 2023-02-05 09:47 | MHC.CLN ---
F/U DIET=2 GRAM SODIUM, 1200 ML PER DAY FLUID RESTRICTION. WEIGHT FLUCTUATION ANTICIPATED WITH ASCITES AND PARACENTESIS. INTAKE VARIABLE, 0-100%. 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 NO SUPPLEMENT AT THIS TIME DUE TO FLUID RESTRICTION. FOLLOW FOR INTAKE AND WOUND HEALING. CLINICAL NUTRITION ASSESSMENT COMPLETED
[2023-02-05] MEDS: rifAXIMin 550 MG TABLET PO (10:23)
[2023-02-05] MEDS: UrsodioL 300 MG CAPSULE PO (10:23)
[2023-02-05] MEDS: 0.9 % Sodium Chloride Flush 3 ML SYRINGE IVFLUSH (10:24)
--- NOTE | 2023-02-05 11:34 | W.MHC.F2F ---
Service Date Service Date: 02/05/23 Encounter Date of encounter: 02/05/23 Reasons for Services Signs and symptoms assessed: abdominal pain /edema Reason for longterm: teach disease management and GI/ assessment Reason for physical therapy: home safety and mobility and gait/transfer training Reason for occupational therapy: home safety and mobility Homebound: Leaving the home is medically contraindicated at this time without the asist of a device and/or another person due th the listed conditions above and below. Reason homebound: weakness related to hospital stay Certification: Based on the above findings, I certify that this patient is confined to the home and needs intermittent longterm care, physical therapy and/or speech therapy, or continues to need occupational therapy. The patient is under my care, and I have initiated the establishment of the plan of care. The patient will be followed by a physician who will periodically review the plan of care. Time Spent With Patient Time: Total time managing care of this patient today ____ minutes.
--- NOTE | 2023-02-05 11:39 | PM.DS ---
DS: Providers Provider Date of Service: 02/05/23 Date of admission: 01/30/23 14:51 Primary care physician: Michelle Oswald NP Consults: 01/30/23 14:59 Consult to Gastroenterology Routine Consulting Provider: Usman Odell Reason for consultation: alcoholic hepatitis, anasarca DS: Diagnosis Discharge Diagnosis (1) Cirrhosis: Status: Acute (2) HCAP (healthcare-associated pneumonia): Status: Acute (3) Anasarca: Status: Acute DS: Summary Hospital Course Hospital Course: Date of Service: 01/30/23 Attending physician on admission: Gustavo Del Castillo Chief Complaint: weakness 77-year-old male with history of alcohol dependence and newly diagnosed alcoholic cirrhosis of the liver and newly diagnosed right upper lobe lung mass presented to the ED earlier today for evaluation of edema of the abdomen and bilateral lower extremities as well as gait instability.? The patient was recently discharged from [facility] on 01/23 diagnosed with decompensated cirrhosis with hepatic encephalopathy and ascites, alcoholic cirrhosis not on steroids, and upper GI bleed.? He was discharged on lactulose and rifaximin but patient reports he was unable to take these medications due to insurance issues. he was also noted to have sepsis due to pneumonia and completed course of ceftriaxone and azithromycin. Due to GI bleed was not discharged on any steroids. He had been recommended for STR but son refused and he was discharged home. Since then has had ?worsening productive cough (unable to tell me when the cough worsened given recent admission) with worsening edema x 2-3 days. Also feels jaundiced has worsened.? He is increasingly short of breath.? He states he has not had any alcohol since prior to last admission and denies any drug use or cigarette smoking. On arrival, vital stable, though slightly tachycardic in the low 90s.? He has leukocytosis of 17.4.? Hematology studies and coag studies are otherwise normal.? Creatinine 1.74, BUN 20, sodium 129, electrolytes otherwise unremarkable.? AST 86, ALT 34.? Alkaline phosphatase 122.? Total bilirubin 28.5.? Ammonia 44.? Albumin 2.6.? Paracentesis ultrasound performed and radiologist discussed results with ED provider who said there was not a large amount of ascites but would probably be able to find a pocket for paracentesis tomorrow.? Chest x-ray shows slight increased patchy opacities in the right upper lobe possibly remote reflective of infiltrates and possible patchy infiltrate in the right lower lobe pot partially superimposed by the diaphragm.? No new effusions or vascular congestion.? In the ED, given 40 mg IV furosemide, albumin, and cefepime. history of presenting illness: 77-year-old male with history of alcohol dependence and newly diagnosed alcoholic cirrhosis of the liver and newly diagnosed right upper lobe lung mass admitted for alcoholic hepatitis with anasarca and HCAP. #Alcoholic hepatitis/cirrhosis due to alcohol dependence, with significant cholestasis, admitted to medical floor MELD score elevated 26, underwent paracentesis 1.8 L of fluid was removed fluid studies not consistent with SBP patient denied use of etoh since prior to recent admission, patient seen by Dr. Odell he recommended urges OD all to help with cholestasis, he did not recommend steroids patient bilirubin gradually trending down, recommend to Continue rifaximin and lactulose, recommend to limit fluid intake of 1.5 L patient treated with IV Lasix and spironolactone but noted to have worsening renal function therefore will hold diuretics and recommend to continue fluid restriction. patient was noted to have significant weakness was seen by Physical therapy and Occupational therapy the port recommended short-term rehab however patient declined rehab and is now being discharged home with son who provides 08/01 care. #HCAP with sepsis patient admitted with concern for healthcare associated pneumonia and mild sepsis due to RUL and RLL infiltrates (present on prior CT chest) with probable lung mass as previously noted, patient treated with vancomycin blood culture 1/2 positive for Gram-positive cocci however final culture report showed nonviable organism patient WBC normalized hematocrit stable normal oxygenation therefore will discharge home on no antibiotic # chronic hyponatremia 2/2 cirrhosis, sodium improved to 137 # urine culture positive for Enterococcus/Streptococcus and yeast likely contamination , urinalysis showed no bacteria, no pyuria. #ILD continue inhalers #Newly diagnosed RUL lung mass , recommend outpt follow for PET scan with Dr. Ho # NAVEEN recently diagnosed to have contrast nephropathy during last admission couple weeks ago, creatinine was trending down but bumped back again likely due to diuretics but since patient has stable blood pressure making urine and is adamant to leave hospital will discharge him today and follow up on BMP in couple days and recommend outpatient follow-up with Dr. Rosa from Nephrology who knows patient from last admission. hold diuretics. Time Spent with Patient Time attestation: Total time managing care of this patient today ____ minutes. Discharge coordination time: Greater than 30 minutes Quality: Safe Use of Opioids Does Pt have an Active Cancer Diagnosis on the Problem List?: No Quality: Stroke Does the patient have a stroke diagnosis?: No Physical Exam Vital Signs: Vital Signs: Last Vital Signs Temp 97.2 F 02/05/23 07:28 Pulse 87 02/05/23 07:28 Resp 20 02/05/23 07:28 BP 131/63 02/05/23 07:28 Pulse Ox 97 02/05/23 07:28 O2 Del Method Room Air 02/05/23 07:28 O2 Flow Rate 97 01/30/23 12:27 BMI result Body Mass Index 27.8 DS: Data Data Completed and Pending Completed studies during hospitalization [Text1]: Procedures Detoxification Services for Substance Abuse Treatment (01/13/23) Drainage of Peritoneal Cavity, Percutaneous Approach (01/13/23) Excision of Stomach, Pylorus, Via Natural or Artificial Opening Endoscopic, Diagnostic (01/13/23) Transfusion of Nonautologous Frozen Plasma into Peripheral Vein, Percutaneous Approach (01/13/23) Transfusion of Nonautologous Red Blood Cells into Peripheral Vein, Percutaneous Approach (01/13/23) Labs on day of discharge: Laboratory Results - last 24 hr 01/31/23 02/05/23 02/05/23 08:12 05:40 05:40 Sodium 137 Potassium 3.4 Chloride 108 Carbon Dioxide 21 L Anion Gap 11 L BUN 31 H Creatinine 2.33 H Estim Creat Clear Calc 28.7 Estimated GFR 27 Random Glucose 96 Calcium 8.0 L Total Bilirubin 13.4 H Direct Bilirubin 9.8 H AST 59 H ALT 22 Alkaline Phosphatase 89 Total Protein 5.3 L Albumin 2.7 L Random Vancomycin 14.8 L Ur L.pneumophila Ag Not Detected Discharge Plan Discharge Anticipated Discharge Date/Time: 02/05/23 11:22 Patient Disposition: Home Health Service Discharge Diagnosis: alcoholic hepatitis/ cirrhosis Referrals: [facility] [Other] - 1 Week Michelle Oswald NP [Primary Care Provider] - 1 Week Discharge Medications: New ursodiol 300 mg Capsule 300 mg PO BID Qty: 60 0RF Continued calcipotriene 0.005 % cream 1 appl topical BID PRN (Reason: psoriasis) Rx Instructions: apply to feet fluticasone propionate [Flovent HFA] 220 mcg/actuation HFA aerosol inhaler 2 puff inhalation BID PRN (Reason: Shortness Of Breath Or Wheezing) albuterol sulfate 90 mcg/actuation HFA aerosol inhaler 2 puff inhalation QID PRN (Reason: Shortness Of Breath Or Wheezing) betamethasone dipropionate 0.05 % ointment 1 appl topical TUTH PRN (Reason: PSORIASIS) Rx Instructions: apply to legs and elbows fluticasone propionate 50 mcg/actuation spray,suspension 2 spray intranasal DAILY PRN (Reason: Allergy Symptoms) ciclopirox 0.77 % cream 1 appl topical BID PRN (Reason: psoriasis) Rx Instructions: apply to legs and elbows lactulose 20 gram/30 mL Solution 20 g PO BID Qty: 3000 0RF omeprazole 40 mg Capsule,Delayed Release(Dr/Ec) 40 mg PO BID@0630,1630 Qty: 60 0RF Xifaxan 550 mg Tablet 550 mg PO BID Qty: 60 0RF Rx Instructions: START DATE: 01/31/23 tramadol 50 mg Tablet 50 mg PO Q12H PRN (Reason: Pain, Severe (Pain Scale 7-10)) Qty: 20 0RF Discharge Orders: Discharge Order (Routine); Ordered 02/05/23 Ordered By: Ho Philip Diet: Advance to usual diet Activity on Discharge: As tolerated Stand Alone Forms: Patient Portal Discharge page Other Ambulatory Orders: Basic Metabolic Panel (Routine) Timeframe: [id number] Facility: [facility] - Location: Laboratory Ordered By: Ho Philip Care Plan Goals: Continue PT OT at home check BMP on 08/11 take all home medications as prescribed take lactulose daily hold for more than 2 bowel movements per day drink upto 6 glasses of total fluids daily Health Concerns: cirrhosis of liver strongly recommend to abstain from alcohol Plan of Treatment: follow-up with primary care physician call for appointment follow-up with Dr. Rosa from Nephrology call for appointment follow-up with Dr. Odell from Gastroenterology call for appointment Assessment: as above
--- NOTE | 2023-02-05 14:34 | P.CDIM_ITS ---
PROVIDER RESPONSE TEXT: To clarify, the appropriate diagnosis supported by the clinical indicators: Pressure (decubitus) ulcer Stage 2 right buttock QUERY TEXT: PHYSICIAN'S DOCUMENTATION REQUEST Date of Query: 02/05/2023 10:17 AM EDT Patient Name: Elia Grier Admit Date: 01/30/2023 Dear Ho Philip, A review of the medical record indicates additional documentation may be needed. Please review below and update the documentation accordingly. Clinical Indicators: Wound assessment notes: Pressure ulcer/injury Stage 2 right buttock Foam dressing Based on the above, could you please provide further information regarding the ulcer/wound: Pressure (decubitus) ulcer Stage 2 right buttock Other please specify Other (explain)Clinically unable to determine (explain)Thank you, Brigid Werner, CCS, CDIS Use of terms such as suspected, likely, concern for, or probable (associated with a specific diagnosi s that is being evaluated, monitored, or treated as if it exists) are acceptable and can be coded in the inpatient se tting, when documented at the time of discharge. Please use your independent medical judgment in providing your response. THIS QUERY IS PART OF THE PERMANENT MEDICAL RECORD
[2023-02-05 15:09] VITALS: BP 132/60; PULSE 93; RESP 18; TEMP 36; O2SAT 99
== END 2023-02-05 15:42 | disposition home health service (06) | DRG 871 ==
LOC: HO.ED 14:03 → HO.EDOVER 15:22 → HO.S3 15:58
PROVIDERS: Physician Assistant; Radiology Diagnostic Radiology; Student in an Organized Health Care Education/Training Program; Admitting Provider Physician Assistant; Emergency Provider Emergency Medicine; PCP Nurse Practitioner Adult Health; Visit Provider Hospitalist
DX: A41.9 Sepsis, unspecified organism (principal); J18.9 Pneumonia, unspecified organism; E87.1 Hypo-osmolality and hyponatremia; N17.9 Acute kidney failure, unspecified; K70.10 Alcoholic hepatitis without ascites; R91.8 Other nonspecific abnormal finding of lung field; K70.31 Alcoholic cirrhosis of liver with ascites; F10.21 Alcohol dependence, in remission; L89.312 Pressure ulcer of right buttock, stage 2; K71.0 Toxic liver disease with cholestasis; Z91.141 Patient's other noncompliance with medication regimen due to financial hardship; Z87.891 Personal history of nicotine dependence; Z79.899 Other long term (current) drug therapy
CPT/HCPCS: 36415; 49083; 71045; 80048; 80053; 80076; 80202; 80307; 81001; 81003; 82042; 82140; 82272; 82945; 83605; 83690; 83735; 83880; 84157; 84484; 85025; 85027; 85610; 87040; 87070; 87073; 87086; 87088; 87186; 87205; 87449; 87640; 87641; 87899; 89051; 93005; 97110; 97162; 97166; 99285; J0692; J1940; J3370; P9047

== ENCOUNTER 2023-01-30 14:51 | Outpatient (BNV) | payer MEDICARE, SELFPAY | END 2023-01-31 09:07 | PROVIDERS: Admitting Provider Physician Assistant; Emergency Provider Emergency Medicine; PCP Nurse Practitioner Adult Health; Visit Provider Radiology Diagnostic Radiology | DX: K70.31 Alcoholic cirrhosis of liver with ascites (principal) | CPT/HCPCS: 49083 ==

== ENCOUNTER → 2023-01-30 14:51 | Outpatient (BNV) | payer MEDICARE, SELFPAY | PROVIDERS: Admitting Provider Physician Assistant; Emergency Provider Emergency Medicine; PCP Nurse Practitioner Adult Health; Visit Provider Physician Assistant | DX: K74.60 Unspecified cirrhosis of liver (principal); J18.9 Pneumonia, unspecified organism; R60.1 Generalized edema | CPT/HCPCS: 99223; 99233; 99239; G0180 ==

== ENCOUNTER 2023-04-19 18:37 | Emergency (ER) | payer MEDICARE, SELFPAY ==
[2023-04-19 18:49] VITALS: BP 151/71; PULSE 103; RESP 17; TEMP 36.4; O2SAT 95
--- NOTE | 2023-04-19 18:54 | ED_ITS ---
HPI - Abdominal Pain General Chief Complaint: General Medical Stated Complaint: ABD PAIN,HAS LIVER FAILURE, JAUNDUCE,KIDNEY ISSUES Time Seen by Provider: 04/19/23 18:40 Source: patient Mode of arrival: EMS History of Present Illness HPI narrative: 77-year-old male with history and clinical presentation of increasing abdominal girth, distension and complaints of shortness of breath as well as abdominal discomfort and states he is been here previously for paracentesis. He denies any fever, chills, nausea, vomiting, diarrhea and denies any urinary symptoms. Related Data Home Medications Medication Instructions Recorded Confirmed albuterol sulfate 90 mcg/actuation 2 puff inhalation QID PRN 01/14/23 01/30/23 aerosol inhaler Shortness Of Breath Or Wheezing betamethasone dipropionate 0.05 % 1 appl topical TUTH PRN PSORIASIS 01/14/23 01/30/23 topical ointment calcipotriene 0.005 % topical cream 1 appl topical BID PRN psoriasis 01/14/23 01/30/23 ciclopirox 0.77 % topical cream 1 appl topical BID PRN psoriasis 01/14/23 01/30/23 fluticasone propionate 220 2 puff inhalation BID PRN 01/14/23 01/30/23 mcg/actuation HFA aerosol inhaler Shortness Of Breath Or Wheezing (Flovent HFA) fluticasone propionate 50 2 spray intranasal DAILY PRN 01/14/23 01/30/23 mcg/actuation nasal Allergy Symptoms spray,suspension Previous Rx's Medication Instructions Recorded lactulose 20 gram/30 mL oral 20 g (30 mL) PO BID #3,000 mL 01/23/23 solution omeprazole 40 mg capsule,delayed 40 mg PO BID@0630,1630 #60 caps 01/23/23 release rifaximin 550 mg tablet (Xifaxan) 550 mg PO BID #60 tabs 01/23/23 tramadol 50 mg tablet 50 mg PO Q12H PRN Pain, Severe 01/23/23 (Pain Scale 7-10) #20 tabs ursodiol 300 mg capsule 300 mg PO BID #60 caps 02/05/23 Allergies Allergy/AdvReac Type Severity Reaction Status Date / Time diphenhydramine Allergy Unknown Verified 04/19/23 19:04 [From Benadryl] Penicillins Allergy Anaphylaxis Verified 01/13/23 17:00 Review of Systems Review of Systems Pertinent positives and negatives as stated in HPI PMFSH Past Medical History Source: nursing notes reviewed Medical History History of alcohol use disorder Cirrhosis Normocytic anemia Surgical History No pertinent past surgical history Social History Social History Household Members: Children Housing: Apartment Do you presently have visiting nurse or other home services: Yes Alcohol intake: former Patient Tobacco Use Status: Former Tobacco user Smoked in Last 30 Days: No e-Cigarette/Vaping Use: Never Used Second Hand Smoke Exposure: No Use of substances other than those prescribed or required for medical reasons: No Advance Directives: No Advance Directives Information Provided: No service: Yes Physical Exam ED Vital Signs: Vital Signs - 24 hr 04/19/23 18:49 04/19/23 18:59 04/19/23 20:36 Temperature 97.6 F Pulse Rate 103 H 90 85 Respiratory Rate 17 18 20 Blood Pressure 151/71 H 147/76 H 141/71 H Pulse Oximetry 95 96 Oxygen Delivery Method Room Air Room Air 04/19/23 21:23 04/19/23 22:14 04/19/23 23:28 Temperature Pulse Rate 91 87 91 Respiratory Rate 21 H 20 20 Blood Pressure 142/69 H 146/67 H 142/69 H Pulse Oximetry 96 97 97 Oxygen Delivery Method Room Air Room Air Room Air BMI result Body Mass Index 24.9 VITAL SIGNS: Reviewed. GENERAL: Well developed, well nourished, in no acute distress. HEAD: Normocephalic/atraumatic EYES: PERRLA, EOMI, scleral icterus EARS: Ext canals without abnormality NOSE: Nares patent bilateral OROPHARYNX: no oral lesions noted, posterior pharynx clear NECK: Supple, no adenopathy LUNGS: Normal breath sounds. No adventitious sounds or accessory muscle use. SpO2<96> CARDIOVASCULAR: Regular rate and rhythm without noted murmurs, no JVD or lower extremity edema. ABDOMEN: Soft, non-tender, distended with bowel sounds. MUSCULOSKELETAL: No tenderness, deformities, or effusions noted on gross inspection. EXTREMITIES: No cyanosis, clubbing or edema. SKIN: Inspection of the skin reveals no rashes, but patient has jaundice NEUROLOGIC: Alert and oriented x 4. Strength and sensation to light touch were grossly intact x 4, no asterixis. Procedures Paracentesis Time Out Performed: No Indication: other (Abdominal pain) Procedure: therapeutic paracentesis Location: RLQ Local Anesthetic: lidocaine 1% Amount of anesthesia used (mL): 2 Bedside Ultrasound Used: yes, real-time guidance Preparation: sterile prep and drape Fluid: clear Size of Needle Used: 18 Post Procedure Exam: awake, alert, normal BP, normal HR and normal SpO2 Patient Tolerated Procedure: well Complications: none Additional Comments: No evidence and son review of labs to suggest SBP. Medical Decision Making Medical Decision Making MDM Narrative: 77-year-old male with history and clinical presentation prior alcohol use and known cirrhosis with last paracentesis in January. Presentation today is suggestive of symptomatic abdominal ascites, patient does have chronic jaundice and scleral icterus at baseline, clinical exam is negative to suggest SBP and there are no elevated temperatures in either history or vital signs obtained here. Patient is not hypoxic does not appear to be significantly uncomfortable, will obtain labs and then proceed with evaluation with bedside ultrasound on accessibility for paracentesis. He is not confused and will not obtain ammonia level. I reviewed all investigations, hematologic indices demonstrate a chronically stable low level leukocytosis, there is a very mild normocytic anemia which is actually improved from prior lab values, there is no thrombocytopenia. Coagulation studies are mildly elevated consistent with underlying liver disease with a PT-16.8 and INR-1.4. Chemistry indices do not demonstrate any NAVEEN and electrolyte values are within normal limits. Liver enzymes are significantly improved from prior visit on 02/07 but there is an elevated T bili of 3.3. Paracentesis was performed and sent for analysis but there is no evidence to suggest SBP further corroborating the absence clinical findings of abdominal pain, patient is afebrile. 2 L were removed with good relief. Patient is otherwise discharged back to home with recommendations to follow-up with his primary care doctor and obtain a Gastroenterology referral for more consistent paracentesis in the outpatient setting. Differential Diagnosis Differential Diagnoses: The differential diagnosis associated with the presentation includes Please see the discussion above Admission/Observation Consideration of admission/observation: Escalation of care including admission/observation considered Please see the discussion above Lab Data MDM Lab Attestation statement: I reviewed the patient's lab results. Please see the discussion above 04/19/23 19:09 04/19/23 19:09 Labs: Lab Results 04/19/23 04/19/23 04/19/23 Range/Units 19:09 20:57 20:58 WBC 10.9 H (4.8-10.8) X10*3/uL RBC 3.98 L D (4.60-5.80) X10*6/uL Hgb 12.4 L D (14.0-18.0) g/dl Hct 36.2 L D (42.0-52.0) % MCV 91.0 (80.0-98.0) fL MCH 31.2 (27.0-33.0) pg MCHC 34.3 (31.0-36.0) g/dl RDW 16.1 H (11.0-16.0) % Plt Count 244 (160-400) X10*3/uL MPV 9.3 L (9.4-12.4) fL Immature Gran % (Auto) 0.6 H (0.0-0.4) % Neut % (Auto) 82.9 H (45-73) % Lymph % (Auto) 8.2 L (20-40) % [place] % (Auto) 7.2 (2-11) % Eos % (Auto) 0.8 (0-4) % Baso % (Auto) 0.3 (0-2) % Lymph # (Auto) 0.9 L (1.2-4.9) X10*3/uL [place] # (Auto) 0.8 (0.1-1.2) X10*3/uL Eos # (Auto) 0.1 (0.0-0.4) X10*3/uL Baso # (Auto) 0.0 (0.0-0.2) X10*3/uL Abs Immat Gran (auto) 0.06 H (0.00-0.03) X10*3/uL Absolute Neuts (auto) 9.0 H (2.0-8.3) x10*3/uL Absolute Nucleated RBC 0.000 (0.0-0.012) X10*3/uL Nucleated RBC % (auto) 0.0 (0.0-0.2) /100WBC PT 16.8 H (11.1-13.3) SEC INR 1.4 H (0.9-1.1) APTT 33.6 (26.0-36.4) SEC Sodium 137 (135-145) mmol/L Potassium 3.7 (3.3-5.1) mmol/L Chloride 106 (96-108) mmol/L Carbon Dioxide 22 (22-29) mmol/L Anion Gap 13 (12-20) BUN 12 (9-16) mg/dL Creatinine 1.33 (0.5-1.4) mg/dL Estim Creat Clear Calc 46.5 Estimated GFR 52 Random Glucose 111 (60-115) mg/dL Calcium 8.6 D (8.4-10.2) mg/dL Total Bilirubin 3.3 H (0.0-1.0) mg/dL AST 22 (5-37) U/L ALT 8 (0-40) U/L Alkaline Phosphatase 75 (39-117) U/L Total Protein 6.6 (6.5-8.0) g/dL Albumin 2.7 L (3.5-5.0) g/dL Peritoneal WBC 0.078 X10*3/uL Peritoneal RBC < 0.002 X10*6/uL Per[place] Neutrophils 55 % Periton Lymphocytes 23 % Peritoneal Monocytes 22 % Peritoneal Other Cells 76 % Peritoneal Tot Protein 1.2 GM/DL Peritoneal Albumin 0.4 GM/DL Peritoneal LDH 32 U/L Peritoneal Glucose 111 MG/DL Peritoneal Amylase 7 U/L External Record Review External record reviewed: Outpatient record, Prior outpatient labs and Prior outpatient radiology Chronic Conditions Patient?s care impacted by: Other Cirrhotic liver disease Critical Care Time Critical Care Time Critical Care Time: Yes Total Critical Care Time: 30 Attestation: I personally attest to this time spent taking care of the patient. Discharge Plan Discharge Clinical Impression: Abdominal ascites Patient Disposition: Home, Self-Care Instructions: Ascites (ED) Additional Instructions: 1. Resume all home medications as prescribed. 2. Follow-up with your primary care doctor on Sunday morning in begin to set up outpatient interventions for removal of this fluid. Return to the ER for any worsening symptoms. Prescriptions: No Action calcipotriene 0.005 % cream 1 appl topical BID PRN (Reason: psoriasis) Rx Instructions: apply to feet fluticasone propionate [Flovent HFA] 220 mcg/actuation HFA aerosol inhaler 2 puff inhalation BID PRN (Reason: Shortness Of Breath Or Wheezing) albuterol sulfate 90 mcg/actuation HFA aerosol inhaler 2 puff inhalation QID PRN (Reason: Shortness Of Breath Or Wheezing) betamethasone dipropionate 0.05 % ointment 1 appl topical TUTH PRN (Reason: PSORIASIS) Rx Instructions: apply to legs and elbows fluticasone propionate 50 mcg/actuation spray,suspension 2 spray intranasal DAILY PRN (Reason: Allergy Symptoms) ciclopirox 0.77 % cream 1 appl topical BID PRN (Reason: psoriasis) Rx Instructions: apply to legs and elbows lactulose 20 gram/30 mL Solution 20 g PO BID Qty: 3000 0RF omeprazole 40 mg Capsule,Delayed Release(Dr/Ec) 40 mg PO BID@0630,1630 Qty: 60 0RF Xifaxan 550 mg Tablet 550 mg PO BID Qty: 60 0RF Rx Instructions: START DATE: 01/31/23 tramadol 50 mg Tablet 50 mg PO Q12H PRN (Reason: Pain, Severe (Pain Scale 7-10)) Qty: 20 0RF ursodiol 300 mg Capsule 300 mg PO BID Qty: 60 0RF
[2023-04-19 18:59] VITALS: BP 147/76; BP 155/84; PULSE 90; PULSE 92; RESP 18; O2SAT 93; O2SAT 96; BMI 24.9
[2023-04-19 19:16] LABS: MANUAL DIFF FLAG NO
[2023-04-19 19:17] LABS: Basophils Percent Auto 0.3 % (0-2); Eosinophils Absolute Auto 0.1 X10*3/uL (0.0-0.4); Eosinophils Percent Auto 0.8 % (0-4); Hematocrit 36.2 % (42.0-52.0); Hemoglobin 12.4 g/dl (14.0-18.0); Imm Gran Abs Auto 0.06 X10*3/uL (0.00-0.03); Imm Gran Pct Auto 0.6 % (0.0-0.4); Lymphocytes Absolute Auto 0.9 X10*3/uL (1.2-4.9); Lymphocytes Percent Auto 8.2 % (20-40); Mean Corpuscular HGB Conc 34.3 g/dl (31.0-36.0); Mean Corpuscular Hemoglobin 31.2 pg (27.0-33.0); Mean Platelet Volume 9.3 fL (9.4-12.4); Monocytes Absolute Auto 0.8 X10*3/uL (0.1-1.2); Monocytes Percent Auto 7.2 % (2-11); Neutrophils Percent Auto 82.9 % (45-73); Platelet Count 244 X10*3/uL (160-400); Red Blood Count 3.98 X10*6/uL (4.60-5.80); Red Cell Distribution Width 16.1 % (11.0-16.0); White Blood Count 10.9 X10*3/uL (4.8-10.8)
--- NOTE | 2023-04-19 19:20 | PC.NURSE ---
assumed care of pt
[2023-04-19 19:29] LABS: Alanine Aminotransferase 8 U/L (0-40); Albumin Level 2.7 g/dL (3.5-5.0); Alkaline Phosphatase 75 U/L (39-117); Anion Gap 13 (12-20); Aspartate Amino Transferase 22 U/L (5-37); Bilirubin Total 3.3 mg/dL (0.0-1.0); Blood Urea Nitrogen 12 mg/dL (9-16); Calcium 8.6 mg/dL (8.4-10.2); Carbon Dioxide 22 mmol/L (22-29); Chloride 106 mmol/L (96-108); Creatinine Clr Calc Pharmacy 46.5; Estimated Glomerular Filt Rate 52; Glucose Random 111 mg/dL (60-115); Potassium 3.7 mmol/L (3.3-5.1); Sodium 137 mmol/L (135-145); Total Protein 6.6 g/dL (6.5-8.0)
[2023-04-19 19:30] LABS: INTERNATIONAL NORM RATIO 1.4 (0.9-1.1); Prothrombin Time 16.8 SEC (11.1-13.3)
[2023-04-19 19:32] LABS: Partial Thromboplastin Time 33.6 SEC (26.0-36.4)
[2023-04-19 20:36] VITALS: BP 141/71; PULSE 85; RESP 20
--- NOTE | 2023-04-19 20:41 | PC.NURSE ---
sourav molina moss picker- [phone]
[2023-04-19 21:21] LABS: MN% 47.7 %; PMN% 52.3 %; WBC Peritoneal Fluid 0.078 X10*3/uL
[2023-04-19 21:23] VITALS: BP 142/69; PULSE 91; RESP 21; O2SAT 96
[2023-04-19 22:06] LABS: BF Shift QC OK YES; RBC Peritoneal Fluid < 0.002 X10*6/uL
[2023-04-19 22:07] LABS: Lymphocyte Peritoneal Fl 23 %; Man Diluent Bkgrd OK YES; Monocytes Peritoneal Fl 22 %; Neutrophils Peritoneal Fluid 55 %; Other Peritioneal Fl 76 %
[2023-04-19 22:14] VITALS: BP 146/67; PULSE 87; RESP 20; O2SAT 97
[2023-04-19 23:28] VITALS: BP 142/69; PULSE 91; RESP 20; TEMP 36.6; O2SAT 97
--- NOTE | 2023-04-19 23:30 | MHC.EDTECH ---
This tech assumed care of patient at 2300, hourly rounds and vitals completed. Patient repositioned to comfort and call lozano within reach.
[2023-04-19 23:40] LABS: Albumin Peritoneal Fluid 0.4 GM/DL; Amylase Peritoneal Fluid 7 U/L; Glucose Peritoneal Fluid 111 MG/DL; LDH Peritoneal Fluid 32 U/L; Total Protein Peritoneal Fluid 1.2 GM/DL
== END 2023-04-20 00:03 | disposition home or self-care (01) ==
PROVIDERS: Emergency Provider Student in an Organized Health Care Education/Training Program
DX: R18.8 Other ascites (principal); R10.9 Unspecified abdominal pain; R17 Unspecified jaundice; R06.02 Shortness of breath; R10.30 Lower abdominal pain, unspecified; Z79.899 Other long term (current) drug therapy; Z87.891 Personal history of nicotine dependence
CPT/HCPCS: 36415; 49083; 80053; 82042; 82150; 82945; 83615; 83986; 84157; 85025; 85610; 85730; 87070; 87073; 87205; 89051; 99284

== ENCOUNTER 2023-06-17 15:28 | Inpatient (IN) | payer MEDICARE, SELFPAY ==
--- NOTE | ~2023-06-17 | US_ITS ---
EXAMINATION: US ABDOMEN LIMITED CLINICAL INFORMATION: Abdominal pain, swelling, history of liver failure. COMPARISON: CT abdomen/pelvis 01/17/2023. TECHNIQUE: Real-time imaging of the right upper quadrant abdominal viscera. FINDINGS: PANCREAS: Visualized proximal pancreas is within normal limits. The distal body and tail are obscured by overlying bowel gas. LIVER: Heterogeneous and hyperechoic liver parenchyma with suggestion of nodular hepatic contour. No discrete focal mass. No intrahepatic biliary ductal dilatation. GALLBLADDER: Cholelithiasis with diffuse gallbladder wall thickening measuring up to 0.5 cm. Pericholecystic free fluid is indeterminate in the context of ascites. COMMON BILE DUCT: Normal in caliber measuring 0.2 cm in diameter. RIGHT KIDNEY: No hydronephrosis. No renal calculi or focal parenchymal lesions. The kidney measures 10.2 cm in maximum dimension. FREE FLUID: Moderate volume of ascites. US/US abdomen limited IMPRESSION: 1. Heterogeneous and hyperechoic liver parenchyma with suggestion of nodular hepatic contour worrisome for hepatocellular disease and cirrhosis. 2. Moderate volume of ascites. 3. Cholelithiasis. 4. Gallbladder wall thickening and pericholecystic free fluid are nonspecific in the context of ascites and hepatocellular disease and are most likely related with liver dysfunction. However, clinical correlation for acute cholecystitis is recommended.
--- NOTE | ~2023-06-17 | CT_ITS ---
EXAMINATION: CT CHEST, ABDOMEN AND PELVIS WITH CONTRAST. CLINICAL INFORMATION: Evaluate mass. Weakness. COMPARISON: 01/20/2023. TECHNIQUE: Multidetector volumetric imaging was performed from the thoracic inlet through the pubic symphysis following administration of 75 mL Omnipaque 300 intravenous contrast. Sagittal and coronal reformatted images were obtained on the technologist's workstation. This CT examination was performed using dose optimization techniques as appropriate, variously including the following: *Automated exposure control *Adjustment of mA and/or kV according to patient size (this includes techniques or standardized protocols for targeted exams where dose is matched to indication/reason for exam; i.e. extremities or head) *Use of iterative reconstruction technique DLP: 633 mGy-cm FINDINGS: CHEST: Lung: Bilateral subpleural fibrosis and honeycombing pattern seen right more so the left. This does appear to slightly progressed from the study suggesting underlying interstitial lung disease and fibrosis. There is a component of traction bronchiectasis more apparent in the lower lobes. More nodular airspace disease in the right upper lobe appears to be linear and elongated on the coronal reformatted image with no discrete rounded or oval nodularity seen. Mediastinum: Extensive vascular calcification in the coronary arteries. Atherosclerotic disease in aorta. Shotty mediastinal lymph nodes but no bulky adenopathy. Visualized thyroid gland unremarkable. Central pulmonary arteries grossly unremarkable. Paraesophageal varicosities Pericardium/Pleura: No significant effusion. No pleural mass or thickening. Chest Wall/Axilla: Unremarkable. ABDOMEN/PELVIS: Peritoneal Space:Moderate volume of abdominal ascites increased from the prior study Liver, Gallbladder, Biliary Tree: Nodular cirrhotic liver but I do not appreciate any discrete hepatic mass lesion on this single contrast phase. No intrahepatic biliary ductal dilatation. Nonspecific gallbladder wall thickening of uncertain significance in the setting of underlying hepatocellular disease and ascites. Pancreas: Unremarkable. Spleen: Calcified splenic granulomas. Adrenal Glands: Unremarkable. Kidneys and Ureters: The kidneys are normal in size, shape, and attenuation. No hydronephrosis, hydroureter, or calculi seen. No perinephric stranding. Bladder: Unremarkable. Gastrointestinal Tract: Scattered colonic diverticulosis. No obvious colonic wall thickening or pericolonic inflammatory change in the setting of ascites. Visualized small bowel grossly unremarkable. Stomach is decompressed. Abdominal Wall: No significant hernia is appreciated. Lymphovascular Structures: Vascular calcification within the aorta iliac system. Paraesophageal varicosities and recanalization of the umbilical vein consistent with underlying sequela of portal hypertension. Pelvic Viscera: Prostatic calcifications Osseus Structures: Degenerative changes in the spine and hips with marked degenerative changes in the right hip in particular CT/CT abdomen pelvis w IV con IMPRESSION: 1. Nodular cirrhotic liver with moderate volume of abdominal ascites increased from the prior study. I do not appreciate any discrete hepatic mass lesion on this single contrast phase study. There is evidence for portal hypertension with paraesophageal varicosities. 2. Interstitial lung disease with increasing subpleural fibrotic disease and traction atelectasis from the previous study 3. Chronic appearing changes otherwise as described above. I do not appreciate any acute intra-abdominal process otherwise.
--- NOTE | ~2023-06-17 | XR_ITS ---
EXAMINATION: XR CHEST CLINICAL INFORMATION: Shortness of breath. COMPARISON: Chest radiograph 01/30/2023. CT chest 01/20/2023. TECHNIQUE: AP view of the chest was obtained. FINDINGS: Stable appearance of the cardiomediastinal silhouette. Again noted focal reticulonodular opacity projecting over the right upper lobe not significantly changed compared to radiograph from 01/30/2023 and corresponding to an irregular nodular-like opacity on CT chest from 01/20/2023. Unchanged additional less well-defined opacity projecting over the left mid lung, corresponding to architectural distortion/scarring on prior CT chest. Background of interstitial lung disease. No new focal airspace densities. No pleural effusion or pneumothorax. No acute osseous findings. XR/XR chest 1V IMPRESSION: 1. No acute cardiopulmonary findings. 2. Again noted focal observation in the right upper lobe corresponding to a suspicious nodular-like opacity on CT chest from 01/20/2023. Reevaluation with outpatient chest CT or PET/CT is highly recommended as malignancy is not excluded. 3. Chronic interstitial lung disease.
[2023-06-17 15:57] VITALS: BP 121/49; BP 126/44; PULSE 107; PULSE 73; RESP 16; TEMP 36.7; O2SAT 95; O2SAT 97; BMI 20.3
--- NOTE | 2023-06-17 16:16 | ED_ITS ---
HPI - General Adult General Chief complaint: Weakness Stated complaint: WEAKNESS Time Seen by Provider: 06/17/23 16:08 Source: patient and EMS Mode of arrival: EMS Limitations: no limitations History of Present Illness HPI narrative: Patient is a 78 year old assigned male at with a history of cirrhosis presenting to the emergency department today with weakness. Patient states that he has becoming significantly more weak over the last few days, now unable to walk. Patient states that he has needed his abdomen to be drained before. Patient states that he has also had a cough as of late. Patient denies any dizziness, lightheadedness, abdominal pain, nausea, vomiting, fever, chills, blurry vision, double vision, loss of vision, chest pain, difficulty breathing, shortness of breath, back pain, night sweats, pain with urination, increased urinary frequency, increased urinary urgency, blood in his urine or stool, syncope or a near syncopal episode, recent trauma or falls, bowel incontinence, bladder incontinence, bowel retention, bladder retention, or any other complaints at this time. Onset (ago): day(s) Relieving factors: none Exacerbating factors: none Associated symptoms: cough and weakness Treatments prior to arrival: none Related Data Home Medications Medication Instructions Recorded Confirmed albuterol sulfate 90 mcg/actuation 2 puff inhalation QID PRN 01/14/23 01/30/23 aerosol inhaler Shortness Of Breath Or Wheezing betamethasone dipropionate 0.05 % 1 appl topical TUTH PRN PSORIASIS 01/14/23 01/30/23 topical ointment calcipotriene 0.005 % topical cream 1 appl topical BID PRN psoriasis 01/14/23 01/30/23 ciclopirox 0.77 % topical cream 1 appl topical BID PRN psoriasis 01/14/23 01/30/23 fluticasone propionate 220 2 puff inhalation BID PRN 01/14/23 01/30/23 mcg/actuation HFA aerosol inhaler Shortness Of Breath Or Wheezing (Flovent HFA) fluticasone propionate 50 2 spray intranasal DAILY PRN 01/14/23 01/30/23 mcg/actuation nasal Allergy Symptoms spray,suspension Previous Rx's Medication Instructions Recorded lactulose 20 gram/30 mL oral 20 g (30 mL) PO BID #3,000 mL 01/23/23 solution omeprazole 40 mg capsule,delayed 40 mg PO BID@0630,1630 #60 caps 01/23/23 release rifaximin 550 mg tablet (Xifaxan) 550 mg PO BID #60 tabs 01/23/23 tramadol 50 mg tablet 50 mg PO Q12H PRN Pain, Severe 01/23/23 (Pain Scale 7-10) #20 tabs ursodiol 300 mg capsule 300 mg PO BID #60 caps 02/05/23 Allergies Allergy/AdvReac Type Severity Reaction Status Date / Time diphenhydramine Allergy Unknown Verified 06/17/23 16:02 [From Benadryl] Penicillins Allergy Anaphylaxis Verified 06/17/23 16:02 Review of Systems 2 Constitutional: Constitutional: Reports no additional constitutional complaints, Denies chills, Denies fever(s), Denies night sweats and Reports weakness Eyes: Eyes: Reports no additional eye complaints, Denies blurry vision, Denies change in vision, Denies diplopia, Denies eye discharge, Denies loss of vision and Denies eye pain ENT: Denies dizziness Cardiovascular: Cardiovascular: Reports no additional cardiovascular complaints, Denies chest pain, Denies lightheadedness, Denies Loss of Consciousness and Denies dyspnea Respiratory: Respiratory: Reports no additional respiratory complaints, Reports cough and Denies dyspnea Gastrointestinal: Gastrointestinal: Reports no additional gastrointestinal complaints, Denies abdominal pain, Denies melena, Denies hematochezia, Denies change in bowel habits and Denies change in stool character Genitourinary: Genitourinary: Reports no additional male genitourinary complaints, Denies hematuria, Denies oliguria, Denies difficulty urinating, Denies dysuria, Denies urinary frequency, Denies urinary hesitancy, Denies urinary incontinence and Denies urinary urgency Musculoskeletal: Musculoskeletal: Reports no additional musculoskeletal complaints, Denies numbness and Denies tingling Neurologic: Denies dizziness, Denies loss of vision, Denies numbness, Denies tingling and Reports weakness Psychiatric: Psychiatric: Reports no additional psychiatric complaints Endocrine: Endocrine: Reports no additional endocrine complaints Hematologic/Lymphatic: Hematologic/Lymphatic: Reports no additional hematologic/lymphatic complaints Allergic/Immunologic: Allergic/Immunologic: Reports no additional allergic/immunologic complaints PMFSH Past Medical History Attestation statement: The following information was validated with the patient. Source: old records reviewed and nursing notes reviewed Medical History History of alcohol use disorder Cirrhosis Normocytic anemia Surgical History No pertinent past surgical history Social History Social History Household Members: Children Housing: Apartment Do you presently have visiting nurse or other home services: Yes Alcohol intake: former Patient Tobacco Use Status: Former Tobacco user Smoked in Last 30 Days: No e-Cigarette/Vaping Use: Never Used Second Hand Smoke Exposure: No Advance Directives: No Advance Directives Information Provided: No service: Yes Physical Exam ED Vital Signs: Vital Signs - 24 hr 06/17/23 15:57 06/17/23 17:27 06/17/23 19:25 Temperature 98.1 F 97.7 F 98.1 F Pulse Rate 73 92 93 Respiratory Rate 16 22 H 31 H Blood Pressure 121/49 L 108/56 L 108/56 L Pulse Oximetry 97 100 Oxygen Delivery Method Room Air Room Air 06/17/23 23:22 Temperature Pulse Rate 90 Respiratory Rate 16 Blood Pressure 120/53 L Pulse Oximetry 97 Oxygen Delivery Method Room Air BMI result Body Mass Index 20.3 Const General: cooperative, no acute distress, alert and awake Nutritional Appearance: well nourished Orientation/consciousness: patient oriented x3 Limitations: no limitations HENMT Head: Yes normal to inspection and Yes atraumatic Ears: hearing grossly normal bilaterally and external ears normal General nose exam: Normal external nose present, no nasal discharge noted and no epistaxis Face and sinus: Yes normal facial exam, No abrasion and No laceration Mouth: Normal oral and palatal mucosa present, no drooling and no muffled voice Eyes General: appearance normal, both eyes and all related structures Periorbital: periorbital findings normal Eyelids: Yes eyelids normal Conjunctivae: conjunctivae normal Pupils: Equal, round and reactive pupils present EOM: EOMs intact bilaterally Neck Neck: Yes normal visual inspection, Yes full ROM and Yes no lymphadenopathy Chest Chest palpation & inspection: normal inspection of the chest Resp Effort & Inspection: normal respiratory effort and able to speak in complete sentences Auscultation: clear to auscultation bilaterally GI Inspection: Yes normal to inspection Palpation (GI): Soft to palpation, not firm, nontender and no guarding Neuro General: patient oriented x3 and moves all extremities Cranial nerves: Yes Equal, round and reactive pupils present Cognition (Neuro): normal cognition Motor exam (neuro): 5/5 motor strength present throughout Sensory Exam: Normal double simultaneous stimulation for sensation Coordination: [id number] test normal Extrem General: Yes normal to inspection, Yes full ROM and Yes capillary refill normal Psych Appearance: grossly normal Mental Status: mental status grossly normal Affect: normal affect Attitude: cooperative Thought process: Normal thought process present Thought content: Normal thought content present Insight: Good insight present (Psych) Medications Administered Generic Name Dose Route Start Last Admin Trade Name Freq PRN Reason Stop Dose Admin Sodium Chloride 3 ml 06/18/23 00:00 06/17/23 23:52 0.9 % Sodium Chloride Flush 3 Ml Syringe IVFLUSH 3 ml QSHIFT CHAUNCEY Administration Discontinued Medications Generic Name Dose Route Start Last Admin Trade Name Freq PRN Reason Stop Dose Admin Sodium Chloride 1,000 mls @ 999 mls/hr 06/17/23 18:30 06/17/23 21:49 Ns IV 06/17/23 19:30 Infused .Q1H1M CHAUNCEY Infusion Levofloxacin 750 mg in 150 mls @ 100 mls/hr 06/17/23 18:47 06/17/23 21:49 Levaquin IV 06/17/23 20:16 Infused ONCE ONE Infusion Albumin Human 100 mls @ 100 mls/hr 06/17/23 21:41 06/17/23 23:11 Kedbumin 25 % IV 06/17/23 22:40 Infused ONCE ONE Infusion Iohexol 100 ml 06/17/23 18:53 06/17/23 18:56 Iohexol 350 Mg/Ml 100 Ml Infus..Btl IV 06/17/23 18:54 75 ml ONCE ONE Administration Procedures Paracentesis Time Out Performed: Yes Indication: possible spontaneous bacterial peritonitis Procedure: diagnostic paracentesis Location: [facility] Bedside Ultrasound Used: yes, Ascites confirmed and location marked Preparation: sterile prep and drape Amount of fluid obtained (mL): 1,000 Fluid: clear Size of Needle Used: 20 Post Procedure Exam: awake, alert Patient Tolerated Procedure: well Complications: none Medical Decision Making Medical Decision Making MDM Narrative: Patient is a 78 year old assigned male at with a history of cirrhosis presenting to the emergency department today with weakness and a cough. Patient's physical exam was as noted in the physical exam portion of this note. Patient's blood work showed WBC elevated at 22.9, CR 1.62, BUN 39, lactic 3.3, initial trop 13 with repeat 9.3, albumin 2.8, rest of the patient's labs unremarkable. Patient's urine showed a possible UTI. Patient's EKG was unremarkable. Patient's chest x-ray showed a right upper lobe nodular opacity. Patient's abdominal US showed cholelithiasis and moderate ascites. Patient's CT chest and CT abdomen/pelvis showed a nodular cirrhotic liver and interstitial lung disease. I consulted with my attending physician, Dr. Lala who performed a diagnostic paracentesis. He noted dark yellow fluid on the tap. Patient's clinical presentation is not consistent with sepsis (@2207). Patient has anaphylaxis allergy to penicillins so he was given IV Levofloxacin to cover for SBP and/or UTI. I spoke with the hospitalist team who agreed to admission. I explained my physical exam findings as well as all test results to the patient . I answered all questions asked by the patient. Patient verbalized agreement and understanding with this treatment plan and admission. Differential Diagnosis Differential Diagnoses: The differential diagnosis associated with the presentation includes SBP UTI Weakness Viral illness PNA Admission/Observation Consideration of admission/observation: Escalation of care including admission/observation considered Patient admitted. Consult Healthcare Provider Management of the patient was discussed with: Hospitalist (agreed to admission.) Lab Data [facility] Lab Attestation statement: I reviewed the patient's lab results. My interpretation of these results are in the MDM Rationale portion of this note. 06/17/23 17:10 06/17/23 17:10 Labs: Lab Results 06/17/23 06/17/23 06/17/23 Range/Units 17:10 17:19 19:39 WBC 22.9 H (4.8-10.8) X10*3/uL RBC 3.95 L (4.60-5.80) X10*6/uL Hgb 12.9 L (14.0-18.0) g/dl Hct 38.0 L (42.0-52.0) % MCV 96.2 (80.0-98.0) fL MCH 32.7 (27.0-33.0) pg MCHC 33.9 (31.0-36.0) g/dl RDW 17.0 H (11.0-16.0) % Plt Count 203 (160-400) X10*3/uL MPV 9.7 (9.4-12.4) fL Immature Gran % (Auto) 1.0 H (0.0-0.4) % Neut % (Auto) 88.5 H (45-73) % Lymph % (Auto) 3.6 L (20-40) % [place] % (Auto) 6.1 (2-11) % Eos % (Auto) 0.6 (0-4) % Baso % (Auto) 0.2 (0-2) % Lymph # (Auto) 0.8 L (1.2-4.9) X10*3/uL [place] # (Auto) 1.4 H (0.1-1.2) X10*3/uL Eos # (Auto) 0.1 (0.0-0.4) X10*3/uL Baso # (Auto) 0.0 (0.0-0.2) X10*3/uL Abs Immat Gran (auto) 0.22 H (0.00-0.03) X10*3/uL Absolute Neuts (auto) 20.3 H (2.0-8.3) x10*3/uL Absolute Nucleated RBC 0.000 (0.0-0.012) X10*3/uL Nucleated RBC % (auto) 0.0 (0.0-0.2) /100WBC Smear Tech's Comments VERIFIED PT 15.6 H (11.1-13.3) SEC INR 1.3 H (0.9-1.1) APTT 34.7 (26.0-36.4) SEC VBG pH 7.31 L (7.32-7.43) VBG pCO2 37 mmHg VBG pO2 33 mmHg VBG HCO3 19 L (22-26) mmol/L VBG O2 Saturation 44.0 % VBG Base Excess -6.5 mmol/L Sodium 137 (135-145) mmol/L Potassium 5.0 D (3.3-5.1) mmol/L Chloride 111 H (96-108) mmol/L Carbon Dioxide 18 L (22-29) mmol/L Anion Gap 13 (12-20) BUN 39 H (9-16) mg/dL Creatinine 1.62 H (0.5-1.4) mg/dL Estim Creat Clear Calc 32.1 Estimated GFR 41 Random Glucose 104 (60-115) mg/dL Lactic Acid (0.5-2.0) mmol/L Calcium 8.6 (8.4-10.2) mg/dL Magnesium 1.9 (1.6-2.6) mg/dL Total Bilirubin 3.1 H (0.0-1.0) mg/dL AST 29 (5-37) U/L ALT 19 (0-40) U/L Alkaline Phosphatase 85 (39-117) U/L Ammonia 46 (13-55) umol/L Total Creatine Kinase 15 L (38-174) U/L Troponin I High Sens 13.0 D 9.3 (<3.5-35.0) ng/L Total Protein 6.4 L (6.5-8.0) g/dL Albumin 2.8 L (3.5-5.0) g/dL Lipase 32 (8-78) U/L Urine Color Urine Appearance Urine pH (5.0-9.0) Ur Specific [place] (1.005-1.025) Urine Protein (Neg-Trace) mg/dL Urine Glucose (UA) (Negative) mg/dL Urine Ketones (Negative) mg/dL Urine Blood (Negative) Urine Nitrite (Negative) Ur Leukocyte Esterase (Negative) Urine RBC (0-2) /HPF Urine WBC (0-5) /HPF Ur Squamous Epith Cells (0-2) /HPF Urine Bacteria (None Seen) Hyaline Casts (0-2) /LPF Influenza Type A (PCR) NEGATIVE (Negative) Influenza Type B (PCR) NEGATIVE (Negative) RSV RNA Qual (PCR) NEGATIVE (Negative) SARS-CoV-2 RNA (RT-PCR) NEGATIVE (Negative) 06/17/23 06/17/23 Range/Units 19:41 23:03 WBC (4.8-10.8) X10*3/uL RBC (4.60-5.80) X10*6/uL Hgb (14.0-18.0) g/dl Hct (42.0-52.0) % MCV (80.0-98.0) fL MCH (27.0-33.0) pg MCHC (31.0-36.0) g/dl RDW (11.0-16.0) % Plt Count (160-400) X10*3/uL MPV (9.4-12.4) fL Immature Gran % (Auto) (0.0-0.4) % Neut % (Auto) (45-73) % Lymph % (Auto) (20-40) % [place] % (Auto) (2-11) % Eos % (Auto) (0-4) % Baso % (Auto) (0-2) % Lymph # (Auto) (1.2-4.9) X10*3/uL [place] # (Auto) (0.1-1.2) X10*3/uL Eos # (Auto) (0.0-0.4) X10*3/uL Baso # (Auto) (0.0-0.2) X10*3/uL Abs Immat Gran (auto) (0.00-0.03) X10*3/uL Absolute Neuts (auto) (2.0-8.3) x10*3/uL Absolute Nucleated RBC (0.0-0.012) X10*3/uL Nucleated RBC % (auto) (0.0-0.2) /100WBC Smear Tech's Comments PT (11.1-13.3) SEC INR (0.9-1.1) APTT (26.0-36.4) SEC VBG pH (7.32-7.43) VBG pCO2 mmHg VBG pO2 mmHg VBG HCO3 (22-26) mmol/L VBG O2 Saturation % VBG Base Excess mmol/L Sodium (135-145) mmol/L Potassium (3.3-5.1) mmol/L Chloride (96-108) mmol/L Carbon Dioxide (22-29) mmol/L Anion Gap (12-20) BUN (9-16) mg/dL Creatinine (0.5-1.4) mg/dL Estim Creat Clear Calc Estimated GFR Random Glucose (60-115) mg/dL Lactic Acid 3.3 H* (0.5-2.0) mmol/L Calcium (8.4-10.2) mg/dL Magnesium (1.6-2.6) mg/dL Total Bilirubin (0.0-1.0) mg/dL AST (5-37) U/L ALT (0-40) U/L Alkaline Phosphatase (39-117) U/L Ammonia (13-55) umol/L Total Creatine Kinase (38-174) U/L Troponin I High Sens (<3.5-35.0) ng/L Total Protein (6.5-8.0) g/dL Albumin (3.5-5.0) g/dL Lipase (8-78) U/L Urine Color Yellow Urine Appearance Clear Urine pH 5.5 (5.0-9.0) Ur Specific [place] >= 1.030 H (1.005-1.025) Urine Protein Negative (Neg-Trace) mg/dL Urine Glucose (UA) Negative (Negative) mg/dL Urine Ketones Negative (Negative) mg/dL Urine Blood Negative (Negative) Urine Nitrite Positive H (Negative) Ur Leukocyte Esterase Small (1+) H (Negative) Urine RBC 0-2 (0-2) /HPF Urine WBC 11-20 H (0-5) /HPF Ur Squamous Epith Cells 0-2 (0-2) /HPF Urine Bacteria 2+ (None Seen) Hyaline Casts 0-2 (0-2) /LPF Influenza Type A (PCR) (Negative) Influenza Type B (PCR) (Negative) RSV RNA Qual (PCR) (Negative) SARS-CoV-2 RNA (RT-PCR) (Negative) Independent Interpretation I performed an independent interpretation of an: EKG, Plain X-Ray, Ultrasound and CT Scan Interpretation: My interpretation is in agreement with the radiologist's impression of these imaging studies. - EXAMINATION: XR CHEST CLINICAL INFORMATION: Shortness of breath. COMPARISON: Chest radiograph 01/30/2023. CT chest 01/20/2023. TECHNIQUE: AP view of the chest was obtained. FINDINGS: Stable appearance of the cardiomediastinal silhouette. Again noted focal reticulonodular opacity projecting over the right upper lobe not significantly changed compared to radiograph from 01/30/2023 and corresponding to an irregular nodular-like opacity on CT chest from 01/20/2023. Unchanged additional less well-defined opacity projecting over the left mid lung, corresponding to architectural distortion/scarring on prior CT chest. Background of interstitial lung disease. No new focal airspace densities. No pleural effusion or pneumothorax. No acute osseous findings. XR/XR chest 1V IMPRESSION: 1. No acute cardiopulmonary findings. 2. Again noted focal observation in the right upper lobe corresponding to a suspicious nodular-like opacity on CT chest from 01/20/2023. Reevaluation with outpatient chest CT or PET/CT is highly recommended as malignancy is not excluded. 3. Chronic interstitial lung disease. Dictated By: Belgica Ross Signed By: Electronically signed by Belgica Ross 06/17/23 1735 - EXAMINATION: US ABDOMEN LIMITED CLINICAL INFORMATION: Abdominal pain, swelling, history of liver failure. COMPARISON: CT abdomen/pelvis 01/17/2023. TECHNIQUE: Real-time imaging of the right upper quadrant abdominal viscera. FINDINGS: PANCREAS: Visualized proximal pancreas is within normal limits. The distal body and tail are obscured by overlying bowel gas. LIVER: Heterogeneous and hyperechoic liver parenchyma with suggestion of nodular hepatic contour. No discrete focal mass. No intrahepatic biliary ductal dilatation. GALLBLADDER: Cholelithiasis with diffuse gallbladder wall thickening measuring up to 0.5 cm. Pericholecystic free fluid is indeterminate in the context of ascites. COMMON BILE DUCT: Normal in caliber measuring 0.2 cm in diameter. RIGHT KIDNEY: No hydronephrosis. No renal calculi or focal parenchymal lesions. The kidney measures 10.2 cm in maximum dimension. FREE FLUID: Moderate volume of ascites. US/US abdomen limited IMPRESSION: 1. Heterogeneous and hyperechoic liver parenchyma with suggestion of nodular hepatic contour worrisome for hepatocellular disease and cirrhosis. 2. Moderate volume of ascites. 3. Cholelithiasis. 4. Gallbladder wall thickening and pericholecystic free fluid are nonspecific in the context of ascites and hepatocellular disease and are most likely related with liver dysfunction. However, clinical correlation for acute cholecystitis is recommended. Dictated By: Belgica Ross Signed By: Electronically signed by Belgica Ross 06/17/23 1836 - EXAMINATION: CT CHEST, ABDOMEN AND PELVIS WITH CONTRAST. CLINICAL INFORMATION: Evaluate mass. Weakness. COMPARISON: 01/20/2023. TECHNIQUE: Multidetector volumetric imaging was performed from the thoracic inlet through the pubic symphysis following administration of 75 mL Omnipaque 300 intravenous contrast. Sagittal and coronal reformatted images were obtained on the technologist's workstation. This CT examination was performed using dose optimization techniques as appropriate, variously including the following: *Automated exposure control *Adjustment of mA and/or kV according to patient size (this includes techniques or standardized protocols for targeted exams where dose is matched to indication/reason for exam; i.e. extremities or head) *Use of iterative reconstruction technique DLP: 633 mGy-cm FINDINGS: CHEST: Lung: Bilateral subpleural fibrosis and honeycombing pattern seen right more so the left. This does appear to slightly progressed from the study suggesting underlying interstitial lung disease and fibrosis. There is a component of traction bronchiectasis more apparent in the lower lobes. More nodular airspace disease in the right upper lobe appears to be linear and elongated on the coronal reformatted image with no discrete rounded or oval nodularity seen. Mediastinum: Extensive vascular calcification in the coronary arteries. Atherosclerotic disease in aorta. Shotty mediastinal lymph nodes but no bulky adenopathy. Visualized thyroid gland unremarkable. Central pulmonary arteries grossly unremarkable. Paraesophageal varicosities Pericardium/Pleura: No significant effusion. No pleural mass or thickening. Chest Wall/Axilla: Unremarkable. ABDOMEN/PELVIS: Peritoneal Space:Moderate volume of abdominal ascites increased from the prior study Liver, Gallbladder, Biliary Tree: Nodular cirrhotic liver but I do not appreciate any discrete hepatic mass lesion on this single contrast phase. No intrahepatic biliary ductal dilatation. Nonspecific gallbladder wall thickening of uncertain significance in the setting of underlying hepatocellular disease and ascites. Pancreas: Unremarkable. Spleen: Calcified splenic granulomas. Adrenal Glands: Unremarkable. Kidneys and Ureters: The kidneys are normal in size, shape, and attenuation. No hydronephrosis, hydroureter, or calculi seen. No perinephric stranding. Bladder: Unremarkable. Gastrointestinal Tract: Scattered colonic diverticulosis. No obvious colonic wall thickening or pericolonic inflammatory change in the setting of ascites. Visualized small bowel grossly unremarkable. Stomach is decompressed. Abdominal Wall: No significant hernia is appreciated. Lymphovascular Structures: Vascular calcification within the aorta iliac system. Paraesophageal varicosities and recanalization of the umbilical vein consistent with underlying sequela of portal hypertension. Pelvic Viscera: Prostatic calcifications Osseus Structures: Degenerative changes in the spine and hips with marked degenerative changes in the right hip in particular CT/CT abdomen pelvis w IV con IMPRESSION: 1. Nodular cirrhotic liver with moderate volume of abdominal ascites increased from the prior study. I do not appreciate any discrete hepatic mass lesion on this single contrast phase study. There is evidence for portal hypertension with paraesophageal varicosities. 2. Interstitial lung disease with increasing subpleural fibrotic disease and traction atelectasis from the previous study 3. Chronic appearing changes otherwise as described above. I do not appreciate any acute intra-abdominal process otherwise. Dictated By: Bruce Bhardwaj MD Signed By: Electronically signed by Bruce Bhardwaj MD 06/17/23 1929 - Vent. Rate: 093 BPM Atrial Rate: 093 BPM P-R Int: 138 ms QRS Dur: 058 ms QT Int: 372 ms P-R-T Axes: 015 -13 021 degrees QTc Int: 462 ms Normal sinus rhythm Low voltage QRS Borderline ECG When compared with ECG of 30-JAN-2023 12:24, QRS duration has decreased Criteria for Septal infarct are no longer Present DD/ 1721 Radiology Impression Discussion of test interpretation with radiology: I have reviewed the radiologist's reading. Independent Historian Clinical information obtained from an independent historian. History obtained from or confirmed by: EMS (EMS provided additional history and confirmed the history provided by the patient.) Chronic Conditions Patient?s care impacted by: Other (liver disease) Critical Care Time Critical Care Time Critical Care Time: Yes Total Critical Care Time: 55 Attestation: I spent 55 minutes of Critical Care Time with this patient. This does not include time spent on separately reported billable procedures. Discharge Plan Discharge Clinical Impression: Acute UTI, SBP (spontaneous bacterial peritonitis) Patient Disposition: Admitted As Inpatient
--- NOTE | 2023-06-17 16:16 | ECG_ITS ---
Test Reason : WEAKNESS Blood Pressure : / mmHG Vent. Rate : 093 BPM Atrial Rate : 093 BPM P-R Int : 138 ms QRS Dur : 058 ms QT Int : 372 ms P-R-T Axes : 015 -13 021 degrees QTc Int : 462 ms Normal sinus rhythm Low voltage QRS Borderline ECG When compared with ECG of 30-JAN-2023 12:24, No significant changes seen Referred By: Jamila Duval Electronically Signed By:WARREN JEROME
[2023-06-17 17:21] LABS: Basophils Percent Auto 0.2 % (0-2); Eosinophils Absolute Auto 0.1 X10*3/uL (0.0-0.4); Eosinophils Percent Auto 0.6 % (0-4); Hemoglobin 12.9 g/dl (14.0-18.0); Imm Gran Abs Auto 0.22 X10*3/uL (0.00-0.03); Lymphocytes Absolute Auto 0.8 X10*3/uL (1.2-4.9); Lymphocytes Percent Auto 3.6 % (20-40); MANUAL DIFF FLAG SCAN; Mean Corpuscular HGB Conc 33.9 g/dl (31.0-36.0); Mean Corpuscular Hemoglobin 32.7 pg (27.0-33.0); Mean Corpuscular Volume 96.2 fL (80.0-98.0); Mean Platelet Volume 9.7 fL (9.4-12.4); Monocytes Absolute Auto 1.4 X10*3/uL (0.1-1.2); Monocytes Percent Auto 6.1 % (2-11); Neutrophils Absolute Auto 20.3 x10*3/uL (2.0-8.3); Neutrophils Percent Auto 88.5 % (45-73); Platelet Count 203 X10*3/uL (160-400); Red Blood Count 3.95 X10*6/uL (4.60-5.80); SCAN SMEAR FLAG 1; White Blood Count 22.9 X10*3/uL (4.8-10.8)
[2023-06-17 17:27] VITALS: BP 108/56; PULSE 92; RESP 22; TEMP 36.5
[2023-06-17 17:27] LABS: INTERNATIONAL NORM RATIO 1.3 (0.9-1.1); Prothrombin Time 15.6 SEC (11.1-13.3)
[2023-06-17 17:29] LABS: Partial Thromboplastin Time 34.7 SEC (26.0-36.4)
[2023-06-17 17:29] LABS: VBG Base Excess -6.5 mmol/L; VBG HCO3 19 mmol/L (22-26); VBG pCO2 37 mmHg; VBG pH 7.31 (7.32-7.43); VBG pO2 33 mmHg
[2023-06-17 17:30] LABS: Venous Blood Gas Refer to POC result
[2023-06-17 17:32] LABS: Ammonia 46 umol/L (13-55)
[2023-06-17 17:39] LABS: SLIDE REVIEW VERIFIED
[2023-06-17 17:41] LABS: Alanine Aminotransferase 19 U/L (0-40); Albumin Level 2.8 g/dL (3.5-5.0); Alkaline Phosphatase 85 U/L (39-117); Anion Gap 13 (12-20); Aspartate Amino Transferase 29 U/L (5-37); Bilirubin Total 3.1 mg/dL (0.0-1.0); Blood Urea Nitrogen 39 mg/dL (9-16); Calcium 8.6 mg/dL (8.4-10.2); Carbon Dioxide 18 mmol/L (22-29); Chloride 111 mmol/L (96-108); Creatinine Clr Calc Pharmacy 32.1; Estimated Glomerular Filt Rate 41; Glucose Random 104 mg/dL (60-115); Lipase 32 U/L (8-78); Magnesium 1.9 mg/dL (1.6-2.6); Sodium 137 mmol/L (135-145); Total Protein 6.4 g/dL (6.5-8.0)
[2023-06-17 18:03] LABS: Influenza A PCR NEGATIVE (Negative); Influenza B PCR NEGATIVE (Negative); Resp Syncy Virus RNA Qual PCR NEGATIVE (Negative); SARS COV2 PCR INHOUSE NEGATIVE (Negative)
[2023-06-17] MEDS: iohexoL 350 MG/ML 100 ML INFUS..BTL IV (18:56)
[2023-06-17 19:25] VITALS: BP 108/56; PULSE 93; RESP 31; TEMP 36.7; O2SAT 100
[2023-06-17] MEDS: 0.9 % Sodium Chloride 1,000 ML 999 ML IV (19:48)
--- NOTE | 2023-06-17 19:48 | MHC.EDTECH ---
blood drawn and both sets of blood culture and lactic acid drawn and sent to lab .
[2023-06-17] MEDS: levoFLOXacin/D5W 750 MG/150 ML PIGGYBACK 100 MG IV (19:50)
[2023-06-17 20:09] LABS: Lactic Acid 3.3 mmol/L (0.5-2.0)
[2023-06-17 20:16] LABS: Troponin-I High Sensitivity 9.3 ng/L (<3.5-35.0)
[2023-06-17 21:49] LABS: Reflex Lactate? Lactic Acid Added
--- NOTE | 2023-06-17 22:01 | PC.NURSE ---
Pt emptied approx 900mL of thracic fluid from paracentesis
[2023-06-17] MEDS: Albumin Human 25 % 100 ML IV (22:02)
--- NOTE | 2023-06-17 22:48 | PC.NURSE ---
Spoke with pt's family member for updates.
[2023-06-17 23:11] LABS: Appearance Urine Clear; Color Urine Yellow; Glucose Urine UA Negative (Negative); Leukocyte Esterase Urine Small (1+) (Negative); Nitrite Urine Positive (Negative); PH 5.5 (5.0-9.0); Specific Gravity - Urine >= 1.030 (1.005-1.025); UMIC TRIGGER UACC YES; Urine Blood Negative (Negative); Urine Ketones Negative (Negative); Urine Protein Negative (Neg-Trace)
[2023-06-17 23:22] VITALS: BP 120/53; PULSE 90; RESP 16; O2SAT 97
--- NOTE | 2023-06-17 23:26 | P.HPHOSP_ITS ---
History of Present Illness Date of Service: 06/17/23 Attending physician on admission: Luciano Orosco Chief Complaint: Generalized weakness, unable to walk & shortness of breath x several days Patient is a 78 year old pleasant white male with past medical history of decompensated alcoholic liver cirrhosis with past episode of hepatic encephalopathy (now on Rifaximin and Lactulose), chronic hyponatremia, intertstitial lung disease (ILD), renal failure, right upper lobe lung mass and previous episode of VRE UTI who was brought to the emergency room by ambulance from home complaining of progressively worsening weakness for last 2 months with associated exertional dyspnea and a dry cough. He states that he is now significantly weaker and has difficulty ambulating. He describes increasing dyspnea with exertion stating that he is unable to walk 5-10 feet without getting out of breath. He denies any associated chest pain, fevers, chills or urinary symptoms even though a urinalysis done tonight had findings concerning for dehydration and a UTI. He has high urine specific gravity of >1.030, positive urine nitrites, 1+ leukocyte Estrace, 11-20 wbc's/HPF and 2+ bacteria. A CBC done showed a leukocytosis of 22.9 k/mm3 with 88.5% neutrophils and a comprehensive metabolic panel done showed mild renal insufficiency with a BUN of 39 mg/dL and creatinine of 1.62 mg/dL. Serum lactic acid was elevated at 3.3 but improved to 1.7 after hydration. His vital signs were fairly stable except for mild tachycardia with a pulse of 93 beats per minute and tachypnea there is a rate of 81. An assessment of severe sepsis due to UTI was made he received a dose of intravenous Levaquin and admission was therafter requested.. Review of Systems 2 Review of Systems: Yes all other systems are reviewed and are negative [facility] Medical History (Updated 06/18/23 @ 06:56 by Luciano Orosco MD) Decompensation of cirrhosis of liver Interstitial lung disease UTI (urinary tract infection) due to Enterococcus Mass of upper lobe of right lung History of alcohol use disorder Cirrhosis Normocytic anemia Surgical History No pertinent past surgical history Social History Household Members: Children Housing: Apartment Do you presently have visiting nurse or other home services: Yes Alcohol intake: former Patient Tobacco Use Status: Former Tobacco user Smoked in Last 30 Days: No e-Cigarette/Vaping Use: Never Used Second Hand Smoke Exposure: No Advance Directives: No Advance Directives Information Provided: No service: Yes Meds Allergies Allergy/AdvReac Type Severity Reaction Status Date / Time diphenhydramine Allergy Unknown Verified 06/17/23 16:02 [From Benadryl] Penicillins Allergy Anaphylaxis Verified 06/17/23 16:02 Home Medications Medication Instructions Recorded Confirmed Last Taken Type albuterol sulfate 90 mcg/actuation 2 puff inhalation QID PRN 01/14/23 01/30/23 Unknown History aerosol inhaler Shortness Of Breath Or Wheezing betamethasone dipropionate 0.05 % 1 appl topical TUTH PRN PSORIASIS 01/14/23 01/30/23 01/09/23 History topical ointment calcipotriene 0.005 % topical cream 1 appl topical BID PRN psoriasis 01/14/23 01/30/23 01/09/23 History ciclopirox 0.77 % topical cream 1 appl topical BID PRN psoriasis 01/14/23 01/30/23 01/09/23 History fluticasone propionate 220 2 puff inhalation BID PRN 01/14/23 01/30/23 01/13/23 History mcg/actuation HFA aerosol inhaler Shortness Of Breath Or Wheezing (Flovent HFA) fluticasone propionate 50 2 spray intranasal DAILY PRN 01/14/23 01/30/23 01/13/23 History mcg/actuation nasal Allergy Symptoms spray,suspension Physical Exam 2 Vital Signs and Narrative: Vital Signs: Last Vital Signs Temp 98.1 F 06/17/23 19:25 Pulse 90 06/17/23 23:22 Resp 16 06/17/23 23:22 BP 120/53 L 06/17/23 23:22 Pulse Ox 97 06/17/23 23:22 O2 Del Method Room Air 06/17/23 23:22 BMI result Body Mass Index 20.3 General: Well nourished elderly white male in bed. Asleep but easily awakened. Oriented x 4. In no apparent distress Eyes: No pallor or jaundice. PERRLA, EOMI HENT: Moist oral mucus membranes. No oropharyngeal lesions. Neck: Supple. No cervical adenopathy. No JVD Cardiovascular: Regular rate and rhythm. Normal heart sounds. No murmurs, rubs or gallops. No JVD. No peripheral edema. Respiratory: Normal respiratory effort with no accessory muscle use. CTAB. Gastrointestinal: Abdomen is soft, non-tender, non-distended. NABS. No hepatosplenomegaly Extremities: No edema. No calf tenderness. Good peripheral pulses Skin: Warm/Dry. No rashes. No mottling. Capillary refill is < 2 seconds Neurological: AAOx4. Intact speech & cognition. Gait & balance not tested at this time. CN II - XII grossly intact but not individually tested. No motor or sensory deficits Hematologic: No bleeding. No ecchymosis. No swollen or tender lymph nodes. Psychiatric: Cooperative. Appropriate mood and affect Results Labs 06/17/23 17:10 06/17/23 17:10 Labs: Laboratory Results - last 24 hr 06/17/23 06/17/23 06/17/23 17:10 17:19 19:41 MCV 96.2 MCH 32.7 MCHC 33.9 RDW 17.0 H Plt Count 203 MPV 9.7 Immature Gran % (Auto) 1.0 H Neut % (Auto) 88.5 H Lymph % (Auto) 3.6 L Moffat % (Auto) 6.1 Eos % (Auto) 0.6 Baso % (Auto) 0.2 Lymph # (Auto) 0.8 L Moffat # (Auto) 1.4 H Eos # (Auto) 0.1 Baso # (Auto) 0.0 Abs Immat Gran (auto) 0.22 H Absolute Neuts (auto) 20.3 H Absolute Nucleated RBC 0.000 Nucleated RBC % (auto) 0.0 Smear Tech's Comments VERIFIED PT 15.6 H INR 1.3 H APTT 34.7 VBG pH 7.31 L VBG pCO2 37 VBG pO2 33 VBG HCO3 19 L VBG O2 Saturation 44.0 VBG Base Excess -6.5 Anion Gap 13 Estim Creat Clear Calc 32.1 Estimated GFR 41 Random Glucose 104 Lactic Acid 3.3 H* Calcium 8.6 Magnesium 1.9 Total Bilirubin 3.1 H AST 29 ALT 19 Alkaline Phosphatase 85 Ammonia 46 Total Creatine Kinase 15 L Total Protein 6.4 L Albumin 2.8 L Lipase 32 Urine Color Urine Appearance Urine pH Ur Specific [place] Urine Protein Urine Glucose (UA) Urine Ketones Urine Blood Urine Nitrite Ur Leukocyte Esterase Influenza Type A (PCR) NEGATIVE Influenza Type B (PCR) NEGATIVE RSV RNA Qual (PCR) NEGATIVE SARS-CoV-2 RNA (RT-PCR) NEGATIVE 06/17/23 23:03 MCV MCH MCHC RDW Plt Count MPV Immature Gran % (Auto) Neut % (Auto) Lymph % (Auto) Moffat % (Auto) Eos % (Auto) Baso % (Auto) Lymph # (Auto) Moffat # (Auto) Eos # (Auto) Baso # (Auto) Abs Immat Gran (auto) Absolute Neuts (auto) Absolute Nucleated RBC Nucleated RBC % (auto) Smear Tech's Comments PT INR APTT VBG pH VBG pCO2 VBG pO2 VBG HCO3 VBG O2 Saturation VBG Base Excess Anion Gap Estim Creat Clear Calc Estimated GFR Random Glucose Lactic Acid Calcium Magnesium Total Bilirubin AST ALT Alkaline Phosphatase Ammonia Total Creatine Kinase Total Protein Albumin Lipase Urine Color Yellow Urine Appearance Clear Urine pH 5.5 Ur Specific [place] >= 1.030 H Urine Protein Negative Urine Glucose (UA) Negative Urine Ketones Negative Urine Blood Negative Urine Nitrite Positive H Ur Leukocyte Esterase Small (1+) H Influenza Type A (PCR) Influenza Type B (PCR) RSV RNA Qual (PCR) SARS-CoV-2 RNA (RT-PCR) ECG Attestation: I personally reviewed and interpreted this ECG as follows: ECG interpretation date: 06/18/23 ECG interpretation time: 07:08 Prior ECG tracings: available for review Interpretation: Normal sinus rhythm at 93 beats per minute with the no acute ishemic changes Imaging Radiologist's Impressions: Impressions Chest X-Ray 06/17/23 17:19 IMPRESSION: 1. No acute cardiopulmonary findings. 2. Again noted focal observation in the right upper lobe corresponding to a suspicious nodular-like opacity on CT chest from 01/20/2023. Reevaluation with outpatient chest CT or PET/CT is highly recommended as malignancy is not excluded. 3. Chronic interstitial lung disease. Abdomen Ultrasound 06/17/23 18:15 IMPRESSION: 1. Heterogeneous and hyperechoic liver parenchyma with suggestion of nodular hepatic contour worrisome for hepatocellular disease and cirrhosis. 2. Moderate volume of ascites. 3. Cholelithiasis. 4. Gallbladder wall thickening and pericholecystic free fluid are nonspecific in the context of ascites and hepatocellular disease and are most likely related with liver dysfunction. However, clinical correlation for acute cholecystitis is recommended. Chest & Abdomen/Pelvis CT 06/17/23 18:57 IMPRESSION: 1. Nodular cirrhotic liver with moderate volume of abdominal ascites increased from the prior study. I do not appreciate any discrete hepatic mass lesion on this single contrast phase study. There is evidence for portal hypertension with paraesophageal varicosities. 2. Interstitial lung disease with increasing subpleural fibrotic disease and traction atelectasis from the previous study 3. Chronic appearing changes otherwise as described above. I do not appreciate any acute intra-abdominal process otherwise. Assessment and Plan (1) Severe sepsis: Status: Resolved (2) Acute UTI: Status: Acute (3) NAVEEN (acute kidney injury): Status: Acute (4) Weakness: Status: Acute Plan 78 year old pleasant white male with past medical history of decompensated alcoholic liver cirrhosis with past episode of hepatic encephalopathy (now on Rifaximin and Lactulose), chronic hyponatremia, intertstitial lung disease (ILD), renal failure, right upper lobe lung mass and previous episode of VRE UTI here with: 1. Severe sepsis - meets criteria of severe sepsis due to UTI - received IV fluids with improvement of lactic acid levels - admit for IV antibiotics - start Linezolid given past h/o VRE UTI (will consult ID) 2. UTI - urinalysis is concerning for UTI - likely cause of his weakness - given h/o VRE, will treat with Linezolid as we await culture results 3. Acute renal failure - noted with BUN of 39 and creatinine of 1.65 - at risk of hepato-renal syndrome - consider Albumin for hypotensive episodes 4. Shortness of breath - likely due to underlying ILD - closely follow - consider starting steroids if continues to be symptomatic 5. Asthenia - due to multiple chronic problems and advanced age - consider PT and STR at time of discharge if remains weak. DVT: SC heparin CODE STATUS: Full code Admission for at least 2 midnights for management of severe sepsis due to VRE UTI Total time managing care of this patient today: 75 minutes. Quality Stroke Does the patient have a stroke diagnosis?: No VTE Prior VTE?: No VTE Risk Level:: Medical - moderate - high VTE Device Contraindication: N/A - Device Ordered VTE Drug Contraindication: Treatment Not Indicated
[2023-06-17 23:34] LABS: WBC Peritoneal Fluid 0.075 X10*3/uL
[2023-06-17 23:35] LABS: RBC Peritoneal Fluid < 0.002 X10*6/uL
[2023-06-17 23:38] LABS: BF Shift QC OK YES
[2023-06-17 23:50] VITALS: BP 104/47; PULSE 97; RESP 22; TEMP 36.6; O2SAT 96
[2023-06-17] MEDS: 0.9 % Sodium Chloride Flush 3 ML SYRINGE IVFLUSH (23:52)
[2023-06-18 00:27] LABS: ~Lactic Acid-LAB USE ONLY 1.7 mmol/L (0.5-2.0)
[2023-06-18 00:28] LABS: Bacteria Urine 2+ (None Seen); Hyaline Casts Urine 0-2 /LPF (0-2); RBC Urine 0-2 /HPF (0-2); Squamous Epithelial Cell Urine 0-2 /HPF (0-2); UACC Culture Trigger YES
[2023-06-18 01:12] LABS: Lymphocyte Peritoneal Fl 46 %; Neutrophils Peritoneal Fluid 12 %
[2023-06-18 01:13] LABS: Monocytes Peritoneal Fl 29 %; Other Peritioneal Fl 13 %
[2023-06-18 02:44] LABS: Albumin Peritoneal Fluid 0.5 GM/DL; Creatinine Peritoneal Fluid 1.6 MG/DL; Glucose Peritoneal Fluid 116 MG/DL; LDH Peritoneal Fluid 31 U/L; Total Protein Peritoneal Fluid 1.1 GM/DL
[2023-06-18 07:06] LABS: MANUAL DIFF FLAG NO
[2023-06-18 07:13] LABS: Basophils Percent Auto 0.1 % (0-2); Eosinophils Absolute Auto 0.2 X10*3/uL (0.0-0.4); Eosinophils Percent Auto 1.9 % (0-4); Hematocrit 30.6 % (42.0-52.0); Hemoglobin 10.4 g/dl (14.0-18.0); Imm Gran Abs Auto 0.06 X10*3/uL (0.00-0.03); Imm Gran Pct Auto 0.6 % (0.0-0.4); Lymphocytes Absolute Auto 0.8 X10*3/uL (1.2-4.9); Lymphocytes Percent Auto 7.8 % (20-40); Mean Corpuscular Volume 94.2 fL (80.0-98.0); Mean Platelet Volume 9.7 fL (9.4-12.4); Monocytes Absolute Auto 0.7 X10*3/uL (0.1-1.2); Monocytes Percent Auto 7.6 % (2-11); Platelet Count 170 X10*3/uL (160-400); Red Blood Count 3.25 X10*6/uL (4.60-5.80); Red Cell Distribution Width 16.9 % (11.0-16.0); White Blood Count 9.8 X10*3/uL (4.8-10.8)
[2023-06-18 07:34] LABS: Alanine Aminotransferase 15 U/L (0-40); Albumin Level 2.8 g/dL (3.5-5.0); Alkaline Phosphatase 66 U/L (39-117); Anion Gap 12 (12-20); Aspartate Amino Transferase 23 U/L (5-37); Bilirubin Total 3.2 mg/dL (0.0-1.0); Blood Urea Nitrogen 35 mg/dL (9-16); Calcium 8.5 mg/dL (8.4-10.2); Carbon Dioxide 18 mmol/L (22-29); Chloride 113 mmol/L (96-108); Creatinine Clr Calc Pharmacy 38.8; Estimated Glomerular Filt Rate 52; Glucose Random 80 mg/dL (60-115); Magnesium 1.7 mg/dL (1.6-2.6); Potassium 4.7 mmol/L (3.3-5.1); Sodium 138 mmol/L (135-145); Total Protein 5.6 g/dL (6.5-8.0)
--- NOTE | 2023-06-18 08:14 | PHA.MEDREC ---
Pharmacy Consult ? Medication Reconciliation Pharmacy has completed the medication reconciliation. Patient unsure if he is still on lactulose. If so, he is 3 months past due on refill. Attempted to contact son and daughter. One phone line does not work, other goes to full mailbox. Will leave off med list [place]
[2023-06-18] MEDS: Linezolid/D5W 600 MG/300 ML PIGGYBACK 300 MG IV ×2 (10:14→22:00)
[2023-06-18 10:19] VITALS: BP 123/52; PULSE 86; RESP 24; TEMP 36.7; O2SAT 97
[2023-06-18] MEDS: 0.9 % Sodium Chloride Flush 3 ML SYRINGE IVFLUSH (10:19)
[2023-06-18 10:56] LABS: Amylase Peritoneal Fluid 18 U/L
[2023-06-18] MEDS: Omeprazole 40 MG CAPSULE.DR PO (11:11)
[2023-06-18] MEDS: Spironolactone 25 MG TABLET 100 MG PO (11:11)
[2023-06-18] MEDS: Albumin Human 25 % 100 ML IV ×3 (11:24→23:54)
[2023-06-18] MEDS: rifAXIMin 550 MG TABLET PO ×2 (11:53→21:59)
[2023-06-18] MEDS: UrsodioL 300 MG CAPSULE PO ×2 (11:53→21:59)
--- NOTE | 2023-06-18 13:11 | P.PNIM_ITS ---
Subjective Subjective Date of Service: 06/18/23 Interval History: dyspnea improved no abd discomfort Review of Systems Review of Systems: Yes all other systems are reviewed and are negative Physical Exam 2 Vital Signs: Vital Signs: Last Vital Signs Temp 98.1 F 06/18/23 10:19 Pulse 86 06/18/23 10:19 Resp 24 H 06/18/23 10:19 BP 123/52 L 06/18/23 10:19 Pulse Ox 97 06/18/23 10:19 O2 Del Method Room Air 06/18/23 10:19 BMI result Body Mass Index 20.3 Gen: in no acute distress HEENT: sclera anicteric, moist mucus membranes Neck: supple Lungs: clear to auscultation bilaterally Heart: regular rate and rhythm, no murmurs Abd: soft, non-tender, paracentesis site without leakage or redness Ext: no edema Skin: warm/well-perfused Neuro: alert and oriented x3, no asterixis Psych: appropriate affect Objective Data Active Medications Acetaminophen (Acetaminophen 325 Mg Tablet) 650 mg PO Q6H PRN PRN Reason: Pain, Mild (Pain Scale 1-3) Al Hydroxide/Mg Hydroxide (Magnesium Hydrox/Alum Hydrox 30 Ml Oral.Susp) 30 ml PO Q4H PRN PRN Reason: Heartburn/Nausea Albuterol Sulfate (Albuterol Sulfate 90 Mcg 8 Gm Inhaler) 2 puff INHALE QID PRN PRN Reason: Shortness Of Breath Or Wheezing Fluticasone Propionate (Fluticasone Propionate 250 Mcg Blst.W.Dev) 2 puff INHALE RBID [facility] Fluticasone Propionate (Fluticasone Propionate Nasal 16 Gm [place]) 2 spray NOSTRIL-B DAILY PRN PRN Reason: Allergy Symptoms Albumin Human (Kedbumin 25 %) 100 mls @ 100 mls/hr IV Q6H [facility] Stop: 06/19/23 04:29 Last Infusion: 06/18/23 12:20 Dose: Infused Documented By: CAMMIE Linezolid (Zyvox/D5w) 600 mg in 300 mls @ 300 mls/hr IV Q12H [facility] Melatonin (Melatonin 3 Mg Tablet) 6 mg PO BEDTIME PRN PRN Reason: Insomnia Morphine Sulfate (Morphine Sulfate 2 Mg/Ml Cartridge) 2 mg IVPUSH Q4H PRN; Protocol PRN Reason: Pain, Severe (Pain Scale 7-10) Omeprazole (Omeprazole 40 Mg Capsule.Dr) 40 mg PO DAILY@0630 [facility] Last Admin: 06/18/23 11:11 Dose: 40 mg Documented By: CAMMIE Ondansetron HCl (Ondansetron Hcl 4 Mg/2 Ml Vial) 4 mg IVPUSH Q8H PRN PRN Reason: Nausea and Vomiting Oxycodone HCl (Oxycodone Hcl Immed Release 5 Mg Tablet) 5 mg PO Q6H PRN PRN Reason: Pain, Moderate(Pain Scale 4-6) Rifaximin (Rifaximin 550 Mg Tablet) 550 mg PO BID [facility] Last Admin: 06/18/23 11:53 Dose: 550 mg Documented By: CAMMIE Sodium Chloride (0.9 % Sodium Chloride Flush 3 Ml Syringe) 3 ml IVFLUSH QSHIFT [facility] Last Admin: 06/18/23 10:19 Dose: 3 ml Documented By: CAMMIE Spironolactone (Spironolactone 25 Mg Tablet) 100 mg PO DAILY [facility]; Protocol Last Admin: 06/18/23 11:11 Dose: 100 mg Documented By: CAMMIE Tramadol HCl (Tramadol Hcl 50 Mg Tablet) 50 mg PO Q12H PRN PRN Reason: Pain, Severe (Pain Scale 7-10) Ursodiol (Ursodiol 300 Mg Capsule) 300 mg PO BID [facility] Last Admin: 06/18/23 11:53 Dose: 300 mg Documented By: CAMMIE Labs 06/18/23 06:22 06/18/23 06:22 Labs: Laboratory Results - last 24 hr 06/17/23 06/17/23 06/17/23 17:10 17:19 19:41 MCV 96.2 MCH 32.7 MCHC 33.9 RDW 17.0 H Plt Count 203 MPV 9.7 Immature Gran % (Auto) 1.0 H Neut % (Auto) 88.5 H Lymph % (Auto) 3.6 L [place] % (Auto) 6.1 Eos % (Auto) 0.6 Baso % (Auto) 0.2 Lymph # (Auto) 0.8 L [place] # (Auto) 1.4 H Eos # (Auto) 0.1 Baso # (Auto) 0.0 Abs Immat Gran (auto) 0.22 H Absolute Neuts (auto) 20.3 H Absolute Nucleated RBC 0.000 Nucleated RBC % (auto) 0.0 Smear Tech's Comments VERIFIED Hold Purple Top PT 15.6 H INR 1.3 H APTT 34.7 VBG pH 7.31 L VBG pCO2 37 VBG pO2 33 VBG HCO3 19 L VBG O2 Saturation 44.0 VBG Base Excess -6.5 Anion Gap 13 Estim Creat Clear Calc 32.1 Estimated GFR 41 Random Glucose 104 Lactic Acid 3.3 H* Lactic Acid F/U @ 2Hr Calcium 8.6 Magnesium 1.9 Total Bilirubin 3.1 H AST 29 ALT 19 Alkaline Phosphatase 85 Ammonia 46 Total Creatine Kinase 15 L Total Protein 6.4 L Albumin 2.8 L Lipase 32 Urine Color Urine Appearance Urine pH Ur Specific [place] Urine Protein Urine Glucose (UA) Urine Ketones Urine Blood Urine Nitrite Ur Leukocyte Esterase Urine RBC Urine WBC Ur Squamous Epith Cells Urine Bacteria Hyaline Casts Peritoneal WBC Peritoneal RBC Periton Neutrophils Periton Lymphocytes Peritoneal Monocytes Peritoneal Other Cells Peritoneal Creatinine Peritoneal Tot Protein Peritoneal Albumin Peritoneal LDH Peritoneal Glucose Peritoneal Amylase Influenza Type A (PCR) NEGATIVE Influenza Type B (PCR) NEGATIVE RSV RNA Qual (PCR) NEGATIVE SARS-CoV-2 RNA (RT-PCR) NEGATIVE 06/17/23 06/17/23 06/18/23 22:09 23:03 00:06 MCV MCH MCHC RDW Plt Count MPV Immature Gran % (Auto) Neut % (Auto) Lymph % (Auto) [place] % (Auto) Eos % (Auto) Baso % (Auto) Lymph # (Auto) [place] # (Auto) Eos # (Auto) Baso # (Auto) Abs Immat Gran (auto) Absolute Neuts (auto) Absolute Nucleated RBC Nucleated RBC % (auto) Smear Tech's Comments Hold Purple Top SEE NOTE PT INR APTT VBG pH VBG pCO2 VBG pO2 VBG HCO3 VBG O2 Saturation VBG Base Excess Anion Gap Estim Creat Clear Calc Estimated GFR Random Glucose Lactic Acid Lactic Acid F/U @ 2Hr 1.7 Calcium Magnesium Total Bilirubin AST ALT Alkaline Phosphatase Ammonia Total Creatine Kinase Total Protein Albumin Lipase Urine Color Yellow Urine Appearance Clear Urine pH 5.5 Ur Specific [place] >= 1.030 H Urine Protein Negative Urine Glucose (UA) Negative Urine Ketones Negative Urine Blood Negative Urine Nitrite Positive H Ur Leukocyte Esterase Small (1+) H Urine RBC 0-2 Urine WBC 11-20 H Ur Squamous Epith Cells 0-2 Urine Bacteria 2+ Hyaline Casts 0-2 Peritoneal WBC 0.075 Peritoneal RBC < 0.002 [place] Neutrophils 12 [place] Lymphocytes 46 Peritoneal Monocytes 29 Peritoneal Other Cells 13 Peritoneal Creatinine 1.6 Peritoneal Tot Protein 1.1 Peritoneal Albumin 0.5 Peritoneal LDH 31 Peritoneal Glucose 116 Peritoneal Amylase 18 Influenza Type A (PCR) Influenza Type B (PCR) RSV RNA Qual (PCR) SARS-CoV-2 RNA (RT-PCR) 06/18/23 06:22 MCV 94.2 MCH 32.0 MCHC 34.0 RDW 16.9 H Plt Count 170 MPV 9.7 Immature Gran % (Auto) 0.6 H Neut % (Auto) 82.0 H Lymph % (Auto) 7.8 L [place] % (Auto) 7.6 Eos % (Auto) 1.9 Baso % (Auto) 0.1 Lymph # (Auto) 0.8 L [place] # (Auto) 0.7 Eos # (Auto) 0.2 Baso # (Auto) 0.0 Abs Immat Gran (auto) 0.06 H Absolute Neuts (auto) 8.0 Absolute Nucleated RBC 0.000 Nucleated RBC % (auto) 0.0 Smear Tech's Comments Hold Purple Top PT INR APTT VBG pH VBG pCO2 VBG pO2 VBG HCO3 VBG O2 Saturation VBG Base Excess Anion Gap 12 Estim Creat Clear Calc 38.8 Estimated GFR 52 Random Glucose 80 Lactic Acid Lactic Acid F/U @ 2Hr Calcium 8.5 Magnesium 1.7 Total Bilirubin 3.2 H AST 23 ALT 15 Alkaline Phosphatase 66 Ammonia Total Creatine Kinase Total Protein 5.6 L Albumin 2.8 L Lipase Urine Color Urine Appearance Urine pH Ur Specific [place] Urine Protein Urine Glucose (UA) Urine Ketones Urine Blood Urine Nitrite Ur Leukocyte Esterase Urine RBC Urine WBC Ur Squamous Epith Cells Urine Bacteria Hyaline Casts Peritoneal WBC Peritoneal RBC Periton Neutrophils Periton Lymphocytes Peritoneal Monocytes Peritoneal Other Cells Peritoneal Creatinine Peritoneal Tot Protein Peritoneal Albumin Peritoneal LDH Peritoneal Glucose Peritoneal Amylase Influenza Type A (PCR) Influenza Type B (PCR) RSV RNA Qual (PCR) SARS-CoV-2 RNA (RT-PCR) Microbiology Microbiology Results: Microbiology 06/17/23 22:09 Gram Stain - Final Abdomen - Abdominal Routine Culture - Preliminary Culture in progress. Anaerobic Culture - Preliminary Culture in progress. Assessment and Plan (1) Acute UTI: Status: Acute Plan d2 78yo M with decompensated EtOH cirrhosis + hepatic encephalopathy, ILD, CKD3, hx VRE UTI presenting with weakness + dyspnea found to have sepsis from UTI sepsis due to UTI - lactate normalized - linezolid d2 due to hx VRE UTI, ID consult pending NAVEEN/CKD3 - Cr improved with albumin, continue for hypotension decompensated cirrhosis with ascites - tapped 1000 mL in ED on presentation, no evidence for SBP - continue spironolactone hepatic encepahlopathy - lactulose + rifaximin ILD - prn albuterol, continue Flovent inhaler VTE ppx - SCDs dispo - PT eval In my clinical judgment, the patient requires continued inpatient hospitalization for the following reasons: IV ABX Total time managing care of this patient today: 35 minutes. Quality Stroke Does the patient have a stroke diagnosis?: No VTE Prior VTE?: No VTE Risk Level:: Medical - moderate - high VTE Device Contraindication: N/A - Device Ordered VTE Drug Contraindication: Treatment Not Indicated
[2023-06-18] MEDS: Lactulose 20 GM/30 ML SOLUTION PO (14:22)
[2023-06-18 20:02] VITALS: BP 121/62; PULSE 96; RESP 23; TEMP 36.8; O2SAT 97
--- NOTE | 2023-06-18 20:07 | PC.NURSE ---
pt eating dinner at this time, no c/o pain or discomfort. call marta w/in reach
--- NOTE | 2023-06-18 21:00 | PC.NURSE ---
assist boosting pt up in bed, given warm blankets. IV dressing changed
--- NOTE | 2023-06-18 22:08 | PC.NURSE ---
pt adamantly refused lactulose per AUG. pt education provided by this RN. states he was on the bed rivera all day and will not take it again. it was horrible
[2023-06-19] MEDS: Albumin Human 25 % 100 ML IV (05:07)
--- NOTE | 2023-06-19 05:13 | PC.NURSE ---
pt awake at this time. given ice cream per request
[2023-06-19 05:50] VITALS: BP 114/50; PULSE 92; RESP 24; TEMP 36.7; O2SAT 98
[2023-06-19 06:31] VITALS: BMI 19.4
[2023-06-19] MEDS: Omeprazole 40 MG CAPSULE.DR PO (06:40)
[2023-06-19 06:41] VITALS: BP 113/58; PULSE 89; RESP 18; O2SAT 98
[2023-06-19] MEDS: UrsodioL 300 MG CAPSULE PO ×2 (07:29→19:24)
[2023-06-19] MEDS: 0.9 % Sodium Chloride Flush 3 ML SYRINGE IVFLUSH ×3 (07:29→23:41)
[2023-06-19] MEDS: rifAXIMin 550 MG TABLET PO ×2 (07:29→19:24)
[2023-06-19] MEDS: Spironolactone 25 MG TABLET 100 MG PO (07:29)
[2023-06-19 07:54] VITALS: BP 135/60; PULSE 78; RESP 16; TEMP 36; O2SAT 96
[2023-06-19 09:01] LABS: Alanine Aminotransferase 12 U/L (0-40); Albumin Level 3.7 g/dL (3.5-5.0); Alkaline Phosphatase 53 U/L (39-117); Anion Gap 16 (12-20); Aspartate Amino Transferase 24 U/L (5-37); Blood Urea Nitrogen 35 mg/dL (9-16); Calcium 8.8 mg/dL (8.4-10.2); Carbon Dioxide 14 mmol/L (22-29); Chloride 113 mmol/L (96-108); Creatinine Clr Calc Pharmacy 35.1; Estimated Glomerular Filt Rate 48; Glucose Random 89 mg/dL (60-115); Magnesium 1.9 mg/dL (1.6-2.6); Sodium 138 mmol/L (135-145); Total Protein 5.9 g/dL (6.5-8.0)
[2023-06-19 09:59] LABS: Hematocrit 30.3 % (42.0-52.0); Mean Corpuscular Hemoglobin 31.8 pg (27.0-33.0); Mean Corpuscular Volume 96.5 fL (80.0-98.0); Mean Platelet Volume 9.4 fL (9.4-12.4); Platelet Count 159 X10*3/uL (160-400); Red Blood Count 3.14 X10*6/uL (4.60-5.80); Red Cell Distribution Width 16.7 % (11.0-16.0); White Blood Count 7.2 X10*3/uL (4.8-10.8)
[2023-06-19] MEDS: Linezolid/D5W 600 MG/300 ML PIGGYBACK 300 MG IV ×2 (11:47→22:24)
--- NOTE | 2023-06-19 12:04 | HO.PM.IMPN ---
Subjective Subjective Date of Service: 06/19/23 Interval History: feels well, no dyspnea, no abd pain, no N/V Review of Systems Review of Systems: Yes all other systems are reviewed and are negative Physical Exam Vital Signs: Vital Signs: Last Vital Signs Temp 96.8 F 06/19/23 07:54 Pulse 78 06/19/23 07:54 Resp 16 06/19/23 07:54 BP 135/60 06/19/23 07:54 Pulse Ox 96 06/19/23 07:54 O2 Del Method Room Air 06/19/23 07:54 BMI result Body Mass Index 19.4 Gen: in no acute distress HEENT: sclera anicteric, moist mucus membranes Neck: supple Lungs: clear to auscultation bilaterally Heart: regular rate and rhythm, no murmurs Abd: soft, non-tender, paracentesis site without leakage or redness Ext: no edema Skin: warm/well-perfused Neuro: alert and oriented x3, no asterixis Psych: appropriate affect Objective Data Active Medications Acetaminophen (Acetaminophen 325 Mg Tablet) 650 mg PO Q6H PRN PRN Reason: Pain, Mild (Pain Scale 1-3) Al Hydroxide/Mg Hydroxide (Magnesium Hydrox/Alum Hydrox 30 Ml Oral.Susp) 30 ml PO Q4H PRN PRN Reason: Heartburn/Nausea Albuterol Sulfate (Albuterol Sulfate 90 Mcg 8 Gm Inhaler) 2 puff INHALE QID PRN PRN Reason: Shortness Of Breath Or Wheezing Fluticasone Propionate (Fluticasone Propionate 250 Mcg Blst.W.Dev) 2 puff INHALE RBID [facility] Last Admin: 06/19/23 08:18 Dose: Not Given Documented By: TAN Non-Admin Reason: Med Not Available Fluticasone Propionate (Fluticasone Propionate Nasal 16 Gm [place]) 2 spray NOSTRIL-B DAILY PRN PRN Reason: Allergy Symptoms Linezolid (Zyvox/D5w) 600 mg in 300 mls @ 300 mls/hr IV Q12H [facility] Last Admin: 06/19/23 11:47 Dose: 300 mls/hr Documented By: CHANDRIKA Lactulose (Lactulose 20 Gm/30 Ml Solution) 20 gm PO BID [facility] Last Admin: 06/19/23 07:31 Dose: Not Given Documented By: HO.COTEMA Non-Admin Reason: Patient Refused Melatonin (Melatonin 3 Mg Tablet) 6 mg PO BEDTIME PRN PRN Reason: Insomnia Morphine Sulfate (Morphine Sulfate 2 Mg/Ml Cartridge) 2 mg IVPUSH Q4H PRN; Protocol PRN Reason: Pain, Severe (Pain Scale 7-10) Omeprazole (Omeprazole 40 Mg Capsule.Dr) 40 mg PO DAILY@0630 [facility] Last Admin: 06/19/23 06:40 Dose: 40 mg Documented By: FRED Ondansetron HCl (Ondansetron Hcl 4 Mg/2 Ml Vial) 4 mg IVPUSH Q8H PRN PRN Reason: Nausea and Vomiting Oxycodone HCl (Oxycodone Hcl Immed Release 5 Mg Tablet) 5 mg PO Q6H PRN PRN Reason: Pain, Moderate(Pain Scale 4-6) Rifaximin (Rifaximin 550 Mg Tablet) 550 mg PO BID [facility] Last Admin: 06/19/23 07:29 Dose: 550 mg Documented By: COTEMA Sodium Chloride (0.9 % Sodium Chloride Flush 3 Ml Syringe) 3 ml IVFLUSH QSHIFT [facility] Last Admin: 06/19/23 07:29 Dose: 3 ml Documented By: COTEMA Spironolactone (Spironolactone 25 Mg Tablet) 100 mg PO DAILY [facility]; Protocol Last Admin: 06/19/23 07:29 Dose: 100 mg Documented By: COTEMA Tramadol HCl (Tramadol Hcl 50 Mg Tablet) 50 mg PO Q12H PRN PRN Reason: Pain, Severe (Pain Scale 7-10) Ursodiol (Ursodiol 300 Mg Capsule) 300 mg PO BID [facility] Last Admin: 06/19/23 07:29 Dose: 300 mg Documented By: ANKITAEMA Labs 06/19/23 09:41 06/19/23 08:33 Labs: Laboratory Results - last 24 hr 06/19/23 06/19/23 08:33 09:41 MCV 96.5 MCH 31.8 MCHC 33.0 RDW 16.7 H Plt Count 159 L MPV 9.4 Absolute Nucleated RBC 0.000 Nucleated RBC % (auto) 0.0 Anion Gap 16 Estim Creat Clear Calc 35.1 Estimated GFR 48 Random Glucose 89 Calcium 8.8 Magnesium 1.9 Total Bilirubin 2.0 H AST 24 ALT 12 Alkaline Phosphatase 53 Total Protein 5.9 L Albumin 3.7 Microbiology Microbiology Results: Microbiology 06/18/23 Unknown Urine Culture - Final Urine clean catch - Urine trevino top 06/17/23 22:09 Gram Stain - Final Abdomen - Abdominal Routine Culture - Preliminary No growth to date. Anaerobic Culture - Preliminary No growth to date. 06/17/23 19:39 Blood Culture - Preliminary Blood - Venous No growth after 24 hours. 06/17/23 19:45 Blood Culture - Preliminary Blood - Venous No growth after 24 hours. Assessment and Plan (1) Acute UTI: Status: Acute Plan d3 78yo M with decompensated EtOH cirrhosis + hepatic encephalopathy, ILD, CKD3, hx VRE UTI presenting with weakness + dyspnea found to have sepsis from UTI sepsis due to UTI - lactate normalized - linezolid d3 due to hx VRE UTI, ID consult pending NAVEEN/CKD3 - Cr improved with albumin, continue for hypotension decompensated cirrhosis with ascites - tapped 1000 mL in ED on presentation, no evidence for SBP - continue spironolactone hepatic encepahlopathy - lactulose + rifaximin ILD - prn albuterol, continue Flovent inhaler VTE ppx - SCDs dispo - PT eval In my clinical judgment, the patient requires continued inpatient hospitalization for the following reasons: IV ABX Total time managing care of this patient today: 35 minutes. Quality Stroke Does the patient have a stroke diagnosis?: No VTE Prior VTE?: No VTE Risk Level:: Medical - moderate - high VTE Device Contraindication: N/A - Device Ordered VTE Drug Contraindication: Treatment Not Indicated
--- NOTE | 2023-06-19 13:30 | MHC.CM.PN ---
IMM delivered. Patient is from home w/ son/caregiver/HCP [place] [phone]. Patient ambulates w/ walker, uses w/c PRN. Son assists w/ ADL's PRN. Previoulsy active w/ [facility], and is open to their services again. PCP: Michelle Oswald APRN DP: Awaiting PT eval. Goal is home w/ family support. Son to transport. CM Will continue to follow for dc needs.
[2023-06-19 15:46] VITALS: BP 137/61; PULSE 95; RESP 17; TEMP 36.2; O2SAT 98
[2023-06-19 19:10] VITALS: BP 136/65; PULSE 91; RESP 18; TEMP 36.5; O2SAT 96
--- NOTE | 2023-06-19 19:36 | PC.RT ---
pharmacy notified pt inhaler needed
[2023-06-19] MEDS: Fluticasone Propionate 250 MCG BLST.W.DEV 2 PUFF INHALE (20:14)
[2023-06-19 20:16] VITALS: PULSE 91; RESP 14; O2SAT 98
--- NOTE | 2023-06-19 21:45 | W.PM.IDCN ---
History of Present Illness Data of Consult Service Date: 06/19/23 Requesting physician: Elian Mina Primary Care Provider: Michelle Oswald NP HPI Reason for consult: leukocytosis He presents with abdominal generalized discomfort for a day to ED and had paracentesis. He has cultures pending. He has h/o VRE UTI Review of Systems Review of Systems: Yes all other systems are reviewed and are negative PMFSH Past Medical History Medical History Decompensation of cirrhosis of liver Interstitial lung disease UTI (urinary tract infection) due to Enterococcus Mass of upper lobe of right lung History of alcohol use disorder Cirrhosis Normocytic anemia Family History Family history: reviewed and not pertinent Surgical History Surgical History No pertinent past surgical history Social History Social History Household Members: Children Housing: Apartment Do you presently have visiting nurse or other home services: No Alcohol intake: former Patient Tobacco Use Status: Former Tobacco user Quit Date: 2018 e-Cigarette/Vaping Use: Never Used Second Hand Smoke Exposure: No service: No Meds Allergies Allergy/AdvReac Type Severity Reaction Status Date / Time diphenhydramine Allergy Unknown Verified 06/17/23 16:02 [From Benadryl] Penicillins Allergy Anaphylaxis Verified 06/17/23 16:02 Active Medications: Current Medications Acetaminophen (Acetaminophen 325 Mg Tablet) 650 mg PO Q6H PRN PRN Reason: Pain, Mild (Pain Scale 1-3) Al Hydroxide/Mg Hydroxide (Magnesium Hydrox/Alum Hydrox 30 Ml Oral.Susp) 30 ml PO Q4H PRN PRN Reason: Heartburn/Nausea Albuterol Sulfate (Albuterol Sulfate 90 Mcg 8 Gm Inhaler) 2 puff INHALE QID PRN PRN Reason: Shortness Of Breath Or Wheezing Fluticasone Propionate (Fluticasone Propionate 250 Mcg Blst.W.Dev) 2 puff INHALE RBID [facility] Last Admin: 06/19/23 20:14 Dose: 2 puff Fluticasone Propionate (Fluticasone Propionate Nasal 16 Gm [place]) 2 spray NOSTRIL-B DAILY PRN PRN Reason: Allergy Symptoms Linezolid (Zyvox/D5w) 600 mg in 300 mls @ 300 mls/hr IV Q12H [facility] Last Infusion: 06/19/23 13:12 Dose: Infused Lactulose (Lactulose 20 Gm/30 Ml Solution) 20 gm PO BID [facility] Last Admin: 06/19/23 19:23 Dose: Not Given Melatonin (Melatonin 3 Mg Tablet) 6 mg PO BEDTIME PRN PRN Reason: Insomnia Morphine Sulfate (Morphine Sulfate 2 Mg/Ml Cartridge) 2 mg IVPUSH Q4H PRN; Protocol PRN Reason: Pain, Severe (Pain Scale 7-10) Omeprazole (Omeprazole 40 Mg Capsule.Dr) 40 mg PO DAILY@0630 [facility] Last Admin: 06/19/23 06:40 Dose: 40 mg Ondansetron HCl (Ondansetron Hcl 4 Mg/2 Ml Vial) 4 mg IVPUSH Q8H PRN PRN Reason: Nausea and Vomiting Oxycodone HCl (Oxycodone Hcl Immed Release 5 Mg Tablet) 5 mg PO Q6H PRN PRN Reason: Pain, Moderate(Pain Scale 4-6) Rifaximin (Rifaximin 550 Mg Tablet) 550 mg PO BID [facility] Last Admin: 06/19/23 19:24 Dose: 550 mg Sodium Chloride (0.9 % Sodium Chloride Flush 3 Ml Syringe) [facility] Last Admin: 06/19/23 16:34 Dose: 3 ml Spironolactone (Spironolactone 25 Mg Tablet) 100 mg PO DAILY [facility]; Protocol Last Admin: 06/19/23 07:29 Dose: 100 mg Tramadol HCl (Tramadol Hcl 50 Mg Tablet) 50 mg PO Q12H PRN PRN Reason: Pain, Severe (Pain Scale 7-10) Ursodiol (Ursodiol 300 Mg Capsule) 300 mg PO BID [facility] Last Admin: 06/19/23 19:24 Dose: 300 mg Home Medications Medication Instructions Recorded Confirmed Last Taken Type albuterol sulfate 90 mcg/actuation 2 puff inhalation QID PRN 01/14/23 06/18/23 Unknown History aerosol inhaler Shortness Of Breath Or Wheezing betamethasone dipropionate 0.05 % 1 appl topical TUTH PRN PSORIASIS 01/14/23 06/18/23 01/09/23 History topical ointment calcipotriene 0.005 % topical cream 1 appl topical BID PRN psoriasis 01/14/23 06/18/23 01/09/23 History ciclopirox 0.77 % topical cream 1 appl topical BID PRN psoriasis 01/14/23 06/18/23 01/09/23 History fluticasone propionate 220 2 puff inhalation BID Shortness Of 01/14/23 06/18/23 01/13/23 History mcg/actuation HFA aerosol inhaler Breath Or Wheezing (Flovent HFA) fluticasone propionate 50 2 spray intranasal DAILY PRN 01/14/23 06/18/23 01/13/23 History mcg/actuation nasal Allergy Symptoms spray,suspension furosemide 40 mg tablet 40 mg PO QAM 06/18/23 06/18/23 Unknown History omeprazole 40 mg capsule,delayed 40 mg PO DAILY 06/18/23 06/18/23 Unknown History release spironolactone 100 mg tablet 100 mg PO QAM 06/18/23 06/18/23 Unknown History Physical Exam Vital Signs: Vital Signs: Last Vital Signs Temp 97.7 F 06/19/23 19:10 Pulse 91 06/19/23 20:16 Resp 14 06/19/23 20:16 BP 136/65 06/19/23 19:10 Pulse Ox 96 06/19/23 19:10 O2 Del Method Room Air 06/19/23 19:10 BMI result Body Mass Index 19.4 Const: General: cooperative HEENT: Head: Yes normal to inspection Face and sinus: Yes normal facial exam Mouth: Normal oral and palatal mucosa present Teeth and gingiva: dentition normal Eyes: General: appearance normal, both eyes and all related structures Pupils: Equal, round and reactive pupils present Resp: Effort & Inspection: normal respiratory effort Cardio: Rate: regular rate Rhythm: regular rhythm GI: Palpation (GI): Soft to palpation and nontender : General: Yes no CVA tenderness Back/Spine/Pelvis: Back: no CVA tenderness Skin: General skin exam: no rashes or lesions noted Neuro: General: moves all extremities Cranial nerves: Yes Equal, round and reactive pupils present Extrem: General: Yes normal to inspection Psych: Appearance: grossly normal Results Labs 06/19/23 09:41 06/19/23 08:33 Labs: Short CBC 06/19/23 Range/Units 09:41 WBC 7.2 (4.8-10.8) X10*3/uL Hgb 10.0 L (14.0-18.0) g/dl Hct 30.3 L (42.0-52.0) % Plt Count 159 L (160-400) X10*3/uL BMP 06/19/23 08:33 Sodium 138 Potassium 5.0 Chloride 113 H Carbon Dioxide 14 L BUN 35 H Creatinine 1.42 H Calcium 8.8 Liver Function 06/19/23 Range/Units 08:33 Total Bilirubin 2.0 H (0.0-1.0) mg/dL AST 24 (5-37) U/L ALT 12 (0-40) U/L Alkaline Phosphatase 53 (39-117) U/L Albumin 3.7 (3.5-5.0) g/dL Microbiology Microbiology Results: Microbiology 06/18/23 Unknown Urine clean catch - Urine trevino top Urine Culture - Final 06/17/23 22:09 Abdomen - Abdominal Gram Stain - Final 06/17/23 22:09 Abdomen - Abdominal Routine Culture - Preliminary No growth to date. 06/17/23 22:09 Abdomen - Abdominal Anaerobic Culture - Preliminary No growth to date. 06/17/23 19:39 Blood - Venous Blood Culture - Preliminary No growth after 24 hours. 06/17/23 19:45 Blood - Venous Blood Culture - Preliminary No growth after 24 hours. Assessment and Plan (1) SBP (spontaneous bacterial peritonitis): Status: Acute (2) Acute UTI: Status: Acute There is some concern over SBP as well as UTI. There is h/o VRE UTI (3) NAVEEN (acute kidney injury): Status: Acute Plan Would give linezolid for seven days likely. Await final cultures.
[2023-06-20 03:25] VITALS: BP 132/62; PULSE 95; RESP 16; TEMP 36; O2SAT 98
[2023-06-20] MEDS: Omeprazole 40 MG CAPSULE.DR PO (05:29)
[2023-06-20 07:42] VITALS: BP 122/62; PULSE 94; RESP 16; TEMP 36.4; O2SAT 98
[2023-06-20] MEDS: Linezolid/D5W 600 MG/300 ML PIGGYBACK 300 MG IV (08:18)
[2023-06-20] MEDS: Spironolactone 25 MG TABLET 100 MG PO (08:18)
[2023-06-20] MEDS: UrsodioL 300 MG CAPSULE PO (08:18)
[2023-06-20] MEDS: rifAXIMin 550 MG TABLET PO (08:18)
[2023-06-20] MEDS: 0.9 % Sodium Chloride Flush 3 ML SYRINGE IVFLUSH (08:19)
[2023-06-20 10:09] LABS: Hematocrit 32.5 % (42.0-52.0); Hemoglobin 10.8 g/dl (14.0-18.0); Mean Corpuscular HGB Conc 33.2 g/dl (31.0-36.0); Mean Corpuscular Hemoglobin 31.8 pg (27.0-33.0); Mean Corpuscular Volume 95.6 fL (80.0-98.0); Mean Platelet Volume 9.7 fL (9.4-12.4); Platelet Count 168 X10*3/uL (160-400); Red Cell Distribution Width 16.6 % (11.0-16.0); White Blood Count 6.9 X10*3/uL (4.8-10.8)
[2023-06-20 10:24] LABS: Anion Gap 11 (12-20); Blood Urea Nitrogen 27 mg/dL (9-16); Calcium 8.7 mg/dL (8.4-10.2); Carbon Dioxide 18 mmol/L (22-29); Chloride 110 mmol/L (96-108); Creatinine Clr Calc Pharmacy 35.1; Estimated Glomerular Filt Rate 48; Glucose Random 115 mg/dL (60-115); Potassium 3.8 mmol/L (3.3-5.1); Sodium 135 mmol/L (135-145)
[2023-06-20] MEDS: Fluticasone Propionate 250 MCG BLST.W.DEV 2 PUFF INHALE (11:51)
[2023-06-20 11:52] VITALS: PULSE 96; RESP 16; O2SAT 99
--- NOTE | 2023-06-20 12:35 | W.MHC.F2F ---
Service Date Service Date: 06/20/23 Encounter Date of encounter: 06/20/23 Reasons for Services Signs and symptoms assessed: 62yo F with mild intermittent allergic asthma who started to have dry cough and nasal congestion around 06/09/23 but then proceeded to develop worsening dyspnea and wheezing, especially with exertion. She went to an urgent care on 06/14/23 and was tested for Covid, influenza, RSV, which were all negative. She was prescribed albuterol and prednisone and has been taking the prednisone as directed without improvement. She presented to the ED today and was given 125 mg of IV methylprednisolone and a total of 4 nebulizer treatments along with magnesium. She still is wheezing and short of breath. She ambulated in the ED and SaO2 dropped to 87%. CXR showed no infiltrate and PCR for influenza, Covid-19, and RSV was negative. Reason for physical therapy: home safety and mobility, therapeutic exercises, gait/transfer training, assess need for DME, ADL training and energy conservation MD Overseeing Care: Michelle Oswald Homebound: Leaving the home is medically contraindicated at this time without the asist of a device and/or another person due th the listed conditions above and below. Reason homebound: unsteady gait / fall risk and weakness related to hospital stay Homebound supporting statement: Bed Mobility, Transfer Training,Gait Training, Therapeutic Activities, Therapeutic Exercise,Neuro Re-education, Patient Education, Safety,Balance Certification: Based on the above findings, I certify that this patient is confined to the home and needs intermittent prison care, physical therapy and/or speech therapy, or continues to need occupational therapy. The patient is under my care, and I have initiated the establishment of the plan of care. The patient will be followed by a physician who will periodically review the plan of care. Time Spent With Patient Time: Total time managing care of this patient today ____ minutes.
--- NOTE | 2023-06-20 12:42 | PM.DS ---
DS: Providers Provider Date of Service: 06/20/23 Date of admission: 06/17/23 23:23 Date of discharge: 06/20/23 Primary care physician: Michelle Oswald NP Consults: 06/18/23 06:59 Consult to Infectious Diseases Routine Consulting Provider: Patricia Escamilla Reason for consultation: Concern for VRE UTI Has provider been notified: No DS: Diagnosis Discharge Diagnosis (1) Acute UTI: Status: Acute (2) NAVEEN (acute kidney injury): Status: Acute (3) Cirrhosis: Status: Acute (4) Sepsis: Status: Resolved DS: Summary Hospital Course Hospital Course: From the history and physical by the admitting hospitalist, Luciano Orosco MD, 06/17/23: Patient is a 78 year old pleasant white male with past medical history of decompensated alcoholic liver cirrhosis with past episode of hepatic encephalopathy (now on Rifaximin and Lactulose), chronic hyponatremia, intertstitial lung disease (ILD), renal failure, right upper lobe lung mass and previous episode of VRE UTI who was brought to the emergency room by ambulance from home complaining of progressively worsening weakness for last 2 months with associated exertional dyspnea and a dry cough. He states that he is now significantly weaker and has difficulty ambulating. He describes increasing dyspnea with exertion stating that he is unable to walk 5-10 feet without getting out of breath. He denies any associated chest pain, fevers, chills or urinary symptoms even though a urinalysis done tonight had findings concerning for dehydration and a UTI. He has high urine specific gravity of >1.030, positive urine nitrites, 1+ leukocyte Estrace, 11-20 wbc's/HPF and 2+ bacteria. A CBC done showed a leukocytosis of 22.9 k/mm3 with 88.5% neutrophils and a comprehensive metabolic panel done showed mild renal insufficiency with a BUN of 39 mg/dL and creatinine of 1.62 mg/dL. Serum lactic acid was elevated at 3.3 but improved to 1.7 after hydration. His vital signs were fairly stable except for mild tachycardia with a pulse of 93 beats per minute and tachypnea there is a rate of 81. An assessment of severe sepsis due to UTI was made he received a dose of intravenous Levaquin and admission was therafter requested.. 78yo M with decompensated EtOH cirrhosis + hepatic encephalopathy, ILD, CKD3, and hx VRE UTI presenting with weakness + dyspnea was found to have sepsis attributed to UTI. HE underwent paracentesis in the ED with removal of 1000 mL of ascites that did not demonstrate evidence of SBP. He was treated with linezolid due to history of VRE. Urine culture grew <09083 cFU/mL but given his improvement and the history of cirrhosis, it was thought prudent to complete UTI treatment with linezolid. Creatinine improved with albumin and diuretics were resumed. He was assessed by PT and short-term rehabilitation was recommended; however, he declined. He was discharged home with VNA services on PO linezolid and should repeat BMP in 1 week. Of note, previously demosntrated RUL opacity that was seen on CT 01/20/23 was also seen on CXR this admission, though CT this admission showed more of a linear/elongated appearance. We still recommend he have outpatient follow up with Dr Ho from Oncology/Hematology for consideration of PET scan. Time Attestation Discharge coordination time: Greater than 30 minutes Quality: Safe Use of Opioids Does Pt have an Active Cancer Diagnosis on the Problem List?: No Quality: Stroke Does the patient have a stroke diagnosis?: No Physical Exam Vital Signs: Vital Signs: Last Vital Signs Temp 97.6 F 06/20/23 07:42 Pulse 96 06/20/23 11:52 Resp 16 06/20/23 11:52 BP 122/62 06/20/23 07:42 Pulse Ox 98 06/20/23 07:42 O2 Del Method Room Air 06/20/23 07:42 BMI result Body Mass Index 19.4 Gen: in no acute distress HEENT: sclera anicteric, moist mucus membranes Neck: supple Lungs: clear to auscultation bilaterally Heart: regular rate and rhythm, no murmurs Abd: soft, non-tender, paracentesis site without leakage or redness Ext: no edema Skin: warm/well-perfused Neuro: alert and oriented x3, no asterixis Psych: appropriate affect DS: Data Data Completed and Pending Completed studies during hospitalization [Text1]: Laboratory Results WBC 6.9 X10*3/uL (4.8-10.8) 06/20/23 09:46 RBC 3.40 X10*6/uL (4.60-5.80) L 06/20/23 09:46 Hgb 10.8 g/dl (14.0-18.0) L 06/20/23 09:46 Hct 32.5 % (42.0-52.0) L 06/20/23 09:46 MCV 95.6 fL (80.0-98.0) 06/20/23 09:46 MCH 31.8 pg (27.0-33.0) 06/20/23 09:46 MCHC 33.2 g/dl (31.0-36.0) 06/20/23 09:46 RDW 16.6 % (11.0-16.0) H 06/20/23 09:46 Plt Count 168 X10*3/uL (160-400) 06/20/23 09:46 MPV 9.7 fL (9.4-12.4) 06/20/23 09:46 Immature Gran % (Auto) 0.6 % (0.0-0.4) H 06/18/23 06:22 Neut % (Auto) 82.0 % (45-73) H 06/18/23 06:22 Lymph % (Auto) 7.8 % (20-40) L 06/18/23 06:22 [place] % (Auto) 7.6 % (2-11) 06/18/23 06:22 Eos % (Auto) 1.9 % (0-4) 06/18/23 06:22 Baso % (Auto) 0.1 % (0-2) 06/18/23 06:22 Lymph # (Auto) 0.8 X10*3/uL (1.2-4.9) L 06/18/23 06:22 [place] # (Auto) 0.7 X10*3/uL (0.1-1.2) 06/18/23 06:22 Eos # (Auto) 0.2 X10*3/uL (0.0-0.4) 06/18/23 06:22 Baso # (Auto) 0.0 X10*3/uL (0.0-0.2) 06/18/23 06:22 Abs Immat Gran (auto) 0.06 X10*3/uL (0.00-0.03) H 06/18/23 06:22 Absolute Neuts (auto) 8.0 x10*3/uL (2.0-8.3) 06/18/23 06:22 Absolute Nucleated RBC 0.000 X10*3/uL (0.0-0.012) 06/20/23 09:46 Nucleated RBC % (auto) 0.0 /100WBC (0.0-0.2) 06/20/23 09:46 Smear Tech's Comments VERIFIED 06/17/23 17:10 Hold Purple Top SEE NOTE 06/18/23 00:06 PT 15.6 SEC (11.1-13.3) H 06/17/23 17:10 INR 1.3 (0.9-1.1) H 06/17/23 17:10 APTT 34.7 SEC (26.0-36.4) 06/17/23 17:10 VBG pH 7.31 (7.32-7.43) L 06/17/23 17:19 VBG pCO2 37 mmHg 06/17/23 17:19 VBG pO2 33 mmHg 06/17/23 17:19 VBG HCO3 19 mmol/L (22-26) L 06/17/23 17:19 VBG O2 Saturation 44.0 % 06/17/23 17:19 VBG Base Excess -6.5 mmol/L 06/17/23 17:19 Sodium 135 mmol/L (135-145) 06/20/23 09:46 Potassium 3.8 mmol/L (3.3-5.1) D 06/20/23 09:46 Chloride 110 mmol/L (96-108) H 06/20/23 09:46 Carbon Dioxide 18 mmol/L (22-29) L 06/20/23 09:46 Anion Gap 11 (12-20) L 06/20/23 09:46 BUN 27 mg/dL (9-16) H 06/20/23 09:46 Creatinine 1.42 mg/dL (0.5-1.4) H 06/20/23 09:46 Estim Creat Clear Calc 35.1 06/20/23 09:46 Estimated GFR 48 06/20/23 09:46 Random Glucose 115 mg/dL (60-115) 06/20/23 09:46 Lactic Acid 3.3 mmol/L (0.5-2.0) H* 06/17/23 19:41 Lactic Acid F/U @ 2Hr 1.7 mmol/L (0.5-2.0) 06/18/23 00:06 Calcium 8.7 mg/dL (8.4-10.2) 06/20/23 09:46 Magnesium 1.9 mg/dL (1.6-2.6) 06/19/23 08:33 Total Bilirubin 2.0 mg/dL (0.0-1.0) H 06/19/23 08:33 AST 24 U/L (5-37) 06/19/23 08:33 ALT 12 U/L (0-40) 06/19/23 08:33 Alkaline Phosphatase 53 U/L (39-117) 06/19/23 08:33 Ammonia 46 umol/L (13-55) 06/17/23 17:10 Total Creatine Kinase 15 U/L (38-174) L 06/17/23 17:10 Troponin I High Sens 9.3 ng/L (<3.5-35.0) 06/17/23 19:39 Total Protein 5.9 g/dL (6.5-8.0) L 06/19/23 08:33 Albumin 3.7 g/dL (3.5-5.0) 06/19/23 08:33 Lipase 32 U/L (8-78) 06/17/23 17:10 Urine Color Yellow 06/17/23 23:03 Urine Appearance Clear 06/17/23 23:03 Urine pH 5.5 (5.0-9.0) 06/17/23 23:03 Ur Specific [place] >= 1.030 (1.005-1.025) H 06/17/23 23:03 Urine Protein Negative mg/dL (Neg-Trace) 06/17/23 23:03 Urine Glucose (UA) Negative mg/dL (Negative) 06/17/23 23:03 Urine Ketones Negative mg/dL (Negative) 06/17/23 23:03 Urine Blood Negative (Negative) 06/17/23 23:03 Urine Nitrite Positive (Negative) H 06/17/23 23:03 Ur Leukocyte Esterase Small (1+) (Negative) H 06/17/23 23:03 Urine RBC 0-2 /HPF (0-2) 06/17/23 23:03 Urine WBC 11-20 /HPF (0-5) H 06/17/23 23:03 Ur Squamous Epith Cells 0-2 /HPF (0-2) 06/17/23 23:03 Urine Bacteria 2+ (None Seen) 06/17/23 23:03 Hyaline Casts 0-2 /LPF (0-2) 06/17/23 23:03 Peritoneal WBC 0.075 X10*3/uL 06/17/23 22:09 Peritoneal RBC < 0.002 X10*6/uL 06/17/23 22:09 Periton Neutrophils 12 % 06/17/23 22:09 Periton Lymphocytes 46 % 06/17/23 22:09 Peritoneal Monocytes 29 % 06/17/23 22:09 Peritoneal Other Cells 13 % 06/17/23 22:09 Peritoneal Creatinine 1.6 MG/DL 06/17/23 22:09 Peritoneal Tot Protein 1.1 GM/DL 06/17/23 22:09 Peritoneal Albumin 0.5 GM/DL 06/17/23 22:09 Peritoneal LDH 31 U/L 06/17/23 22:09 Peritoneal Glucose 116 MG/DL 06/17/23 22:09 Peritoneal Amylase 18 U/L 06/17/23 22:09 Influenza Type A (PCR) NEGATIVE (Negative) 06/17/23 17:10 Influenza Type B (PCR) NEGATIVE (Negative) 06/17/23 17:10 RSV RNA Qual (PCR) NEGATIVE (Negative) 06/17/23 17:10 SARS-CoV-2 RNA (RT-PCR) NEGATIVE (Negative) 06/17/23 17:10 Impressions Chest X-Ray 06/17/23 17:19 IMPRESSION: 1. No acute cardiopulmonary findings. 2. Again noted focal observation in the right upper lobe corresponding to a suspicious nodular-like opacity on CT chest from 01/20/2023. Reevaluation with outpatient chest CT or PET/CT is highly recommended as malignancy is not excluded. 3. Chronic interstitial lung disease. Abdomen Ultrasound 06/17/23 18:15 IMPRESSION: 1. Heterogeneous and hyperechoic liver parenchyma with suggestion of nodular hepatic contour worrisome for hepatocellular disease and cirrhosis. 2. Moderate volume of ascites. 3. Cholelithiasis. 4. Gallbladder wall thickening and pericholecystic free fluid are nonspecific in the context of ascites and hepatocellular disease and are most likely related with liver dysfunction. However, clinical correlation for acute cholecystitis is recommended. Abdomen/Pelvis CT 06/17/23 18:57 IMPRESSION: 1. Nodular cirrhotic liver with moderate volume of abdominal ascites increased from the prior study. I do not appreciate any discrete hepatic mass lesion on this single contrast phase study. There is evidence for portal hypertension with paraesophageal varicosities. 2. Interstitial lung disease with increasing subpleural fibrotic disease and traction atelectasis from the previous study 3. Chronic appearing changes otherwise as described above. I do not appreciate any acute intra-abdominal process otherwise. Chest CT 06/17/23 18:57 IMPRESSION: 1. Nodular cirrhotic liver with moderate volume of abdominal ascites increased from the prior study. I do not appreciate any discrete hepatic mass lesion on this single contrast phase study. There is evidence for portal hypertension with paraesophageal varicosities. 2. Interstitial lung disease with increasing subpleural fibrotic disease and traction atelectasis from the previous study 3. Chronic appearing changes otherwise as described above. I do not appreciate any acute intra-abdominal process otherwise. Labs on day of discharge: Discharge Plan Discharge Anticipated Discharge Date/Time: 06/20/23 12:38 Patient Disposition: Home Health Service Discharge Diagnosis: UTI, NAVEEN lung mass Referrals: Jane RODRÍGUEZ [Outside] - 3-5 Days (HOME SERVICES FOR PHYSICAL THERAPY- A THERAPIST WILL CALL YOU TO SET UP FIRST APPOINTMENT) Michelle Oswald NP [Primary Care Provider] - 1 Week Ryley Ho MD [Physician] - 1 Week Discharge Medications: New linezolid 600 mg Tablet 600 mg PO Q12H Qty: 8 0RF Continued calcipotriene 0.005 % cream 1 appl topical BID PRN (Reason: psoriasis) Rx Instructions: apply to feet fluticasone propionate [Flovent HFA] 220 mcg/actuation HFA aerosol inhaler 2 puff inhalation BID albuterol sulfate 90 mcg/actuation HFA aerosol inhaler 2 puff inhalation QID PRN (Reason: Shortness Of Breath Or Wheezing) betamethasone dipropionate 0.05 % ointment 1 appl topical TUTH PRN (Reason: PSORIASIS) Rx Instructions: apply to legs and elbows fluticasone propionate 50 mcg/actuation spray,suspension 2 spray intranasal DAILY PRN (Reason: Allergy Symptoms) ciclopirox 0.77 % cream 1 appl topical BID PRN (Reason: psoriasis) Rx Instructions: apply to legs and elbows Xifaxan 550 mg Tablet 550 mg PO BID Qty: 60 0RF Rx Instructions: START DATE: 01/31/23 tramadol 50 mg Tablet 50 mg PO Q12H PRN (Reason: Pain, Severe (Pain Scale 7-10)) Qty: 20 0RF ursodiol 300 mg Capsule 300 mg PO BID Qty: 60 0RF furosemide 40 mg tablet 40 mg PO QAM spironolactone 100 mg tablet 100 mg PO QAM omeprazole 40 mg capsule,delayed release(DR/EC) 40 mg PO DAILY Discharge Orders: Discharge Order (Routine); Ordered 06/20/23 Ordered By: Elian Mina Diet: Advance to usual diet Activity on Discharge: As tolerated Stand Alone Forms: Patient Portal Discharge page Other Ambulatory Orders: Basic Metabolic Panel (Routine) Timeframe: 1 Week Facility: [facility] - Location: Laboratory Ordered By: Elian Mina Care Plan Goals: treatment of infection diagnosis of lung mass Health Concerns: UTI, NAVEEN lung mass (previously demonstrated 01/18/23) Plan of Treatment: linezolid 600 mg twice daily for 4 days recheck basic metabolic panel [BMP] in 1 week Please follow up with your primary care doctor within 1 week. Return to the hospital if you experience recurrent or worsening symptoms. Please follow up with Dr Ho from [facility] for workup of lung mass that was previously diagnosed on 01/20/23. Assessment: See Discharge Summary.
--- NOTE | 2023-06-20 12:44 | W.MHC.F2F ---
Service Date Service Date: 06/20/23 Encounter Date of encounter: 06/20/23 Reasons for Services Signs and symptoms assessed: Reason for physical therapy: home safety and mobility, therapeutic exercises, gait/transfer training, assess need for DME, ADL training and energy conservation Reason for physical therapy: home safety and mobility, therapeutic exercises, gait/transfer training, assess need for DME, ADL training and energy conservation Overseeing Care: Michelle Oswald Homebound: Leaving the home is medically contraindicated at this time without the asist of a device and/or another person due th the listed conditions above and below. Reason homebound: unsteady gait / fall risk and weakness related to hospital stay Homebound supporting statement: Bed Mobility, Transfer Training,Gait Training, Therapeutic Activities, Therapeutic Exercise,Neuro Re-education, Patient Education, Safety,Balance Certification: Based on the above findings, I certify that this patient is confined to the home and needs intermittent fpc care, physical therapy and/or speech therapy, or continues to need occupational therapy. The patient is under my care, and I have initiated the establishment of the plan of care. The patient will be followed by a physician who will periodically review the plan of care. Time Spent With Patient Time: Total time managing care of this patient today ____ minutes.
--- NOTE | 2023-06-20 12:55 | MHC.CM.PN ---
DP: PT HAS BEEN MEDICALLY CLEARED FOR DC HOME WITH NEW [facility] FOR P.T. . [facility] NOTIFIED OF TODAY'S DC. SON WILL TRANSPORT HOME.
--- NOTE | 2023-06-21 20:03 | PC.NURSE ---
Due to pt being a difficult stick, lactic was unable to be drawn
--- NOTE | 2023-06-21 20:11 | PC.NURSE ---
Lactic acid draw attempted 06/17/23 at 2200 by multiple staff members. Lactic Acid was unable to be drawn due to pt being a hard stick.
== END 2023-06-20 13:44 | disposition home health service (06) | DRG 872 ==
LOC: HO.ED 17:31 → HO.EDOVER 23:28 → HO.S3 06-19 05:43
PROVIDERS: Physician Assistant Medical; Admitting Provider Internal Medicine; Emergency Provider Emergency Medicine; PCP Nurse Practitioner Adult Health; Visit Provider Family Medicine
DX: A41.9 Sepsis, unspecified organism (principal); N39.0 Urinary tract infection, site not specified; N17.9 Acute kidney failure, unspecified; R91.1 Solitary pulmonary nodule; R65.20 Severe sepsis without septic shock; K70.31 Alcoholic cirrhosis of liver with ascites; K76.82 Hepatic encephalopathy; N18.30 Chronic kidney disease, stage 3 unspecified; Z20.822 Contact with and (suspected) exposure to COVID-19; Z87.891 Personal history of nicotine dependence; Z79.899 Other long term (current) drug therapy
CPT/HCPCS: 0241U; 36415; 71045; 71260; 74177; 76705; 80048; 80053; 81001; 82042; 82140; 82150; 82550; 82570; 82803; 82945; 83605; 83615; 83690; 83735; 84157; 84484; 85025; 85027; 85610; 85730; 87040; 87070; 87073; 87086; 87205; 89051; 93005; 94640; 97162; 99285; J1956; J2020; P9047; Q9967

== ENCOUNTER → 2023-06-17 16:16 | Outpatient (BNV) | payer MEDICARE, SELFPAY | PROVIDERS: Admitting Provider Internal Medicine; Emergency Provider Emergency Medicine; Visit Provider Internal Medicine | DX: N17.9 Acute kidney failure, unspecified (principal); R53.1 Weakness | CPT/HCPCS: 93010 ==

== ENCOUNTER → 2023-06-17 23:23 | Outpatient (BNV) | payer MEDICARE, SELFPAY | PROVIDERS: Admitting Provider Internal Medicine; Emergency Provider Emergency Medicine; Visit Provider Internal Medicine | DX: A41.9 Sepsis, unspecified organism (principal); R65.20 Severe sepsis without septic shock; N17.9 Acute kidney failure, unspecified; N39.0 Urinary tract infection, site not specified; R53.1 Weakness | CPT/HCPCS: 99223; 99232; 99239; G0180 ==

== ENCOUNTER → 2023-06-17 23:23 | Outpatient (BNV) | payer MEDICARE, SELFPAY | PROVIDERS: Admitting Provider Internal Medicine; Emergency Provider Emergency Medicine; PCP Nurse Practitioner Adult Health; Visit Provider Internal Medicine | DX: K65.2 Spontaneous bacterial peritonitis (principal); N39.0 Urinary tract infection, site not specified; N17.9 Acute kidney failure, unspecified | CPT/HCPCS: 99222 ==

== ENCOUNTER 2023-06-27 15:50 | Outpatient (REF) | payer MEDICARE, SELFPAY ==
[2023-06-27 17:26] LABS: Anion Gap 14 (12-20); Blood Urea Nitrogen 42 mg/dL (9-16); Carbon Dioxide 18 mmol/L (22-29); Chloride 109 mmol/L (96-108); Estimated Glomerular Filt Rate 29; Glucose Random 125 mg/dL (60-115); Potassium 5.1 mmol/L (3.3-5.1); Sodium 136 mmol/L (135-145)
== END 2023-06-27 15:51 | disposition home or self-care (01) ==
LOC: HO.HVNA 15:50
PROVIDERS: Visit Provider Nurse Practitioner Adult Health
DX: N17.9 Acute kidney failure, unspecified (principal); N18.30 Chronic kidney disease, stage 3 unspecified; E87.1 Hypo-osmolality and hyponatremia
CPT/HCPCS: 36415; 80048